=== PATIENT | male | born 1945 | race African-American/Black ===

== ENCOUNTER → 2016-06-03 | Outpatient (CLI) | payer MEDICARE ==
[2016-06-03 13:01] LABS: BLOOD UREA NITROGEN 52 mg/dL (7-20); CALCIUM 10.2 mg/dL (8.4-10.2); CREATININE RESULT 1.92 mg/dL (0.52-1.25); GLUCOSE 163 mg/dL (75-110)
[2016-06-03 13:02] LABS: ANION GAP 13 (5-19); CARBON DIOXIDE 28 mmol/L (22-30); CHLORIDE 96 mmol/L (98-107); POTASSIUM 3.9 mmol/L (3.6-5.0); SODIUM 137.1 mmol/L (137-145)
== END ==
LOC: OD 11:38
PROVIDERS: ATTEND Family Medicine
DX: I10 Essential (primary) hypertension (principal)
CPT/HCPCS: 36415; 80048

== ENCOUNTER → 2016-11-23 | Outpatient (CLI) | payer MEDICARE ==
[2016-11-23 11:40] LABS: PROTHROMBIN TIME 17.9 SEC (11.4-15.4)
== END ==
LOC: OD 10:21
PROVIDERS: ATTEND Specialist
DX: I48.0 Paroxysmal atrial fibrillation (principal); Z79.01 Long term (current) use of anticoagulants
CPT/HCPCS: 36415; 85610

== ENCOUNTER → 2016-12-07 | Outpatient (CLI) | payer MEDICARE ==
[2016-12-07 10:25] LABS: PROTHROMBIN TIME 16.8 SEC (11.4-15.4)
== END ==
LOC: OD 08:59
PROVIDERS: ATTEND Specialist
DX: I48.0 Paroxysmal atrial fibrillation (principal); Z79.01 Long term (current) use of anticoagulants
CPT/HCPCS: 36415; 85610

== ENCOUNTER → 2016-12-15 | Outpatient (CLI) | payer MEDICARE ==
[2016-12-15 09:58] LABS: PROTHROMBIN TIME 20.8 SEC (11.4-15.4)
== END ==
LOC: OD 08:27
PROVIDERS: ATTEND Specialist
DX: I48.0 Paroxysmal atrial fibrillation (principal); Z79.01 Long term (current) use of anticoagulants
CPT/HCPCS: 36415; 85610

== ENCOUNTER → 2016-12-29 | Outpatient (CLI) | payer MEDICARE ==
--- NOTE | 2016-12-29 12:19 | RADIOLOGY REPORT (SQ) ---
EXAM DESCRIPTION: CHEST PA/LATERAL COMPLETED DATE/TIME: 12/29/2016 11:49 am REASON FOR STUDY: COUGH COMPARISON: 08/05/2014, 07/29/2014, 03/10/2009 EXAM PARAMETERS: NUMBER OF VIEWS: two views TECHNIQUE: Digital Frontal and Lateral radiographic views of the chest acquired. RADIATION DOSE: NA LIMITATIONS: none FINDINGS: LUNGS AND PLEURA: Mild pulmonary vascular prominence. Trace fluid in the major fissures a nd left lateral costophrenic sulcus. Few Kristi lines at the bases pole suggestive of mild fluid ove rload with interstitial edema. No dense consolidation worrisome for pneumonia. No pneumothorax. MEDIASTINUM AND HILAR STRUCTURES: No masses or contour abnormalities. HEART AND VASCULAR STRUCTURES: Stable mild cardiomegaly and left-sided pacemaker BONES: No acute findings. HARDWARE: None in the chest. OTHER: No other significant finding. IMPRESSION: Mild fluid overload or congestive failure TECHNICAL DOCUMENTATION: JOB ID: [id number] [employer]- All Rights Reserved
== END ==
LOC: OD 11:24
PROVIDERS: ATTEND Family Medicine
DX: R05 Cough (principal)
CPT/HCPCS: 71020

== ENCOUNTER → 2016-12-30 | Outpatient (CLI) | payer MEDICARE ==
[2016-12-30 11:31] LABS: PROTHROMBIN TIME 40.5 SEC (11.4-15.4)
== END ==
LOC: OD 10:22
PROVIDERS: ATTEND Specialist
DX: I48.0 Paroxysmal atrial fibrillation (principal); Z79.01 Long term (current) use of anticoagulants
CPT/HCPCS: 36415; 85610

== ENCOUNTER → 2017-08-22 | Outpatient (CLI) | payer MEDICARE ==
[2017-08-22 10:15] LABS: APPEARANCE,URINE CLEAR; BILIRUBIN,URINE NEGATIVE (NEGATIVE); COLOR,URINE YELLOW; GLUCOSE, URINE NEGATIVE (NEGATIVE); KETONES,URINE NEGATIVE (NEGATIVE); LEUKOCYTE ESTERASE,URINE NEGATIVE (NEGATIVE); NITRITE,URINE NEGATIVE (NEGATIVE); PROTEIN,URINE NEGATIVE (NEGATIVE); URINE SPECIFIC GRAVITY 1.011; UROBILINOGEN,URINE NEGATIVE mg/dL (<2.0)
[2017-08-22 10:27] LABS: HEMOGLOBIN 11.5 g/dL (13.5-17.0); MEAN CORPUSCULAR HEMOGLOBIN 27.2 pg (27.0-33.4); MEAN CORPUSCULAR HGB CONC 32.8 g/dL (32.0-36.0); MEAN CORPUSCULAR VOLUME 83 fl (80-97); PLATELET COUNT 245 10^3/uL (150-450); RED BLOOD COUNT 4.21 10^6/uL (4.35-5.55); RED CELL DISTRIBUTION WIDTH 12.6 % (11.5-14.0); WHITE BLOOD COUNT 9.7 10^3/uL (4.0-10.5)
[2017-08-22 10:48] LABS: ALANINE AMINOTRANSFERASE 18 U/L (21-72); ALKALINE PHOSPHATASE 82 U/L (38-126); ANION GAP 13 (5-19); ASPARTATE AMINO TRANSFERASE 15 U/L (17-59); BILIRUBIN,DIRECT 0.3 mg/dL (0.0-0.4); BILIRUBIN,TOTAL 0.3 mg/dL (0.2-1.3); BLOOD UREA NITROGEN 46 mg/dL (7-20); CARBON DIOXIDE 23 mmol/L (22-30); CHLORIDE 104 mmol/L (98-107); GLUCOSE 112 mg/dL (75-110); POTASSIUM 4.8 mmol/L (3.6-5.0); SODIUM 140.4 mmol/L (137-145); TOTAL PROTEIN 7.7 g/dL (6.3-8.2)
== END ==
LOC: OD 09:21
PROVIDERS: ATTEND Internal Medicine Nephrology
DX: N18.3 Chronic kidney disease, stage 3 (moderate) (principal); E87.6 Hypokalemia; I50.9 Heart failure, unspecified
CPT/HCPCS: 36415; 80053; 81001; 85027

== ENCOUNTER → 2017-09-29 | Outpatient (CLI) | payer MEDICARE ==
[2017-09-29 12:03] LABS: HEMATOCRIT 36.5 % (37.9-51.0); HEMOGLOBIN 12.1 g/dL (13.5-17.0); MEAN CORPUSCULAR HEMOGLOBIN 27.7 pg (27.0-33.4); MEAN CORPUSCULAR HGB CONC 33.1 g/dL (32.0-36.0); MEAN CORPUSCULAR VOLUME 84 fl (80-97); PLATELET COUNT 236 10^3/uL (150-450); RED BLOOD COUNT 4.36 10^6/uL (4.35-5.55); RED CELL DISTRIBUTION WIDTH 12.9 % (11.5-14.0); WHITE BLOOD COUNT 9.8 10^3/uL (4.0-10.5)
[2017-09-29 12:13] LABS: APPEARANCE,URINE CLEAR; BILIRUBIN,URINE NEGATIVE (NEGATIVE); COLOR,URINE YELLOW; GLUCOSE, URINE NEGATIVE (NEGATIVE); KETONES,URINE NEGATIVE (NEGATIVE); LEUKOCYTE ESTERASE,URINE NEGATIVE (NEGATIVE); NITRITE,URINE NEGATIVE (NEGATIVE); PROTEIN,URINE NEGATIVE (NEGATIVE); URINE SPECIFIC GRAVITY 1.009; UROBILINOGEN,URINE NEGATIVE mg/dL (<2.0)
[2017-09-29 12:30] LABS: ANION GAP 12 (5-19); BLOOD UREA NITROGEN 39 mg/dL (7-20); CALCIUM 9.9 mg/dL (8.4-10.2); CARBON DIOXIDE 26 mmol/L (22-30); CHLORIDE 103 mmol/L (98-107); GLUCOSE 141 mg/dL (75-110); SODIUM 141.1 mmol/L (137-145)
== END ==
LOC: OD 11:22
PROVIDERS: ATTEND Internal Medicine Nephrology
DX: E11.22 Type 2 diabetes mellitus with diabetic chronic kidney disease (principal); I13.0 Hypertensive heart and chronic kidney disease with heart failure and stage 1 through stage 4 chronic kidney disease, or unspecified chronic kidney disease; N18.3 Chronic kidney disease, stage 3 (moderate); I50.9 Heart failure, unspecified; D64.9 Anemia, unspecified
CPT/HCPCS: 36415; 80048; 81001; 83735; 85027

== ENCOUNTER → 2018-02-14 | Outpatient (CLI) | payer MEDICARE ==
--- NOTE | 2018-02-14 16:42 | RADIOLOGY REPORT (SQ) ---
EXAM DESCRIPTION: CHEST PA/LATERAL COMPLETED DATE/TIME: 02/14/2018 3:52 pm REASON FOR STUDY: CHRONIC SYSTOLIC (CONGESTIVE) HEART FAILURE I50.22 CHRONIC SYSTOLIC (CONGESTIVE) HEART FAILURE COMPARISON: 08/05/2014 NUMBER OF VIEWS: Two view TECHNIQUE: Frontal and lateral radiographic images of the chest acquired. LIMITATIONS: None. FINDINGS: LUNGS AND PLEURA: Chronic interstitial changes. No evidence of pulmonary edema or pneumon ia. MEDIASTINUM AND HILAR STRUCTURES: Stable heart size and mediastinal structures. HEART AND VASCULAR STRUCTURES: Stable appearance. SUPPORT DEVICES: Unchanged position of defibrillator. BONES: No acute findings. OTHER: No other significant finding. IMPRESSION: Cardiomegaly. No acute findings. TECHNICAL DOCUMENTATION: JOB ID: [id number] [employer]- All Rights Reserved Reading location - IP/workstation name: [email or web address]
== END ==
LOC: OD 15:26
PROVIDERS: ATTEND Family Medicine
DX: I50.22 Chronic systolic (congestive) heart failure (principal); I51.7 Cardiomegaly
CPT/HCPCS: 71046

== ENCOUNTER → 2018-02-20 | Outpatient (CLI) | payer MEDICARE ==
[2018-02-20 11:59] LABS: ANION GAP 12 (5-19); BLOOD UREA NITROGEN 53 mg/dL (7-20); CALCIUM 9.5 mg/dL (8.4-10.2); CARBON DIOXIDE 26 mmol/L (22-30); CHLORIDE 103 mmol/L (98-107); GLUCOSE 100 mg/dL (75-110); POTASSIUM 4.5 mmol/L (3.6-5.0); SODIUM 141.3 mmol/L (137-145)
== END ==
LOC: OD 10:49
PROVIDERS: ATTEND Family Medicine
DX: I50.22 Chronic systolic (congestive) heart failure (principal)
CPT/HCPCS: 36415; 80048

== ENCOUNTER → 2018-03-30 | Outpatient (CLI) | payer MEDICARE ==
[2018-03-30 15:48] LABS: ANION GAP 8 (5-19); BLOOD UREA NITROGEN 40 mg/dL (7-20); CALCIUM 9.5 mg/dL (8.4-10.2); CARBON DIOXIDE 28 mmol/L (22-30); CHLORIDE 101 mmol/L (98-107); GLUCOSE 268 mg/dL (75-110); SODIUM 137.3 mmol/L (137-145)
== END ==
LOC: OD 14:52
PROVIDERS: ATTEND Internal Medicine Nephrology
DX: N18.3 Chronic kidney disease, stage 3 (moderate) (principal); I50.9 Heart failure, unspecified; E87.5 Hyperkalemia
CPT/HCPCS: 36415; 80048; 83735

== ENCOUNTER → 2018-05-09 | Outpatient (CLI) | payer MEDICARE ==
--- NOTE | 2018-05-09 13:51 | RADIOLOGY REPORT (SQ) ---
EXAM DESCRIPTION: CHEST PA/LATERAL COMPLETED DATE/TIME: 05/09/2018 1:39 pm REASON FOR STUDY: CHRONIC SYSTOLIC (CONGESTIVE) HEART FAILURE COMPARISON: 02/14/2018 EXAM PARAMETERS: NUMBER OF VIEWS: two views TECHNIQUE: Digital Frontal and Lateral radiographic views of the chest acquired. RADIATION DOSE: NA LIMITATIONS: none FINDINGS: LUNGS AND PLEURA: No opacities, masses or pneumothorax. No pleural effusion. MEDIASTINUM AND HILAR STRUCTURES: No masses or contour abnormalities. HEART AND VASCULAR STRUCTURES: Mild enlarged cardiac silhouette, stable. Tortuous atherosclerotic th oracic aorta. BONES: No acute findings. HARDWARE: Left-sided cardiac pacer/defibrillator with leads overlying right atrium and right ventricl e. OTHER: No other significant finding. IMPRESSION: Stable enlarged cardiac silhouette without evidence of acute cardiopulmonary process. TECHNICAL DOCUMENTATION: JOB ID: [id number] [employer]- All Rights Reserved Reading location - IP/workstation name: [email or web address]
== END ==
LOC: OD 13:19
PROVIDERS: ATTEND Physician Assistant
DX: I50.22 Chronic systolic (congestive) heart failure (principal)
CPT/HCPCS: 71046

== ENCOUNTER 2018-06-18 17:56 | Inpatient (IN) | payer MEDICARE ==
[2018-06-18] MEDS ORDERED: NORMAL SALINE 1000 ML 1,000 ML IV ONE (19:45)
[2018-06-18] MEDS ORDERED: INSULIN REG, HUMAN 100 UNIT/ML 3 ML VIAL (PYX) IV ONE (19:45)
[2018-06-18] MEDS ORDERED: KETOROLAC TROMETHAMINE INJ/PF 30 MG/1 ML SDV IV ONE (19:45)
--- NOTE | 2018-06-18 19:47 | ER Document Report ---
ED Medical Screen (RME) - General Chief Complaint: Abdominal Pain Stated Complaint: STOMACH PAIN Time Seen by Provider: 06/18/18 19:44 Primary Care Provider: TONEY DOVER PA [Primary Care Provider] - Follow up as needed Mode of Arrival: Medic Information source: Patient, Relative TRAVEL OUTSIDE OF THE [place] IN LAST 30 DAYS: No - HPI Patient complains to provider of: abd pain Onset: This morning - Pt. with onset of generalized abd pain starting earlier this am. FSBS was 525 in triage - Related Data Allergies/Adverse Reactions: No Known Allergies Allergy (Verified 07/29/14 08:37) Past Medical History - Past Medical History Cardiac Medical History: Reports: Hx Congestive Heart Failure, Hx Coronary Artery Disease, Hx Hypercholesterolemia, Hx Hypertension Denies: Hx Heart Attack Pulmonary Medical History: Denies: Hx Asthma, Hx Bronchitis, Hx COPD, Hx Pneumonia Neurological Medical History: Denies: Hx Cerebrovascular Accident, Hx Seizures Endocrine Medical History: Reports: Hx Diabetes Mellitus Type 1 Musculoskeltal Medical History: Reports Hx Arthritis - OSTEOARTHRITIS - Immunizations Hx Diphtheria, Pertussis, Tetanus Vaccination: Yes Physical Exam - Vital signs Vitals: Temp Pulse Resp BP Pulse Ox 97.8 F 73 20 99/70 L 99 06/18/18 18:31 06/18/18 18:31 06/18/18 18:31 06/18/18 18:31 06/18/18 18:31 Course - Vital Signs Vital signs: Temp Pulse Resp BP Pulse Ox 97.3 F 69 18 116/68 100 06/18/18 19:41 06/18/18 19:41 06/18/18 19:41 06/18/18 19:41 06/18/18 19:41 Doctor's Discharge - Discharge Referrals: TONEY DOVER PA [Primary Care Provider] - Follow up as needed
[2018-06-18 20:48] LABS: ABSOLUTE BASOPHILS # (AUTO) 0.1 10^3/uL (0.0-0.2); ABSOLUTE LYMPHOCYTES (AUTO) 0.8 10^3/uL (0.5-4.7); ABSOLUTE MONOCYTES (AUTO) 0.5 10^3/uL (0.1-1.4); ABSOLUTE NEUT (AUTO) 8.1 10^3/uL (1.7-8.2); BASOPHILS % (AUTO) 0.8 % (0-2); EOSINOPHILS % (AUTO) 0.2 % (0-6); HEMATOCRIT 45.6 % (37.9-51.0); HEMOGLOBIN 15.1 g/dL (13.5-17.0); LYMPHOCYTES % (AUTO) 8.4 % (13-45); MEAN CORPUSCULAR HEMOGLOBIN 28.8 pg (27.0-33.4); MEAN CORPUSCULAR VOLUME 87 fl (80-97); MONOCYTES % (AUTO) 5.4 % (3-13); PLATELET COUNT 267 10^3/uL (150-450); RED BLOOD COUNT 5.23 10^6/uL (4.35-5.55); RED CELL DISTRIBUTION WIDTH 15.2 % (11.5-14.0); SEGMENTED NEUTROPHILS % (AUTO) 85.2 % (42-78); TOTAL CELLS COUNTED % (AUTO) 100 %; WHITE BLOOD COUNT 9.5 10^3/uL (4.0-10.5)
[2018-06-18 21:16] LABS: ALANINE AMINOTRANSFERASE 26 U/L (21-72); ALBUMIN 4.4 g/dL (3.5-5.0); ALKALINE PHOSPHATASE 115 U/L (38-126); ANION GAP 11 (5-19); ASPARTATE AMINO TRANSFERASE 50 U/L (17-59); BILIRUBIN,DIRECT 0.7 mg/dL (0.0-0.4); BILIRUBIN,TOTAL 1.5 mg/dL (0.2-1.3); BLOOD UREA NITROGEN 62 mg/dL (7-20); CALCIUM 10.1 mg/dL (8.4-10.2); CARBON DIOXIDE 26 mmol/L (22-30); CHLORIDE 96 mmol/L (98-107); LIPASE 75.7 U/L (23-300); POTASSIUM 5.3 mmol/L (3.6-5.0); SODIUM 133.2 mmol/L (137-145); TOTAL PROTEIN 8.8 g/dL (6.3-8.2)
[2018-06-18 21:25] LABS: APPEARANCE,URINE CLEAR; BILIRUBIN,URINE NEGATIVE (NEGATIVE); COLOR,URINE STRAW; GLUCOSE, URINE >=500 mg/dL (NEGATIVE); KETONES,URINE NEGATIVE (NEGATIVE); LEUKOCYTE ESTERASE,URINE NEGATIVE (NEGATIVE); NITRITE,URINE NEGATIVE (NEGATIVE); PROTEIN,URINE NEGATIVE (NEGATIVE); URINE SPECIFIC GRAVITY 1.007; UROBILINOGEN,URINE NEGATIVE mg/dL (<2.0)
[2018-06-18 21:28] LABS: GLUCOSE 431 mg/dL (75-110)
[2018-06-18] MEDS ORDERED: ONDANSETRON HCL INJ/PF 4 MG/2 ML SDV IV ONE (21:28)
[2018-06-18] MEDS ORDERED: HUM INSULIN NPH/REG INSULIN HM 100 UNIT/1 ML 3 ML SUBCUT ONE (22:00)
[2018-06-18] MEDS ORDERED: PROMETHAZINE HCL INJ 25 MG/1 ML VIAL IM ONE (22:01)
--- NOTE | 2018-06-19 00:15 | ER Document Report ---
ED General - General Chief Complaint: Abdominal Pain Stated Complaint: STOMACH PAIN Time Seen by Provider: 06/18/18 19:44 Mode of Arrival: Medic Notes: Patient is a 73-year-old male who presents with complaint of abdominal pain and vomiting. Pain is in the center and left side of the abdomen. Pain started earlier today. He has received medications from triage and says his pain is relieved. He still has some nausea. No fevers. No diarrhea. No blood in his vomit emesis. No blood in his stool. He is a diabetic. He does have chronic renal insufficiency. [facility] Patient has had previous partial colectomy as well as cholecystectomy. TRAVEL OUTSIDE OF THE [place] IN LAST 30 DAYS: No - Related Data Allergies/Adverse Reactions: No Known Allergies Allergy (Verified 07/29/14 08:37) Past Medical History - General Information source: Patient, Relative - Social History Smoking Status: Never Smoker Frequency of alcohol use: None Drug Abuse: None Family History: Reviewed & Not Pertinent Patient has suicidal ideation: No Patient has homicidal ideation: No - Past Medical History Cardiac Medical History: Reports: Hx Atrial Fibrillation, Hx Congestive Heart Failure, Hx Coronary Artery Disease, Hx Hypercholesterolemia, Hx Hypertension Denies: Hx Heart Attack Pulmonary Medical History: Denies: Hx Asthma, Hx Bronchitis, Hx COPD, Hx Pneumonia Neurological Medical History: Denies: Hx Cerebrovascular Accident, Hx Seizures Endocrine Medical History: Reports: Hx Diabetes Mellitus Type 1, Hx Diabetes Mellitus Type 2 Renal/ Medical History: Denies: Hx Peritoneal Dialysis Musculoskeletal Medical History: Reports Hx Arthritis - OSTEOARTHRITIS - Immunizations Hx Diphtheria, Pertussis, Tetanus Vaccination: Yes Review of Systems - Review of Systems Notes: My Normal Review Basic REVIEW OF SYSTEMS: CONSTITUTIONAL : Denies fever, chills, or sweats. Denies recent illness. EENT: Denies eye, ear, throat, or mouth pain or symptoms. Denies nasal or sinus congestion. CARDIOVASCULAR: Denies chest pain. RESPIRATORY: Denies cough, cold, or chest congestion. Denies shortness of breath, difficulty breathing, or wheezing. GASTROINTESTINAL: abdominal pain. Vomiting. GENITOURINARY: Denies difficulty urinating, painful urination, burning, frequency, or blood in urine. MUSCULOSKELETAL: Denies neck or back pain or joint pain or swelling. SKIN: Denies rash or skin lesions. NEUROLOGICAL: Denies altered mental status or loss of consciousness. Denies headache. Denies weakness or paralysis or loss of use of either side. Denies problems with gait or speech. Denies sensory or motor loss. ALL OTHER SYSTEMS REVIEWED AND NEGATIVE. Physical Exam - Vital signs Vitals: Temp Pulse Resp BP Pulse Ox 97.8 F 73 20 99/70 L 99 06/18/18 18:31 06/18/18 18:31 06/18/18 18:31 06/18/18 18:31 06/18/18 18:31 - Notes Notes: General Appearance: Well nourished, alert, cooperative, no acute distress, no obvious discomfort. Vitals: reviewed, See vital signs table. Head: no swelling or tenderness to the head Eyes: PERRL, EOMI, Conjuctiva clear Mouth: No decreasd moisture Throat: No tonsillar inflammation, No airway obstruction, No lymphadenopathy Neck: Supple, no neck tenderness, No thyromegaly Lungs: No wheezing, No rales, No rhonci, No accessory muscle use, good air exchange bilaterally. Heart: Normal rate, Regular rythm, No murmur, no rub Abdomen: Normal BS, soft, No rigidity, no reproducible abdominal tenderness to palpation., No guarding, no rebound, no abdominal masses, no organomegaly. Surgical scars on abdomen from previous surgeries. Extremities: strength 5/5 in all extremities, good pulses in all extremities, no swelling or tenderness in the extremities, no edema. Skin: warm, dry, appropriate color, no rash Neuro: speech clear, oriented x 3, normal affect, responds appropriately to questions. Course - Re-evaluation Re-evalutation: 06/19/18 00:15 On reevaluation patient is pain-free and his nausea is gone. I am awaiting his repeat BMP to make sure this continues to look appropriate with improvement of his blood sugar and improvement of his renal function. 06/19/18 05:21 Patient is still pain-free and his nausea is improved. I am concerned that his renal function did not improve and the repeat BMP and is actually worsened. He has what appears to be acute on chronic renal failure. Blood sugar start to improve. Feel the patient needs continued rehydration to help fix his renal failure. I cannot give him more boluses quickly as the patient has history of CHF with ejection fraction of only 20% therefore I feel that he requires slow IV rehydration. I therefore called and spoke with Dr. Tran who agrees to accept the patient will have Dr. Vaughn for continued management and treatment of the patient's symptoms and acute renal failure and hyperglycemia. Dictation of this chart was performed using voice recognition software; therefore, there may be some unintended grammatical errors. - Vital Signs Vital signs: Temp Pulse Resp BP Pulse Ox 98.1 F 69 15 105/85 97 06/19/18 01:02 06/18/18 19:41 06/19/18 03:01 06/19/18 03:00 06/19/18 03:01 - Laboratory Result Diagrams: 06/18/18 20:30 06/18/18 23:45 Laboratory results interpreted by me: 06/18/18 06/18/18 06/18/18 20:30 20:30 20:30 RDW 15.2 H Seg Neutrophils % 85.2 H Lymphocytes % 8.4 L Sodium 133.2 L Potassium 5.3 H Chloride 96 L BUN 62 H Creatinine 2.45 H Est GFR ( Amer) 32 L Est GFR (Non-Af Amer) 26 L Glucose 431 H* POC Glucose Total Bilirubin 1.5 H Direct Bilirubin 0.7 H Total Protein 8.8 H Urine Glucose (UA) >=500 H Urine Blood SMALL H 06/18/18 06/18/18 06/18/18 21:17 23:06 23:45 RDW Seg Neutrophils % Lymphocytes % Sodium 132.8 L Potassium 5.5 H Chloride BUN 58 H Creatinine 2.56 H Est GFR ( Amer) 30 L Est GFR (Non-Af Amer) 25 L Glucose 367 H POC Glucose 360 H 333 H Total Bilirubin Direct Bilirubin Total Protein Urine Glucose (UA) Urine Blood - EKG Interpretation by Me Additional EKG results interpreted by me: 06/19/18 00:25 EKG is reviewed and interpreted by me. EKG shows sinus rhythm with rate [address] segment elevation or depression. Occasional PVC. Portable is prolonged. QRS duration slightly prolonged. QTc interval is prolonged. No acute changes in comparison to EKG from September 04, 2014. 06/19/18 00:27 Discharge - Discharge Clinical Impression: Acute on chronic renal failure Qualifiers: Acute renal failure type: unspecified Chronic kidney disease stage: unspecified stage Qualified Code(s): N17.9 - Acute kidney failure, unspecified Vomiting Qualifiers: Vomiting type: unspecified Vomiting Intractability: non-intractable Nausea presence: with nausea Qualified Code(s): R11.2 - Nausea with vomiting, uns pecified Abdominal pain Qualifiers: Abdominal location: left upper quadrant Qualified Code(s): R10.12 - Left upper quadrant pain Condition: Stable Disposition: ADMITTED OBSERVATION Admitting Provider: Vaughn Unit Admitted: Telemetry
[2018-06-19 00:16] LABS: ANION GAP 8 (5-19); BLOOD UREA NITROGEN 58 mg/dL (7-20); CALCIUM 9.4 mg/dL (8.4-10.2); CARBON DIOXIDE 25 mmol/L (22-30); CHLORIDE 100 mmol/L (98-107); GLUCOSE 367 mg/dL (75-110); POTASSIUM 5.5 mmol/L (3.6-5.0); SODIUM 132.8 mmol/L (137-145)
[2018-06-19] MEDS ORDERED: NORMAL SALINE 1000 ML 1,000 ML IV ONE ×2 (00:32→09:30)
--- NOTE | 2018-06-19 01:25 | EKG REPORT ---
SEVERITY:- ABNORMAL ECG - SINUS RHYTHM VENTRICULAR PREMATURE COMPLEX FIRST DEGREE AV BLOCK INCOMPLETE LEFT BUNDLE BRANCH BLOCK : Confirmed by: Ginny Weber MD 19-Jun-2018 01:24:39
[2018-06-19] MEDS ORDERED: ACETAMINOPHEN 325 MG TABLET PO PRN ×2 (05:24→12:37)
[2018-06-19] MEDS ORDERED: DEXTROSE 40% GEL 15 GM TUBE PO PRN ×2 (07:21)
[2018-06-19] MEDS ORDERED: GLUCAGON,HUMAN RECOMB 1 MG INJ IM PRN (07:21)
[2018-06-19] MEDS ORDERED: DEXTROSE 50%-WATER 25 GM/50 ML DISP.SYRIN IV PRN ×2 (07:21)
[2018-06-19] MEDS: INSULIN LISPRO 100 UNIT/ML 3 ML VIAL SUBCUT SCH (08:15)
--- NOTE | 2018-06-19 09:19 | RADIOLOGY REPORT (SQ) ---
EXAM DESCRIPTION: U/S ABDOMEN COMPLETE W/O DOP COMPLETED DATE/TIME: 06/19/2018 8:57 am REASON FOR STUDY: abdominal pain/gallbaldeer diseses R10.84 GENERALIZED ABDOMINAL PAIN COMPARISON: None. TECHNIQUE: Dynamic and static grayscale images acquired of the abdomen and recorded on PACS. Additio nal selected color Doppler and spectral images recorded. Note: Study does not meet criteria for complete doppler/duplex scan LIMITATIONS: Examination is limited due to bowel gas. FINDINGS: PANCREAS: The pancreas is not visualized due to overlying bowel gas. LIVER: Fatty liver. The liver measures 16.2 cm in length, normal size. LIVER VASCULATURE: Normal directional flow of the main portal vein and hepatic veins. GALLBLADDER: Gallstones and gallbladder sludge. The gallbladder is dilated. The gallbladder wall m easures 2.2 mm, normal wall thickness. No pericholecystic fluid. ULTRASOUND-DETECTED MULLEN'S SIGN: Negative. INTRAHEPATIC DUCTS AND COMMON DUCT: CBD measures 6.5 mm in diameter, upper limits of normal. The int rahepatic ducts normal caliber. No filling defects. INFERIOR VENA CAVA: Normal flow. AORTA: The proximal abdominal aorta is obscured by overlying bowel gas. The mid segment measures 1. 1 cm in diameter and distal segment measures 1.0 cm in diameter. RIGHT KIDNEY: The right kidney measures 10.0 x 4.6 x 4.9 cm, normal size. Normal echogenicity. N o solid or suspicious masses. No hydronephrosis. No calcifications. PERITONEAL AND PLEURAL SPACES: No ascites or effusions. OTHER: No other significant finding. IMPRESSION: 1. The pancreas and proximal abdominal aorta are obscured by overlying bowel gas. 2. Gallstones and gallbladder sludge. The gallbladder is dilated. 3. Fatty liver. TECHNICAL DOCUMENTATION: JOB ID: [id number] [employer]- All Rights Reserved Reading location - IP/workstation name: [email or web address]
[2018-06-19] MEDS ORDERED: (PENDING PHARMACY ID) (Acetaminophen [Tylenol] 650 MG) PO PRN (11:53)
[2018-06-19] MEDS ORDERED: (PENDING PHARMACY ID) (Nitroglycerin [Nitrostat] 0.3 MG) SL PRN (11:53)
--- NOTE | 2018-06-19 11:53 | PDOC H&P ---
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%'s with a long-standing [facility] just discharged last week with a history of type 2 diabetes history of the chronic kidney disease with history of the defibrillator and history of the gallbladder disease came to the emergency department with the complaining of abdominal pain nausea and vomiting started yesterday and not feeling well In the emergency department his initial workup with the creatinine was 2.5 and patient's potassium was 5.5 and the ER physicians thought may be a kidney problem but when I saw the patient's the patient's kidney problem is pretty much baseline creatinine patient have underlying gallbladder disease which is gallstone but unable to go for any surgery due to the multiple cardiac issues Patient's denied any chest pain denied any shortness of the breath At this point decided to further evaluate will order the CT scan of the abdomen and pelvis and ultrasound to rule out any underlying gallbladder disorders which causing the patient's symptoms and other etiology We will consult the cardiology and nephrology with the patient's significant comorbidity Past Medical History Cardiac Medical History: Reports: Atrial Fibrillation, Congestive Heart Failure, Coronary Artery Disease, Hyperlipidema, Hypertension Denies: Myocardial Infarction Pulmonary Medical History: Denies: Asthma, Bronchitis, Chronic Obstructive Pulmonary Disease (COPD), Pneumonia Neurological Medical History: Denies: Seizures Endocrine Medical History: Reports: Diabetes Mellitus Type 2 Renal/ Medical History: Reports: Chronic Kidney Disease GI Medical History: Reports: Gastroesophageal Reflux Disease Musculoskeltal Medical History: Reports: Arthritis - OSTEOARTHRITIS Psychiatric Medical History: Reports: Depression Hematology: Reports: Anemia Past Surgical History Past Surgical History: Reports: Cardiac Catheterization, Internal Defibrillator Social History Smoking Status: Never Smoker Frequency of Alcohol Use: None Hx Recreational Drug Use: No Hx Prescription Drug Abuse: No Family History Family History: Reviewed & Not Pertinent Parental Family History Reviewed: Yes Children Family History Reviewed: Yes Sibling(s) Family History Reviewed.: Yes Medication/Allergy Home Medications: Aspirin 81 mg PO DAILY 07/29/14 Levothyroxine Sodium 125 mcg PO DAILY 07/29/14 Montelukast Sodium 10 mg PO DAILY 07/29/14 Nitroglycerin [Nitrostat] 0.3 mg SL ASDIR PRN 07/29/14 Simvastatin 20 mg PO QHS 07/29/14 Tiotropium [place] [Spiriva Handihaler 18 mcg/dose (30 Dose)] 1 cap IH DAILY 07/29/14 Acetaminophen [Tylenol] 650 mg PO Q6HP PRN 06/19/18 Amiodarone HCl [Cordarone 200 mg Tablet] 200 mg PO DAILY 06/19/18 Apixaban [Eliquis 5 mg Tablet] 5 mg PO Q12 06/19/18 Bisoprolol Fumarate [Zebeta 5 mg Tablet] 2.5 mg PO DAILY 06/19/18 Docusate Sodium [Colace] 100 mg PO DAILY 06/19/18 Hydralazine HCl [Apresoline 25 mg Tablet] 12.5 mg PO Q8H 06/19/18 Insulin NPH Hum/Reg Insulin Hm [Humulin 70/30 Kwikpen] 15 units SQ QPM 06/19/18 Insulin NPH Hum/Reg Insulin Hm [Humulin 70/30 Kwikpen] 18 units SQ QAM 06/19/18 Pantoprazole Sodium [Protonix] 40 mg PO DAILY 06/19/18 Potassium Chloride [Klor-Con M20] 60 meq PO Q12 06/19/18 Sitagliptin Phosphate [Januvia 50 mg Tablet] 50 mg PO DAILY 06/19/18 Torsemide [Demadex 20 mg Tablet] 80 mg PO BID 06/19/18 Allergies/Adverse Reactions: No Known Allergies Allergy (Verified 07/29/14 08:37) Review of Systems Constitutional: ABSENT: chills, fever(s), headache(s), weight gain, weight loss Eyes: ABSENT: visual disturbances Ears: ABSENT: hearing changes Cardiovascular: ABSENT: chest pain, dyspnea on exertion, edema, orthropnea, palpitations Respiratory: ABSENT: cough, hemoptysis Gastrointestinal: PRESENT: abdominal pain, nausea, vomiting. ABSENT: constipation, diarrhea, hematemesis, hematochezia Genitourinary: ABSENT: dysuria, hematuria Musculoskeletal: ABSENT: joint swelling Integumentary: ABSENT: rash, wounds Neurological: ABSENT: abnormal gait, abnormal speech, confusion, dizziness, focal weakness, syncope Psychiatric: ABSENT: anxiety, depression, homidical ideation, suicidal ideation Endocrine: ABSENT: cold intolerance, heat intolerance, menstrual abnormalities, polydipsia, polyuria Hematologic/Lymphatic: ABSENT: easy bleeding, easy bruising, lymphadenopathy Physical Exam Vital Signs: Temp Pulse Resp BP Pulse Ox 98.3 F 69 17 112/78 99 06/19/18 06:17 06/18/18 19:41 06/19/18 10:01 06/19/18 10:01 06/19/18 10:01 Intake & Output 06/18/18 06/19/18 06/20/18 06:59 06:59 06:59 Intake Total 1000 1000 Balance 1000 1000 Weight 87.1 kg General appearance: PRESENT: no acute distress, well-developed, well-nourished Head exam: PRESENT: atraumatic, normocephalic Eye exam: PRESENT: conjunctiva pink, EOMI, PERRLA. ABSENT: scleral icterus Ear exam: PRESENT: normal external ear exam Mouth exam: PRESENT: moist, tongue midline Neck exam: PRESENT: full ROM. ABSENT: carotid bruit, JVD, lymphadenopathy, thyromegaly Respiratory exam: PRESENT: clear to auscultation erasmo Cardiovascular exam: ABSENT: diastolic murmur, rubs, systolic murmur Pulses: PRESENT: normal dorsalis pedis pul, +2 pedal pulses bilateral Vascular exam: PRESENT: normal capillary refill GI/Abdominal exam: PRESENT: normal bowel sounds, soft. ABSENT: distended, guarding, mass, organolmegaly, rebound, tenderness Rectal exam: PRESENT: deferred Extremities exam: ABSENT: pedal edema Musculoskeletal exam: PRESENT: ambulatory Neurological exam: PRESENT: alert, awake, oriented to person, oriented to place, oriented to time, oriented to situation, CN II-XII grossly intact. ABSENT: motor sensory deficit Psychiatric exam: PRESENT: appropriate affect, normal mood. ABSENT: homicidal ideation, suicidal ideation Skin exam: PRESENT: dry, intact, warm. ABSENT: cyanosis, rash Results Laboratory Results: 06/18/18 20:30 06/18/18 23:45 06/18/18 06/18/18 06/18/18 20:30 20:30 20:30 WBC 9.5 RBC 5.23 Hgb 15.1 Hct 45.6 MCV 87 MCH 28.8 MCHC 33.0 RDW 15.2 H Plt Count 267 Seg Neutrophils % 85.2 H Lymphocytes % 8.4 L Monocytes % 5.4 Eosinophils % 0.2 Basophils % 0.8 Absolute Neutrophils 8.1 Absolute Lymphocytes 0.8 Absolute Monocytes 0.5 Absolute Eosinophils 0.0 Absolute Basophils 0.1 Sodium 133.2 L Potassium 5.3 H Chloride 96 L Carbon Dioxide 26 Anion Gap 11 BUN 62 H Creatinine 2.45 H Est GFR ( Amer) 32 L Est GFR (Non-Af Amer) 26 L Glucose 431 H* Calcium 10.1 Total Bilirubin 1.5 H AST 50 ALT 26 Alkaline Phosphatase 115 Total Protein 8.8 H Albumin 4.4 Lipase 75.7 Urine Color STRAW Urine Appearance CLEAR Urine pH 5.0 Ur Specific [place] 1.007 Urine Protein NEGATIVE Urine Glucose (UA) >=500 H Urine Ketones NEGATIVE Urine Blood SMALL H Urine Nitrite NEGATIVE Ur Leukocyte Esterase NEGATIVE Urine WBC (Auto) 0 Urine RBC (Auto) 1 06/18/18 23:45 WBC RBC Hgb Hct MCV MCH MCHC RDW Plt Count Seg Neutrophils % Lymphocytes % Monocytes % Eosinophils % Basophils % Absolute Neutrophils Absolute Lymphocytes Absolute Monocytes Absolute Eosinophils Absolute Basophils Sodium 132.8 L Potassium 5.5 H Chloride 100 Carbon Dioxide 25 Anion Gap 8 BUN 58 H Creatinine 2.56 H Est GFR ( Amer) 30 L Est GFR (Non-Af Amer) 25 L Glucose 367 H Calcium 9.4 Total Bilirubin AST ALT Alkaline Phosphatase Total Protein Albumin Lipase Urine Color Urine Appearance Urine pH Ur Specific [place] Urine Protein Urine Glucose (UA) Urine Ketones Urine Blood Urine Nitrite Ur Leukocyte Esterase Urine WBC (Auto) Urine RBC (Auto) Impressions: Abdomen Ultrasound 06/19/18 00:00 IMPRESSION: 1. The pancreas and proximal abdominal aorta are obscured by overlying bowel gas. 2. Gallstones and gallbladder sludge. The gallbladder is dilated. 3. Fatty liver. Assessment & Plan - Diagnosis (1) Abdominal pain Qualifiers: Abdominal location: left upper quadrant Qualified Code(s): R10.12 - Left upper quadrant pain Is this a current diagnosis for this admission?: Yes Plan: Likely underlying gallbladder disease We will get the ultrasound for the gallbladder and CT scan of the abdomen and pelvis Consult to general surgery for further evaluations (2) Acute on chronic renal failure Qualifiers: Acute renal failure type: unspecified Chronic kidney disease stage: unspecified stage Qualified Code(s): N17.9 - Acute kidney failure, unspecified; N18.9 - Chronic kidney disease, unspecified Is this a current diagnosis for this admission?: Yes Plan: Patient is currently taking the torsemide 60 mg twice a day and potassium is We hold the potassiums Consult the nephrology (3) Afib Qualifiers: Atrial fibrillation type: chronic Qualified Code(s): I48.2 - Chronic atrial fibrillation Is this a current diagnosis for this admission?: Yes Plan: Patient is currently on Eliquis (4) CAD (coronary artery disease) Qualifiers: Coronary Disease-Associated Artery/Lesion type: [place] artery Associated angina: with other forms of angina Is this a current diagnosis for this admission?: Yes Plan: Is currently admitting in the [facility] see the cardiology over there (5) CHF (congestive heart failure) Qualifiers: Heart failure type: combined systolic and diastolic Heart failure chronicity: chronic Qualified Code(s): I50.42 - Chronic combined systolic (congestive) and diastolic (congestive) heart failure Is this a current diagnosis for this admission?: Yes Plan: Patient is currently admitting in the [facility] currently stable co ntinues of diuretics (6) CKD (chronic kidney disease) Qualifiers: Chronic kidney disease stage: stage 3 (moderate) Qualified Code(s): N18.3 - Chronic kidney disease, stage 3 (moderate) Is this a current diagnosis for this admission?: Yes Plan: Consult the nephrology get the ultrasound for the kidney (7) Gall stone Qualifiers: Cholecystitis acuity: acute and chronic Is this a current diagnosis for this admission?: Yes Plan: We will get the ultrasound of the abdomen and CT scan of the abdomen and pelvis (8) HLD (hyperlipidemia) Qualifiers: Hyperlipidemia type: unspecified Qualified Code(s): E78.5 - Hyperlipidemia, unspecified Is this a current diagnosis for this admission?: Yes (9) HTN (hypertension) Qualifiers: Hypertension type: essential hypertension Qualified Code(s): I10 - Essential (primary) hypertension Is this a current diagnosis for this admission?: Yes Plan: Denies to current medications (10) Type 2 diabetes mellitus Qualifiers: 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 Chronic kidney disease stage: stage 3 (moderate) Is this a current diagnosis for this admission?: Yes Plan: Continue sliding scale (11) Hyperkalemia Is this a current diagnosis for this admission?: Yes Plan: We hold the potassiums - Time Time Spent: 50 to 70 Minutes Medications reviewed and adjusted accordingly: Yes Anticipated discharge: Home Within: Other - Inpatient Certification Based on my medical assessment, after consideration of the patient's comorbidities, presenting symptoms, or acuity I expect that the services needed warrant INPATIENT care.: Yes I certify that my determination is in accordance with my understanding of Medicare's requirements for reasonable and necessary INPATIENT services [42 CFR 412.3e].: Yes Medical Necessity: Need Close Monitoring Due to Risk of Patient Decompensation Post Hospital Care: D/C [employer] Documentation - Patient's EKG with - Plan Summary Plan Summary: Admit the patient in the hospital Consult the J=surgery after the CT scan and ultrasound
--- NOTE | 2018-06-19 12:16 | RADIOLOGY REPORT (SQ) ---
EXAM DESCRIPTION: CT ABD/PELVIS NO ORAL OR IV COMPLETED DATE/TIME: 06/19/2018 9:15 am REASON FOR STUDY: abd pain R10.84 GENERALIZED ABDOMINAL PAIN COMPARISON: Right upper quadrant ultrasound 06/19/2018 CT abdomen pelvis 07/10/2014 TECHNIQUE: CT scan of the abdomen and pelvis performed without intravenous or oral contrast. Images reviewed with lung, soft tissue, and bone windows. Reconstructed coronal and sagittal MPR images revi ewed. All images stored on PACS. All CT scanners at this facility use dose modulation, iterative reconstruction, and/or weight based d osing when appropriate to reduce radiation dose to as low as reasonably achievable (ALARA). [facility]: Dose Right [facility]: CareDose [facility]: Dose Right [facility]: Teradose 4D [facility]: Smart Technologies RADIATION DOSE: CT Rad equipment meets quality standard of care and radiation dose reduction techniq ues were employed. CTDIvol: 13.8 mGy. DLP: 776 mGy-cm.mGy. LIMITATIONS: None. FINDINGS: LOWER CHEST: No significant findings. No nodules or infiltrates. NON-CONTRASTED LIVER, SPLEEN, ADRENALS: Evaluation limited by lack of IV contrast. No identified sign ificant masses. Benign less than 2 cm cysts in the left lobe liver and right lobe liver. PANCREAS: No masses. No peripancreatic inflammatory changes. GALLBLADDER: Multiple tiny stones layer dependently in the gallbladder. No gallbladder wall thickeni ng or pericholecystic fluid. RIGHT KIDNEY AND URETER: No suspicious masses. Assessment limited by lack of IV contrast. No signif icant calcifications. No hydronephrosis or hydroureter. LEFT KIDNEY AND URETER: No suspicious masses. Assessment limited by lack of IV contrast. No signifi cant calcifications. No hydronephrosis or hydroureter. AORTA AND RETROPERITONEUM: No aneurysm. No retroperitoneal masses or adenopathy. BOWEL AND PERITONEAL CAVITY: No obvious masses or inflammatory changes. No free fluid. APPENDIX: Normal. PELVIS, BLADDER, AND ABDOMINAL WALL:No abnormal masses. No free fluid. Bladder normal. BONES: No significant findings. OTHER: No other significant finding. IMPRESSION: Stones in the gallbladder without CT signs of acute cholecystitis. COMMENT: Quality ID # [id number]: Final reports with documentation of one or more dose reduction techniques (e.g., Automated exposure control, adjustment of the mA and/or kV according to patient size, use of iterative reconstruction technique) TECHNICAL DOCUMENTATION: JOB ID: [id number] [employer] [place]- All Rights Reserved Reading location - IP/workstation name: [email or web address]
[2018-06-19] MEDS: HYDRALAZINE HCL 25 MG TABLET PO SCH ×2 (12:44→21:07)
--- NOTE | 2018-06-19 16:54 | PDOC CONSULTATION ---
Consultation Consult Date: 06/19/18 Attending physician:: LENA DEMARCO History of Present Illness Admission Date/PCP: 06/19/18 12:54 LENA DEMARCO MD Patient complains of: Abdominal pain History of Present Illness: SANDRA COHN is a 73 year old male Patient is admitted to the internal medicine service for further evaluation and treatment. Surgery was consulted. Patient has history of postprandial pain epigastric and right upper quadrant. Has a known history of gallstones. He was reevaluated with ultrasonography and CT scan of the abdomen and pelvis without IV and oral contrast which showed dilated gallbladder with gallstones. Patient has a known history symptomatic cholecystitis, and was seen by surgery, specifically [facility], and felt not to be an appr opriate candidate for surgical intervention due to severe cardiomyopathy, and recent exacerbation of congestive heart failure. Patient now being admitted for abdominal pain Past Medical History Cardiac Medical History: Reports: Atrial Fibrillation, Congestive Heart Failure, Coronary Artery Disease, Hyperlipidema, Hypertension Denies: Myocardial Infarction Pulmonary Medical History: Denies: Asthma, Bronchitis, Chronic Obstructive Pulmonary Disease (COPD), Pneumonia Neurological Medical History: Denies: Seizures Endocrine Medical History: Reports: Diabetes Mellitus Type 1, Diabetes Mellitus Type 2 Renal/ Medical History: Reports: Chronic Kidney Disease GI Medical History: Reports: Gastroesophageal Reflux Disease Musculoskeltal Medical History: Reports: Arthritis - OSTEOARTHRITIS Psychiatric Medical History: Reports: Depression Hematology: Reports: Anemia Past Surgical History Past Surgical History: Reports: Cardiac Catheterization, Internal Defibrillator Social History Smoking Status: Never Smoker Frequency of Alcohol Use: None Hx Recreational Drug Use: No Drugs: None Hx Prescription Drug Abuse: No Family History Family History: Reviewed & Not Pertinent Parental Family History Reviewed: Yes Children Family History Reviewed: Yes Sibling(s) Family History Reviewed.: Yes Medication/Allergy Home Medications: Aspirin 81 mg PO DAILY 07/29/14 Levothyroxine Sodium 125 mcg PO DAILY 07/29/14 Montelukast Sodium 10 mg PO DAILY 07/29/14 Nitroglycerin [Nitrostat] 0.3 mg SL ASDIR PRN 07/29/14 Simvastatin 20 mg PO QHS 07/29/14 Tiotropium [place] [Spiriva Handihaler 18 mcg/dose (30 Dose)] 1 cap IH DAILY 07/29/14 Acetaminophen [Tylenol] 650 mg PO Q6HP PRN 06/19/18 Amiodarone HCl [Cordarone 200 mg Tablet] 200 mg PO DAILY 06/19/18 Apixaban [Eliquis 5 mg Tablet] 5 mg PO Q12 06/19/18 Bisoprolol Fumarate [Zebeta 5 mg Tablet] 2.5 mg PO DAILY 06/19/18 Docusate Sodium [Colace] 100 mg PO DAILY 06/19/18 Hydralazine HCl [Apresoline 25 mg Tablet] 12.5 mg PO Q8H 06/19/18 Insulin NPH Hum/Reg Insulin Hm [Humulin 70/30 Kwikpen] 15 units SQ QPM 06/19/18 Insulin NPH Hum/Reg Insulin Hm [Humulin 70/30 Kwikpen] 18 units SQ QAM 06/19/18 Pantoprazole Sodium [Protonix] 40 mg PO DAILY 06/19/18 Potassium Chloride [Klor-Con M20] 60 meq PO Q12 06/19/18 Sitagliptin Phosphate [Januvia 50 mg Tablet] 50 mg PO DAILY 06/19/18 Torsemide [Demadex 20 mg Tablet] 80 mg PO BID 06/19/18 Allergies/Adverse Reactions: No Known Allergies Allergy (Verified 07/29/14 08:37) Review of Systems ROS unobtainable: Other - See below Physical Exam Vital Signs: Temp Pulse Resp BP Pulse Ox 98.3 F 69 22 H 92/69 L 98 06/19/18 06:17 06/18/18 19:41 06/19/18 14:01 06/19/18 14:01 06/19/18 14:01 Intake & Output 06/18/18 06/19/18 06/20/18 06:59 06:59 06:59 Intake Total 1000 1000 Output Total 300 Balance 1000 700 Weight 87.1 kg General appearance: PRESENT: mild distress GI/Abdominal exam: PRESENT: other - Abdomen examined. Is slightly distended. Hypoactive bowel sounds. The epigastric area is tender but not exquisitely although there is localized tenderness to moderate palpation the right subcostal deep epigastric area; the remainder the examination of the abdomen is benign Results Laboratory Results: 06/18/18 20:30 06/18/18 23:45 06/18/18 06/18/18 06/18/18 20:30 20:30 20:30 WBC 9.5 RBC 5.23 Hgb 15.1 Hct 45.6 MCV 87 MCH 28.8 MCHC 33.0 RDW 15.2 H Plt Count 267 Seg Neutrophils % 85.2 H Lymphocytes % 8.4 L Monocytes % 5.4 Eosinophils % 0.2 Basophils % 0.8 Absolute Neutrophils 8.1 Absolute Lymphocytes 0.8 Absolute Monocytes 0.5 Absolute Eosinophils 0.0 Absolute Basophils 0.1 Sodium 133.2 L Potassium 5.3 H Chloride 96 L Carbon Dioxide 26 Anion Gap 11 BUN 62 H Creatinine 2.45 H Est GFR ( Amer) 32 L Est GFR (Non-Af Amer) 26 L Glucose 431 H* Calcium 10.1 Total Bilirubin 1.5 H AST 50 ALT 26 Alkaline Phosphatase 115 Total Protein 8.8 H Albumin 4.4 Lipase 75.7 Urine Color STRAW Urine Appearance CLEAR Urine pH 5.0 Ur Specific [place] 1.007 Urine Protein NEGATIVE Urine Glucose (UA) >=500 H Urine Ketones NEGATIVE Urine Blood SMALL H Urine Nitrite NEGATIVE Ur Leukocyte Esterase NEGATIVE Urine WBC (Auto) 0 Urine RBC (Auto) 1 06/18/18 23:45 WBC RBC Hgb Hct MCV MCH MCHC RDW Plt Count Seg Neutrophils % Lymphocytes % Monocytes % Eosinophils % Basophils % Absolute Neutrophils Absolute Lymphocytes Absolute Monocytes Absolute Eosinophils Absolute Basophils Sodium 132.8 L Potassium 5.5 H Chloride 100 Carbon Dioxide 25 Anion Gap 8 BUN 58 H Creatinine 2.56 H Est GFR ( Amer) 30 L Est GFR (Non-Af Amer) 25 L Glucose 367 H Calcium 9.4 Total Bilirubin AST ALT Alkaline Phosphatase Total Protein Albumin Lipase Urine Color Urine Appearance Urine pH Ur Specific [place] Urine Protein Urine Glucose (UA) Urine Ketones Urine Blood Urine Nitrite Ur Leukocyte Esterase Urine WBC (Auto) Urine RBC (Auto) Impressions: Abdomen Ultrasound 06/19/18 00:00 IMPRESSION: 1. The pancreas and proximal abdominal aorta are obscured by overlying bowel gas. 2. Gallstones and gallbladder sludge. The gallbladder is dilated. 3. Fatty liver. Abdomen/Pelvis CT 06/19/18 00:00 IMPRESSION: Stones in the gallbladder without CT signs of acute cholecystitis. Assessment & Plan - Diagnosis (1) Abdominal pain Qualifiers: Abdominal location: left upper quadrant Qualified Code(s): R10.12 - Left upper quadrant pain Is this a current diagnosis for this admission?: Yes Plan: Impression: Chronic abdominal pain localized to the epigastric area and right upper quadrant likely due to chronic cholecystitis with cholelithiasis; no evidence of sepsis; multiple comorbidities including cardiomyopathy during patient high risk for perioperative cardiovascular collapse during general anesthesia. Discussion: 1. I discussed the patient with Dr. Demarco, as well as reviewing the highlights with the patient himself. We agree that undergoing operative intervention would be fraught with significant risk 2. I have personally reviewed the CT scan images, and believe that the gallbladder may be accessible for percutaneous drainage by interventional radiology. Therefore we will request that service be provided after the patient has been n.p.o., and after the patient has been off of anticoagulation therapy. 3. We will sign off for now. Please reconsult surgery if needed. - Time Time Spent: 30 to 50 Minutes Smoking Cessation Education: 3 to 10 minutes Medications reviewed and adjusted accordingly: Yes Anticipated discharge: Home - Inpatient Certification Based on my medical assessment, after consideration of the patient's comorbidities, presenting symptoms, or acuity I expect that the services needed warrant INPATIENT care.: Yes I certify that my determination is in accordance with my understanding of Medicare's requirements for reasonable and necessary INPATIENT services [42 CFR 412.3e].: Yes Medical Necessity: Need For IV Fluids, Need for Pain Control, Need for IV Antibiotics
[2018-06-19] MEDS ORDERED: INSULIN NPH HUM SQ SCH (18:00)
[2018-06-19] MEDS ORDERED: REG INSULIN SQ SCH (18:00)
[2018-06-19] MEDS: HUM INSULIN NPH/REG INSULIN HM 100 UNIT/1 ML 3 ML SUBCUT SCH (18:39)
[2018-06-19] MEDS: TORSEMIDE 20 MG TABLET PO SCH (21:06)
[2018-06-19] MEDS: SIMVASTATIN 10 MG TABLET PO SCH (21:06)
[2018-06-19] MEDS: FAMOTIDINE 20 MG TABLET PO SCH (21:07)
[2018-06-19] MEDS ORDERED: APIXABAN 5 MG TABLET PO SCH (22:00)
[2018-06-19] MEDS ORDERED: (PENDING PHARMACY ID) (Simvastatin [Simvastatin] 20 MG) PO SCH (22:00)
[2018-06-20] MEDS: HYDRALAZINE HCL 25 MG TABLET PO SCH ×3 (04:23→20:27)
[2018-06-20] MEDS: LANSOPRAZOLE 30 MG TAB.RAP.DR PO SCH (06:00)
[2018-06-20] MEDS: LEVOTHYROXINE SODIUM 0.1 MG TABLET PO SCH (06:00)
[2018-06-20] MEDS: LEVOTHYROXINE SODIUM 0.025 MG TABLET PO SCH (06:00)
[2018-06-20 06:53] LABS: ABSOLUTE BASOPHILS # (AUTO) 0.1 10^3/uL (0.0-0.2); ABSOLUTE EOSINOPHILS # (AUTO) 0.2 10^3/uL (0.0-0.6); ABSOLUTE MONOCYTES (AUTO) 1.1 10^3/uL (0.1-1.4); ABSOLUTE NEUT (AUTO) 6.5 10^3/uL (1.7-8.2); BASOPHILS % (AUTO) 0.7 % (0-2); EOSINOPHILS % (AUTO) 2.3 % (0-6); HEMATOCRIT 40.1 % (37.9-51.0); HEMOGLOBIN 13.4 g/dL (13.5-17.0); LYMPHOCYTES % (AUTO) 11.2 % (13-45); MEAN CORPUSCULAR HGB CONC 33.4 g/dL (32.0-36.0); MEAN CORPUSCULAR VOLUME 87 fl (80-97); MONOCYTES % (AUTO) 12.1 % (3-13); PLATELET COUNT 188 10^3/uL (150-450); RED BLOOD COUNT 4.63 10^6/uL (4.35-5.55); RED CELL DISTRIBUTION WIDTH 15.6 % (11.5-14.0); SEGMENTED NEUTROPHILS % (AUTO) 73.7 % (42-78); TOTAL CELLS COUNTED % (AUTO) 100 %; WHITE BLOOD COUNT 8.9 10^3/uL (4.0-10.5)
[2018-06-20 07:08] LABS: INTERNATIONAL RATION (INR) 1.39; PROTHROMBIN TIME 17.8 SEC (11.4-15.4)
[2018-06-20 07:18] LABS: ALANINE AMINOTRANSFERASE 319 U/L (21-72); ALBUMIN 3.3 g/dL (3.5-5.0); ALKALINE PHOSPHATASE 400 U/L (38-126); ANION GAP 13 (5-19); ASPARTATE AMINO TRANSFERASE 356 U/L (17-59); BLOOD UREA NITROGEN 45 mg/dL (7-20); CALCIUM 9.3 mg/dL (8.4-10.2); CARBON DIOXIDE 22 mmol/L (22-30); CHLORIDE 103 mmol/L (98-107); GLUCOSE 252 mg/dL (75-110); POTASSIUM 3.9 mmol/L (3.6-5.0); SODIUM 137.7 mmol/L (137-145); TOTAL PROTEIN 6.8 g/dL (6.3-8.2)
[2018-06-20] MEDS: HUM INSULIN NPH/REG INSULIN HM 100 UNIT/1 ML 3 ML SUBCUT SCH ×2 (07:41→17:25)
[2018-06-20] MEDS: INSULIN LISPRO 100 UNIT/ML 3 ML VIAL SUBCUT SCH (07:41)
[2018-06-20] MEDS ORDERED: INSULIN ISOPHANE SQ SCH (08:00)
[2018-06-20] MEDS ORDERED: INSULIN REGULAR SQ SCH (08:00)
[2018-06-20] MEDS: ASPIRIN 81 MG TABLET, CHEWABLE PO SCH (09:27)
[2018-06-20] MEDS: MONTELUKAST SODIUM 10 MG TABLET PO SCH (09:27)
[2018-06-20] MEDS: ATENOLOL 50 MG TABLET PO SCH (09:28)
[2018-06-20] MEDS: SITAGLIPTIN PHOSPHATE 50 MG TABLET PO SCH (09:28)
[2018-06-20] MEDS: DOCUSATE SODIUM 100 MG CAPSULE PO SCH (09:29)
[2018-06-20] MEDS: FAMOTIDINE 20 MG TABLET PO SCH ×2 (09:29→21:14)
[2018-06-20] MEDS: AMIODARONE HCL 200 MG TABLET PO SCH (09:29)
[2018-06-20] MEDS: TORSEMIDE 20 MG TABLET PO SCH ×2 (09:30→17:24)
[2018-06-20] MEDS: TIOTROPIUM BROMIDE DPI 5 CAP/KIT (18 MCG/CAP) IH SCH (09:30)
[2018-06-20] MEDS ORDERED: (PENDING PHARMACY ID) (Bisoprolol Fumarate [Zebeta 5 Mg Tablet] 2.5 MG) PO SCH (10:00)
[2018-06-20] MEDS ORDERED: (PENDING PHARMACY ID) (Levothyroxine Sodium [Levothyroxine Sodium] 125 MCG) PO SCH (10:00)
--- NOTE | 2018-06-20 15:06 | PDOC PROGRESS REPORT ---
Subjective Progress Note for:: 06/20/18 Subjective:: Patient is currently doing fair Patient is denied any abdominal pain this morning Nausea also getting better Discussed with the Dr. Tubbs suggest no need for any cholecystectomy tube while patient is afebrile and no sign of any cholecystitis Discussed with the general surgery and suggest the continues to monitor with no need for any surgical indication at this point Discussed with the cardiology and suggest patients moderate to high risk patient but still able to do it Patient's LFTs goes up compared to yesterday but a consult for the GI for possible rule out any ERCP Patient is denied any chest pain to than any shortness of the breath Patient's potassium is back to the normal Reason For Visit: ABDOMINAL PAIN; ACUTE ON CHRONIC RENAL FAILURE Physical Exam Vital Signs: Temp Pulse Resp BP Pulse Ox 98.2 F 80 16 107/68 99 06/20/18 11:17 06/20/18 14:00 06/20/18 11:17 06/20/18 11:17 06/20/18 11:17 Intake & Output 06/19/18 06/20/18 06/21/18 06:59 06:59 06:59 Intake Total 1000 2000 0 Output Total 1275 625 Balance 1000 725 -625 Weight 87.1 kg 87.9 kg General appearance: PRESENT: no acute distress, well-developed, well-nourished Head exam: PRESENT: atraumatic, normocephalic Eye exam: PRESENT: conjunctiva pink, EOMI, PERRLA. ABSENT: scleral icterus Ear exam: PRESENT: normal external ear exam Mouth exam: PRESENT: moist, tongue midline Neck exam: PRESENT: full ROM. ABSENT: carotid bruit, JVD, lymphadenopathy, thyromegaly Respiratory exam: PRESENT: clear to auscultation erasmo Cardiovascular exam: PRESENT: RRR. ABSENT: diastolic murmur, rubs, systolic murmur Vascular exam: PRESENT: normal capillary refill GI/Abdominal exam: PRESENT: normal bowel sounds, soft. ABSENT: distended, guarding, mass, organolmegaly, rebound, tenderness Rectal exam: PRESENT: deferred Neurological exam: PRESENT: alert, awake, oriented to person, oriented to place, oriented to time, oriented to situation, CN II-XII grossly intact. ABSENT: motor sensory deficit Psychiatric exam: PRESENT: appropriate affect, normal mood. ABSENT: homicidal ideation, suicidal ideation Skin exam: PRESENT: dry, intact, warm. ABSENT: cyanosis, rash Results Laboratory Results: 06/20/18 06:00 06/20/18 06:00 06/20/18 06/20/18 06/20/18 06:00 06:00 06:00 WBC 8.9 RBC 4.63 Hgb 13.4 L Hct 40.1 MCV 87 MCH 29.0 MCHC 33.4 RDW 15.6 H Plt Count 188 Seg Neutrophils % 73.7 Lymphocytes % 11.2 L Monocytes % 12.1 Eosinophils % 2.3 Basophils % 0.7 Absolute Neutrophils 6.5 Absolute Lymphocytes 1.0 Absolute Monocytes 1.1 Absolute Eosinophils 0.2 Absolute Basophils 0.1 Sodium 137.7 Potassium 3.9 Chloride 103 Carbon Dioxide 22 Anion Gap 13 BUN 45 H Creatinine 2.38 H Est GFR ( Amer) 33 L Est GFR (Non-Af Amer) 27 L Glucose 252 H Calcium 9.3 Total Bilirubin 6.0 H AST 356 H ALT 319 H Alkaline Phosphatase 400 H Total Protein 6.8 Albumin 3.3 L Lipase 48.6 Impressions: Abdomen Ultrasound 06/19/18 00:00 IMPRESSION: 1. The pancreas and proximal abdominal aorta are obscured by overlying bowel gas. 2. Gallstones and gallbladder sludge. The gallbladder is dilated. 3. Fatty liver. Abdomen/Pelvis CT 06/19/18 00:00 IMPRESSION: Stones in the gallbladder without CT signs of acute cholecystitis. Assessment & Plan - Diagnosis (1) Abdominal pain Qualifiers: Abdominal location: left upper quadrant Qualified Code(s): R10.12 - Left upper quadrant pain Is this a current diagnosis for this admission?: Yes Plan: Is likely up from the gallstone As per discussed with the surgery interventional radiology and also discussed wi the GI Also discussed the [facility] unable to take the patient at this point because of the bed is all full Discussed with the surgery again here Dr. Moore and suggest the continues to monitor here (2) Acute on chronic renal failure Qualifiers: Acute renal failure type: unspecified Chronic kidney disease stage: unspecified stage Qualified Code(s): N17.9 - Acute kidney failure, unspe cified; N18.9 - Chronic kidney disease, unspecified Is this a current diagnosis for this admission?: Yes Plan: Patient is currently taking the torsemide 60 mg twice a day and potassium is We hold the potassiums Consult the nephrology (3) Afib Qualifiers: Atrial fibrillation type: chronic Qualified Code(s): I48.2 - Chronic atrial fibrillation Is this a current diagnosis for this admission?: Yes Plan: Patient is currently on Eliquis (4) CAD (coronary artery disease) Qualifiers: Coronary Disease-Associated Artery/Lesion type: [place] artery Associated an dee: with other forms of angina Is this a current diagnosis for this admission?: Yes Plan: Is currently admitting in the [facility] see the cardiology over there (5) CHF (congestive heart failure) Qualifiers: Heart failure type: combined systolic and diastolic Heart failure chronicity: chronic Qualified Code(s): I50.42 - Chronic combined systolic (congestive) and diastolic (congestive) heart failure Is this a current diagnosis for this admission?: Yes Plan: Patient is currently admitting in the [facility] currently stable continues of diuretics (6) CKD (chronic kidney disease) Qualifiers: Chronic kidney disease stage: stage 3 (moderate) Qualified Code(s): N18.3 - Chronic kidney disease, stage 3 (moderate) Is this a current diagnosis for this admission?: Yes Plan: Consult the nephrology get the ultrasound for the kidney (7) Gall stone Qualifiers: Cholecystitis acuity: acute and chronic Is this a current diagnosis for this admission?: Yes Plan: Follow with the surgery and will consult the GI (8) HLD (hyperlipidemia) Qualifiers: Hyperlipidemia type: unspecified Qualified Code(s): E78.5 - Hyperlipidemia, unspecified Is this a current diagnosis for this admission?: Yes (9) HTN (hypertension) Qualifiers: Hypertension type: essential hypertension Qualified Code(s): I10 - Essential (primary) hypertension Is this a current diagnosis for this admission?: Yes Plan: Denies to current medications (10) Type 2 diabetes mellitus Qualifiers: Diabetes mellitus mcc insulin use: unspecified mcc insulin use status Chronic kidney disease stage: stage 3 (moderate) Is this a current diagnosis for this admission?: Yes Plan: Continue sliding scale (11) Hyperkalemia Is this a current diagnosis for this admission?: Yes Plan: Currently all resolved - Time Time Spent with patient: 35 or more minutes Medications reviewed and adjusted accordingly: Yes Anticipated discharge: Home Within: Other - Plan Summary Plan Summary: The extensive discussed with the patient and the family Very extensive discussed with the coordinate production consultant Even call the [facility]
--- NOTE | 2018-06-20 18:33 | PDOC CONSULTATION ---
Consultation Consult Date: 06/20/18 History of Present Illness Admission Date/PCP: 06/19/18 12:54 LENA DEMARCO MD History of Present Illness: SANDRA COHN is a 73 year old malePatient who was admitted 2 evenings ago with upper abdominal pain. He suddenly started having epigastric and right upper quadrant pain few hours before coming to the emergency room. The pain has been constant but it is better now compared to the first 24 hours. He had a few episodes of vomiting within the first 24-36 hours. He has a history of gallstones and actually had similar pain about 3-4 years ago. Surgery was not thought to be safe at that time. On admission this time his bilirubin was 1.5 with normal AST and ALT but about 36 hours later his bilirubin has jumped up to 6 with AST of 356 and ALT of 319. Alkaline phosphatase was 400 and lipase was normal at 48. He did have some solid food earlier on today and did not have increased pain but he still has some discomfort. His ultrasound performed yesterday showed gallstones and sludge in the gallbladder appeared dilated. He also had fatty liver. He CBD was 6.5 mm with no intrahepatic dilation Past Medical History Cardiac Medical History: Reports: Atrial Fibrillation, Congestive Heart Failure, Coronary Artery Disease, Hyperlipidema, Hypertension Denies: Myocardial Infarction Pulmonary Medical History: Denies: Asthma, Bronchitis, Chronic Obstructive Pulmonary Disease (COPD), Pneumonia Neurological Medical History: Denies: Seizures Endocrine Medical History: Reports: Diabetes Mellitus Type 1, Diabetes Mellitus Type 2 Renal/ Medical History: Reports: Chronic Kidney Disease GI Medical History: Reports: Gastroesophageal Reflux Disease Musculoskeltal Medical History: Reports: Arthritis - OSTEOARTHRITIS Psychiatric Medical History: Reports: Depression Hematology: Reports: Anemia Past Surgical History Past Surgical History: Reports: Cardiac Catheterization, Internal Defibrillator Social History Smoking Status: Never Smoker Frequency of Alcohol Use: None Hx Recreational Drug Use: No Drugs: None Hx Prescription Drug Abuse: No Family History Family History: Reviewed & Not Pertinent Parental Family History Reviewed: No Children Family History Reviewed: NA Sibling(s) Family History Reviewed.: NA Medication/Allergy Home Medications: Aspirin 81 mg PO DAILY 07/29/14 Levothyroxine Sodium 125 mcg PO DAILY 07/29/14 Montelukast Sodium 10 mg PO DAILY 07/29/14 Nitroglycerin [Nitrostat] 0.3 mg SL ASDIR PRN 07/29/14 Simvastatin 20 mg PO QHS 07/29/14 Tiotropium [place] [Spiriva Handihaler 18 mcg/dose (30 Dose)] 1 cap IH DAILY 07/29/14 Acetaminophen [Tylenol] 650 mg PO Q6HP PRN 06/19/18 Amiodarone HCl [Cordarone 200 mg Tablet] 200 mg PO DAILY 06/19/18 Apixaban [Eliquis 5 mg Tablet] 5 mg PO Q12 06/19/18 Bisoprolol Fumarate [Zebeta 5 mg Tablet] 2.5 mg PO DAILY 06/19/18 Docusate Sodium [Colace] 100 mg PO DAILY 06/19/18 Hydralazine HCl [Apresoline 25 mg Tablet] 12.5 mg PO Q8H 06/19/18 Insulin NPH Hum/Reg Insulin Hm [Humulin 70/30 Kwikpen] 15 units SQ QPM 06/19/18 Insulin NPH Hum/Reg Insulin Hm [Humulin 70/30 Kwikpen] 18 units SQ QAM 06/19/18 Pantoprazole Sodium [Protonix] 40 mg PO DAILY 06/19/18 Potassium Chloride [Klor-Con M20] 60 meq PO Q12 06/19/18 Sitagliptin Phosphate [Januvia 50 mg Tablet] 50 mg PO DAILY 06/19/18 Torsemide [Demadex 20 mg Tablet] 80 mg PO BID 06/19/18 Allergies/Adverse Reactions: No Known Allergies Allergy (Verified 07/29/14 08:37) Review of Systems All systems: reviewed and no additional remarkable complaints except as stated Physical Exam Vital Signs: Temp Pulse Resp BP Pulse Ox 97.6 F 78 16 106/70 100 06/20/18 15:14 06/20/18 15:14 06/20/18 15:14 06/20/18 15:14 06/20/18 15:14 Intake & Output 06/19/18 06/20/18 06/21/18 06:59 06:59 06:59 Intake Total 1000 2000 0 Output Total 1275 625 Balance 1000 725 -625 Weight 87.1 kg 87.9 kg Exam: General: Patient is alert and looks well. HEENT: There is no pallor or jaundice. PERRLA. Oropharynx normal Respiratory: No chest deformity. No respiratory distress. Chest wall palpitation was unremarkable. Breath sounds were normal Cardiovascular: Heart sounds 1 and 2 normal with no murmurs. Abdominal: Not distended. Soft with some tenderness in the right upper quadrant . Liver and spleen not palpable. No ascites demonstrated. Bowel sounds active. Rectal examination was deferred. Extremities: No edema Neurological: Alert and oriented x4. Grossly nonfocal. Normal speech Skin: No significant rash Psychological: Normal affect Results Laboratory Results: 06/20/18 06:00 06/20/18 06:00 06/20/18 06/20/18 06/20/18 06:00 06:00 06:00 WBC 8.9 RBC 4.63 Hgb 13.4 L Hct 40.1 MCV 87 MCH 29.0 MCHC 33.4 RDW 15.6 H Plt Count 188 Seg Neutrophils % 73.7 Lymphocytes % 11.2 L Monocytes % 12.1 Eosinophils % 2.3 Basophils % 0.7 Absolute Neutrophils 6.5 Absolute Lymphocytes 1.0 Absolute Monocytes 1.1 Absolute Eosinophils 0.2 Absolute Basophils 0.1 Sodium 137.7 Potassium 3.9 Chloride 103 Carbon Dioxide 22 Anion Gap 13 BUN 45 H Creatinine 2.38 H Est GFR ( Amer) 33 L Est GFR (Non-Af Amer) 27 L Glucose 252 H Calcium 9.3 Total Bilirubin 6.0 H AST 356 H ALT 319 H Alkaline Phosphatase 400 H Total Protein 6.8 Albumin 3.3 L Lipase 48.6 Impressions: Abdomen Ultrasound 06/19/18 00:00 IMPRESSION: 1. The pancreas and proximal abdominal aorta are obscured by overlying bowel gas. 2. Gallstones and gallbladder sludge. The gallbladder is dilated. 3. Fatty liver. Abdomen/Pelvis CT 06/19/18 00:00 IMPRESSION: Stones in the gallbladder without CT signs of acute cholecystitis. Assessment & Plan - Diagnosis (1) Choledocholithiasis Is this a current diagnosis for this admission?: Yes Plan: I suspect he has CBD stones with his abdominal pain and sudden elevation of his LFTs especially the bilirubin. He will undergo an ERCP with stone removal. Cholecystectomy will be considered afterwards. I started him on antibiotics and kept him on clear liquids (3) Abdominal pain Qualifiers: Abdominal location: left upper quadrant Qualified Code(s): R10.12 - Left up per quadrant pain Is this a current diagnosis for this admission?: Yes (4) Gall stone Qualifiers: Cholecystitis acuity: acute and chronic Is this a current diagnosis for this admission?: Yes
[2018-06-20] MEDS: CEFAZOLIN 1 GM/D5W RTU 1 GM/50 ML RTUPB IV SCH ×2 (20:26→23:27)
[2018-06-20] MEDS: SIMVASTATIN 10 MG TABLET PO SCH (21:14)
--- NOTE | 2018-06-20 22:10 | PDOC CONSULTATION ---
Consultation Consult Date: 06/20/18 Attending physician:: LENA DEMARCO Consult reason:: I was asked to see the patient because of worsening kidney function. History of Present Illness Admission Date/PCP: 06/19/18 12:54 LENA DEMARCO MD History of Present Illness: SANDRA COHN is a 73 year old male with history of combined systolic and diastolic heart failure with ejection fraction of 20%, chronic kidney disease stage III, type II cholelithiasis who was admitted yesterday for abdominal pain. Workup included a CT scan of the abdomen and pelvis ultrasound which showed a gallstone. Dr. Dietz, distance learning technician was consulted and recommendation was to do ERCP. Patient also came in with a BUN of 62, creatinine of 2.45, with EGFR of 32. Today his kidney function includes a BUN of 45, creatinine of 2.38, GFR of 33. Baseline kidney function include a creatinine of 1.57-1.86 EGFR of 44-53. Patient follows up with Dr. Chin. His urinalysis showed no protein, small blood, greater than 500 of glucose. Blood pressures told with a range of 100-110's over 60s-70s. He is making urine and for the past 24 hours has made 1270 mL of urine. Patient was given IV fluids on admission. Tells me today that his abdominal pain is a slightly better. He denies any nausea or vomiting. He was able to tolerate Jell-O's fruits and has been drinking fluids minimally. He denies any chest pains no shortness of breath. He denies any problems with urination. Past Medical History Cardiac Medical History: Reports: Atrial Fibrillation, Coronary Artery Disease, Hyperlipidemia Endocrine Medical History: Reports: Diabetes Mellitus Type 2 Renal/ Medical History: Reports: Chronic Kidney Disease Stage III GI Medical History: Reports: Gastroesophageal Reflux Disease Musculoskeltal Medical History: Reports: Arthritis - OSTEOARTHRITIS Psychiatric Medical History: Reports: Depression Past Surgical History Past Surgical History: Reports: Cardiac Catheterization, Internal Defibrillator Social History Lives with: Spouse/Significant other Smoking Status: Never Smoker Frequency of Alcohol Use: None Hx Recreational Drug Use: No Drugs: None Hx Prescription Drug Abuse: No Family History Family History: Reviewed & Not Pertinent Parental Family History Reviewed: Yes Children Family History Reviewed: Yes Sibling(s) Family History Reviewed.: Yes Medication/Allergy Home Medications: Aspirin 81 mg PO DAILY 07/29/14 Levothyroxine Sodium 125 mcg PO DAILY 07/29/14 Montelukast Sodium 10 mg PO DAILY 07/29/14 Nitroglycerin [Nitrostat] 0.3 mg SL ASDIR PRN 07/29/14 Simvastatin 20 mg PO QHS 07/29/14 Tiotropium [place] [Spiriva Handihaler 18 mcg/dose (30 Dose)] 1 cap IH DAILY 07/29/14 Acetaminophen [Tylenol] 650 mg PO Q6HP PRN 06/19/18 Amiodarone HCl [Cordarone 200 mg Tablet] 200 mg PO DAILY 06/19/18 Apixaban [Eliquis 5 mg Tablet] 5 mg PO Q12 06/19/18 Bisoprolol Fumarate [Zebeta 5 mg Tablet] 2.5 mg PO DAILY 06/19/18 Docusate Sodium [Colace] 100 mg PO DAILY 06/19/18 Hydralazine HCl [Apresoline 25 mg Tablet] 12.5 mg PO Q8H 06/19/18 Insulin NPH Hum/Reg Insulin Hm [Humulin 70/30 Kwikpen] 15 units SQ QPM 06/19/18 Insulin NPH Hum/Reg Insulin Hm [Humulin 70/30 Kwikpen] 18 units SQ QAM 06/19/18 Pantoprazole Sodium [Protonix] 40 mg PO DAILY 06/19/18 Potassium Chloride [Klor-Con M20] 60 meq PO Q12 06/19/18 Sitagliptin Phosphate [Januvia 50 mg Tablet] 50 mg PO DAILY 06/19/18 Torsemide [Demadex 20 mg Tablet] 80 mg PO BID 06/19/18 Allergies/Adverse Reactions: No Known Allergies Allergy (Verified 07/29/14 08:37) Review of Systems All systems: reviewed and no additional remarkable complaints except as stated Review of Systems: Constitutional: ABSENT: chills, fatigue, fever(s), headache(s), weight gain, weight loss Eyes: ABSENT: visual disturbances Ears: ABSENT: hearing changes Cardiovascular: ABSENT: chest pain, dyspnea on exertion, edema, orthropnea, palpitations Respiratory: ABSENT: cough, dyspnea, hemoptysis Gastrointestinal: ABSENT: Constipation, diarrhea, hematemesis, hematochezia, nausea, vomiting; admits abdominal pain Genitourinary: ABSENT: dysuria, hematuria Musculoskeletal: ABSENT: joint swelling Integumentary: ABSENT: rash, wounds Neurological: ABSENT: abnormal gait, abnormal speech, confusion, dizziness, focal weakness, numbness, syncope Psychiatric: ABSENT: anxiety, depression Endocrine: ABSENT: cold intolerance, heat intolerance, polydipsia, polyuria Hematologic/Lymphatic: ABSENT: easy bleeding, easy bruising, lymphadenopathy Physical Exam Vital Signs: Temp Pulse Resp BP Pulse Ox 98.0 F 78 20 110/68 99 06/20/18 19:11 06/20/18 19:11 06/20/18 19:11 06/20/18 19:11 06/20/18 19:11 Intake & Output 06/19/18 06/20/18 06/21/18 06:59 06:59 06:59 Intake Total 1000 2000 405 Output Total 1275 925 Balance 1000 725 -520 Weight 87.1 kg 87.9 kg Exam: General appearance: No acute distress, cooperative, well-developed, well- nourished Head exam: PRESENT: atraumatic, normocephalic Eye exam: PRESENT: Conjunctiva [place], EOMI, PERRLA. ABSENT: conjunctival injection, scleral icterus Mouth exam: PRESENT: moist, neck supple, tongue midline Neck exam: PRESENT: full ROM. ABSENT: carotid bruit, JVD, lymphadenopathy, thyromegaly Respiratory exam: PRESENT: clear to auscultation bilaterally. ABSENT: rales, rhonchi, stridor, wheezes Cardiovascular exam: PRESENT: RRR, +S1, +S2. ABSENT: systolic murmur Pulses: PRESENT: normal radial pulses, normal dorsalis pedis pulses GI/Abdominal exam: PRESENT: normal bowel sounds, soft. He has mild right flank tenderness ABSENT: guarding, mass Rectal exam: Deferred Extremities exam: PRESENT: full ROM. ABSENT: calf tenderness, pedal edema Musculoskeletal: PRESENT: full ROM. ABSENT: deformity Neurological exam: PRESENT: alert, Awake, Oriented to person, Oriented to place, Oriented to time, reflexes normal, CN II-XII grossly intact. ABSENT: motor sensory deficit Psychiatric exam: PRESENT: appropriate affect, normal mood. ABSENT: homicidal ideation, suicidal ideation Skin exam: PRESENT: intact, dry, warm. ABSENT: rash Results Laboratory Results: 06/20/18 06:00 06/20/18 06:00 06/20/18 06/20/18 06/20/18 06:00 06:00 06:00 WBC 8.9 RBC 4.63 Hgb 13.4 L Hct 40.1 MCV 87 MCH 29.0 MCHC 33.4 RDW 15.6 H Plt Count 188 Seg Neutrophils % 73.7 Lymphocytes % 11.2 L Monocytes % 12.1 Eosinophils % 2.3 Basophils % 0.7 Absolute Neutrophils 6.5 Absolute Lymphocytes 1.0 Absolute Monocytes 1.1 Absolute Eosinophils 0.2 Absolute Basophils 0.1 Sodium 137.7 Potassium 3.9 Chloride 103 Carbon Dioxide 22 Anion Gap 13 BUN 45 H Creatinine 2.38 H Est GFR ( Amer) 33 L Est GFR (Non-Af Amer) 27 L Glucose 252 H Calcium 9.3 Total Bilirubin 6.0 H AST 356 H ALT 319 H Alkaline Phosphatase 400 H Total Protein 6.8 Albumin 3.3 L Lipase 48.6 Impressions: Abdomen Ultrasound 06/19/18 00:00 IMPRESSION: 1. The pancreas and proximal abdominal aorta are obscured by overlying bowel gas. 2. Gallstones and gallbladder sludge. The gallbladder is dilated. 3. Fatty liver. Abdomen/Pelvis CT 06/19/18 00:00 IMPRESSION: Stones in the gallbladder without CT signs of acute cholecystitis. Assessment & Plan - Diagnosis (1) Abdominal pain Qualifiers: Abdominal location: left upper quadrant Qualified Code(s): R10.12 - Left upper quadrant pain Is this a current diagnosis for this admission?: Yes Plan: Due to cholelithiasis. GI consulted. (2) Acute on chronic renal failure Qualifiers: Acute renal failure type: unspecified Chronic kidney disease stage: unspecified stage Qualified Code(s): N17.9 - Acute kidney failure, unspecified; N18.9 - Chronic kidney disease, unspecified Is this a current diagnosis for this admission?: Yes Plan: Acute worsening of the patient's kidney function is likely secondary to a prerenal cause likely is due to some volume contraction due to GI symptoms. Kidney function slightly improved with fluid hydration. Encourage oral fluid intake. Continue to monitor kidney function. No need of any renal replacement therapy. (3) Chronic kidney disease, stage 3 Is this a current diagnosis for this admission?: Yes (4) Choledocholithiasis Is this a current diagnosis for this admission?: Yes (5) Type 2 diabetes mellitus Qualifiers: Diabetes mellitus intermediate accountant insulin use: unspecified intermediate accountant insulin use status Chronic kidney disease stage: stage 3 (moderate) Is this a current diagnosis for this admission?: Yes (6) CAD (coronary artery disease) Qualifiers: Coronary Disease-Associated Artery/Lesion type: [place] artery Associated angina: with other forms of angina Is this a current diagnosis for this admission?: Yes (7) CHF (congestive heart failure) Qualifiers: Heart failure type: combined systolic and diastolic Heart failure chronicity: chronic Qualified Code(s): I50.42 - Chronic combined systolic (congestive) and diastolic (congestive) heart failure Is this a current diagnosis for this admission?: Yes Plan: Clinically compensated. - Notes Notes: Thank you very much for this consultation. I will follow the patient with you. - Time Time Spent: 50 to 70 Minutes
[2018-06-21] MEDS: LEVOTHYROXINE SODIUM 0.025 MG TABLET PO SCH (05:03)
[2018-06-21] MEDS: HYDRALAZINE HCL 25 MG TABLET PO SCH ×3 (05:03→21:30)
[2018-06-21] MEDS: CEFAZOLIN 1 GM/D5W RTU 1 GM/50 ML RTUPB IV SCH ×4 (05:03→23:15)
[2018-06-21] MEDS: LANSOPRAZOLE 30 MG TAB.RAP.DR PO SCH (05:04)
[2018-06-21] MEDS: LEVOTHYROXINE SODIUM 0.1 MG TABLET PO SCH (05:05)
[2018-06-21 06:29] LABS: ABSOLUTE BASOPHILS # (AUTO) 0.1 10^3/uL (0.0-0.2); ABSOLUTE EOSINOPHILS # (AUTO) 0.2 10^3/uL (0.0-0.6); BASOPHILS % (AUTO) 0.8 % (0-2); EOSINOPHILS % (AUTO) 2.1 % (0-6); HEMATOCRIT 40.7 % (37.9-51.0); HEMOGLOBIN 13.5 g/dL (13.5-17.0); LYMPHOCYTES % (AUTO) 12.4 % (13-45); MEAN CORPUSCULAR HEMOGLOBIN 28.3 pg (27.0-33.4); MEAN CORPUSCULAR HGB CONC 33.1 g/dL (32.0-36.0); MEAN CORPUSCULAR VOLUME 86 fl (80-97); MONOCYTES % (AUTO) 12.3 % (3-13); PLATELET COUNT 182 10^3/uL (150-450); RED BLOOD COUNT 4.76 10^6/uL (4.35-5.55); RED CELL DISTRIBUTION WIDTH 15.2 % (11.5-14.0); SEGMENTED NEUTROPHILS % (AUTO) 72.4 % (42-78); TOTAL CELLS COUNTED % (AUTO) 100 %; WHITE BLOOD COUNT 8.3 10^3/uL (4.0-10.5)
[2018-06-21 06:49] LABS: ALANINE AMINOTRANSFERASE 236 U/L (21-72); ALBUMIN 3.2 g/dL (3.5-5.0); ALKALINE PHOSPHATASE 489 U/L (38-126); ANION GAP 11 (5-19); ASPARTATE AMINO TRANSFERASE 191 U/L (17-59); BILIRUBIN,DIRECT 5.6 mg/dL (0.0-0.4); BILIRUBIN,TOTAL 6.6 mg/dL (0.2-1.3); BLOOD UREA NITROGEN 38 mg/dL (7-20); CALCIUM 9.3 mg/dL (8.4-10.2); CARBON DIOXIDE 24 mmol/L (22-30); CHLORIDE 102 mmol/L (98-107); GLUCOSE 271 mg/dL (75-110); POTASSIUM 3.5 mmol/L (3.6-5.0); SODIUM 136.8 mmol/L (137-145); TOTAL PROTEIN 6.8 g/dL (6.3-8.2)
--- NOTE | 2018-06-21 08:26 | PDOC PROGRESS REPORT ---
Subjective Progress Note for:: 06/21/18 Subjective:: Patient is currently doing better Denied any abdominal pain Nausea is all improving Patient's LFTs also improving Patient seen by Dr. Dietz and scheduled for ERCP for possible CBD stone Patient unable to go for any MRCP due to the pacemaker Patient seen by the nephrology Patient seen by cardiology Dr. Weber Denied any chest pain to than any shortness of breath Very long discussed with the patient and the family in the room regarding the patient's current gallstone possible need a surgery and possible all complications due to the multiple comorbidity Reason For Visit: ABDOMINAL PAIN; ACUTE ON CHRONIC RENAL FAILURE Physical Exam Vital Signs: Temp Pulse Resp BP Pulse Ox 98.3 F 78 22 H 116/63 98 06/21/18 02:55 06/21/18 05:02 06/21/18 02:55 06/21/18 05:02 06/21/18 02:55 Intake & Output 06/20/18 06/21/18 06/22/18 06:59 06:59 06:59 Intake Total 2000 505 Output Total 1275 1525 Balance 725 -1020 Weight 87.9 kg 86.5 kg General appearance: PRESENT: no acute distress, well-developed, well-nourished Head exam: PRESENT: atraumatic, normocephalic Eye exam: PRESENT: conjunctiva pink, EOMI, PERRLA. ABSENT: scleral icterus Ear exam: PRESENT: normal external ear exam Mouth exam: PRESENT: moist, tongue midline Neck exam: PRESENT: full ROM. ABSENT: carotid bruit, JVD, lymphadenopathy, thyromegaly Respiratory exam: PRESENT: clear to auscultation erasmo Cardiovascular exam: PRESENT: RRR. ABSENT: diastolic murmur, rubs, systolic murmur Vascular exam: PRESENT: normal capillary refill GI/Abdominal exam: PRESENT: normal bowel sounds, soft. ABSENT: distended, guarding, mass, organolmegaly, rebound, tenderness Rectal exam: PRESENT: deferred Musculoskeletal exam: PRESENT: ambulatory Neurological exam: PRESENT: alert, awake, oriented to person, oriented to place, oriented to time, oriented to situation, CN II-XII grossly intact. ABSENT: motor sensory deficit Psychiatric exam: PRESENT: appropriate affect, normal mood. ABSENT: homicidal ideation, suicidal ideation Skin exam: PRESENT: dry, intact, warm. ABSENT: cyanosis, rash Results Laboratory Results: 06/21/18 05:45 06/21/18 05:45 06/20/18 06/21/18 06/21/18 06:00 05:45 05:45 WBC 8.3 RBC 4.76 Hgb 13.5 Hct 40.7 MCV 86 MCH 28.3 MCHC 33.1 RDW 15.2 H Plt Count 182 Seg Neutrophils % 72.4 Lymphocytes % 12.4 L Monocytes % 12.3 Eosinophils % 2.1 Basophils % 0.8 Absolute Neutrophils 6.0 Absolute Lymphocytes 1.0 Absolute Monocytes 1.0 Absolute Eosinophils 0.2 Absolute Basophils 0.1 Sodium 136.8 L Potassium 3.5 L Chloride 102 Carbon Dioxide 24 Anion Gap 11 BUN 38 H Creatinine 2.26 H Est GFR ( Amer) 35 L Est GFR (Non-Af Amer) 29 L Glucose 271 H Calcium 9.3 Total Bilirubin 6.6 H AST 191 H ALT 236 H Alkaline Phosphatase 489 H Total Protein 6.8 Albumin 3.2 L Lipase 48.6 Impressions: Abdomen Ultrasound 06/19/18 00:00 IMPRESSION: 1. The pancreas and proximal abdominal aorta are obscured by overlying bowel gas. 2. Gallstones and gallbladder sludge. The gallbladder is dilated. 3. Fatty liver. Abdomen/Pelvis CT 06/19/18 00:00 IMPRESSION: Stones in the gallbladder without CT signs of acute cholecystitis. Assessment & Plan - Diagnosis (1) Abdominal pain Qualifiers: Abdominal location: left upper quadrant Qualified Code(s): R10.12 - Left upper quadrant pain Is this a current diagnosis for this admission?: Yes Plan: Patient is currently all improving (2) Acute on chronic renal failure Qualifiers: Acute renal failure type: unspecified Chronic kidney disease stage: unspecified stage Qualified Code(s): N17.9 - Acute kidney failure, unspecified; N18.9 - Chronic kidney disease, unspecified Is this a current diagnosis for this admission?: Yes Plan: Currently all stable follow with the nephrology (3) Afib Qualifiers: Atrial fibrillation type: chronic Qualified Code(s): I48.2 - Chronic atrial fibrillation Is this a current diagnosis for this admission?: Yes Plan: Patient is currently on Eliquis (4) CAD (coronary artery disease) Qualifiers: Coronary Disease-Associated Artery/Lesion type: [place] artery Associated angina: with other forms of angina Is this a current diagnosis for this admission?: Yes Plan: Is currently admitting in the [facility] see the cardiology over there (5) CHF (congestive heart failure) Qualifiers: Heart failure type: combined systolic and diastolic Heart failure chronicity: chronic Qualified Code(s): 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 Is this a current diagnosis for this admission?: Yes Plan: Continues to current medications follow with the cardiology (6) CKD (chronic kidney disease) Qualifiers: Chronic kidney disease stage: stage 3 (moderate) Qualified Code(s): N18.3 - Chronic kidney disease, stage 3 (moderate) Is this a current diagnosis for this admission?: Yes Plan: Consult the nephrology get the ultrasound for the kidney (7) Gall stone Qualifiers: Cholecystitis acuity: acute and chronic Is this a current diagnosis for this admission?: Yes Plan: Patient is going for the ERCP Patients need a cholecystectomy but will defer for the surgery (8) HLD (hyperlipidemia) Qualifiers: Hyperlipidemia type: unspecified Qualified Code(s): E78.5 - Hyperlipidemia, unspecified Is this a current diagnosis for this admission?: Yes (9) HTN (hypertension) Qualifiers: Hypertension type: essential hypertension Qualified Code(s): I10 - Essential (primary) hypertension Is this a current diagnosis for this admission?: Yes Plan: Denies to current medications (10) Type 2 diabetes mellitus Qualifiers: Diabetes mellitus retirement insulin use: unspecified long term care administrator insulin use status Chronic kidney disease stage: stage 3 (moderate) Is this a current diagnosis for this admission?: Yes Plan: Continue sliding scale (11) Hyperkalemia Is this a current diagnosis for this admission?: Yes - Time Time Spent with patient: 25-34 minutes Medications reviewed and adjusted accordingly: Yes Anticipated discharge: Other Within: Other - Plan Summary Plan Summary: Replace the potassium Continues to current medication
[2018-06-21] MEDS: INSULIN LISPRO 100 UNIT/ML 3 ML VIAL SUBCUT SCH ×2 (08:35→21:31)
[2018-06-21] MEDS: HUM INSULIN NPH/REG INSULIN HM 100 UNIT/1 ML 3 ML SUBCUT SCH ×2 (08:35→19:52)
[2018-06-21] MEDS ORDERED: POTASSIUM CHLORIDE 20 MEQ/15 ML UDCUP PO ONE (08:45)
[2018-06-21] MEDS: ASPIRIN 81 MG TABLET, CHEWABLE PO SCH (09:31)
[2018-06-21] MEDS: SITAGLIPTIN PHOSPHATE 50 MG TABLET PO SCH (09:31)
[2018-06-21] MEDS: TORSEMIDE 20 MG TABLET PO SCH ×2 (09:31→19:48)
[2018-06-21] MEDS: AMIODARONE HCL 200 MG TABLET PO SCH (09:31)
[2018-06-21] MEDS: DOCUSATE SODIUM 100 MG CAPSULE PO SCH (09:31)
[2018-06-21] MEDS: MONTELUKAST SODIUM 10 MG TABLET PO SCH (09:32)
[2018-06-21] MEDS: FAMOTIDINE 20 MG TABLET PO SCH ×2 (09:32→21:30)
[2018-06-21] MEDS: ATENOLOL 50 MG TABLET PO SCH (09:32)
[2018-06-21] MEDS: TIOTROPIUM BROMIDE DPI 5 CAP/KIT (18 MCG/CAP) IH SCH (09:36)
[2018-06-21] MEDS ORDERED: FENTANYL CITRATE INJ/PF 100 MCG/2 ML AMPUL ONE (17:14)
[2018-06-21] MEDS ORDERED: PROPOFOL INJ 200 MG/20 ML VIAL IV ONE (17:14)
[2018-06-21] MEDS ORDERED: MIDAZOLAM 2 MG/2 ML INJ ONE (17:14)
--- NOTE | 2018-06-21 17:16 | PDOC CONSULTATION ---
Consultation-Blank Consultation: CARDIOLOGY CONSULTATION by Dr. Ginny Blackwood on 06/21/2018. Patient seen at 11 AM. Note below is a preliminary note. Formal consult to follow. 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 The patient is for ERCP. The patient is asymptomatic and there is no signs of heart failure, and is able to lie down flat and he has no PND or leg edema. PHYSICAL EXAMINATION: Patient is mildly obese. In no acute distress. He is able to lie down flat. There is no JVD and no clinical signs of heart failure. He is well compensated from his chronic systolic heart failure. Selected Entries 06/21/18 11:28 Temperature 97.8 F Temperature Oral Source Pulse Rate 74 Respiratory 16 Rate Blood Pressure 103/70 Blood Pressure 81 Mean BP Location Left Arm BP Position Sitting O2 Sat by Pulse 100 Oximetry Oxygen Delivery Room Air Method IMPRESSION/RECOMMENDATION: 1. Acute on chronic cholecystitis with cholelithiasis and common bile obstruction. Patient for ERCP today. 2. 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 3. Chronic systolic heart failure: At present compensated with no evidence of heart failure on exam. 4. AICD placement, with no firing of his AICD. 5. Chronic kidney disease stage IV: Seems to be stable. Although on admission he had acute on chronic renal failure. This is improved with current treatment. Nephrology on the case. 6. Hypertension: Blood pressure in the lower side. 7. Paroxysmal atrial fibrillation: Maintaining sinus rhythm on amiodarone. The patient was on Eliquis which has been stopped 48 hours ago. 8. COPD: Stable no evidence of acute exacerbation of COPD. 9. Hypothyroidism: Continue replacement. 10. Abnormal liver function tests secondary to the patient's CBD obstruction. 11. Coronary artery disease: No anginal symptoms no history of [place]. Most likely this is not significant CAD. 12. Preprocedural cardiac risk assessment. If the procedure is done under local and sedation the patient will be acceptable risk of the procedure. If general anesthesia is used then the patient will be a little more than moderate risk for the procedure, this in spite of his LV ejection fraction being very low, the patient is very well compensated from his CHF, and hence will not be prohibitive risk. FORMAL CONSULT TO follow. Discussed with anesthesiologist, and the attending physician. Will follow closely.
--- NOTE | 2018-06-21 18:54 | Operative Report ---
Operative Report DATE OF SURGERY: 06/21/18 Operative Report: Pre-op diagnosis: Abdominal pain, jaundice, and gallstones Post-op diagnosis: Common bile duct sludge Surgery: ERCP with sphincterotomy and balloon sludge extraction Medications: As per anesthesia Tissue removed: None Procedure: After informed consent obtained from patient, the throat was sprayed with Hurricane and conscious sedation was achieved. The ERCP endoscope was then inserted into the esophagus blindly and advanced into the stomach. The duodenum was entered and the ampulla was identified. Using the triple-lumen sphincterotomy catheter the common bile duct was freely cannulated. A cholangiogram was obtained which showed possible filling defect in the distal common bile duct. The common bile duct and intrahepatic ducts did not appear dilated. A good sized sphincterotomy was then performed using the endocut mode. The catheter was removed over the guidewire before a 9-12 mm balloon catheter was inserted. The balloon was inflated to 12 mm in the proximal common bile duct and pulled down the duct. Some sludge was extracted. The duct was swept 2 more times. A balloon occlusion cholangiogram was normal. The pancreatic duct was intentionally not cannulated. Patient tolerated procedure well. Findings Common bile duct: Small amount of sludge Intrahepatic ducts: Normal Pancreatic duct: Not cannulated Plan: Follow liver function tests. OPERATION: .
--- NOTE | 2018-06-21 21:06 | PDOC PROGRESS REPORT ---
Subjective Progress Note for:: 06/21/18 Subjective:: Patient states that his abdominal pain is almost resolved. He denies any nausea nor vomiting. He is a scheduled for ERCP tonight. Reason For Visit: ABDOMINAL PAIN; ACUTE ON CHRONIC RENAL FAILURE Physical Exam Vital Signs: Temp Pulse Resp BP Pulse Ox 97.5 F 73 20 119/80 97 06/21/18 19:26 06/21/18 19:26 06/21/18 19:26 06/21/18 19:26 06/21/18 20:43 Pulse Oximeter Continuous Start: 06/21/18 20:29 Freq: RTQ4 Status: Active Protocol: Document 06/21/18 20:43 CMI (Rec: 06/21/18 20:46 CMI [id number]) Pulse Oximetry Assessment Oxygen Saturation (92-100) 97 Oxygen Delivery Method Room Air Fraction of Inspired Oxygen (FIO2) 21 Equipment Usage Initial Set Up Continuous Pulse Oximeter 24 Hour Charge Charge Now Continuous SpO2 Machine # 11 Intake & Output 06/20/18 06/21/18 06/22/18 06:59 06:59 06:59 Intake Total 2000 505 250 Output Total 1275 1525 625 Balance 725 -1020 -228 Weight 87.9 kg 86.5 kg Exam: General appearance: PRESENT: no acute distress, cooperative, well-developed, well-nourished Head exam: PRESENT: atraumatic, normocephalic Eye exam: PRESENT: conjunctiva pink, PERRLA. ABSENT: scleral icterus Neck exam: ABSENT: JVD Respiratory exam: PRESENT: Normal breath sounds. ABSENT: crackles, rales, rhonchi, unlabored, wheezes Cardiovascular exam: PRESENT: Regular rate rhythm -+S1, +S2. ABSENT: diastolic murmur, systolic murmur GI/Abdominal exam: PRESENT: normal bowel sounds, soft. ABSENT: guarding, mass, tenderness Extremities exam: ABSENT: No edema Neurological exam: PRESENT: alert, awake, oriented to person, place and time. Skin exam: PRESENT: dry, warm, Results Laboratory Results: 06/21/18 05:45 06/21/18 05:45 06/21/18 06/21/18 05:45 05:45 WBC 8.3 RBC 4.76 Hgb 13.5 Hct 40.7 MCV 86 MCH 28.3 MCHC 33.1 RDW 15.2 H Plt Count 182 Seg Neutrophils % 72.4 Lymphocytes % 12.4 L Monocytes % 12.3 Eosinophils % 2.1 Basophils % 0.8 Absolute Neutrophils 6.0 Absolute Lymphocytes 1.0 Absolute Monocytes 1.0 Absolute Eosinophils 0.2 Absolute Basophils 0.1 Sodium 136.8 L Potassium 3.5 L Chloride 102 Carbon Dioxide 24 Anion Gap 11 BUN 38 H Creatinine 2.26 H Est GFR ( Amer) 35 L Est GFR (Non-Af Amer) 29 L Glucose 271 H Calcium 9.3 Total Bilirubin 6.6 H AST 191 H ALT 236 H Alkaline Phosphatase 489 H Total Protein 6.8 Albumin 3.2 L Impressions: Abdomen Ultrasound 06/19/18 00:00 IMPRESSION: 1. The pancreas and proximal abdominal aorta are obscured by overlying bowel gas. 2. Gallstones and gallbladder sludge. The gallbladder is dilated. 3. Fatty liver. Abdomen/Pelvis CT 06/19/18 00:00 IMPRESSION: Stones in the gallbladder without CT signs of acute cholecystitis. Assessment & Plan - Diagnosis (1) Abdominal pain Qualifiers: Abdominal location: left upper quadrant Qualified Code(s): R10.12 - Left upper quadrant pain Is this a current diagnosis for this admission?: Yes Plan: For ERCP. Pain almost resolved. (2) Acute on chronic renal failure Qualifiers: Acute renal failure type: unspecified Chronic kidney disease stage: unspecified stage Qualified Code(s): N17.9 - Acute kidney failure, unspecified; N18.9 - Chronic kidney disease, unspecified Is this a current diagnosis for this admission?: Yes Plan: Likely secondary to prerenal factors and currently improving. 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 vermin exterminator insulin use status Chronic kidney disease stage: stage 3 (moderate) Is this a current diagnosis for this admission?: Yes (6) CAD (coronary artery disease) Qualifiers: Coronary Disease-Associated Artery/Lesion type: [place] artery Associated angina: with other forms of angina Is this a current diagnosis for this admission?: Yes (7) CHF (congestive heart failure) Qualifiers: Heart failure type: combined systolic and diastolic Heart failure chronicity: chronic Qualified Code(s): I50.42 - Chronic combined systolic (congestive) and diastolic (congestive) heart failure Is this a current diagnosis for this admission?: Yes - Time Time with patient: 15-25 minutes
[2018-06-21] MEDS: SIMVASTATIN 10 MG TABLET PO SCH (21:30)
[2018-06-22] MEDS: LEVOTHYROXINE SODIUM 0.025 MG TABLET PO SCH (05:05)
[2018-06-22] MEDS: LANSOPRAZOLE 30 MG TAB.RAP.DR PO SCH (05:05)
[2018-06-22] MEDS: LEVOTHYROXINE SODIUM 0.1 MG TABLET PO SCH (05:05)
[2018-06-22] MEDS: HYDRALAZINE HCL 25 MG TABLET PO SCH ×3 (05:05→21:21)
[2018-06-22] MEDS: CEFAZOLIN 1 GM/D5W RTU 1 GM/50 ML RTUPB IV SCH ×4 (05:07→23:01)
[2018-06-22 07:24] LABS: ALANINE AMINOTRANSFERASE 104 U/L (21-72); ALKALINE PHOSPHATASE 450 U/L (38-126); ANION GAP 11 (5-19); ASPARTATE AMINO TRANSFERASE 76 U/L (17-59); BILIRUBIN,TOTAL 3.1 mg/dL (0.2-1.3); BLOOD UREA NITROGEN 37 mg/dL (7-20); CALCIUM 9.1 mg/dL (8.4-10.2); CARBON DIOXIDE 26 mmol/L (22-30); CHLORIDE 103 mmol/L (98-107); GLUCOSE 136 mg/dL (75-110); POTASSIUM 3.5 mmol/L (3.6-5.0); SODIUM 140.1 mmol/L (137-145); TOTAL PROTEIN 6.5 g/dL (6.3-8.2)
--- NOTE | 2018-06-22 08:16 | RADIOLOGY REPORT (SQ) ---
EXAM DESCRIPTION: NO CHG FLUORO; ENDO CATH/BILIARY DUCT COMPLETED DATE/TIME: 06/21/2018 6:49 pm REASON FOR STUDY: ERCP R10.84 GENERALIZED ABDOMINAL PAIN COMPARISON: None. FLUOROSCOPY TIME: 3.1 minutes. 6 images saved to PACS. TECHNIQUE: Intra-operative images acquired during surgical procedure to evaluate progress. NUMBER OF IMAGES: 6 images. LIMITATIONS: None. FINDINGS: Images acquired during ERCP procedure. IMPRESSION: IMAGE(S) OBTAINED DURING PROCEDURE. COMMENT: Quality ID 145: Final reports for procedures using fluoroscopy that document radiation exp osure indices, or exposure time and number of fluorographic images (if radiation exposure indices are not available) Please consult full operative report of the attending physician for description of the procedure. TECHNICAL DOCUMENTATION: JOB ID: [id number] [employer]- All Rights Reserved Reading location - IP/workstation name: [email or web address]
--- NOTE | 2018-06-22 08:16 | RADIOLOGY REPORT (SQ) ---
EXAM DESCRIPTION: NO CHG FLUORO; ENDO CATH/BILIARY DUCT COMPLETED DATE/TIME: 06/21/2018 6:49 pm REASON FOR STUDY: ERCP R10.84 GENERALIZED ABDOMINAL PAIN COMPARISON: None. FLUOROSCOPY TIME: 3.1 minutes. 6 images saved to PACS. TECHNIQUE: Intra-operative images acquired during surgical procedure to evaluate progress. NUMBER OF IMAGES: 6 images. LIMITATIONS: None. FINDINGS: Images acquired during ERCP procedure. IMPRESSION: IMAGE(S) OBTAINED DURING PROCEDURE. COMMENT: Quality ID 145: Final reports for procedures using fluoroscopy that document radiation exp osure indices, or exposure time and number of fluorographic images (if radiation exposure indices are not available) Please consult full operative report of the attending physician for description of the procedure. TECHNICAL DOCUMENTATION: JOB ID: [id number] [employer]- All Rights Reserved Reading location - IP/workstation name: [email or web address]
[2018-06-22] MEDS: MONTELUKAST SODIUM 10 MG TABLET PO SCH (10:00)
[2018-06-22] MEDS: FAMOTIDINE 20 MG TABLET PO SCH ×2 (10:00→21:21)
[2018-06-22] MEDS: DOCUSATE SODIUM 100 MG CAPSULE PO SCH (10:00)
[2018-06-22] MEDS: AMIODARONE HCL 200 MG TABLET PO SCH (10:00)
[2018-06-22] MEDS: SITAGLIPTIN PHOSPHATE 50 MG TABLET PO SCH (10:00)
[2018-06-22] MEDS: ASPIRIN 81 MG TABLET, CHEWABLE PO SCH (10:00)
[2018-06-22] MEDS: ATENOLOL 50 MG TABLET PO SCH (10:00)
[2018-06-22] MEDS: HUM INSULIN NPH/REG INSULIN HM 100 UNIT/1 ML 3 ML SUBCUT SCH ×2 (10:02→17:23)
[2018-06-22] MEDS: INSULIN LISPRO 100 UNIT/ML 3 ML VIAL SUBCUT SCH ×4 (10:03→21:21)
[2018-06-22] MEDS: TIOTROPIUM BROMIDE DPI 5 CAP/KIT (18 MCG/CAP) IH SCH (10:06)
[2018-06-22] MEDS ORDERED: POTASSIUM CHLORIDE 20 MEQ/15 ML UDCUP PO ONE (10:45)
--- NOTE | 2018-06-22 11:40 | PDOC PROGRESS REPORT ---
Subjective Progress Note for:: 06/22/18 Subjective:: Patient underwent ERCP with sphincterotomy and balloon sludge extraction yesterday by Dr. Dietz with a final diagnosis of common bile duct sludge. Patient remains to be stable and really asymptomatic now without any abdominal pain, nausea or vomiting. Reason For Visit: ABDOMINAL PAIN; ACUTE ON CHRONIC RENAL FAILURE Physical Exam Vital Signs: Temp Pulse Resp BP Pulse Ox 98.0 F 76 15 120/78 98 06/22/18 08:34 06/22/18 08:34 06/22/18 08:34 06/22/18 08:34 06/22/18 11:35 Pulse Oximeter Continuous Start: 06/21/18 20:29 Freq: RTQ4 Status: Active Protocol: Document 06/22/18 11:35 [facility] (Rec: 06/22/18 11:35 [facility] [id number]) Pulse Oximetry Assessment Oxygen Saturation (92-100) 98 Oxygen Delivery Method Room Air Equipment Usage Equipment in Use Continuous SpO2 Machine # 11 Intake & Output 06/21/18 06/22/18 06/23/18 06:59 06:59 06:59 Intake Total 505 350 Output Total 1525 1150 Balance -1020 -800 Weight 86.5 kg 86.6 kg Exam: General appearance: PRESENT: no acute distress, cooperative, well-developed, well-nourished Head exam: PRESENT: atraumatic, normocephalic Eye exam: PRESENT: conjunctiva pink, PERRLA. ABSENT: scleral icterus Neck exam: ABSENT: JVD Respiratory exam: PRESENT: Normal breath sounds. ABSENT: crackles, rales, rhonchi, unlabored, wheezes Cardiovascular exam: PRESENT: Regular rate rhythm -+S1, +S2. ABSENT: diastolic murmur, systolic murmur GI/Abdominal exam: PRESENT: normal bowel sounds, soft. ABSENT: guarding, mass, tenderness Extremities exam: ABSENT: No edema Neurological exam: PRESENT: alert, awake, oriented to person, place and time. Skin exam: PRESENT: dry, warm, Results Laboratory Results: 06/21/18 05:45 06/22/18 06:06 06/22/18 06:06 Sodium 140.1 Potassium 3.5 L Chloride 103 Carbon Dioxide 26 Anion Gap 11 BUN 37 H Creatinine 2.17 H Est GFR ( Amer) 36 L Est GFR (Non-Af Amer) 30 L Glucose 136 H Calcium 9.1 Total Bilirubin 3.1 H AST 76 H ALT 104 H Alkaline Phosphatase 450 H Total Protein 6.5 Albumin 3.0 L Impressions: Abdomen Ultrasound 06/19/18 00:00 IMPRESSION: 1. The pancreas and proximal abdominal aorta are obscured by overlying bowel gas. 2. Gallstones and gallbladder sludge. The gallbladder is dilated. 3. Fatty liver. Abdomen/Pelvis CT 06/19/18 00:00 IMPRESSION: Stones in the gallbladder without CT signs of acute cholecystitis. Catheter Placement 06/21/18 00:00 IMPRESSION: IMAGE(S) OBTAINED DURING PROCEDURE. Fluoroscopy 06/21/18 00:00 IMPRESSION: IMAGE(S) OBTAINED DURING PROCEDURE. Assessment & Plan - Diagnosis (1) Abdominal pain Qualifiers: Abdominal location: left upper quadrant Qualified Code(s): R10.12 - Left upper quadrant pain Is this a current diagnosis for this admission?: Yes Plan: Status post ERCP with diagnosis of common bile duct sludge. Currently asymptomatic and abdominal pain is resolved. (2) Acute on chronic renal failure Qualifiers: Acute renal failure type: unspecified Chronic kidney disease stage: unspecified stage Qualified Code(s): N17.9 - Acute kidney failure, unspecified; N18.9 - Chronic kidney disease, unspecified Is this a current diagnosis for this admission?: Yes Plan: Likely secondary to prerenal factors and currently improving. (3) Chronic kidney disease, stage 3 Is this a current diagnosis for this admission?: Yes (4) Choledocholithiasis Is this a current diagnosis for this admission?: Yes (5) Type 2 diabetes mellitus Qualifiers: Diabetes mellitus [facility] insulin use: unspecified terminal clerk insulin use status Chronic kidney disease stage: stage 3 (moderate) Is this a current diagnosis for this admission?: Yes (6) CAD (coronary artery disease) Qualifiers: Coronary Disease-Associated Artery/Lesion type: [place] artery Associated angina: with other forms of angina Is this a current diagnosis for this admission?: Yes (7) CHF (congestive heart failure) Qualifiers: Heart failure type: combined systolic and diastolic Heart failure chronicity: chronic Qualified Code(s): I50.42 - Chronic combined systolic (congestive) and diastolic (congestive) heart failure Is this a current diagnosis for this admission?: Yes - Notes Notes: Patient's kidney function continues to improve. No further intervention from nephrology standpoint. I think patient can be discharged home within the next 24 hours. Will sign off for now. - Time Time with patient: 15-25 minutes
[2018-06-22] MEDS: TORSEMIDE 20 MG TABLET PO SCH ×2 (12:32→17:22)
--- NOTE | 2018-06-22 15:18 | PDOC PROGRESS REPORT ---
Subjective Progress Note for:: 06/22/18 Subjective:: Patient is feeling much better Patient underwent for the ERCP remove the sludge Patient's otherwise no abdominal pain no nausea no vomiting No chest pain no short of breath Reason For Visit: ABDOMINAL PAIN; ACUTE ON CHRONIC RENAL FAILURE Physical Exam Vital Signs: Temp Pulse Resp BP Pulse Ox 97.5 F 79 16 113/75 98 06/22/18 11:22 06/22/18 14:00 06/22/18 11:22 06/22/18 11:22 06/22/18 11:35 Pulse Oximeter Continuous Start: 06/21/18 20:29 Freq: RTQ4 Status: Active Protocol: Document 06/22/18 11:35 [facility] (Rec: 06/22/18 11:35 [facility] [id number]) Pulse Oximetry Assessment Oxygen Saturation (92-100) 98 Oxygen Delivery Method Room Air Equipment Usage Equipment in Use Continuous SpO2 Machine # 11 Intake & Output 06/21/18 06/22/18 06/23/18 06:59 06:59 06:59 Intake Total 376 817 3146 Output Total 1525 1150 800 Balance -1020 -800 410 Weight 86.5 kg 86.6 kg General appearance: PRESENT: no acute distress, well-developed, well-nourished Head exam: PRESENT: atraumatic, normocephalic Eye exam: PRESENT: conjunctiva pink, EOMI, PERRLA. ABSENT: scleral icterus Ear exam: PRESENT: normal external ear exam Mouth exam: PRESENT: moist, tongue midline Neck exam: PRESENT: full ROM. ABSENT: carotid bruit, JVD, lymphadenopathy, thyromegaly Respiratory exam: PRESENT: clear to auscultation erasmo Cardiovascular exam: PRESENT: RRR. ABSENT: diastolic murmur, rubs, systolic murmur Vascular exam: PRESENT: normal capillary refill GI/Abdominal exam: PRESENT: normal bowel sounds, soft. ABSENT: distended, guarding, mass, organolmegaly, rebound, tenderness Rectal exam: PRESENT: deferred Musculoskeletal exam: PRESENT: ambulatory Neurological exam: PRESENT: alert, awake, oriented to person, oriented to place, oriented to time, oriented to situation, CN II-XII grossly intact. ABSENT: motor sensory deficit Psychiatric exam: PRESENT: appropriate affect, normal mood. ABSENT: homicidal ideation, suicidal ideation Skin exam: PRESENT: dry, intact, warm. ABSENT: cyanosis, rash Results Laboratory Results: 06/21/18 05:45 06/22/18 06:06 06/22/18 06:06 Sodium 140.1 Potassium 3.5 L Chloride 103 Carbon Dioxide 26 Anion Gap 11 BUN 37 H Creatinine 2.17 H Est GFR ( Amer) 36 L Est GFR (Non-Af Amer) 30 L Glucose 136 H Calcium 9.1 Total Bilirubin 3.1 H AST 76 H ALT 104 H Alkaline Phosphatase 450 H Total Protein 6.5 Albumin 3.0 L Impressions: Abdomen Ultrasound 06/19/18 00:00 IMPRESSION: 1. The pancreas and proximal abdominal aorta are obscured by overlying bowel gas. 2. Gallstones and gallbladder sludge. The gallbladder is dilated. 3. Fatty liver. Abdomen/Pelvis CT 06/19/18 00:00 IMPRESSION: Stones in the gallbladder without CT signs of acute cholecystitis. Catheter Placement 06/21/18 00:00 IMPRESSION: IMAGE(S) OBTAINED DURING PROCEDURE. Fluoroscopy 06/21/18 00:00 IMPRESSION: IMAGE(S) OBTAINED DURING PROCEDURE. Assessment & Plan - Diagnosis (1) Abdominal pain Qualifiers: Abdominal location: left upper quadrant Qualified Code(s): R10.12 - Left upper quadrant pain Is this a current diagnosis for this admission?: Yes Plan: All resolved (2) Acute on chronic renal failure Qualifiers: Acute renal failure type: unspecified Chronic kidney disease stage: unspecified stage Qualified Code(s): N17.9 - Acute kidney failure, unspecified; N18.9 - Chronic kidney disease, unspecified Is this a current diagnosis for this admission?: Yes Plan: Currently all stable follow with the nephrology (3) Afib Qualifiers: Atrial fibrillation type: chronic Qualified Code(s): I48.2 - Chronic atrial fibrillation Is this a current diagnosis for this admission?: Yes Plan: Will going to restart the Eliquis while patient is not planning to go for any surgery (4) CAD (coronary artery disease) Qualifiers: Coronary Disease-Associated Artery/Lesion type: [place] artery Associated angina: with other forms of angina Is this a current diagnosis for this admission?: Yes Plan: Is currently admitting in the [facility] see the cardiology over there (5) CHF (congestive heart failure) Qualifiers: Heart failure type: combined systolic and diastolic Heart failure chronicity: chronic Qualified Code(s): I50.42 - Chronic combined systolic (congestive) and diastolic (congestive) heart failure Is this a current diagnosis for this admission?: Yes Plan: Continues to current medications follow with the cardiology (6) CKD (chronic kidney disease) Qualifiers: Chronic kidney disease stage: stage 3 (moderate) Qualified Code(s): N18.3 - Chronic kidney disease, stage 3 (moderate) Is this a current diagnosis for this admission?: Yes Plan: Consult the nephrology get the ultrasound for the kidney (7) Gall stone Qualifiers: Cholecystitis acuity: acute and chronic Is this a current diagnosis for this admission?: Yes Plan: As per discussed with the general surgery and GI if the patient's liver function is getting better and patient does not have any symptoms no need for any surg ical intervention at this point hopefully discharge tomorrow (8) HLD (hyperlipidemia) Qualifiers: Hyperlipidemia type: unspecified Qualified Code(s): E78.5 - Hyperlipidemia, unspecified Is this a current diagnosis for this admission?: Yes (9) HTN (hypertension) Qualifiers: Hypertension type: essential hypertension Qualified Code(s): I10 - Essential (primary) hypertension Is this a current diagnosis for this admission?: Yes Plan: Denies to current medications (10) Type 2 diabetes mellitus Qualifiers: Diabetes mellitus skilled nursing insulin use: unspecified skilled nursing insulin use status Chronic kidney disease stage: stage 3 (moderate) Is this a current diagnosis for this admission?: Yes Plan: Continue sliding scale (11) Hyperkalemia Is this a current diagnosis for this admission?: Yes - Time Time Spent with patient: 15-24 minutes Medications reviewed and adjusted accordingly: Yes Anticipated discharge: Home Within: within 24 hours - Plan Summary Plan Summary: Discussed with the GI and surgery
--- NOTE | 2018-06-22 17:36 | Progress Note ---
Provider Note Provider Note: CARDIOLOGY PROGRESS NOTE by Dr. Ginny Blackwood on 06/22/2018. SUBJECTIVE: The patient had his ERCP yesterday and sphincterotomy and sludge was removed from the common bile duct. The patient's liver function tests improved. The patient states he has no further abdominal pain. There is no nausea vomiting. The patient has no chest pain or discomfort. There is no shortness of breath. There is no PND orthopnea. There is no leg edema. There is no firing of his AICD. There is no recurrence of atrial fibrillation, there is no ventricular arrhythmia seen. There is no TIA CVA symptoms. PHYSICAL EXAMINATION: The patient is mildly obese. He is well-groomed. At present in no acute distress. Selected Entries 06/22/18 11:22 Temperature 97.5 F Temperature Oral Source Pulse Rate 78 Respiratory 16 Rate Blood Pressure 113/75 Blood Pressure 87 Mean BP Location Left Arm BP Position Supine O2 Sat by Pulse 100 Oximetry Oxygen Delivery Room Air Method HEAD: Is atraumatic normocephalic. EYES: Pupils equal round regular reactive to light accommodation. There is mild scleral icterus. There is no conjunctival pallor. Extraocular movements are normal. EARS: Tympanic memories are intact. External auditory canals are clear. NOSE: THERE IS NO DEVIATED NASAL SEPTUM. THERE IS NO INFLAMMATION NASAL MUCOUS MEMBRANE. Mouth: Mucous membranes of mouth are moist tongue is moist. There is no ulcers. There is no bleeding from the gums. THROAT: There is no redness of the oropharynx. There is no exudates. SKIN: There is no skin rashes or skin lesions there is no petechia or ecchymosis. NECK: Is supple there is no JVD. Carotids are equal there is no bruit. There is no lymphadenopathy. There is no goiter. There is no accessory muscles of respiration in use. Trachea central. LUNGS: Show diminished air entry and prolonged expiration, without any rhonchi rales or wheezing. On percussion there is hyperresonance. On palpation there is no chest wall tenderness. CARDIAC: S1-S2 is heard S1 is of normal intensity. There is no S3 gallop. There is no S4 gallop.. There is a systolic murmur left sternal border and the apex. There is no rub. ABDOMEN: Soft. Nontender.. There is no hepatosplenomegaly. Bowel sounds well heard. There is no tender areas masses. EXTREMITIES: Femorals are diminished. There is no femoral bruits. Leg pulses are diminished. There is no DVT or cellulitis. There is no pedal edema. There is no cyanosis or clubbing. Capillary refill is normal. OLIVE KNOCKER: The patient is conscious awake alert oriented x3 with no focal deficits. PSYCHIATRIC: Patient judgment insight are intact although is of slow mentation. His affect is normal.. 06/21/18 06/22/18 05:45 06:06 Sodium 140.1 Potassium 3.5 L Chloride 103 Carbon Dioxide 26 Anion Gap 11 BUN 37 H Creatinine 2.17 H Est GFR (Non-Af Amer) 30 L Glucose 136 H Calcium 9.3 9.1 Total Bilirubin 6.6 H 3.1 H Direct Bilirubin 5.6 H 2.0 H Neonat Total Bilirubin Not Reportable Not Reportable Neonat Direct Bilirubin Not Reportable Not Reportable Neonat Indirect Bili Not Reportable Not Reportable AST 191 H 76 H ALT 236 H 104 H Alkaline Phosphatase 489 H 450 H Total Protein 6.8 6.5 Albumin 3.2 L 3.0 L IMPRESSION/RECOMMENDATION: 1. Acute on chronic cholecystitis with cholelithiasis and common bile obstruction. Patient for ERCP today. 2. 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 3. Chronic systolic heart failure: At present compensated with no evidence of heart failure on exam. 4. AICD placement, with no firing of his AICD. 5. Chronic kidney disease stage IV: Seems to be stable. Although on admission he had acute on chronic renal failure. This is improved with current treatment. Nephrology on the case. 6. Hypertension: Blood pressure in the lower side. 7. Paroxysmal atrial fibrillation: Maintaining sinus rhythm on amiodarone. The patient was on Eliquis which has been stopped 48 hours ago. 8. COPD: Stable no evidence of acute exacerbation of COPD. 9. Hypothyroidism: Continue replacement. 10. Abnormal liver function tests secondary to the patient's CBD obstruction. Status post pain toward me and evacuation of sludge from the CBD. Liver function tests have improved. 11. Coronary artery disease: No anginal symptoms no history of [place]. Most likely this is not significant CAD. 12. HYPOKALEMIA: Replace the patient's potassium I occasions reviewed. Management plan discussed with other caregiving providers on the case. 40 minutes spent on this patient more than 50% of time spent in direct patient care medical decision making is of moderate complexity cardiac bermudez. Note that the patient is a full code. He states his fiance is his surrogate healthcare decision maker. Note cardiac status is stable. We will sign off and follow the patient in the office. Discussed with Dr. Vaughn the attending physician.
[2018-06-22] MEDS: SIMVASTATIN 10 MG TABLET PO SCH (21:21)
[2018-06-23] MEDS: LEVOTHYROXINE SODIUM 0.025 MG TABLET PO SCH (05:00)
[2018-06-23] MEDS: HYDRALAZINE HCL 25 MG TABLET PO SCH ×2 (05:01→12:00)
[2018-06-23] MEDS: LEVOTHYROXINE SODIUM 0.1 MG TABLET PO SCH (05:01)
[2018-06-23] MEDS: LANSOPRAZOLE 30 MG TAB.RAP.DR PO SCH (05:01)
[2018-06-23] MEDS: CEFAZOLIN 1 GM/D5W RTU 1 GM/50 ML RTUPB IV SCH ×2 (05:04→12:00)
[2018-06-23 06:36] LABS: ALANINE AMINOTRANSFERASE 47 U/L (21-72); ALBUMIN 2.9 g/dL (3.5-5.0); ALKALINE PHOSPHATASE 339 U/L (38-126); ANION GAP 9 (5-19); ASPARTATE AMINO TRANSFERASE 42 U/L (17-59); BILIRUBIN,DIRECT 1.1 mg/dL (0.0-0.4); BILIRUBIN,TOTAL 1.8 mg/dL (0.2-1.3); BLOOD UREA NITROGEN 35 mg/dL (7-20); CALCIUM 8.8 mg/dL (8.4-10.2); CARBON DIOXIDE 25 mmol/L (22-30); CHLORIDE 102 mmol/L (98-107); GLUCOSE 188 mg/dL (75-110); POTASSIUM 3.3 mmol/L (3.6-5.0); SODIUM 136.3 mmol/L (137-145); TOTAL PROTEIN 6.3 g/dL (6.3-8.2)
[2018-06-23] MEDS ORDERED: POTASSIUM CHLORIDE 10 MEQ CAPSULE.ER PO ONE (07:18)
[2018-06-23] MEDS: HUM INSULIN NPH/REG INSULIN HM 100 UNIT/1 ML 3 ML SUBCUT SCH (08:22)
[2018-06-23] MEDS: INSULIN LISPRO 100 UNIT/ML 3 ML VIAL SUBCUT SCH ×2 (08:22→12:48)
[2018-06-23] MEDS: FAMOTIDINE 20 MG TABLET PO SCH (10:35)
[2018-06-23] MEDS: DOCUSATE SODIUM 100 MG CAPSULE PO SCH (10:35)
[2018-06-23] MEDS: ATENOLOL 50 MG TABLET PO SCH (10:35)
[2018-06-23] MEDS: SITAGLIPTIN PHOSPHATE 50 MG TABLET PO SCH (10:35)
[2018-06-23] MEDS: AMIODARONE HCL 200 MG TABLET PO SCH (10:35)
[2018-06-23] MEDS: ASPIRIN 81 MG TABLET, CHEWABLE PO SCH (10:35)
[2018-06-23] MEDS: MONTELUKAST SODIUM 10 MG TABLET PO SCH (10:35)
[2018-06-23] MEDS: TORSEMIDE 20 MG TABLET PO SCH (10:36)
[2018-06-23] MEDS: TIOTROPIUM BROMIDE DPI 5 CAP/KIT (18 MCG/CAP) IH SCH (10:36)
[2018-06-23 12:28] VITALS: BP 105/73
--- NOTE | 2018-06-23 13:44 | PDOC DISCHARGE SUMMARY ---
General - Admit/Disc Date/PCP Admission Date/Primary Care Provider: 06/19/18 12:54 LENA DEMARCO MD Discharge Date: 06/23/18 - Discharge Diagnosis (1) Abdominal pain Is this a current diagnosis for this admission?: Yes Summary: Currently all resolved (2) Acute on chronic renal failure Is this a current diagnosis for this admission?: Yes Summary: Currently back to the baseline (3) Afib Is this a current diagnosis for this admission?: Yes Summary: Restart the Eliquis continues to current medications (4) CAD (coronary artery disease) Is this a current diagnosis for this admission?: Yes Summary: Currently all stable (5) CHF (congestive heart failure) Is this a current diagnosis for this admission?: Yes Summary: Continues to current medications patients follow with the [facility] also (6) CKD (chronic kidney disease) Is this a current diagnosis for this admission?: Yes Summary: Patient is currently see her Dr. Chin as outpatient (7) Gall stone Is this a current diagnosis for this admission?: Yes Summary: Currently all stable's as per discussed with the surgery and GI patient is asymptomatic no sign of any cholecystitis patient high risk for the surgery before not to do anything and follow as outpatient (8) HLD (hyperlipidemia) Is this a current diagnosis for this admission?: Yes (9) HTN (hypertension) Is this a current diagnosis for this admission?: Yes Summary: Currently all stable (10) Type 2 diabetes mellitus Is this a current diagnosis for this admission?: Yes Summary: Continues to current medications (11) Hyperkalemia Is this a current diagnosis for this admission?: Yes Summary: All resolved - Additional Information Resuscitation Status: Full Code Discharge Diet: Diabetic Discharge Activity: Activity As Tolerated, Balance Activity w/Rest Home Medications: Aspirin 81 mg PO DAILY 07/29/14 Levothyroxine Sodium 125 mcg PO DAILY 07/29/14 Montelukast Sodium 10 mg PO DAILY 07/29/14 Nitroglycerin [Nitrostat] 0.3 mg SL ASDIR PRN 07/29/14 Simvastatin 20 mg PO QHS 07/29/14 Tiotropium [place] [Spiriva Handihaler 18 mcg/dose (30 Dose)] 1 cap IH DAILY 07/29/14 Acetaminophen [Tylenol] 650 mg PO Q6HP PRN 06/19/18 Amiodarone HCl [Cordarone 200 mg Tablet] 200 mg PO DAILY 06/19/18 Apixaban [Eliquis 5 mg Tablet] 5 mg PO Q12 06/19/18 Bisoprolol Fumarate [Zebeta 5 mg Tablet] 2.5 mg PO DAILY 06/19/18 Docusate Sodium [Colace] 100 mg PO DAILY 06/19/18 Hydralazine HCl [Apresoline 25 mg Tablet] 12.5 mg PO Q8H 06/19/18 Insulin NPH Hum/Reg Insulin Hm [Humulin 70/30 Kwikpen] 15 units SQ QPM 06/19/18 Insulin NPH Hum/Reg Insulin Hm [Humulin 70/30 Kwikpen] 18 units SQ QAM 06/19/18 Pantoprazole Sodium [Protonix] 40 mg PO DAILY 06/19/18 Potassium Chloride [Klor-Con M20] 60 meq PO Q12 06/19/18 Sitagliptin Phosphate [Januvia 50 mg Tablet] 50 mg PO DAILY 06/19/18 Torsemide [Demadex 20 mg Tablet] 80 mg PO BID 06/19/18 History of Present Illness History of Present Illness: SANDRA COHN is a 73 year old male This is a 73-year-old male with a significant history of the combined congestive heart failure with EF is only 20%'s with a long-standing [facility]'s just discharged last week with a history of type 2 diabetes history of the chronic kidney disease with history of the defibrillator and history of the ga llbladder disease came to the emergency department with the complaining of abdominal pain nausea and vomiting started yesterday and not feeling well In the emergency department his initial workup with the creatinine was 2.5 and patient's potassium was 5.5 and the ER physicians thought may be a kidney problem but when I saw the patient's the patient's kidney problem is pretty much baseline creatinine patient have underlying gallbladder disease which is gallstone but unable to go for any surgery due to the multiple cardiac issues Patient's denied any chest pain denied any shortness of the breath At this point decided to further evaluate will order the CT scan of the abdomen and pelvis and ultrasound to rule out any underlying gallbladder disorders which causing the patient's symptoms and other etiology We will consult the cardiology and nephrology with the patient's significant comorbidity Hospital Course Hospital Course: This is a 73-year-old male with the multiple medical problems with a combined congestive heart failure with EF is only 20% status post AICD history of the hypertension's hyperlipidemia type 2 diabetes history of the chronic kidney disease and a history of the known gallstone came to the emergency department with abdominal pain nausea vomiting which consistent with a gallstone symptoms Patient underwent for the ultrasound was suggested gallstones but no acute cholecystitis patient underwent for the CT abdomen and pelvis which is consistent with the gallstones Surgery was consulted and suggest the patient with a high risk because of the multiple comorbidity suggest the cholecystectomy tube initially but the radiolog y suggest that the patient does not have any fever no white count no sign of any cholecystitis no need for any tubes Initial liver enzyme in the hospital was normal school of concern about the CBD stone and GI was consulted and underwent for the ERCP to remove this sludge Patient also seen by the cardiology and nephrology Very extensive with all coordinate custom decorating consultant and suggest that patients probably do not need any surgery at this point while patient is completely asymptomatic and patient's pain is pretty much resolved follow outpatient and patients do not want to go for the surgical procedure at this point Patient is otherwise remained stable discharge home with a stable conditions discussed with the patient and the family and the bedside Physical Exam Vital Signs: Temp Pulse Resp BP Pulse Ox 98.0 F 72 20 105/73 97 06/23/18 12:23 06/23/18 12:23 06/23/18 12:23 06/23/18 12:23 06/23/18 12:23 Pulse Oximeter Continuous Start: 06/21/18 20:29 Freq: RTQ4 Status: Active Protocol: Document 06/23/18 11:52 [facility] (Rec: 06/23/18 11:52 [facility] [id number]) Pulse Oximetry Assessment Oxygen Saturation (92-100) 97 Oxygen Delivery Method Room Air Fraction of Inspired Oxygen (FIO2) 21 Equipment Usage Equipment in Use Continuous SpO2 Machine # 11 Intake & Output 06/22/18 06/23/18 06/24/18 06:59 06:59 06:59 Intake Total 350 2009 120 Output Total 1150 2100 375 Balance -800 -90 -255 Weight 86.6 kg 86.8 kg General appearance: PRESENT: no acute distress, well-developed, well-nourished Head exam: PRESENT: atraumatic, normocephalic Eye exam: PRESENT: conjunctiva pink, EOMI, PERRLA. ABSENT: scleral icterus Ear exam: PRESENT: normal external ear exam Mouth exam: PRESENT: moist, tongue midline Neck exam: PRESENT: full ROM. ABSENT: carotid bruit, JVD, lymphadenopathy, thyromegaly Respiratory exam: PRESENT: clear to auscultation erasmo Cardiovascular exam: PRESENT: RRR. ABSENT: diastolic murmur, rubs, systolic murmur Vascular exam: PRESENT: normal capillary refill GI/Abdominal exam: PRESENT: normal bowel sounds, soft. ABSENT: distended, guarding, mass, organolmegaly, rebound, tenderness Rectal exam: PRESENT: deferred Extremities exam: ABSENT: pedal edema Musculoskeletal exam: PRESENT: ambulatory Neurological exam: PRESENT: alert, awake, oriented to person, oriented to place, oriented to time, oriented to situation, CN II-XII grossly intact. ABSENT: motor sensory deficit Psychiatric exam: PRESENT: appropriate affect, normal mood. ABSENT: homicidal ideation, suicidal ideation Skin exam: PRESENT: dry, intact, warm. ABSENT: cyanosis, rash Results Laboratory Results: 06/21/18 05:45 06/23/18 11:05 06/23/18 06/23/18 05:41 11:05 Sodium 136.3 L Potassium 3.3 L 3.8 Chloride 102 Carbon Dioxide 25 Anion Gap 9 BUN 35 H Creatinine 1.80 H Est GFR ( Amer) 45 L Est GFR (Non-Af Amer) 37 L Glucose 188 H Calcium 8.8 Total Bilirubin 1.8 H AST 42 ALT 47 Alkaline Phosphatase 339 H Total Protein 6.3 Albumin 2.9 L Impressions: Abdomen Ultrasound 06/19/18 00:00 IMPRESSION: 1. The pancreas and proximal abdominal aorta are obscured by overlying bowel gas. 2. Gallstones and gallbladder sludge. The gallbladder is dilated. 3. Fatty liver. Abdomen/Pelvis CT 06/19/18 00:00 IMPRESSION: Stones in the gallbladder without CT signs of acute cholecystitis. Catheter Placement 06/21/18 00:00 IMPRESSION: IMAGE(S) OBTAINED DURING PROCEDURE. Fluoroscopy 06/21/18 00:00 IMPRESSION: IMAGE(S) OBTAINED DURING PROCEDURE. Qualifiers - * PATIENT BEING DISCHARGED WITH ANY OF THE FOLLOWING DIAGNOSIS: No VTE patient discharged on overlapping Therapy?: Yes Plan Time Spent: Greater than 30 Minutes - Follow outpatients surgery follow outpatients cardiology and following a 1 week in office Repeat the Chem-7 in 1 week
[2018-06-24] MEDS ORDERED: PANTOPRAZOLE SODIUM 40 MG TABLET.DR PO SCH (06:00)
== END 2018-06-23 13:43 | disposition home health service (06) | DRG 445 ==
LOC: ER 17:56 → EH 06-19 00:59 → OBSVTOIN 06-19 12:54 → 3S 06-19 18:35
PROVIDERS: ADMIT Family Medicine; ATTEND Family Medicine
PROC: 0FC98ZZ Extirpation of Matter from Common Bile Duct, Via Natural or Artificial Opening Endoscopic (ICD-10-PCS; principal; 2018-06-21 17:30)
PROC: BF101ZZ Fluoroscopy of Bile Ducts using Low Osmolar Contrast (ICD-10-PCS; 2018-06-21 17:30)
DX: K80.50 Calculus of bile duct without cholangitis or cholecystitis without obstruction (principal); N17.9 Acute kidney failure, unspecified; I50.42 Chronic combined systolic (congestive) and diastolic (congestive) heart failure; I13.0 Hypertensive heart and chronic kidney disease with heart failure and stage 1 through stage 4 chronic kidney disease, or unspecified chronic kidney disease; K80.20 Calculus of gallbladder without cholecystitis without obstruction; E11.22 Type 2 diabetes mellitus with diabetic chronic kidney disease; R94.5 Abnormal results of liver function studies; Z95.810 Presence of automatic (implantable) cardiac defibrillator; E87.5 Hyperkalemia; N18.3 Chronic kidney disease, stage 3 (moderate); I48.2 Chronic atrial fibrillation; I25.10 Atherosclerotic heart disease of native coronary artery without angina pectoris; K21.9 Gastro-esophageal reflux disease without esophagitis; M19.90 Unspecified osteoarthritis, unspecified site; F32.9 Major depressive disorder, single episode, unspecified; Z79.4 Long term (current) use of insulin; Z53.09 Procedure and treatment not carried out because of other contraindication; Z79.01 Long term (current) use of anticoagulants
CPT/HCPCS: 00732; 36415; 43262; 43264; 74176; 74328; 76700; 80048; 80053; 80076; 81001; 82962; 83690; 84132; 85025; 85610; 93005; 93010; 94762; 96361; 96372; 96374; 96375; 99285; J0690; J1815; J1885; J2250; J2405; J2550; J2704; J3010; J3490; J7030

== ENCOUNTER → 2018-10-14 | Outpatient (CLI) | payer MEDICARE ==
[2018-10-14 11:38] LABS: HEMATOCRIT 34.6 % (37.9-51.0); HEMOGLOBIN 11.1 g/dL (13.5-17.0); MEAN CORPUSCULAR HEMOGLOBIN 26.3 pg (27.0-33.4); MEAN CORPUSCULAR VOLUME 82 fl (80-97); PLATELET COUNT 297 10^3/uL (150-450); RED BLOOD COUNT 4.21 10^6/uL (4.35-5.55); RED CELL DISTRIBUTION WIDTH 16.7 % (11.5-14.0); WHITE BLOOD COUNT 7.1 10^3/uL (4.0-10.5)
[2018-10-14 11:53] LABS: APPEARANCE,URINE CLEAR; BILIRUBIN,URINE NEGATIVE (NEGATIVE); COLOR,URINE YELLOW; GLUCOSE, URINE NEGATIVE (NEGATIVE); KETONES,URINE NEGATIVE (NEGATIVE); PROTEIN,URINE 30 mg/dL (NEGATIVE); URINE SPECIFIC GRAVITY 1.007
[2018-10-14 11:54] LABS: LEUKOCYTE ESTERASE,URINE NEGATIVE (NEGATIVE); NITRITE,URINE NEGATIVE (NEGATIVE)
[2018-10-14 11:57] LABS: ANION GAP 12 (5-19); BLOOD UREA NITROGEN 47 mg/dL (7-20); CARBON DIOXIDE 22 mmol/L (22-30); CHLORIDE 102 mmol/L (98-107); GLUCOSE 178 mg/dL (75-110); POTASSIUM 4.5 mmol/L (3.6-5.0)
== END ==
LOC: OD 11:05 → EDBD 11:05
PROVIDERS: ATTEND Internal Medicine Nephrology
DX: N18.3 Chronic kidney disease, stage 3 (moderate) (principal); I50.9 Heart failure, unspecified; E87.5 Hyperkalemia
CPT/HCPCS: 36415; 80048; 81001; 85027

== ENCOUNTER → 2019-01-16 | Outpatient (CLI) | payer MEDICARE ==
[2019-01-16 13:31] LABS: HEMATOCRIT 36.7 % (37.9-51.0); HEMOGLOBIN 11.6 g/dL (13.5-17.0); MEAN CORPUSCULAR HEMOGLOBIN 25.2 pg (27.0-33.4); MEAN CORPUSCULAR HGB CONC 31.5 g/dL (32.0-36.0); MEAN CORPUSCULAR VOLUME 80 fl (80-97); PLATELET COUNT 222 10^3/uL (150-450); RED BLOOD COUNT 4.59 10^6/uL (4.35-5.55); RED CELL DISTRIBUTION WIDTH 25.5 % (11.5-14.0); WHITE BLOOD COUNT 6.2 10^3/uL (4.0-10.5)
[2019-01-16 13:45] LABS: ALBUMIN 3.6 g/dL (3.5-5.0); ANION GAP 10 (5-19); BLOOD UREA NITROGEN 37 mg/dL (7-20); CALCIUM 9.4 mg/dL (8.4-10.2); CARBON DIOXIDE 25 mmol/L (22-30); CHLORIDE 102 mmol/L (98-107); GLUCOSE 237 mg/dL (75-110); PHOSPHORUS 3.9 mg/dL (2.5-4.5); POTASSIUM 5.4 mmol/L (3.6-5.0)
[2019-01-16 13:49] LABS: ABSOLUTE LYMPHOCYTES# (MANUAL) 1.1 10^3/uL (0.5-4.7); ABSOLUTE MONOCYTES # (MANUAL) 0.7 10^3/uL (0.1-1.4); BAND NEUTROPHILS % (MANUAL) 1 % (3-5); BASOPHILS % (MANUAL) 1 % (0-2); EOSINOPHILS % (MANUAL) 3 % (0-6); LYMPHOCYTES % (MANUAL) 17 % (13-45); MONOCYTES % (MANUAL) 12 % (3-13); SEGMENTED NEUTROPHILS % (MAN) 65 % (42-78); TOTAL CELLS COUNTED 100
[2019-01-16 13:51] LABS: POLYCHROMASIA SLIGHT
[2019-01-16 13:52] LABS: ANISOCYTOSIS 3+; PLATELET COMMENT ADEQUATE; POIKILOCYTOSIS SLIGHT; SCHISTOCYTES SLIGHT; TEAR DROP CELLS SLIGHT
[2019-01-16 14:50] LABS: APPEARANCE,URINE CLEAR; BILIRUBIN,URINE NEGATIVE (NEGATIVE); COLOR,URINE YELLOW; GLUCOSE, URINE NEGATIVE (NEGATIVE); KETONES,URINE NEGATIVE (NEGATIVE); LEUKOCYTE ESTERASE,URINE TRACE (NEGATIVE); NITRITE,URINE NEGATIVE (NEGATIVE); PROTEIN,URINE 100 mg/dL (NEGATIVE); URINE SPECIFIC GRAVITY 1.011
[2019-01-16 15:17] LABS: UR PRO/CREAT RATIO RESULT 1.5 mg/mg (0.0-0.2); URINE CREATININE 66.7 mg/dL (22-328); URINE PROTEIN 100.3 mg/dL (<12)
== END ==
LOC: OD 13:00
PROVIDERS: ATTEND Internal Medicine Nephrology
DX: I12.9 Hypertensive chronic kidney disease with stage 1 through stage 4 chronic kidney disease, or unspecified chronic kidney disease (principal); N18.2 Chronic kidney disease, stage 2 (mild); E11.22 Type 2 diabetes mellitus with diabetic chronic kidney disease
CPT/HCPCS: 36415; 80069; 81001; 82570; 83970; 84156; 85025

== ENCOUNTER → 2019-02-12 | Outpatient (CLI) | payer MEDICARE ==
[2019-02-12 13:59] LABS: ANION GAP 13 (5-19); BLOOD UREA NITROGEN 76 mg/dL (7-20); CARBON DIOXIDE 31 mmol/L (22-30); CHLORIDE 89 mmol/L (98-107); GLUCOSE 253 mg/dL (75-110); POTASSIUM 3.4 mmol/L (3.6-5.0)
== END ==
LOC: OD 12:43
PROVIDERS: ATTEND Internal Medicine Nephrology
DX: N18.3 Chronic kidney disease, stage 3 (moderate) (principal); E87.6 Hypokalemia
CPT/HCPCS: 36415; 80048

== ENCOUNTER 2019-02-18 01:53 | Emergency (ER) | payer MEDICARE ==
[2019-02-18] MEDS ORDERED: CALCIUM GLUCONATE 1000 MG/10 ML INJ IV ONE ×2 (02:04→02:20)
[2019-02-18] MEDS ORDERED: DILTIAZEM HCL INJ 25 MG/5 ML VIAL ONE (02:05)
[2019-02-18] MEDS ORDERED: DILTIAZEM HCL INJ 25 MG/5 ML VIAL IV ONE (02:05)
[2019-02-18] MEDS ORDERED: DILTIAZEM HCL/D5W 0 MG/0 ML RTUINJ IV ONE (02:05)
[2019-02-18] MEDS ORDERED: ONDANSETRON HCL INJ/PF 4 MG/2 ML SDV ONE (02:11)
[2019-02-18] MEDS ORDERED: ONDANSETRON HCL INJ/PF 4 MG/2 ML SDV IV ONE (02:12)
[2019-02-18] MEDS ORDERED: NORMAL SALINE 1000 ML 500 ML IV ONE (02:12)
[2019-02-18] MEDS ORDERED: METOPROLOL TARTRATE PF/INJ 5 MG/5 ML SDV IV ONE ×2 (02:14→02:15)
[2019-02-18 02:18] LABS: HEMATOCRIT 41.6 % (37.9-51.0); HEMOGLOBIN 13.2 g/dL (13.5-17.0); MEAN CORPUSCULAR HEMOGLOBIN 27.3 pg (27.0-33.4); MEAN CORPUSCULAR HGB CONC 31.8 g/dL (32.0-36.0); MEAN CORPUSCULAR VOLUME 86 fl (80-97); PLATELET COUNT 255 10^3/uL (150-450); RED BLOOD COUNT 4.85 10^6/uL (4.35-5.55); RED CELL DISTRIBUTION WIDTH 19.6 % (11.5-14.0); WHITE BLOOD COUNT 10.3 10^3/uL (4.0-10.5)
[2019-02-18] MEDS ORDERED: ASPIRIN 81 MG TABLET, CHEWABLE PO ONE (02:30)
--- NOTE | 2019-02-18 02:32 | ER Document Report ---
ED General - General Stated Complaint: ABDOMINAL PAIN Time Seen by Provider: 02/18/19 02:21 Primary Care Provider: Ruby FLORES MD [ACTIVE STAFF] - Follow up as needed Notes: Mr. Villarreal is a 73 yo m w/ PMH anemia, CHF, A. fib on carvedilol, hypothyroidism, hypertension, hyperlipidemia, CAD, CKD stage III, choledocholithiasis, hyperkalemia, diabetes and abnormal LFTs brought in by EMS for abdominal pain. Patient states that the pain is been going on for 1 to 2 days now. He endorses nausea without any vomiting or diarrhea. He also endorses a cough that is nonproductive of any sputum. No fevers or chills. He denies any lighthead edness, or chest pain. He does endorse some shortness of breath, significantly worse when he lies flat. He denies any missed doses of his home medications. Patient denies feeling any rapid heart rate or palpitations. He denies any lightheadedness but states that he feels cold all over. TRAVEL OUTSIDE OF THE [place] IN LAST 30 DAYS: No - Related Data Allergies/Adverse Reactions: No Known Allergies Allergy (Verified 07/29/14 08:37) Past Medical History - Social History Smoking Status: Former Smoker Family History: Reviewed & Not Pertinent - Past Medical History Cardiac Medical History: Reports: Hx Atrial Fibrillation, Hx Congestive Heart Failure, Hx Coronary Artery Disease, Hx Hypercholesterolemia, Hx Hypertension Denies: Hx Heart Attack Pulmonary Medical History: Denies: Hx Asthma, Hx Bronchitis, Hx COPD, Hx Pneumonia Neurological Medical History: Denies: Hx Cerebrovascular Accident, Hx Seizures Endocrine Medical History: Reports: Hx Diabetes Mellitus Type 1, Hx Diabetes Mellitus Type 2 Renal/ Medical History: Denies: Hx Peritoneal Dialysis GI Medical History: Reports: Hx Gastroesophageal Reflux Disease Musculoskeletal Medical History: Reports Hx Arthritis - OSTEOARTHRITIS Psychiatric Medical History: Reports: Hx Depression Past Surgical History: Reports: Hx Cardiac Catheterization, Hx Internal Defibrillator - Immunizations Hx Diphtheria, Pertussis, Tetanus Vaccination: Yes Review of Systems - Review of Systems Constitutional: See HPI EENT: No symptoms reported Cardiovascular: See HPI Respiratory: See HPI Gastrointestinal: See HPI Genitourinary: No symptoms reported Male Genitourinary: No symptoms reported Musculoskeletal: No symptoms reported Skin: No symptoms reported Hematologic/Lymphatic: No symptoms reported Neurological/Psychological: No symptoms reported Physical Exam - Vital signs Vitals: Resp BP 30 H 101/81 02/18/19 01:57 02/18/19 01:57 Interpretation: Tachycardic, Tachypneic - General General appearance: Alert, Anxious In distress: Moderate - HEENT Head: Normocephalic, Atraumatic Eyes: Normal Pupils: PERRL - Respiratory Respiratory status: No respiratory distress. No: Respiratory distress Chest status: Nontender Breath sounds: Normal Chest palpation: Normal - Cardiovascular Rhythm: Irregularly irregular, Tachycardia Heart sounds: Normal auscultation Murmur: No Pulses: Decreased: Radial - irregular when palpated while ausculated to heart - Abdominal Inspection: Normal Distension: No distension Bowel sounds: Normal Tenderness: Tender - suprapubic TTP Organomegaly: No organomegaly - Back Back: Normal, Nontender - Extremities General upper extremity: Normal inspection, Nontender, Normal color, Normal ROM, Normal temperature General lower extremity: Normal inspection, Nontender, Normal color, Normal ROM, Normal temperature, Normal weight bearing. No: Beto's sign - Neurological Neuro grossly intact: Yes Cognition: Normal Orientation: AAOx4 [place] Coma Scale Eye Opening: Spontaneous [place] Coma Scale Verbal: Oriented Marcos Coma Scale Motor: Obeys Commands Marcos Coma Scale Total: 15 Speech: Normal Motor strength normal: LUE, RUE, LLE, RLE Sensory: Normal - Psychological Associated symptoms: Normal affect, Normal mood - Skin Skin Temperature: Cool - Cool in all 4 extremities. Skin Moisture: Dry Skin Color: Normal Course - Re-evaluation Re-evalutation: 02/18/19 02:26 Patient brought in by EMS. Evaluated immediately on arrival. EKG was obtained that 01:58 AM and I was at the bedside at exactly 2 AM. Noted to be significantly tachycardic with wide-complex tachycardia. Patient has known [employer] pacemaker in place. Does not appear to be in SVT however no P waves appreciated and patient has an irregular pulse. Initially the patient was given diltiazem 10 mg IV push with 1 g of calcium gluconate IV given his blood pressure was soft at 112 systolic. Some im provement in the heart rate to 112 however the patient got acutely nauseated and started vomiting. Heart rate again increased to 140s to 150s. Patient initiated on a small bolus of 500 mL normal saline. He was given 4 mg of IV Zofran. He was also then given 5 mg of metoprolol IV push. This improved his heart rate to 102. Repeat EKG shows sinus tachycardia with a regular rate somewhere between 85-1 25 and a left bundle branch block. Prior EKG from June 2018 shows that the patient had an incomplete left bundle branch block at that point in time. I remained at the bedside for 30 minutes until the patient's heart rate improved. Nursing staff recommended to interrogate the pacemaker. Patient's blood pressure remained low with systolics between 70s and 80s however he maintained his map to 52 and he remained mentating normally. Patient blood pressure dropped to systolics of 70 and map as well dropped to 52. Patient ordered for 1 L of fluid to give him a total of 2 L of fluid. Labs notable for significant electrolyte abnormalities including new creatinine elevation to 3.5. 02/18/19 04:01 Called [employer] for analysis of AICD pacemaker interpretation at . Awaiting callback from manufacturers service representative to discuss. CT negative for acute process. 02/18/19 04:06 Called oil refinery operator to santino Vaughn for admission. 02/18/19 04:08 Call received from [employer] manufacturers service representative. States that the patient's heart rate appears to be quite regular and got as high as 160 bpm since February 17 at 10:20 PM. States that the heart rhythm appears fast and regular ranging from 140-160 likely atrial flutter. Also added that the patient's atrial impedance is greater than 3000 for the past week and should be less than 2000. She adds that there is high impedance in the atrial lead but the ventricular lead appears within normal limits. There is been several ep isodes in September where the patient also had elevated atrial impedance. Recommended that the atrial lead to be evaluated. 02/18/19 04:[address] Vaughn. Feels that the patient needs to be transferred to [facility] for admission as he has complex cardiac and congestive heart failure history and his hotel controller are all based in [facility]. 02/18/19 04:43 Spoke to Edith Cartagena from [facility] transfer center. Will speak to hotel controller and discuss case. 02/18/19 05:28 Spoke to HARLEEN Downs from [facility] cardiac service regarding the patient. Recommended ordering a lactic acid, to assess forward flow of the heart. If greater than 2.5 would recommend initiating the patient on a dobutamine drip for cardiogenic shock at a rate of 2.5 without increasing it. Patient accepted to Dr. Sohail Vaughn to the PCU. 02/18/19 05:49 Patient's lactate returned at 10.4. Concern for cardiogenic shock. Will be initiated on dobutamine drip at a rate of 2.5. 02/18/19 06:09 - Vital Signs Vital signs: Temp Pulse Resp BP Pulse Ox 96.9 F L 144 H 29 H 80/59 L 100 02/18/19 02:31 02/18/19 02:31 02/18/19 05:25 02/18/19 05:25 02/18/19 05:25 - Laboratory Result Diagrams: 02/18/19 02:00 02/18/19 02:00 Laboratory results interpreted by me: 02/18/19 02/18/19 02/18/19 02:00 02:00 02:00 Hgb 13.2 L MCHC 31.8 L RDW 19.6 H Band Neutrophils % 2 L PT 36.7 H Sodium 133.8 L Potassium 5.3 H Chloride 97 L Carbon Dioxide 16 L Anion Gap 21 H BUN 78 H Creatinine 3.51 H Est GFR ( Amer) 21 L Est GFR (MDRD) Non-Af 17 L Glucose 306 H Lactic Acid Magnesium Total Bilirubin 2.9 H Direct Bilirubin 1.4 H Alkaline Phosphatase 189 H NT-Pro-B Natriuret Pep Total Protein 8.5 H 02/18/19 02/18/19 02/18/19 02:00 02:00 05:10 Hgb MCHC RDW Band Neutrophils % PT Sodium Potassium Chloride Carbon Dioxide Anion Gap BUN Creatinine Est GFR ( Amer) Est GFR (MDRD) Non-Af Glucose Lactic Acid 10.4 H Magnesium 2.5 H Total Bilirubin Direct Bilirubin Alkaline Phosphatase NT-Pro-B Natriuret Pep 33872 H Total Protein - EKG Interpretation by Me Rate: Tachycardia Rhythm: Other - Wide-complex ventricular tachycardia with nonspecific intraventricular delay. Left axis deviation. Unable to appreciate P waves. Additional EKG results interpreted by me: 02/18/19 02:34 Repeat EKG at 02:18 a.m. shows improvement in tachycardia from 144-105 sinus tach with irregular rate. No P waves. Consistent with atrial fibrillation. Left bundle branch block with left axis deviation. 02/18/19 02:35 Discharge - Discharge Clinical Impression: Cardiogenic shock, Tachycardia, Lactic acidosis, History of CHF (congestive heart failure), DENNISE (acute kidney injury), Abnormal LFTs Condition: Fair Disposition: [facility] Admitting Provider: Sohail Vaughn Referrals: Ruby FLORES MD [ACTIVE STAFF] - Follow up as needed
[2019-02-18 02:34] LABS: ALBUMIN 4.1 g/dL (3.5-5.0); CARBON DIOXIDE 16 mmol/L (22-30); PROTHROMBIN TIME 36.7 SEC (11.4-15.4); TOTAL PROTEIN 8.5 g/dL (6.3-8.2)
[2019-02-18 02:47] LABS: CREATINE KINASE MB 1.64 ng/mL (<4.55)
[2019-02-18 02:51] LABS: ALKALINE PHOSPHATASE 189 U/L (38-126); ASPARTATE AMINO TRANSFERASE 55 U/L (17-59); BILIRUBIN,TOTAL 2.9 mg/dL (0.2-1.3); BLOOD UREA NITROGEN 78 mg/dL (7-20); CALCIUM 9.8 mg/dL (8.4-10.2); CHLORIDE 97 mmol/L (98-107); CREATINE KINASE 69 U/L (55-170); GLUCOSE 306 mg/dL (75-110); POTASSIUM 5.3 mmol/L (3.6-5.0)
[2019-02-18 02:57] LABS: ABSOLUTE LYMPHOCYTES# (MANUAL) 1.4 10^3/uL (0.5-4.7); ANISOCYTOSIS 2+; BAND NEUTROPHILS % (MANUAL) 2 % (3-5); BASOPHILS % (MANUAL) 0 % (0-2); EOSINOPHILS % (MANUAL) 0 % (0-6); LYMPHOCYTES % (MANUAL) 14 % (13-45); MONOCYTES % (MANUAL) 10 % (3-13); SEGMENTED NEUTROPHILS % (MAN) 74 % (42-78); TOTAL CELLS COUNTED 100
[2019-02-18 02:58] LABS: PLATELET COMMENT ADEQUATE
[2019-02-18] MEDS ORDERED: NORMAL SALINE 500 ML IV ONE (03:02)
[2019-02-18 03:05] LABS: TROPONIN I 0.043 ng/mL
[2019-02-18 03:11] LABS: ANION GAP 21 (5-19); BILIRUBIN,DIRECT 1.4 mg/dL (0.0-0.4)
[2019-02-18] MEDS ORDERED: NORMAL SALINE 1000 ML 1,000 ML IV ONE (03:17)
--- NOTE | 2019-02-18 03:41 | RADIOLOGY REPORT (SQ) ---
Chest single view on 02/18/2019 at 2:54 AM CLINICAL INDICATION: Chest pain COMPARISON: 05/09/2018 FINDINGS: 2-lead left subclavian AICD device is unchanged in position. Mild cardiomegaly is noted. Vascular calcification is noted in the aorta. The lungs are clear. Hilar and mediastinal contours are within normal limits. Pulmonary vascularity is within normal limits. IMPRESSION: No acute disease.
--- NOTE | 2019-02-18 04:43 | RADIOLOGY REPORT (SQ) ---
EXAM DESCRIPTION: CT ABDOMEN PELVIS WITHOUT IV CONTRAST COMPLETED DATE/TME: 02/18/2019 03:18 CLINICAL HISTORY: Right upper abdominal pain. COMPARISON: 06/19/2018 TECHNIQUE: CT of the abdomen and pelvis without IV contrast. Evaluation of the solid organs and vasculature is suboptimal due to lack of IV contrast. Artifact from upper extremities. FINDINGS: Lung Bases: The visualized lung bases are clear. Left-sided generator with pacemaker leads. Cardiomegaly. Coronary artery atherosclerosis. Bones: Mild endplate spondylosis throughout the visualized spine. Abdomen: Liver: The liver has normal size and density. Gallbladder: Cholecystectomy. Spleen, Pancreas, and Adrenal Glands: The spleen, pancreas, and adrenal glands are unremarkable. Kidneys: The kidneys have normal size without evidence of hydronephrosis. No obstructing ureteral calculi. Vasculature: Aortoiliac atherosclerosis. IVC has normal caliber. Stomach: The stomach and duodenum have normal course. Other: No free intraperitoneal air. Small amount of free fluid. Pelvis: Bladder: Urinary bladder is unremarkable. Bowel: No dilated loops of large or small bowel. Appendix: Not definitely identified. Pelvis: Enlarged prostate. IMPRESSION: 1. Small amount of free fluid. Otherwise no acute abnormality identified in the abdomen/pelvis. 2. Enlarged prostate. 3. Cardiomegaly with coronary artery atherosclerosis. This exam was performed according to our departmental dose-optimization program, which includes automated exposure control, adjustment of the mA and/or kV according to patient size and/or use of iterative reconstruction technique.
[2019-02-18] MEDS ORDERED: DOBUTAMINE HCL/D5W 500 MG/250 ML RTUINJ IV PRN (05:49)
[2019-02-18] MEDS ORDERED: DOBUTAMINE HCL/D5W 500 MG/250 ML RTUINJ IV ONE (05:51)
[2019-02-18 06:13] VITALS: BP 86/66
--- NOTE | 2019-02-18 23:20 | EKG REPORT ---
SEVERITY:- ABNORMAL ECG - WIDE COMPLEX TACHYCARDIA NONSPECIFIC IVCD WITH LAD : Confirmed by: Zelda Dixon 18-Feb-2019 23:19:48
--- NOTE | 2019-02-18 23:20 | EKG REPORT ---
SEVERITY:- ABNORMAL ECG - A FIB LEFT BUNDLE BRANCH BLOCK : Confirmed by: Zelda Dixon 18-Feb-2019 23:19:37
== END 2019-02-18 06:15 | disposition short-term general hospital (02) ==
LOC: ER 01:53
DX: I47.2 Ventricular tachycardia (principal); R57.0 Cardiogenic shock; E87.2 Acidosis; N17.9 Acute kidney failure, unspecified; R79.89 Other specified abnormal findings of blood chemistry; R94.5 Abnormal results of liver function studies; R06.82 Tachypnea, not elsewhere classified; R10.819 Abdominal tenderness, unspecified site; R11.2 Nausea with vomiting, unspecified; I44.7 Left bundle-branch block, unspecified; I10 Essential (primary) hypertension; I25.10 Atherosclerotic heart disease of native coronary artery without angina pectoris; E11.9 Type 2 diabetes mellitus without complications; R10.9 Unspecified abdominal pain; I48.91 Unspecified atrial fibrillation; Z79.899 Other long term (current) drug therapy; Z87.891 Personal history of nicotine dependence; Z95.810 Presence of automatic (implantable) cardiac defibrillator; Z82.49 Family history of ischemic heart disease and other diseases of the circulatory system
CPT/HCPCS: 93005; 36415; 82553; 82550; 83605; 83735; 84443; 85025; 85610; 80053; 84484; 83880; 71045; 74176; 93010; A9270; J0610; J3490 ×2; J1250; J2405; J7030; J7040; 96361; 96365; 96375; 99285

== ENCOUNTER → 2019-03-17 | Outpatient (CLI) | payer MEDICARE ==
[2014-07-10 18:44] VITALS: BP 151/99
[2019-03-17 12:46] LABS: APPEARANCE,URINE CLEAR; BILIRUBIN,URINE NEGATIVE (NEGATIVE); COLOR,URINE YELLOW; GLUCOSE, URINE NEGATIVE (NEGATIVE); KETONES,URINE NEGATIVE (NEGATIVE); LEUKOCYTE ESTERASE,URINE NEGATIVE (NEGATIVE); NITRITE,URINE NEGATIVE (NEGATIVE); PROTEIN,URINE 100 mg/dL (NEGATIVE); URINE SPECIFIC GRAVITY 1.009
[2019-03-17 12:49] LABS: ABSOLUTE BASOPHILS # (AUTO) 0.1 10^3/uL (0.0-0.2); ABSOLUTE EOSINOPHILS # (AUTO) 0.3 10^3/uL (0.0-0.6); ABSOLUTE LYMPHOCYTES (AUTO) 1.2 10^3/uL (0.5-4.7); ABSOLUTE MONOCYTES (AUTO) 0.8 10^3/uL (0.1-1.4); BASOPHILS % (AUTO) 1.2 % (0-2); EOSINOPHILS % (AUTO) 4.5 % (0-6); HEMOGLOBIN 11.9 g/dL (13.5-17.0); LYMPHOCYTES % (AUTO) 18.4 % (13-45); MEAN CORPUSCULAR HEMOGLOBIN 29.5 pg (27.0-33.4); MEAN CORPUSCULAR HGB CONC 33.1 g/dL (32.0-36.0); MEAN CORPUSCULAR VOLUME 89 fl (80-97); MONOCYTES % (AUTO) 12.4 % (3-13); PLATELET COUNT 239 10^3/uL (150-450); RED BLOOD COUNT 4.04 10^6/uL (4.35-5.55); RED CELL DISTRIBUTION WIDTH 16.6 % (11.5-14.0); SEGMENTED NEUTROPHILS % (AUTO) 63.5 % (42-78); TOTAL CELLS COUNTED % (AUTO) 100 %; WHITE BLOOD COUNT 6.3 10^3/uL (4.0-10.5)
[2019-03-17 12:56] LABS: ALBUMIN 3.6 g/dL (3.5-5.0); ALKALINE PHOSPHATASE 156 U/L (38-126); ANION GAP 13 (5-19); ASPARTATE AMINO TRANSFERASE 27 U/L (17-59); BILIRUBIN,DIRECT 0.8 mg/dL (0.0-0.4); BILIRUBIN,TOTAL 1.7 mg/dL (0.2-1.3); BLOOD UREA NITROGEN 40 mg/dL (7-20); CALCIUM 9.5 mg/dL (8.4-10.2); CARBON DIOXIDE 26 mmol/L (22-30); CHLORIDE 101 mmol/L (98-107); GLUCOSE 257 mg/dL (75-110); POTASSIUM 3.9 mmol/L (3.6-5.0); TOTAL PROTEIN 7.6 g/dL (6.3-8.2)
[2019-03-17 13:14] LABS: UR PRO/CREAT RATIO RESULT 1.6 mg/mg (0.0-0.2); URINE CREATININE 58.5 mg/dL (22-328)
== END ==
LOC: OD 11:45
PROVIDERS: ATTEND Internal Medicine Nephrology
DX: I13.0 Hypertensive heart and chronic kidney disease with heart failure and stage 1 through stage 4 chronic kidney disease, or unspecified chronic kidney disease (principal); I50.9 Heart failure, unspecified; N18.3 Chronic kidney disease, stage 3 (moderate); E11.22 Type 2 diabetes mellitus with diabetic chronic kidney disease; D63.1 Anemia in chronic kidney disease; R80.9 Proteinuria, unspecified
CPT/HCPCS: 36415; 80053; 81001; 82570; 83735; 83970; 84100; 84156; 85025

== ENCOUNTER → 2019-04-24 | Outpatient (CLI) | payer MEDICARE ==
[2019-04-24 15:38] LABS: ABSOLUTE BASOPHILS # (AUTO) 0.1 10^3/uL (0.0-0.2); ABSOLUTE EOSINOPHILS # (AUTO) 0.3 10^3/uL (0.0-0.6); ABSOLUTE LYMPHOCYTES (AUTO) 1.7 10^3/uL (0.5-4.7); ABSOLUTE NEUT (AUTO) 7.2 10^3/uL (1.7-8.2); BASOPHILS % (AUTO) 1.1 % (0-2); EOSINOPHILS % (AUTO) 2.6 % (0-6); HEMATOCRIT 38.4 % (37.9-51.0); HEMOGLOBIN 13.3 g/dL (13.5-17.0); LYMPHOCYTES % (AUTO) 16.3 % (13-45); MEAN CORPUSCULAR HEMOGLOBIN 29.6 pg (27.0-33.4); MEAN CORPUSCULAR HGB CONC 34.7 g/dL (32.0-36.0); MEAN CORPUSCULAR VOLUME 85 fl (80-97); MONOCYTES % (AUTO) 9.6 % (3-13); RED BLOOD COUNT 4.51 10^6/uL (4.35-5.55); RED CELL DISTRIBUTION WIDTH 13.5 % (11.5-14.0); SEGMENTED NEUTROPHILS % (AUTO) 70.4 % (42-78); TOTAL CELLS COUNTED % (AUTO) 100 %; WHITE BLOOD COUNT 10.3 10^3/uL (4.0-10.5)
[2019-04-24 15:45] LABS: APPEARANCE,URINE CLEAR; BILIRUBIN,URINE NEGATIVE (NEGATIVE); COLOR,URINE YELLOW; GLUCOSE, URINE 150 mg/dL (NEGATIVE); KETONES,URINE NEGATIVE (NEGATIVE); LEUKOCYTE ESTERASE,URINE NEGATIVE (NEGATIVE); NITRITE,URINE NEGATIVE (NEGATIVE); PROTEIN,URINE 30 mg/dL (NEGATIVE); URINE SPECIFIC GRAVITY 1.009; UROBILINOGEN,URINE NEGATIVE mg/dL (<2.0)
[2019-04-24 15:55] LABS: ANION GAP 14 (5-19); BLOOD UREA NITROGEN 42 mg/dL (7-20); CALCIUM 9.3 mg/dL (8.4-10.2); CARBON DIOXIDE 26 mmol/L (22-30); CHLORIDE 94 mmol/L (98-107); POTASSIUM 3.2 mmol/L (3.6-5.0)
[2019-04-24 16:07] LABS: GLUCOSE 412 mg/dL (75-110)
[2019-04-24 16:08] LABS: UR PRO/CREAT RATIO RESULT 0.5 mg/mg (0.0-0.2); URINE CREATININE 75.9 mg/dL (22-328); URINE PROTEIN 35.6 mg/dL (<12)
[2019-04-24 16:11] LABS: PLATELET COUNT 185 10^3/uL (150-450)
== END ==
LOC: OD 14:33
PROVIDERS: ATTEND Internal Medicine Nephrology
DX: E11.22 Type 2 diabetes mellitus with diabetic chronic kidney disease (principal); I13.0 Hypertensive heart and chronic kidney disease with heart failure and stage 1 through stage 4 chronic kidney disease, or unspecified chronic kidney disease; N18.3 Chronic kidney disease, stage 3 (moderate); I50.9 Heart failure, unspecified; D64.9 Anemia, unspecified; N25.0 Renal osteodystrophy; R80.9 Proteinuria, unspecified
CPT/HCPCS: 36415; 80048; 81001; 82570; 83735; 84156; 85025

== ENCOUNTER 2019-07-06 12:14 | Inpatient (IN) | payer MEDICARE ==
[2019-07-06] MEDS ORDERED: NORMAL SALINE 250 ML IV ONE (12:28)
--- NOTE | 2019-07-06 12:29 | ER Document Report ---
ED Medical Screen (RME) - General Stated Complaint: NAUSEA,VOMITING Time Seen by Provider: 07/06/19 12:19 Primary Care Provider: Ruby FLORES MD [Primary Care Provider] - Follow up as needed Notes: Patient presents complaining of generalized weakness nausea and vomiting x4 episodes. Patient had recently restarted metoprolol with his first dose today. Patient was hypotensive at home. Patient denies any pain symptoms. Patient was given glucagon and epinephrine per EMS to treat possible metoprolol overdose and his hypotension. hx: CVA, A. fib, hypertension, CHF, CKD I have greeted and performed a rapid initial assessment of this patient. A comprehensive ED assessment and evaluation of the patient, analysis of test results and completion of the medical decision making process will be conducted by additional ED providers. TRAVEL OUTSIDE OF THE [place] IN LAST 30 DAYS: No - Related Data Allergies/Adverse Reactions: No Known Allergies Allergy (Verified 07/29/14 08:37) Past Medical History - Past Medical History Cardiac Medical History: Reports: Hx Atrial Fibrillation, Hx Congestive Heart Failure, Hx Coronary Artery Disease, Hx Hypercholesterolemia, Hx Hypertension Denies: Hx Heart Attack Pulmonary Medical History: Denies: Hx Asthma, Hx Bronchitis, Hx COPD, Hx Pneumonia Neurological Medical History: Denies: Hx Cerebrovascular Accident, Hx Seizures Endocrine Medical History: Reports: Hx Diabetes Mellitus Type 1, Hx Diabetes Mellitus Type 2 Renal/ Medical History: Denies: Hx Peritoneal Dialysis GI Medical History: Reports: Hx Gastroesophageal Reflux Disease Musculoskeltal Medical History: Reports Hx Arthritis - OSTEOARTHRITIS Psychiatric Medical History: Reports: Hx Depression Past Surgical History: Reports: Hx Cardiac Catheterization, Hx Internal Defibrillator - Immunizations Hx Diphtheria, Pertussis, Tetanus Vaccination: Yes Physical Exam - General General appearance: Alert Notes: Generalized weakness, hypotensive Doctor's Discharge - Discharge Referrals: Ruby FLORES MD [Primary Care Provider] - Follow up as needed
[2019-07-06] MEDS ORDERED: ONDANSETRON HCL INJ/PF 4 MG/2 ML SDV IV ONE (12:40)
[2019-07-06 12:42] LABS: ABSOLUTE BASOPHILS # (AUTO) 0.1 10^3/uL (0.0-0.2); ABSOLUTE EOSINOPHILS # (AUTO) 0.2 10^3/uL (0.0-0.6); ABSOLUTE LYMPHOCYTES (AUTO) 3.5 10^3/uL (0.5-4.7); ABSOLUTE MONOCYTES (AUTO) 1.7 10^3/uL (0.1-1.4); ABSOLUTE NEUT (AUTO) 10.6 10^3/uL (1.7-8.2); BASOPHILS % (AUTO) 0.7 % (0-2); EOSINOPHILS % (AUTO) 1.2 % (0-6); HEMATOCRIT 42.5 % (37.9-51.0); HEMOGLOBIN 15.1 g/dL (13.5-17.0); LYMPHOCYTES % (AUTO) 21.7 % (13-45); MEAN CORPUSCULAR HEMOGLOBIN 29.5 pg (27.0-33.4); MEAN CORPUSCULAR HGB CONC 35.4 g/dL (32.0-36.0); MEAN CORPUSCULAR VOLUME 83 fl (80-97); MONOCYTES % (AUTO) 10.6 % (3-13); PLATELET COUNT 367 10^3/uL (150-450); RED CELL DISTRIBUTION WIDTH 12.9 % (11.5-14.0); SEGMENTED NEUTROPHILS % (AUTO) 65.8 % (42-78); TOTAL CELLS COUNTED % (AUTO) 100 %; WHITE BLOOD COUNT 16.1 10^3/uL (4.0-10.5)
[2019-07-06 13:06] LABS: ALBUMIN 4.6 g/dL (3.5-5.0); ALKALINE PHOSPHATASE 148 U/L (38-126); ASPARTATE AMINO TRANSFERASE 56 U/L (17-59); BILIRUBIN,DIRECT 0.3 mg/dL (0.0-0.4); BILIRUBIN,TOTAL 1.6 mg/dL (0.2-1.3); CALCIUM 10.2 mg/dL (8.4-10.2); GLUCOSE 278 mg/dL (75-110); TOTAL PROTEIN 9.2 g/dL (6.3-8.2)
--- NOTE | 2019-07-06 13:10 | RADIOLOGY REPORT (SQ) ---
EXAM DESCRIPTION: CHEST SINGLE VIEW COMPLETED DATE/TIME: 07/06/2019 12:59 pm REASON FOR STUDY: hypotension COMPARISON: 02/18/2019 EXAM PARAMETERS: NUMBER OF VIEWS: One view. TECHNIQUE: Single frontal radiographic view of the chest acquired. RADIATION DOSE: NA LIMITATIONS: None. FINDINGS: LUNGS AND PLEURA: No opacities, masses or pneumothorax. No pleural effusion. MEDIASTINUM AND HILAR STRUCTURES: No masses. Contour normal. HEART AND VASCULAR STRUCTURES: Heart normal in size. Normal vasculature. BONES: No acute findings. HARDWARE: Battery pack and leads are in place. OTHER: No other significant finding. IMPRESSION: NO ACUTE RADIOGRAPHIC FINDING IN THE CHEST. TECHNICAL DOCUMENTATION: JOB ID: [id number] 2010 [employer]- All Rights Reserved Reading location - IP/workstation name: [email or web address]
[2019-07-06 13:11] LABS: CARBON DIOXIDE 32 mmol/L (22-30); CHLORIDE 78 mmol/L (98-107)
[2019-07-06 13:17] LABS: BLOOD UREA NITROGEN 140 mg/dL (7-20)
[2019-07-06 13:18] LABS: ANION GAP 21 (5-19); POTASSIUM 2.1 mmol/L (3.6-5.0)
[2019-07-06] MEDS ORDERED: NORMAL SALINE 500 ML IV ONE (13:29)
--- NOTE | 2019-07-06 13:46 | ER Document Report ---
ED General - General Chief Complaint: Nausea/Vomiting Stated Complaint: NAUSEA,VOMITING Time Seen by Provider: 07/06/19 12:19 Primary Care Provider: Ruby FLORES MD [ACTIVE STAFF] - Follow up as needed Notes: Patient is a 74-year-old -[place]aced[place] male with a history of COPD, CVA, hypertension with a pacemaker secondary to A. fib who presents to the emergency department with a chief complaint of generalized weakness. He states for the past couple days he is felt weak. Reports today he had what he describes as a syncopal episode and reports his fiance called 911. Patient is otherwise a poor historian. Remainder of history obtained from EMS and patient's fianc whom the nurse spoke to. They report he is been out of his pantoprazole and metoprolol for about 3 weeks. He restarted both medications today. EMS found him to be hypotensive on arrival and treated him for possible beta-solis overd ose. They gave him 250 of LR and 1 of glucagon and 1 of epi. His blood pressure did slightly improve upon arrival. Patient denies knowledge of taking any extra blood pressure medicine. Denies any chest pain, shortness of breath or lower extremity pain or swelling. No headache, numbness, tingling or weakness. TRAVEL OUTSIDE OF THE [place] IN LAST 30 DAYS: No - Related Data Allergies/Adverse Reactions: No Known Allergies Allergy (Verified 07/29/14 08:37) Home Medications: Amiodarone. Hydralazine. Isosorbidemonitrate. Metoprolol. Torsemide. Eliquis. Calcitriol. Triamcinolone cream. Montelakast. Potassium cloride. Levothiroxine. Simvostatin. Pantoprazole. Metozone. Nitroglycerin. Insulin pen Past Medical History - Social History Smoking Status: Unknown if Ever Smoked Family History: Reviewed & Not Pertinent Patient has suicidal ideation: No Patient has homicidal ideation: No - Past Medical History Cardiac Medical History: Reports: Hx Atrial Fibrillation, Hx Congestive Heart Failure, Hx Coronary Artery Disease, Hx Hypercholesterolemia, Hx Hypertension Denies: Hx Heart Attack Pulmonary Medical History: Reports: Hx COPD Denies: Hx Asthma, Hx Bronchitis, Hx Pneumonia Neurological Medical History: Denies: Hx Cerebrovascular Accident, Hx Seizures Endocrine Medical History: Reports: Hx Diabetes Mellitus Type 1, Hx Diabetes Mellitus Type 2 Renal/ Medical History: Denies: Hx Peritoneal Dialysis GI Medical History: Reports: Hx Gastroesophageal Reflux Disease Musculoskeletal Medical History: Reports Hx Arthritis - OSTEOARTHRITIS Psychiatric Medical History: Reports: Hx Depression Past Surgical History: Reports: Hx Cardiac Catheterization, Hx Internal Defibrillator - Immunizations Hx Diphtheria, Pertussis, Tetanus Vaccination: Yes Review of Systems - Review of Systems Cardiovascular: Syncope Neurological/Psychological: Weakness -: Yes All other systems reviewed and negative Physical Exam - Vital signs Vitals: Temp Resp BP Pulse Ox 97.7 F 21 H 80/59 L 94 07/06/19 12:19 07/06/19 12:19 07/06/19 12:19 07/06/19 12:19 - General General appearance: Alert, Other - Appears weak In distress: None - HEENT Head: Normocephalic, Atraumatic Eyes: Normal Pupils: PERRL Mucous membranes: Moist - Respiratory Respiratory status: No respiratory distress Chest status: Nontender Breath sounds: Normal Chest palpation: Normal - Cardiovascular Rhythm: Other - Ventricularly paced, tacky - Abdominal Inspection: Normal Distension: No distension Bowel sounds: Normal Tenderness: Nontender Organomegaly: No organomegaly - Extremities General upper extremity: Normal inspection, Nontender, Normal color, Normal ROM, Normal temperature General lower extremity: Normal inspection, Nontender, Normal color, Normal ROM, Normal temperature, Normal weight bearing. No: Beto's sign - Neurological Neuro grossly intact: Yes Cognition: Normal Orientation: AAOx4 Marcos Coma Scale Eye Opening: Spontaneous Marcos Coma Scale Verbal: Oriented Marcos Coma Scale Motor: Obeys Commands [place] Coma Scale Total: 15 Speech: Normal - Psychological Associated symptoms: Normal affect, Normal mood - Skin Skin Temperature: Warm Skin Moisture: Dry Skin Color: Normal Course - Re-evaluation Re-evalutation: 07/06/19 13:46 Patient's EKG here in the emergency department at 1225 showed ventricularly paced rhythm at 106 bpm with a prolonged QTC. Discussed this with who advised given his previous EKG that we have showing a non-ventricularly paced rhythm it is unclear if there is a STEMI that lies beneath this versus a non- STEMI versus hypotension causing the abnormal rhythm. Patient potassium is low, troponin elevated 0.095. His creatinine is worsened from previous. Attending recommended Larios catheter, lactic acid, urinalysis, potassium and repeat troponin EKG with plan for admission. Patient is on the monitor, will order these additional tests, add 500 cc bolus of normal saline as well as the potassium riders. 07/06/19 16:51 Patient's blood pressure stabilized. Potassium given, hydrated with IV normal saline. Spoke with the ground products director to recommends admission. Spoke with the steel estimator, Dr. Lora who will evaluate the patient in the emergency department for ICU admission. Patient is stable for admission at this time - Vital Signs Vital signs: Temp Pulse Resp BP Pulse Ox 97.7 F 19 113/72 97 07/06/19 12:19 07/06/19 15:20 07/06/19 15:20 07/06/19 15:20 - Laboratory Result Diagrams: 07/06/19 12:22 07/06/19 12:22 Laboratory results interpreted by me: 07/06/19 07/06/19 07/06/19 12:22 12:22 14:55 WBC 16.1 H Absolute Neuts (auto) 10.6 H Absolute Monos (auto) 1.7 H Sodium 130.5 L Potassium 2.1 L* Chloride 78 L Carbon Dioxide 32 H Anion Gap 21 H BUN 140 H Creatinine 3.39 H Est GFR ( Amer) 22 L Est GFR (MDRD) Non-Af 18 L Glucose 278 H Lactic Acid 2.5 H Magnesium 2.5 H Total Bilirubin 1.6 H Alkaline Phosphatase 148 H Total Protein 9.2 H Urine Protein 07/06/19 15:00 WBC Absolute Neuts (auto) Absolute Monos (auto) Sodium Potassium Chloride Carbon Dioxide Anion Gap BUN Creatinine Est GFR ( Amer) Est GFR (MDRD) Non-Af Glucose Lactic Acid Magnesium Total Bilirubin Alkaline Phosphatase Total Protein Urine Protein 30 H Discharge - Discharge Clinical Impression: Elevated troponin, DENNISE (acute kidney injury), Hypokalemia Leukocytosis Qualifiers: Leukocytosis type: unspecified Qualified Code(s): D72.829 - Elevated white b lood cell count, unspecified Hypotension Qualifiers: Hypotension type: unspecified hypotension type Qualified Code(s): I95.9 - Hypotension, unspecified Condition: Stable Disposition: ADMITTED INPATIENT Admitting Provider: Guido (Rec Therapist) Unit Admitted: ICU Referrals: Ruby FLORES MD [ACTIVE STAFF] - Follow up as needed
[2019-07-06] MEDS: POTASSI CL 20 MEQ/50 ML RIDER 20 MEQ/50 ML RTUPB IV SCH ×4 (13:52→20:58)
[2019-07-06 15:20] LABS: APPEARANCE,URINE CLEAR; BILIRUBIN,URINE NEGATIVE (NEGATIVE); COLOR,URINE YELLOW; GLUCOSE, URINE NEGATIVE (NEGATIVE); KETONES,URINE NEGATIVE (NEGATIVE); PROTEIN,URINE 30 mg/dL (NEGATIVE); URINE SPECIFIC GRAVITY 1.009; UROBILINOGEN,URINE NEGATIVE mg/dL (<2.0)
[2019-07-06] MEDS ORDERED: POTASSIUM CHLORIDE 10 MEQ TABLET.ER PO ONE ×2 (16:48→23:00)
[2019-07-06] MEDS ORDERED: NORMAL SALINE 1000 ML 1,000 ML IV PRN (17:12)
--- NOTE | 2019-07-06 19:21 | EKG REPORT ---
SEVERITY:- ABNORMAL ECG - VENTRICULAR-PACED RHYTHM : Confirmed by: Hayden Katz MD 06-Jul-2019 19:21:18
--- NOTE | 2019-07-06 19:22 | EKG REPORT ---
SEVERITY:- ABNORMAL ECG - VENTRICULAR-PACED RHYTHM : Confirmed by: Hayden Katz MD 06-Jul-2019 19:21:31
[2019-07-06] MEDS: RINGERS SOLUTION,LACTATED 1,000 ML IV PRN (20:58)
[2019-07-06 23:21] LABS: ANION GAP 18 (5-19); CALCIUM 9.6 mg/dL (8.4-10.2); CARBON DIOXIDE 31 mmol/L (22-30); CHLORIDE 82 mmol/L (98-107); GLUCOSE 388 mg/dL (75-110)
[2019-07-06 23:31] LABS: BLOOD UREA NITROGEN 132 mg/dL (7-20)
[2019-07-06 23:33] LABS: POTASSIUM 2.7 mmol/L (3.6-5.0)
[2019-07-07] MEDS: POTASSIUM CHLORIDE 20 MEQ/50 ML RTU IV SCH ×2 (00:34→02:31)
[2019-07-07] MEDS: RINGERS SOLUTION,LACTATED 1,000 ML IV PRN ×2 (05:11→14:32)
[2019-07-07 05:20] LABS: ARTERIAL BLOOD BASE EXCESS 4.6 mmol/L; ARTERIAL BLOOD H2CO3 0.92 mmol/L (1.05-1.35); ARTERIAL BLOOD HCO3 26.4 mmol/L (20-24); ARTERIAL BLOOD O2 SATURATION 98.5 % (94-98); ARTERIAL BLOOD PCO2 30.6 mmHg (35-45); ARTERIAL BLOOD PH 7.55 (7.35-7.45); ARTERIAL BLOOD PO2 108.5 mmHg (80-100); ARTERIAL BLOOD TOTAL CO2 27.3 mmol/L (23-27)
[2019-07-07 05:25] LABS: ABSOLUTE BASOPHILS # (AUTO) 0.1 10^3/uL (0.0-0.2); ABSOLUTE EOSINOPHILS # (AUTO) 0.1 10^3/uL (0.0-0.6); ABSOLUTE LYMPHOCYTES (AUTO) 1.3 10^3/uL (0.5-4.7); ABSOLUTE MONOCYTES (AUTO) 1.5 10^3/uL (0.1-1.4); ABSOLUTE NEUT (AUTO) 8.9 10^3/uL (1.7-8.2); BASOPHILS % (AUTO) 0.7 % (0-2); EOSINOPHILS % (AUTO) 0.8 % (0-6); HEMATOCRIT 38.7 % (37.9-51.0); HEMOGLOBIN 13.4 g/dL (13.5-17.0); LYMPHOCYTES % (AUTO) 11.2 % (13-45); MEAN CORPUSCULAR HEMOGLOBIN 28.7 pg (27.0-33.4); MEAN CORPUSCULAR HGB CONC 34.5 g/dL (32.0-36.0); MEAN CORPUSCULAR VOLUME 83 fl (80-97); MONOCYTES % (AUTO) 12.9 % (3-13); PLATELET COUNT 287 10^3/uL (150-450); RED BLOOD COUNT 4.65 10^6/uL (4.35-5.55); RED CELL DISTRIBUTION WIDTH 12.9 % (11.5-14.0); SEGMENTED NEUTROPHILS % (AUTO) 74.4 % (42-78); TOTAL CELLS COUNTED % (AUTO) 100 %; WHITE BLOOD COUNT 11.9 10^3/uL (4.0-10.5)
[2019-07-07 05:30] LABS: INTERNATIONAL RATION (INR) 1.51; PROTHROMBIN TIME 18.3 SEC (11.4-15.4)
[2019-07-07 05:31] LABS: PARTIAL THROMBOPLASTIN TIME 31.7 SEC (23.5-35.8)
[2019-07-07] MEDS: PANTOPRAZOLE SODIUM 40 MG TABLET.DR PO SCH (05:34)
[2019-07-07 05:36] LABS: ARTERIAL BLOOD FIO2 21%
[2019-07-07 05:52] LABS: ALBUMIN 3.9 g/dL (3.5-5.0); ALKALINE PHOSPHATASE 119 U/L (38-126); ANION GAP 16 (5-19); ASPARTATE AMINO TRANSFERASE 50 U/L (17-59); BILIRUBIN,DIRECT 0.6 mg/dL (0.0-0.4); BILIRUBIN,TOTAL 1.5 mg/dL (0.2-1.3); CALCIUM 9.5 mg/dL (8.4-10.2); CARBON DIOXIDE 32 mmol/L (22-30); CHLORIDE 83 mmol/L (98-107); POTASSIUM 3.4 mmol/L (3.6-5.0); TOTAL PROTEIN 8.2 g/dL (6.3-8.2)
[2019-07-07 06:04] LABS: BLOOD UREA NITROGEN 125 mg/dL (7-20)
[2019-07-07 06:08] LABS: TROPONIN I 0.237 ng/mL
[2019-07-07] MEDS ORDERED: DEXTROSE 40% GEL 15 GM TUBE X 2 PO PRN (07:30)
[2019-07-07] MEDS ORDERED: GLUCAGON,HUMAN RECOMB 1 MG INJ IM PRN (07:30)
[2019-07-07] MEDS ORDERED: DEXTROSE 50%-WATER SYRINGE 25 GM/50 ML DOSE IV PRN (07:30)
[2019-07-07] MEDS ORDERED: DEXTROSE 40% GEL 15 GM TUBE PO PRN (07:30)
[2019-07-07] MEDS ORDERED: DEXTROSE 50%-WATER SYRINGE 12.5 GM/25 ML DOSE IV PRN (07:30)
[2019-07-07] MEDS: INSULIN REG, HUMAN 100 UNIT/ML 3 ML VIAL (PYX) SUBCUT SCH ×3 (08:04→19:28)
--- NOTE | 2019-07-07 08:04 | CRITICAL CARE ADMISSION REPORT ---
HPI Date:: 07/06/19 Time:: 17:00 Reason for ICU Reason:: DENNISE and elevated troponin HPI: 74-year-old -[place] male with a history of hypertension A. fib and congestive heart failure. He presumably has coronary disease I could not find that documented. He does have peripheral vascular disease with a history of a stroke as well as COPD so he certainly has plenty of risk factors. He apparently had a syncopal episode at home witnessed by his fiance and she sum moned an ambulance; he thinks he was out for about 5 minutes. In the ER, he was noted to be in acute renal failure with a very elevated BUN and creatinine although he does have underlying chronic renal insufficiency. He was also noted to have an elevated troponin. He has a pacemaker and his EKG just showed a paced rhythm throughout. His blood pressure was somewhat borderline but responded to fluids down there. He apparently was out of his metoprolol for a while and there was a consideration that he was experiencing beta-solis toxicity when it was resumed and he was treated with glucagon and epi in the ER. When I saw him, he was very comfortable but could add little to the history pro vided above. Medications currently although I do not know if he is actually taking all of these: Nitroglycerin PRN, isosorbide mononitrate, torsemide, metoprolol, Eliquis, calcitriol, amiodarone, potassium, Singulair, insulin, Synthroid, Protonix, simvastatin and metolazone Past Medical History Cardiac Medical History: Reports: Atrial Fibrillation, Congestive Heart Failure, Coronary Artery Disease, Hyperlipidema, Hypertension Denies: Myocardial Infarction Pulmonary Medical History: Reports: Chronic Obstructive Pulmonary Disease (COPD) Denies: Asthma, Bronchitis, Pneumonia Neurological Medical History: Denies: Seizures Endocrine Medical History: Reports: Diabetes Mellitus Type 1, Diabetes Mellitus Type 2 GI Medical History: Reports: Gastroesophageal Reflux Disease Musculoskeltal Medical History: Reports: Arthritis - OSTEOARTHRITIS Psychiatric Medical History: Denies: Depression Hematology: Reports: Anemia Past Surgical History Past Surgical History: Reports: Cardiac Catheterization, Internal Defibrillator Social/Family History - Social History Smoking Status: Never Smoker Frequency of Alcohol Use: None Hx Recreational Drug Use: No Drugs: None Hx Prescription Drug Abuse: No - Medication/Allergies Home Medications: Aspirin 81 mg PO DAILY 07/29/14 Levothyroxine Sodium 125 mcg PO DAILY 07/29/14 Montelukast Sodium 10 mg PO DAILY 07/29/14 Nitroglycerin [Nitrostat] 0.3 mg SL ASDIR PRN 07/29/14 Simvastatin 20 mg PO QHS 07/29/14 Tiotropium [place] [Spiriva Handihaler 18 mcg/dose (30 Dose)] 1 cap IH DAILY 07/29/14 Acetaminophen [Tylenol] 650 mg PO Q6HP PRN 06/19/18 Amiodarone HCl [Cordarone 200 mg Tablet] 200 mg PO DAILY 06/19/18 Apixaban [Eliquis 5 mg Tablet] 5 mg PO Q12 06/19/18 Bisoprolol Fumarate [Zebeta 5 mg Tablet] 2.5 mg PO DAILY 06/19/18 Docusate Sodium [Colace] 100 mg PO DAILY 06/19/18 Hydralazine HCl [Apresoline 25 mg Tablet] 12.5 mg PO Q8H 06/19/18 Insulin NPH Hum/Reg Insulin Hm [Humulin 70/30 Kwikpen] 15 units SQ QPM 06/19/18 Insulin NPH Hum/Reg Insulin Hm [Humulin 70/30 Kwikpen] 18 units SQ QAM 06/19/18 Pantoprazole Sodium [Protonix] 40 mg PO DAILY 06/19/18 Potassium Chloride [Klor-Con M20] 60 meq PO Q12 06/19/18 Sitagliptin Phosphate [Januvia 50 mg Tablet] 50 mg PO DAILY 06/19/18 Torsemide [Demadex 20 mg Tablet] 80 mg PO BID 06/19/18 Allergies/Adverse Reactions: No Known Allergies Allergy (Verified 07/29/14 08:37) Review of Systems Constitutional: PRESENT: anorexia Cardiovascular: ABSENT: chest pain Gastrointestinal: ABSENT: diarrhea, heartburn, nausea, vomiting Integumentary: ABSENT: diaphoresis, rash Neurological: PRESENT: confusion Endocrine: ABSENT: polyphagia, polyuria Hematologic/Lymphatic: ABSENT: easy bleeding Physical Exam Vital Signs: Temp Pulse Resp BP Pulse Ox 97.9 F 81 14 133/105 H 99 07/07/19 05:53 07/06/19 23:23 07/07/19 07:15 07/07/19 07:15 07/07/19 07:15 Intake & Output 07/06/19 07/07/19 07/08/19 06:59 06:59 06:59 Intake Total 2646 Output Total 1785 Balance 861 Weight 73.1 kg Weight/Height Weight 73.1 kg Height 5 ft 6 in General appearance: PRESENT: no acute distress, thin Eye exam: PRESENT: EOMI, PERRLA. ABSENT: conjunctival injection Mouth exam: PRESENT: neck supple Neck exam: PRESENT: JVD. ABSENT: carotid bruit, lymphadenopathy, thyromegaly Respiratory exam: ABSENT: accessory muscle use, rales, wheezes Cardiovascular exam: PRESENT: RRR GI/Abdominal exam: PRESENT: soft. ABSENT: tenderness Extremities exam: ABSENT: pedal edema Neurological exam: PRESENT: alert, awake Skin exam: PRESENT: dry, warm Laboratory/Radiographs Laboratory Results: 07/07/19 04:29 07/07/19 04:29 07/06/19 07/06/19 07/06/19 12:22 12:22 14:55 WBC 16.1 H RBC 5.10 Hgb 15.1 Hct 42.5 MCV 83 MCH 29.5 MCHC 35.4 RDW 12.9 Plt Count 367 Seg Neutrophils % 65.8 Carbonic Acid HCO3/H2CO3 Ratio ABG pH ABG pCO2 ABG pO2 ABG HCO3 ABG O2 Saturation ABG Base Excess FiO2 Sodium 130.5 L Potassium 2.1 L* Chloride 78 L Carbon Dioxide 32 H Anion Gap 21 H BUN 140 H Creatinine 3.39 H Est GFR ( Amer) 22 L Est GFR (Non-Af Amer) Glucose 278 H Lactic Acid 2.5 H Calcium 10.2 Magnesium 2.5 H Total Bilirubin 1.6 H AST 56 Alkaline Phosphatase 148 H Total Protein 9.2 H Albumin 4.6 TSH Urine Color Urine Appearance Urine pH Ur Specific Leigh Urine Protein Urine Glucose (UA) Urine Ketones Urine Blood Urine Nitrite Ur Leukocyte Esterase Urine WBC (Auto) Urine RBC (Auto) 07/06/19 07/06/19 07/06/19 15:00 22:11 22:59 WBC RBC Hgb Hct MCV MCH MCHC RDW Plt Count Seg Neutrophils % Carbonic Acid HCO3/H2CO3 Ratio ABG pH ABG pCO2 ABG pO2 ABG HCO3 ABG O2 Saturation ABG Base Excess FiO2 Sodium Cancelled 131.4 L Potassium Cancelled 2.7 L* Chloride Cancelled 82 L Carbon Dioxide Cancelled 31 H Anion Gap Cancelled 18 BUN Cancelled 132 H Creatinine Cancelled 3.36 H Est GFR ( Amer) Cancelled 22 L Est GFR (Non-Af Amer) Cancelled Glucose Cancelled 388 H Lactic Acid Calcium Cancelled 9.6 Magnesium Total Bilirubin AST Alkaline Phosphatase Total Protein Albumin TSH Urine Color YELLOW Urine Appearance CLEAR Urine pH 6.0 Ur Specific Leigh 1.009 Urine Protein 30 H Urine Glucose (UA) NEGATIVE Urine Ketones NEGATIVE Urine Blood NEGATIVE Urine Nitrite Cancelled Ur Leukocyte Esterase Cancelled Urine WBC (Auto) Cancelled Urine RBC (Auto) 1 07/07/19 07/07/19 07/07/19 04:29 04:29 04:29 WBC 11.9 H RBC 4.65 Hgb 13.4 L Hct 38.7 MCV 83 MCH 28.7 MCHC 34.5 RDW 12.9 Plt Count 287 Seg Neutrophils % 74.4 Carbonic Acid HCO3/H2CO3 Ratio ABG pH ABG pCO2 ABG pO2 ABG HCO3 ABG O2 Saturation ABG Base Excess FiO2 Sodium 130.8 L Potassium 3.4 L Chloride 83 L Carbon Dioxide 32 H Anion Gap 16 BUN 125 H Creatinine 3.23 H Est GFR ( Amer) 23 L Est GFR (Non-Af Amer) Glucose 403 H* Lactic Acid Calcium 9.5 Magnesium Total Bilirubin 1.5 H AST 50 Alkaline Phosphatase 119 Total Protein 8.2 Albumin 3.9 TSH 1.36 Urine Color Urine Appearance Urine pH Ur Specific Leigh Urine Protein Urine Glucose (UA) Urine Ketones Urine Blood Urine Nitrite Ur Leukocyte Esterase Urine WBC (Auto) Urine RBC (Auto) 07/07/19 05:01 WBC RBC Hgb Hct MCV MCH MCHC RDW Plt Count Seg Neutrophils % Carbonic Acid 0.92 L HCO3/H2CO3 Ratio 28:1 ABG pH 7.55 H ABG pCO2 30.6 L ABG pO2 108.5 H ABG HCO3 26.4 H ABG O2 Saturation 98.5 H ABG Base Excess 4.6 FiO2 21% Sodium Potassium Chloride Carbon Dioxide Anion Gap BUN Creatinine Est GFR ( Amer) Est GFR (Non-Af Amer) Glucose Lactic Acid Calcium Magnesium Total Bilirubin AST Alkaline Phosphatase Total Protein Albumin TSH Urine Color Urine Appearance Urine pH Ur Specific Leigh Urine Protein Urine Glucose (UA) Urine Ketones Urine Blood Urine Nitrite Ur Leukocyte Esterase Urine WBC (Auto) Urine RBC (Auto) 07/06/19 07/06/19 07/07/19 12:22 14:55 04:29 Troponin I 0.095 0.117 0.237 NT-Pro-B Natriuret Pep 5690 H Impressions: Chest X-Ray 07/06/19 12:24 IMPRESSION: NO ACUTE RADIOGRAPHIC FINDING IN THE CHEST. Impression; Probable acute MD with elevated troponin Poor perfusion with elevated lactic acid and prerenal azotemia Low cardiac output likely due to a combination of dehydration and this cardiac event History of Mya. fib on Eliquis History of COPD but he never smoked, he was exposed to secondhand smoke Plan; IV fluids Hold vasoactive meds A Larios was placed in the ER and he is making good urine DC Eliquis Start Lovenox Cardiology consult Follow-up lab to include a troponin Further care will depend on his clinical course Critical Time Critical Time (minutes): 60 -: The care of a critically ill patient is dynamic. This note represents a static moment in the admission process. Orders and treatments may be given sim ultaneously and urgently, and time is not technical sales representative of the treatment process. This patient requires Critical Care secondary to life threatening organ or limb dysfunction. Without Critical Care services, the patient is at risk for increased mortality and morbidity.
[2019-07-07] MEDS ORDERED: ENOXAPARIN SODIUM INJ 40 MG/0.4 ML DISP.SYRIN SUBCUT SCH (10:00)
[2019-07-07] MEDS ORDERED: ENOXAPARIN SODIUM INJ 30 MG/0.3 ML DISP.SYRIN SUBCUT SCH (10:00)
--- NOTE | 2019-07-07 10:47 | PDOC CONSULTATION ---
Consultation Consult Date: 07/07/19 Attending physician:: LILO WOODS Provider Consulted: NOHEMI LUA Consult reason:: NSTEMI History of Present Illness Admission Date/PCP: 07/06/19 17:00 LENA DEMARCO MD Patient complains of: No complaints. History of Present Illness: SANDRA COHN is a 74 year old male with history of anemia, heart failure, atrial fibrillation, hypertension, hyperlipidemia, hypothyroidism, PAD, stroke, CAD details of which are unknown, DM, stage III CKD, [employer] for unclear indication who is consulted to our service for further evaluation of NSTEMI. The history is mainly obtained from review of current records and a prior visit to our facility in February 2019. He apparently had a syncopal episode at home witnessed by his fiance. He was apparently unconscious for approximately 5 minutes without any prodrome or any cardiac symptoms. In the ER he was found to be hypotensive and responded to IVF's. He was also found to have multiple electrolyte abnormalities along with acute renal failure. Upon my evaluation this morning he is asymptomatic and specifically denies CP, SOB, palpitations, diaphoresis, PND, orthopnea and LE edema. Of note, he was evaluated in the ED at this facility in February 2019 with a similar presentation. At that time he was found to have wide complex tachycardia, very elevated proBNP and creatinine and hypotensive. He was treated with dopamine and transferred to [facility], unfortunately I don't have any of those records. His medication list include Nitroglycerin PRN, isosorbide mononitrate, torsemide, metoprolol, Eliquis, calcitriol, amiodarone, potassium, Singulair, insulin, Synthroid, Protonix, simvastatin and metolazone however it is not known whether the patient is actually taking them. Past Medical History Cardiac Medical History: Reports: Atrial Fibrillation, Congestive Heart Failure, Coronary Artery Disease, Hyperlipidema, Hypertension Denies: Myocardial Infarction Pulmonary Medical History: Reports: Chronic Obstructive Pulmonary Disease (COPD) Denies: Asthma, Bronchitis, Pneumonia Neurological Medical History: Denies: Seizures Endocrine Medical History: Reports: Diabetes Mellitus Type 1, Diabetes Mellitus Type 2 GI Medical History: Reports: Gastroesophageal Reflux Disease Musculoskeltal Medical History: Reports: Arthritis - OSTEOARTHRITIS Psychiatric Medical History: Denies: Depression Hematology: Reports: Anemia Past Surgical History Past Surgical History: Reports: Cardiac Catheterization, Internal Defibrillator Social History Smoking Status: Never Smoker Electronic Cigarette use?: No Frequency of Alcohol Use: None Hx Recreational Drug Use: No Drugs: None Hx Prescription Drug Abuse: No Family History Family History: Reviewed & Not Pertinent Parental Family History Reviewed: Yes Children Family History Reviewed: Yes Sibling(s) Family History Reviewed.: Yes Medication/Allergy Home Medications: Levothyroxine Sodium 125 mcg PO Q6AM 07/29/14 Montelukast Sodium 10 mg PO DAILY 07/29/14 Simvastatin 20 mg PO QHS 07/29/14 Amiodarone HCl [Cordarone 200 mg Tablet] 300 mg PO DAILY 06/19/18 Apixaban [Eliquis 5 mg Tablet] 5 mg PO Q12 06/19/18 Docusate Sodium [Colace] 100 mg PO DAILY 06/19/18 Hydralazine HCl [Apresoline 25 mg Tablet] 12.5 mg PO Q8H 06/19/18 Insulin NPH Hum/Reg Insulin Hm [Humulin 70/30 Kwikpen] 25 units SQ QPM 06/19/18 Insulin NPH Hum/Reg Insulin Hm [Humulin 70/30 Kwikpen] 35 units SQ QAM 06/19/18 Pantoprazole Sodium [Protonix] 40 mg PO DAILY 06/19/18 Potassium Chloride [Klor-Con M20] 40 meq PO Q12 06/19/18 Sitagliptin Phosphate [Januvia 50 mg Tablet] 50 mg PO DAILY 06/19/18 Torsemide [Demadex 20 mg Tablet] 80 mg PO BID 06/19/18 Calcitriol [Rocaltrol 0.25 Mcg Capsule] 0.25 mcg PO MOFR@1000 07/07/19 Isosorbide Mononitrate [Imdur 30 mg Tablet.er] 15 mg PO DAILY 07/07/19 Metolazone [Zaroxolyn 2.5 Mg Tablet] 2.5 mg PO MOFR@1000 07/07/19 Metoprolol Succinate [Toprol Xl 25 mg Tab.sr] 12.5 mg PO DAILY 07/07/19 Triamcinolone Acetonide [Aristocort 0.5% Cream 15 gm] 1 applic TP BID 07/07/19 Allergies/Adverse Reactions: No Known Allergies Allergy (Verified 07/29/14 08:37) Physical Exam Vital Signs: Temp Pulse Resp BP Pulse Ox 98.1 F 67 16 106/68 100 07/07/19 08:00 07/07/19 08:16 07/07/19 10:00 07/07/19 09:45 07/07/19 10:00 Intake & Output 07/06/19 07/07/19 07/08/19 06:59 06:59 06:59 Intake Total 2646 Output Total 1785 150 Balance 861 -150 Weight 73.1 kg 73.1 kg General appearance: PRESENT: no acute distress, well-developed, well-nourished Head exam: PRESENT: atraumatic, normocephalic Eye exam: PRESENT: conjunctiva pink, EOMI, PERRLA. ABSENT: scleral icterus Neck exam: ABSENT: carotid bruit, JVD, lymphadenopathy, thyromegaly Respiratory exam: PRESENT: clear to auscultation erasmo. ABSENT: rales, rhonchi, wheezes Cardiovascular exam: PRESENT: RRR. ABSENT: bradycardia, diastolic murmur, rubs, systolic murmur Pulses: PRESENT: normal dorsalis pedis pul Extremities exam: PRESENT: full ROM. ABSENT: calf tenderness, clubbing, pedal edema Results Laboratory Results: 07/07/19 04:29 07/07/19 04:29 07/06/19 07/06/19 07/06/19 12:22 12:22 14:55 WBC 16.1 H RBC 5.10 Hgb 15.1 Hct 42.5 MCV 83 MCH 29.5 MCHC 35.4 RDW 12.9 Plt Count 367 Seg Neutrophils % 65.8 Carbonic Acid HCO3/H2CO3 Ratio ABG pH ABG pCO2 ABG pO2 ABG HCO3 ABG O2 Saturation ABG Base Excess FiO2 Sodium 130.5 L Potassium 2.1 L* Chloride 78 L Carbon Dioxide 32 H Anion Gap 21 H BUN 140 H Creatinine 3.39 H Est GFR ( Amer) 22 L Est GFR (Non-Af Amer) Glucose 278 H Lactic Acid 2.5 H Calcium 10.2 Magnesium 2.5 H Total Bilirubin 1.6 H AST 56 Alkaline Phosphatase 148 H Total Protein 9.2 H Albumin 4.6 TSH Urine Color Urine Appearance Urine pH Ur Specific [place] Urine Protein Urine Glucose (UA) Urine Ketones Urine Blood Urine Nitrite Ur Leukocyte Esterase Urine WBC (Auto) Urine RBC (Auto) 07/06/19 07/06/19 07/06/19 15:00 22:11 22:59 WBC RBC Hgb Hct MCV MCH MCHC RDW Plt Count Seg Neutrophils % Carbonic Acid HCO3/H2CO3 Ratio ABG pH ABG pCO2 ABG pO2 ABG HCO3 ABG O2 Saturation ABG Base Excess FiO2 Sodium Cancelled 131.4 L Potassium Cancelled 2.7 L* Chloride Cancelled 82 L Carbon Dioxide Cancelled 31 H Anion Gap Cancelled 18 BUN Cancelled 132 H Creatinine Cancelled 3.36 H Est GFR ( Amer) Cancelled 22 L Est GFR (Non-Af Amer) Cancelled Glucose Cancelled 388 H Lactic Acid Calcium Cancelled 9.6 Magnesium Total Bilirubin AST Alkaline Phosphatase Total Protein Albumin TSH Urine Color YELLOW Urine Appearance CLEAR Urine pH 6.0 Ur Specific [place] 1.009 Urine Protein 30 H Urine Glucose (UA) NEGATIVE Urine Ketones NEGATIVE Urine Blood NEGATIVE Urine Nitrite Cancelled Ur Leukocyte Esterase Cancelled Urine WBC (Auto) Cancelled Urine RBC (Auto) 1 07/07/19 07/07/19 07/07/19 04:29 04:29 04:29 WBC 11.9 H RBC 4.65 Hgb 13.4 L Hct 38.7 MCV 83 MCH 28.7 MCHC 34.5 RDW 12.9 Plt Count 287 Seg Neutrophils % 74.4 Carbonic Acid HCO3/H2CO3 Ratio ABG pH ABG pCO2 ABG pO2 ABG HCO3 ABG O2 Saturation ABG Base Excess FiO2 Sodium 130.8 L Potassium 3.4 L Chloride 83 L Carbon Dioxide 32 H Anion Gap 16 BUN 125 H Creatinine 3.23 H Est GFR ( Amer) 23 L Est GFR (Non-Af Amer) Glucose 403 H* Lactic Acid Calcium 9.5 Magnesium Total Bilirubin 1.5 H AST 50 Alkaline Phosphatase 119 Total Protein 8.2 Albumin 3.9 TSH 1.36 Urine Color Urine Appearance Urine pH Ur Specific [place] Urine Protein Urine Glucose (UA) Urine Ketones Urine Blood Urine Nitrite Ur Leukocyte Esterase Urine WBC (Auto) Urine RBC (Auto) 07/07/19 05:01 WBC RBC Hgb Hct MCV MCH MCHC RDW Plt Count Seg Neutrophils % Carbonic Acid 0.92 L HCO3/H2CO3 Ratio 28:1 ABG pH 7.55 H ABG pCO2 30.6 L ABG pO2 108.5 H ABG HCO3 26.4 H ABG O2 Saturation 98.5 H ABG Base Excess 4.6 FiO2 21% Sodium Potassium Chloride Carbon Dioxide Anion Gap BUN Creatinine Est GFR ( Amer) Est GFR (Non-Af Amer) Glucose Lactic Acid Calcium Magnesium Total Bilirubin AST Alkaline Phosphatase Total Protein Albumin TSH Urine Color Urine Appearance Urine pH Ur Specific [place] Urine Protein Urine Glucose (UA) Urine Ketones Urine Blood Urine Nitrite Ur Leukocyte Esterase Urine WBC (Auto) Urine RBC (Auto) 07/06/19 07/06/19 07/07/19 12:22 14:55 04:29 Troponin I 0.095 0.117 0.237 NT-Pro-B Natriuret Pep 5690 H EKG Comments: Personally reviwed ekg which demonstrates a ventricularly paced rhythm. Impressions: Chest X-Ray 07/06/19 12:24 IMPRESSION: NO ACUTE RADIOGRAPHIC FINDING IN THE CHEST. 07/07/19 04:29 07/07/19 04:29 MCV 83 fl (80-97) 07/07/19 04:29 MCH 28.7 pg (27.0-33.4) 07/07/19 04:29 MCHC 34.5 g/dL (32.0-36.0) 07/07/19 04:29 RDW 12.9 % (11.5-14.0) 07/07/19 04:29 Seg Neutrophils % 74.4 % (42-78) 07/07/19 04:29 Carbonic Acid 0.92 mmol/L (1.05-1.35) L 07/07/19 05:01 HCO3/H2CO3 Ratio 28:1 07/07/19 05:01 ABG pH 7.55 (7.35-7.45) H 07/07/19 05:01 ABG pCO2 30.6 mmHg (35-45) L 07/07/19 05:01 ABG pO2 108.5 mmHg (80-100) H 07/07/19 05:01 ABG HCO3 26.4 mmol/L (20-24) H 07/07/19 05:01 ABG O2 Saturation 98.5 % (94-98) H 07/07/19 05:01 ABG Base Excess 4.6 mmol/L 07/07/19 05:01 FiO2 21% 07/07/19 05:01 Chloride 83 mmol/L (98-107) L 07/07/19 04:29 Carbon Dioxide 32 mmol/L (22-30) H 07/07/19 04:29 Anion Gap 16 (5-19) 07/07/19 04:29 Est GFR ( Amer) 23 (>60) L 07/07/19 04:29 Est GFR (Non-Af Amer) Cancelled 07/06/19 22:11 Glucose 403 mg/dL (75-110) H* 07/07/19 04:29 Lactic Acid 2.5 mmol/L (0.7-2.1) H 07/06/19 14:55 Calcium 9.5 mg/dL (8.4-10.2) 07/07/19 04:29 Magnesium 2.5 mg/dL (1.6-2.3) H 07/06/19 12:22 Total Bilirubin 1.5 mg/dL (0.2-1.3) H 07/07/19 04:29 AST 50 U/L (17-59) 07/07/19 04:29 Alkaline Phosphatase 119 U/L (38-126) 07/07/19 04:29 Total Protein 8.2 g/dL (6.3-8.2) 07/07/19 04:29 Albumin 3.9 g/dL (3.5-5.0) 07/07/19 04:29 TSH 1.36 uIU/mL (0.47-4.68) 07/07/19 04:29 Urine Color YELLOW 07/06/19 15:00 Urine Appearance CLEAR 07/06/19 15:00 Urine pH 6.0 (5.0-9.0) 07/06/19 15:00 Ur Specific [place] 1.009 07/06/19 15:00 Urine Protein 30 mg/dL (NEGATIVE) H 07/06/19 15:00 Urine Glucose (UA) NEGATIVE mg/dL (NEGATIVE) 07/06/19 15:00 Urine Ketones NEGATIVE mg/dL (NEGATIVE) 07/06/19 15:00 Urine Blood NEGATIVE (NEGATIVE) 07/06/19 15:00 Urine Nitrite Cancelled 07/06/19 15:00 Ur Leukocyte Esterase Cancelled 07/06/19 15:00 Urine WBC (Auto) Cancelled 07/06/19 15:00 Urine RBC (Auto) 1 /HPF 07/06/19 15:00 07/06/19 07/06/19 07/07/19 12:22 14:55 04:29 Troponin I 0.095 0.117 0.237 NT-Pro-B Natriuret Pep 5690 H Current Medication List Generic Name Dose Route Start Last Admin Trade Name Keith PRN Reason Stop Dose Admin Dextrose 12.5 gm 07/07/19 07:30 Dextrose Inj 50% Syringe (25 Gm/50 Ml) IV 08/06/19 07:29 PRN PRN FOR BG 50-69 IN ALERT PATIENT Protocol Dextrose 25 gm 07/07/19 07:30 Dextrose Inj 50% Syringe (25 Gm/50 Ml) IV 08/06/19 07:29 PRN PRN PER PROTOCOL Protocol Enoxaparin Sodium 73 mg 07/07/19 10:00 Lovenox Inj 80 Mg/0.8 Ml Disp.Syrin SUBCUT 08/06/19 09:59 DAILY SUKUMAR Glucagon 1 mg 07/07/19 07:30 Glucagen Inj 1 Mg Vial IM 08/06/19 07:29 PRN PRN EVALUATE FOR BG < 70 Protocol Glucose 15 gm 07/07/19 07:30 Glutose 40% Gel 15 Gm Tube PO 08/06/19 07:29 PRN PRN FOR BG 50-69 IN ALERT PATIENT Protocol Glucose 30 gm 07/07/19 07:30 Glutose 40% Gel 15 Gm Tube PO 08/06/19 07:29 PRN PRN FOR BG < 50 IN ALERT PATIENT Protocol Lactated Ringer's 1,000 mls @ 100 mls/hr 07/06/19 17:23 07/07/19 05:11 Lactated Ringers 1000 Ml Iv Soln IV 08/05/19 17:22 100 mls/hr CONTINUOUS PRN Administration THIS MED IS NOT "PRN" Insulin Human Regular 0 - 12 unit 07/07/19 06:00 07/07/19 08:04 Humulin R (Pyxis) Insulin 100 Unit/Ml 3ml SUBCUT 08/06/19 05:59 12 unit Q6 SUKUMAR Administration Protocol Pantoprazole Sodium 40 mg 07/07/19 06:00 07/07/19 05:[address] Tablet PO 08/06/19 05:59 40 mg Q6AM SUKUMAR Administration Sodium Chloride 2.5 ml 07/06/19 22:00 07/07/19 05:33 Saline Flush 2.5 Ml Monoject Prefil Syrin IV 08/05/19 21:59 2.5 ml Q8 SUKUMAR Administration Discontinued Medications Generic Name Dose Route Start Last Admin Trade Name Freq PRN Reason Stop Dose Admin Enoxaparin Sodium 30 mg 07/07/19 10:00 Lovenox Inj 30 Mg/0.3 Ml Disp.Syrin SUBCUT 08/06/19 09:59 DAILY SUKUMAR Sodium Chloride 250 mls @ 0 mls/hr 07/06/19 12:28 07/06/19 13:49 Nacl 0.9% 250 Ml Iv Soln IV 07/06/19 12:29 Infused NOW ONE Infusion Wide Open Sodium Chloride 500 mls @ 0 mls/hr 07/06/19 13:29 07/06/19 14:52 Nacl 0.9% 500 Ml Iv Soln IV 07/06/19 13:30 Infused NOW ONE Infusion Wide Open Potassium Chloride/Water 20 meq in 50 mls @ 25 mls/hr 07/06/19 13:30 07/06/19 17:32 Potassium Chloride Moose 20 Meq/50 Ml IV 07/06/19 17:29 Infused Q2H SUKUMAR Infusion Potassium Chloride/Water 20 meq in 50 mls @ 25 mls/hr 07/06/19 17:00 07/06/19 22:58 Potassium Chloride Moose 20 Meq/50 Ml IV 07/06/19 20:59 Infused Q2H SUKUMAR Infusion Sodium Chloride 1,000 mls @ 50 mls/hr 07/06/19 17:12 Nacl 0.9% 1000 Ml Iv Soln IV 08/05/19 17:11 CONTINUOUS PRN THIS MED IS NOT "PRN" Potassium Chloride/Water 20 meq in 50 mls @ 25 mls/hr 07/06/19 23:45 07/07/19 04:30 Potassium Chloride Moose 20 Meq/50 Ml IV 07/07/19 03:44 Infused Q2H SUKUMAR Infusion Ondansetron HCl 4 mg 07/06/19 12:40 07/06/19 12:48 Zofran Inj/Pf 4 Mg/2 Ml Sdv IV 07/06/19 12:41 4 mg NOW ONE Administration Potassium Chloride 40 meq 07/06/19 16:48 07/06/19 17:58 Klor-Con 10 Meq Tablet Er PO 07/06/19 16:49 40 meq NOW ONE Administration Potassium Chloride 40 meq 07/06/19 23:00 07/07/19 00:31 Klor-Con 10 Meq Tablet Er PO 07/06/19 23:01 40 meq NOW ONE Administration Assessment & Plan - Diagnosis (1) Elevated troponin Is this a current diagnosis for this admission?: Yes Plan: Very complicated patient with a very complicated cardiac history who presents with a syncopal event at home, hypotension and with elevated troponin. It is unclear whether his elevated troponin is secondary to a type II OR secondary to hypotension or whether his hypotension and subsequent elevated troponin is secondary to an ACS. Luckily he has remained asymptomatic since admission with adequate BP and electrically stable. Given his cardiac history and presentation I will treat him as a NSTEMI but will pursue medical management for now as he has remained hemodynamically and electrically stable and his renal function precludes invasive assessment with [facility]. Besides, all cardiac cath labs are shut down due to the coronavirus pandemia. Recommendations: -Lovenox 1mg/kg daily (renally dosed). -Baby aspirin. -Clopidogrel 75 mg daily. -Carvedilol 3.125 mg bid as tolerated by his BP. -Lipitor 80mg qd. -Continue to trend cardiac enzymes. -Echocardiogram on Tuesday. -Get cardiac records from [facility] from February 2019. -Contact device rep for interrogation of pacemaker. (2) Elevated brain natriuretic peptide (BNP) level Is this a current diagnosis for this admission?: Yes Plan: Although his BNP is elevated it is actually much better than a prior one in February 2019. The patient has no evidence of heart failure. Recommendations: -Continue with current management. -Echocardiogram on Tuesday. (3) HTN (hypertension) Qualifiers: Hypertension type: essential hypertension Qualified Code(s): I10 - Essential (primary) hypertension Is this a current diagnosis for this admission?: Yes Plan: He is slightly hypertensive however he presented with a syncopal event and hypotensive. Recommendations: -Start carvedilol 3.125 mg bid as tolerated by his BP to maintain BP </= 130/80.
[2019-07-07] MEDS: ENOXAPARIN SODIUM INJ 80 MG/0.8 ML DISP.SYRIN SUBCUT SCH (10:58)
--- NOTE | 2019-07-07 15:42 | PDOC CRITICAL CARE PROG REPORT ---
General Date:: 07/07/19 ICU Day:: 2 Hospital Day:: 2 Resuscitation Status: Full Code Events in the past 12 to 24 Hours:: 74 yo AA M w hx A fib, CKD and PVD presents with dehydration DENNISE and probable NV. Better with IVF and supportive care. I appreciate cards input. Patient feels better and denies SOB or chest pain. Reason for ICU Addmission:: DENNISE and elevated troponin Physical Exam Vital Signs: Temp Pulse Resp BP Pulse Ox 97.7 F 67 13 109/74 100 07/07/19 12:00 07/07/19 12:00 07/07/19 14:15 07/07/19 14:15 07/07/19 14:15 Intake & Output 07/06/19 07/07/19 07/08/19 06:59 06:59 06:59 Intake Total 2646 1000 Output Total 1785 680 Balance 861 320 Weight 73.1 kg 73.1 kg Weight/Height Weight 73.1 kg Height 5 ft 6 in General appearance: PRESENT: no acute distress, thin, well-developed Head exam: PRESENT: normocephalic Eye exam: PRESENT: EOMI, PERRLA. ABSENT: conjunctival injection Mouth exam: PRESENT: neck supple Neck exam: ABSENT: JVD, lymphadenopathy Respiratory exam: PRESENT: clear to auscultation erasmo Cardiovascular exam: PRESENT: RRR GI/Abdominal exam: PRESENT: soft. ABSENT: tenderness Extremities exam: ABSENT: pedal edema Neurological exam: PRESENT: alert, oriented to person, oriented to place, oriented to time, oriented to situation Skin exam: PRESENT: dry, warm Laboratory/Radiographs Laboratory Results: 07/07/19 04:29 07/07/19 04:29 07/06/19 07/06/19 07/06/19 14:55 22:11 22:59 WBC RBC Hgb Hct MCV MCH MCHC RDW Plt Count Seg Neutrophils % Carbonic Acid HCO3/H2CO3 Ratio ABG pH ABG pCO2 ABG pO2 ABG HCO3 ABG O2 Saturation ABG Base Excess FiO2 Sodium Cancelled 131.4 L Potassium Cancelled 2.7 L* Chloride Cancelled 82 L Carbon Dioxide Cancelled 31 H Anion Gap Cancelled 18 BUN Cancelled 132 H Creatinine Cancelled 3.36 H Est GFR ( Amer) Cancelled 22 L Est GFR (Non-Af Amer) Cancelled Glucose Cancelled 388 H Lactic Acid 2.5 H Calcium Cancelled 9.6 Total Bilirubin AST Alkaline Phosphatase Total Protein Albumin TSH 07/07/19 07/07/19 07/07/19 04:29 04:29 04:29 WBC 11.9 H RBC 4.65 Hgb 13.4 L Hct 38.7 MCV 83 MCH 28.7 MCHC 34.5 RDW 12.9 Plt Count 287 Seg Neutrophils % 74.4 Carbonic Acid HCO3/H2CO3 Ratio ABG pH ABG pCO2 ABG pO2 ABG HCO3 ABG O2 Saturation ABG Base Excess FiO2 Sodium 130.8 L Potassium 3.4 L Chloride 83 L Carbon Dioxide 32 H Anion Gap 16 BUN 125 H Creatinine 3.23 H Est GFR ( Amer) 23 L Est GFR (Non-Af Amer) Glucose 403 H* Lactic Acid Calcium 9.5 Total Bilirubin 1.5 H AST 50 Alkaline Phosphatase 119 Total Protein 8.2 Albumin 3.9 TSH 1.36 07/07/19 05:01 WBC RBC Hgb Hct MCV MCH MCHC RDW Plt Count Seg Neutrophils % Carbonic Acid 0.92 L HCO3/H2CO3 Ratio 28:1 ABG pH 7.55 H ABG pCO2 30.6 L ABG pO2 108.5 H ABG HCO3 26.4 H ABG O2 Saturation 98.5 H ABG Base Excess 4.6 FiO2 21% Sodium Potassium Chloride Carbon Dioxide Anion Gap BUN Creatinine Est GFR ( Amer) Est GFR (Non-Af Amer) Glucose Lactic Acid Calcium Total Bilirubin AST Alkaline Phosphatase Total Protein Albumin TSH 07/06/19 07/06/19 07/07/19 12:22 14:55 04:29 Troponin I 0.095 0.117 0.237 NT-Pro-B Natriuret Pep 5690 H Impressions: Chest X-Ray 07/06/19 12:24 IMPRESSION: NO ACUTE RADIOGRAPHIC FINDING IN THE CHEST. Assessment and Plan Plan Summary: Imp: NV DENNISE Hypokalemia and alkalosis Plan: Continue fluids Advance po Lovenox per cards rec Critical Time Critical Time (minutes): 20 Level of Care: ICU
[2019-07-08] MEDS: INSULIN REG, HUMAN 100 UNIT/ML 3 ML VIAL (PYX) SUBCUT SCH ×5 (00:47→22:01)
[2019-07-08] MEDS: RINGERS SOLUTION,LACTATED 1,000 ML IV PRN ×2 (04:25→14:24)
[2019-07-08] MEDS: PANTOPRAZOLE SODIUM 40 MG TABLET.DR PO SCH ×2 (05:52→14:30)
[2019-07-08 05:56] LABS: ANION GAP 12 (5-19); BLOOD UREA NITROGEN 106 mg/dL (7-20); CALCIUM 9.7 mg/dL (8.4-10.2); CARBON DIOXIDE 33 mmol/L (22-30); CHLORIDE 87 mmol/L (98-107); GLUCOSE 231 mg/dL (75-110)
[2019-07-08 06:07] LABS: POTASSIUM 2.5 mmol/L (3.6-5.0)
--- NOTE | 2019-07-08 08:05 | PDOC PROGRESS REPORT ---
Subjective Progress Note for:: 07/08/19 Subjective:: SANDRA COHN is a 74 year old male with history of anemia, heart failure, atrial fibrillation, hypertension, hyperlipidemia, hypothyroidism, PAD, stroke, CAD details of which are unknown, DM, stage III CKD, [employer] PM for unclear indication who is consulted to our service for further evaluation of NSTEMI. The history is mainly obtained from review of current records and a prior visit to our facility in February 2019. He apparently had a syncopal episode at home witnessed by his fiance. He was apparently unconscious for approximately 5 minutes without any prodrome or any cardiac symptoms. In the ER he was found to be hypotensive and responded to IVF's. He was also found to have multiple electrolyte abnormalities along with acute renal failure. Upon my evaluation this morning he is asymptomatic and specifically denies CP, SOB, palpitations, diaphoresis, PND, orthopnea and LE edema. Of note, he was evaluated in the ED at this facility in February 2019 with a similar presentation. At that time he was found to have wide complex tachycardia, very elevated proBNP and creatinine and hypotensive. He was treated with dopamine and transferred to [facility], unfortunately I don't have any of those records. His medication list include Nitroglycerin PRN, isosorbide mononitrate, torsemide, metoprolol, Eliquis, calcitriol, amiodarone, potassium, Singulair, insulin, Synthroid, Protonix, simvastatin and metolazone however it is not known whether the patient is actually taking them. 07/08/2019: The patient had an uneventful night with telemetry demonstrating a ventricularly paced rhythm. He continues to feel well and denies cardiac complaints. Physical exam on 07/08/2019: GENERAL: Pleasant and conversational. Oriented x3 with normal mood. Not in acute distress. Well groomed and well developed. HEENT: Normocephalic, atraumatic. Pupils equal. Sclerae anicteric. Oropharynx moist. NECK: No JVD. No carotid bruits. LUNGS: Clear to auscultation bilaterally. Normal respiratory effort without the use of accessory muscles or intercostal retractions. CARDIOVASCULAR: Regular rate and rhythm, normal S1 and S2 without murmurs, rubs, or gallops. PMI not displaced. ABDOMEN: No masses or tenderness to palpation. No bruit. No splenomegaly or hepatomegaly. No abdominal aorta bruit noted. EXTREMITIES: No edema, no cyanosis, no clubbing. +2 pulses femoral and pedal pulses bilaterally. SKIN: No lesions or rashes. MUSCULOSKELETAL: No chest tenderness to palpation. NEUROLOGIC: Nonfocal. No gross sensory or motor deficits bilateral upper or lower extremities. Reason For Visit: SYCOPE, R/O TN Physical Exam Vital Signs: Temp Pulse Resp BP Pulse Ox 98.1 F 67 14 125/87 H 98 07/08/19 05:03 07/08/19 05:03 07/08/19 05:03 07/08/19 05:03 07/08/19 05:03 Intake & Output 07/06/19 07/07/19 07/08/19 06:59 06:59 06:59 Intake Total 2646 2850 Output Total 1785 3050 Balance 861 -200 Weight 73.1 kg 75.5 kg Results Laboratory Results: 07/07/19 04:29 07/08/19 05:17 07/07/19 07/08/19 04:29 05:17 Sodium 132.1 L Potassium 2.5 L* Chloride 87 L Carbon Dioxide 33 H Anion Gap 12 BUN 106 H Creatinine 2.45 H Est GFR ( Amer) 32 L Glucose 231 H Calcium 9.7 Magnesium 2.2 TSH 1.36 07/06/19 07/06/19 07/07/19 12:22 14:55 04:29 Troponin I 0.095 0.117 0.237 NT-Pro-B Natriuret Pep 5690 H 07/08/19 05:17 Troponin I 0.140 NT-Pro-B Natriuret Pep Impressions: Chest X-Ray 07/06/19 12:24 IMPRESSION: NO ACUTE RADIOGRAPHIC FINDING IN THE CHEST. 07/07/19 04:29 07/08/19 05:17 MCV 83 fl (80-97) 07/07/19 04:29 MCH 28.7 pg (27.0-33.4) 07/07/19 04:29 MCHC 34.5 g/dL (32.0-36.0) 07/07/19 04:29 RDW 12.9 % (11.5-14.0) 07/07/19 04:29 Seg Neutrophils % 74.4 % (42-78) 07/07/19 04:29 Carbonic Acid 0.92 mmol/L (1.05-1.35) L 07/07/19 05:01 HCO3/H2CO3 Ratio 28:1 07/07/19 05:01 ABG pH 7.55 (7.35-7.45) H 07/07/19 05:01 ABG pCO2 30.6 mmHg (35-45) L 07/07/19 05:01 ABG pO2 108.5 mmHg (80-100) H 07/07/19 05:01 ABG HCO3 26.4 mmol/L (20-24) H 07/07/19 05:01 ABG O2 Saturation 98.5 % (94-98) H 07/07/19 05:01 ABG Base Excess 4.6 mmol/L 07/07/19 05:01 FiO2 21% 07/07/19 05:01 Chloride 87 mmol/L (98-107) L 07/08/19 05:17 Carbon Dioxide 33 mmol/L (22-30) H 07/08/19 05:17 Anion Gap 12 (5-19) 07/08/19 05:17 Est GFR ( Amer) 32 (>60) L 07/08/19 05:17 Est GFR (Non-Af Amer) Cancelled 07/06/19 22:11 Glucose 231 mg/dL (75-110) H 07/08/19 05:17 Lactic Acid 2.5 mmol/L (0.7-2.1) H 07/06/19 14:55 Calcium 9.7 mg/dL (8.4-10.2) 07/08/19 05:17 Magnesium 2.2 mg/dL (1.6-2.3) 07/08/19 05:17 Total Bilirubin 1.5 mg/dL (0.2-1.3) H 07/07/19 04:29 AST 50 U/L (17-59) 07/07/19 04:29 Alkaline Phosphatase 119 U/L (38-126) 07/07/19 04:29 Total Protein 8.2 g/dL (6.3-8.2) 07/07/19 04:29 Albumin 3.9 g/dL (3.5-5.0) 07/07/19 04:29 TSH 1.36 uIU/mL (0.47-4.68) 07/07/19 04:29 Urine Color YELLOW 07/06/19 15:00 Urine Appearance CLEAR 07/06/19 15:00 Urine pH 6.0 (5.0-9.0) 07/06/19 15:00 Ur Specific [place] 1.009 07/06/19 15:00 Urine Protein 30 mg/dL (NEGATIVE) H 07/06/19 15:00 Urine Glucose (UA) NEGATIVE mg/dL (NEGATIVE) 07/06/19 15:00 Urine Ketones NEGATIVE mg/dL (NEGATIVE) 07/06/19 15:00 Urine Blood NEGATIVE (NEGATIVE) 07/06/19 15:00 Urine Nitrite Cancelled 07/06/19 15:00 Ur Leukocyte Esterase Cancelled 07/06/19 15:00 Urine WBC (Auto) Cancelled 07/06/19 15:00 Urine RBC (Auto) 1 /HPF 07/06/19 15:00 07/06/19 07/06/19 07/07/19 12:22 14:55 04:29 Troponin I 0.095 0.117 0.237 NT-Pro-B Natriuret Pep 5690 H 07/08/19 05:17 Troponin I 0.140 NT-Pro-B Natriuret Pep Current Medication List Generic Name Dose Route Start Last Admin Trade Name Freq PRN Reason Stop Dose Admin Dextrose 12.5 gm 07/07/19 07:30 Dextrose Inj 50% Syringe (25 Gm/50 Ml) IV 08/06/19 07:29 PRN PRN FOR BG 50-69 IN ALERT PATIENT Protocol Dextrose 25 gm 07/07/19 07:30 Dextrose Inj 50% Syringe (25 Gm/50 Ml) IV 08/06/19 07:29 PRN PRN PER PROTOCOL Protocol Enoxaparin Sodium 73 mg 07/07/19 10:00 07/07/19 10:58 Lovenox Inj 80 Mg/0.8 Ml Disp.Syrin SUBCUT 08/06/19 09:59 73 mg DAILY SUKUMAR Administration Glucagon 1 mg 07/07/19 07:30 Glucagen Inj 1 Mg Vial IM 08/06/19 07:29 PRN PRN EVALUATE FOR BG < 70 Protocol Glucose 15 gm 07/07/19 07:30 Glutose 40% Gel 15 Gm Tube PO 08/06/19 07:29 PRN PRN FOR BG 50-69 IN ALERT PATIENT Protocol Glucose 30 gm 07/07/19 07:30 Glutose 40% Gel 15 Gm Tube PO 08/06/19 07:29 PRN PRN FOR BG < 50 IN ALERT PATIENT Protocol Lactated Ringer's 1,000 mls @ 100 mls/hr 07/06/19 17:23 07/08/19 04:25 Lactated Ringers 1000 Ml Iv Soln IV 08/05/19 17:22 100 mls/hr CONTINUOUS PRN Administration THIS MED IS NOT "PRN" Insulin Human Regular 0 - 12 unit 07/07/19 06:00 07/08/19 05:53 Humulin R (Pyxis) Insulin 100 Unit/Ml 3ml SUBCUT 08/06/19 05:59 4 unit Q6 SUKUMAR Administration Protocol Pantoprazole Sodium 40 mg 07/07/19 06:00 07/08/19 05:[address] Tablet PO 08/06/19 05:59 40 mg Q6AM SUKUMAR Administration Sodium Chloride 2.5 ml 07/06/19 22:00 07/08/19 05:53 Saline Flush 2.5 Ml Monoject Prefil Syrin IV 08/05/19 21:59 2.5 ml Q8 SUKUMAR Administration Discontinued Medications Generic Name Dose Route Start Last Admin Trade Name Freq PRN Reason Stop Dose Admin Enoxaparin Sodium 30 mg 07/07/19 10:00 Lovenox Inj 30 Mg/0.3 Ml Disp.Syrin SUBCUT 08/06/19 09:59 DAILY SUKUMAR Sodium Chloride 250 mls @ 0 mls/hr 07/06/19 12:28 07/06/19 13:49 Nacl 0.9% 250 Ml Iv Soln IV 07/06/19 12:29 Infused NOW ONE Infusion Wide Open Sodium Chloride 500 mls @ 0 mls/hr 07/06/19 13:29 07/06/19 14:52 Nacl 0.9% 500 Ml Iv Soln IV 07/06/19 13:30 Infused NOW ONE Infusion Wide Open Potassium Chloride/Water 20 meq in 50 mls @ 25 mls/hr 07/06/19 13:30 07/06/19 17:32 Potassium Chloride Moose 20 Meq/50 Ml IV 07/06/19 17:29 Infused Q2H SUKUMAR Infusion Potassium Chloride/Water 20 meq in 50 mls @ 25 mls/hr 07/06/19 17:00 07/06/19 22:58 Potassium Chloride Moose 20 Meq/50 Ml IV 07/06/19 20:59 Infused Q2H SUKUMAR Infusion Sodium Chloride 1,000 mls @ 50 mls/hr 07/06/19 17:12 Nacl 0.9% 1000 Ml Iv Soln IV 08/05/19 17:11 CONTINUOUS PRN THIS MED IS NOT "PRN" Potassium Chloride/Water 20 meq in 50 mls @ 25 mls/hr 07/06/19 23:45 07/07/19 04:30 Potassium Chloride Moose 20 Meq/50 Ml IV 07/07/19 03:44 Infused Q2H SUKUMAR Infusion Ondansetron HCl 4 mg 07/06/19 12:40 07/06/19 12:48 Zofran Inj/Pf 4 Mg/2 Ml Sdv IV 07/06/19 12:41 4 mg NOW ONE Administration Potassium Chloride 40 meq 07/06/19 16:48 07/06/19 17:58 Klor-Con 10 Meq Tablet Er PO 07/06/19 16:49 40 meq NOW ONE Administration Potassium Chloride 40 meq 07/06/19 23:00 07/07/19 00:31 Klor-Con 10 Meq Tablet Er PO 07/06/19 23:01 40 meq NOW ONE Administration Assessment & Plan - Diagnosis (1) Elevated troponin Is this a current diagnosis for this admission?: Yes Plan: Very complicated patient with a very complicated cardiac history who presents with a syncopal event at home, hypotension and with elevated troponin. It is unclear whether his elevated troponin is secondary to a type II TN secondary to hypotension or whether his hypotension and subsequent elevated troponin is secondary to an ACS. He did have a similar presentation back in February 2019 when he was treated as a cardiogenic shock and transferred to [facility], unfortunately I do not have any of those records. Luckily he has remained asymptomatic since admission with adequate BP and electrically stable. Given his cardiac history and presentation we will continue to treat him as a NSTEMI but will pursue medical management for now as he has remained hemodynamically and electrically stable and his renal function precludes invasive assessment with [facility]. Besides, all cardiac cath labs are shut down due to the coronavirus pandemia. His creatinine is coming down slowly. He is hypokalemic. Recommendations: -Lovenox 1mg/kg daily (renally dosed) for the duration of the hospitalization. -Baby aspirin daily. -Clopidogrel 75 mg daily. -Metoprolol tartrate 12.5 mg twice daily. -Continue to replace electrolytes. -Lipitor 80mg qd. -Continue to trend cardiac enzymes. -Echocardiogram on Tuesday. -LHC versus nuclear stress test as dictated by his clinical course. If he remains hemodynamically and electrically stable and nuclear stress test can be done prior to discharge. If he develops any hemodynamical or electrical instability he will need to be transferred urgently for LHC. -Get cardiac records from [facility] from February 2019. -Contact device rep for interrogation of pacemaker. (2) Elevated brain natriuretic peptide (BNP) level Is this a current diagnosis for this admission?: Yes Plan: (2) Elevated brain natriuretic peptide (BNP) level Is this a current diagnosis for this admission?: Yes Plan: Although his BNP is elevated it is actually much better than a prior one in February 2019. The patient has no evidence of heart failure. Recommendations: -Continue with current management. -Echocardiogram on Tuesday. -Repeat proBNP today. (3) HTN (hypertension) Qualifiers: Hypertension type: essential hypertension Qualified Code(s): I10 - Essential (primary) hypertension Is this a current diagnosis for this admission?: Yes Plan: His blood pressure is now at goal. Recommendations: -Please see above for recommendations.
[2019-07-08] MEDS ORDERED: POTASSIUM CHLORIDE 20 MEQ PACKET PO ONE (09:22)
--- NOTE | 2019-07-08 09:37 | PDOC CRITICAL CARE PROG REPORT ---
General Date:: 07/08/19 ICU Day:: 3 Hospital Day:: 3 Resuscitation Status: Full Code Events in the past 12 to 24 Hours:: 74 yo AA M w hx A fib, CKD and PVD presents with dehydration DENNISE and probable AK. Better with IVF and supportive care. I appreciate cards input. Patient feels better and denies SOB or chest pain. Ready to go to floor. Reason for ICU Addmission:: DENNISE and elevated troponin Physical Exam Vital Signs: Temp Pulse Resp BP Pulse Ox 99.0 F 71 16 130/83 H 99 07/08/19 08:00 07/08/19 08:00 07/08/19 08:00 07/08/19 08:00 07/08/19 08:00 Intake & Output 07/07/19 07/08/19 07/09/19 06:59 06:59 06:59 Intake Total 2646 2850 Output Total 1785 3050 400 Balance 861 -200 -400 Weight 73.1 kg 75.5 kg Weight/Height Weight 75.5 kg Height 5 ft 6 in General appearance: PRESENT: no acute distress Head exam: PRESENT: normocephalic Eye exam: PRESENT: EOMI, PERRLA. ABSENT: conjunctival injection Neck exam: ABSENT: JVD, lymphadenopathy Respiratory exam: PRESENT: clear to auscultation erasmo Cardiovascular exam: PRESENT: RRR Pulses: PRESENT: +1 pedal pulses bilateral GI/Abdominal exam: PRESENT: soft. ABSENT: tenderness Neurological exam: PRESENT: alert Skin exam: PRESENT: dry, warm Laboratory/Radiographs Laboratory Results: 07/07/19 04:29 07/08/19 05:17 07/08/19 05:17 Sodium 132.1 L Potassium 2.5 L* Chloride 87 L Carbon Dioxide 33 H Anion Gap 12 BUN 106 H Creatinine 2.45 H Est GFR ( Amer) 32 L Glucose 231 H Calcium 9.7 Magnesium 2.2 07/06/19 07/06/19 07/07/19 12:22 14:55 04:29 Troponin I 0.095 0.117 0.237 NT-Pro-B Natriuret Pep 5690 H 07/08/19 05:17 Troponin I 0.140 NT-Pro-B Natriuret Pep Impressions: Chest X-Ray 07/06/19 12:24 IMPRESSION: NO ACUTE RADIOGRAPHIC FINDING IN THE CHEST. Assessment and Plan - Diagnosis (1) DENNISE (acute kidney injury) Is this a current diagnosis for this admission?: Yes Plan Summary: Imp: AK DENNISE Hypokalemia and alkalosis Plan: Continue fluids IV Replace K+ Meds as per cards To floor Critical Time Critical Time (minutes): 20 Level of Care: ICU
[2019-07-08] MEDS ORDERED: METOPROLOL TARTRATE 25 MG TABLET PO SCH (10:00)
[2019-07-08] MEDS ORDERED: POTASSIUM CHLORIDE 10 MEQ TABLET.ER PO SCH (10:00)
[2019-07-08] MEDS: CLOPIDOGREL BISULFATE 75 MG TABLET PO SCH (10:22)
[2019-07-08] MEDS: ASPIRIN 81 MG TABLET, CHEWABLE PO SCH (10:22)
[2019-07-08] MEDS: POTASSI CL 20 MEQ/50 ML RIDER 20 MEQ/50 ML RTUPB IV SCH ×2 (10:23→13:49)
[2019-07-08] MEDS: ENOXAPARIN SODIUM INJ 80 MG/0.8 ML DISP.SYRIN SUBCUT SCH (10:23)
[2019-07-08 10:43] LABS: GLUCOSE 403 mg/dL (75-110)
[2019-07-08] MEDS ORDERED: BISACODYL 10 MG SUPP.RECT PR ONE (11:00)
[2019-07-08] MEDS ORDERED: INSULIN NPH HUM SQ SCH ×2 (13:00→18:00)
[2019-07-08] MEDS ORDERED: (PENDING PHARMACY ID) (Potassium Chloride [Klor-Con M20] 40 MEQ) PO SCH (13:00)
[2019-07-08] MEDS ORDERED: REG INSULIN SQ SCH ×2 (13:00→18:00)
[2019-07-08] MEDS ORDERED: APIXABAN 5 MG TABLET PO SCH (13:00)
[2019-07-08] MEDS ORDERED: (PENDING PHARMACY ID) (Levothyroxine Sodium [Levothyroxine Sodium] 125 MCG) PO SCH (13:00)
[2019-07-08] MEDS ORDERED: DEXTROSE 40% GEL 15 GM TUBE PO PRN (13:30)
[2019-07-08] MEDS ORDERED: DEXTROSE 50%-WATER SYRINGE 12.5 GM/25 ML DOSE IV PRN (13:30)
[2019-07-08] MEDS ORDERED: GLUCAGON,HUMAN RECOMB 1 MG INJ IM PRN (13:30)
[2019-07-08] MEDS ORDERED: DEXTROSE 40% GEL 15 GM TUBE X 2 PO PRN (13:30)
[2019-07-08] MEDS ORDERED: DEXTROSE 50%-WATER SYRINGE 25 GM/50 ML DOSE IV PRN (13:30)
[2019-07-08] MEDS: METOPROLOL SUCCINATE 25 MG TAB.SR.24H PO SCH (14:31)
[2019-07-08] MEDS: SITAGLIPTIN PHOSPHATE 50 MG TABLET PO SCH (14:31)
[2019-07-08] MEDS: AMIODARONE HCL 200 MG TABLET PO SCH (14:32)
[2019-07-08] MEDS: ISOSORBIDE MONONITRATE 30 MG TAB.ER.24H PO SCH (14:32)
[2019-07-08] MEDS: HYDRALAZINE HCL 25 MG TABLET PO SCH ×2 (14:33→21:29)
[2019-07-08] MEDS: DOCUSATE SODIUM 100 MG CAPSULE PO SCH (14:33)
[2019-07-08] MEDS: HUM INSULIN NPH/REG INSULIN HM 100 UNIT/1 ML 3 ML SUBCUT SCH (18:36)
[2019-07-08] MEDS: TRIAMCINOLONE ACETONIDE 0.5% CREAM 15 GM TP SCH (18:37)
[2019-07-08] MEDS ORDERED: ATORVASTATIN CALCIUM 80 MG TABLET PO SCH (22:00)
[2019-07-08] MEDS: SIMVASTATIN 10 MG TABLET PO SCH (22:00)
[2019-07-08] MEDS: POTASSIUM CHLORIDE 10 MEQ TABLET.ER PO SCH (22:00)
[2019-07-08] MEDS ORDERED: (PENDING PHARMACY ID) (Simvastatin [Simvastatin] 20 MG) PO SCH (22:00)
[2019-07-08] MEDS ORDERED: POLYETHYLENE GLYCOL 3350 POWDER 17 GM/1 PACKET PO PRN (23:01)
[2019-07-08] MEDS ORDERED: MAGNESIUM HYDROXIDE SUSP 30 ML UDCUP PO PRN (23:01)
[2019-07-09] MEDS: LEVOTHYROXINE SODIUM 0.1 MG TABLET PO SCH (06:10)
[2019-07-09] MEDS: RINGERS SOLUTION,LACTATED 1,000 ML IV PRN (06:10)
[2019-07-09] MEDS: HYDRALAZINE HCL 25 MG TABLET PO SCH ×3 (06:11→21:14)
[2019-07-09] MEDS: LEVOTHYROXINE SODIUM 0.025 MG TABLET PO SCH (06:11)
[2019-07-09] MEDS: INSULIN REG, HUMAN 100 UNIT/ML 3 ML VIAL (PYX) SUBCUT SCH ×4 (07:51→21:11)
[2019-07-09] MEDS: HUM INSULIN NPH/REG INSULIN HM 100 UNIT/1 ML 3 ML SUBCUT SCH ×2 (07:52→18:21)
[2019-07-09 09:40] LABS: HEMATOCRIT 36.5 % (37.9-51.0); HEMOGLOBIN 12.3 g/dL (13.5-17.0); MEAN CORPUSCULAR HEMOGLOBIN 28.7 pg (27.0-33.4); MEAN CORPUSCULAR HGB CONC 33.7 g/dL (32.0-36.0); MEAN CORPUSCULAR VOLUME 85 fl (80-97); PLATELET COUNT 220 10^3/uL (150-450); RED BLOOD COUNT 4.28 10^6/uL (4.35-5.55); RED CELL DISTRIBUTION WIDTH 12.7 % (11.5-14.0)
--- NOTE | 2019-07-09 09:44 | PDOC PROGRESS REPORT ---
Subjective Progress Note for:: 07/09/19 Subjective:: This is a 74-year-old male with a significant history of the coronary artery disease history of the chronic A. fib currently on anticoagulations Eliquis history of the significant combined congestive heart failure with the EF is less than 20% currently see a [place] cardiology Dr. Vaughn came to the emergency departmentsWith the syncopal type episodes and patients diagnosed with acute non-ST TX Patient also in acute renal failure and chronic kidney disease In the ICU patient received some IV fluid patient seen by cardiology Dr. Fontana His Eliquis was DC'd put on a Lovenox Transfer yesterday to the floor She is currently denied any chest pain no short of breath feel much better patient's potassium was low Discussed with the patient's assistant professor nurse education Dr. Vaughn in [place] the patient have appointment to see this Tuesday and discussed with the nursing staff to discuss with the Dr. Fontana to see if any questions he can call the Dr. Vaughn Patient with significant heart failure currently see the CHF clinic in [place] currently on a high-dose of torsemide 80 mg p.o. twice a day currently and the medicine is hold And also see her Dr. Chin for chronic kidney disease Reason For Visit: SYCOPE, R/O [place] Physical Exam Vital Signs: Temp Pulse Resp BP Pulse Ox 98.9 F 78 16 105/55 L 95 07/09/19 07:20 07/09/19 07:56 07/09/19 07:20 07/09/19 07:20 07/09/19 07:20 Intake & Output 07/08/19 07/09/19 07/10/19 06:59 06:59 06:59 Intake Total 2850 2448 Output Total 3050 1475 Balance -200 973 Weight 75.5 kg 61.6 kg General appearance: PRESENT: no acute distress, well-developed, well-nourished Head exam: PRESENT: atraumatic, normocephalic Eye exam: PRESENT: conjunctiva pink, EOMI, PERRLA. ABSENT: scleral icterus Ear exam: PRESENT: normal external ear exam Mouth exam: PRESENT: moist, tongue midline Neck exam: PRESENT: full ROM. ABSENT: carotid bruit, JVD, lymphadenopathy, thyromegaly Respiratory exam: PRESENT: clear to auscultation erasmo Cardiovascular exam: PRESENT: RRR. ABSENT: diastolic murmur, rubs, systolic murmur Vascular exam: PRESENT: normal capillary refill GI/Abdominal exam: PRESENT: normal bowel sounds, soft. ABSENT: distended, guarding, mass, organolmegaly, rebound, tenderness Rectal exam: PRESENT: deferred Neurological exam: PRESENT: alert, awake, oriented to person, oriented to place, oriented to time, oriented to situation, CN II-XII grossly intact. ABSENT: motor sensory deficit Psychiatric exam: PRESENT: appropriate affect, normal mood. ABSENT: homicidal ideation, suicidal ideation Skin exam: PRESENT: dry, intact, warm. ABSENT: cyanosis, rash Results Laboratory Results: 07/07/19 04:29 Glucose 403 H* 07/06/19 07/06/19 07/07/19 12:22 14:55 04:29 Troponin I 0.095 0.117 0.237 NT-Pro-B Natriuret Pep 5690 H 07/08/19 05:17 Troponin I 0.140 NT-Pro-B Natriuret Pep Impressions: Chest X-Ray 07/06/19 12:24 IMPRESSION: NO ACUTE RADIOGRAPHIC FINDING IN THE CHEST. Assessment & Plan - Diagnosis (1) Acute non-ST elevation myocardial infarction (NSTEMI) Is this a current diagnosis for this admission?: Yes Plan: Currently continues to current management judgment follow-up with the cardiology Dr. Fontana (2) DENNISE (acute kidney injury) Is this a current diagnosis for this admission?: Yes Plan: We consult the Dr. Chin (3) Type 2 diabetes mellitus Qualifiers: Diabetes mellitus fpc insulin use: unspecified fpc insulin use status Chronic kidney disease stage: stage 3 (moderate) Is this a current diagnosis for this admission?: Yes Plan: Continues a sliding scale (4) Afib Qualifiers: Atrial fibrillation type: unspecified Qualified Code(s): I48.91 - Unspecified atrial fibrillation Is this a current diagnosis for this admission?: Yes Plan: Continues to Lovenox (5) Anemia Qualifiers: Chronic kidney disease stage: stage 4 (severe) Is this a current diagnosis for this admission?: Yes (6) CAD (coronary artery disease) Qualifiers: Coronary Disease-Associated Artery/Lesion type: [place] artery Associated angina: with other forms of angina Is this a current diagnosis for this admission?: Yes Plan: Continues to follow with the cardiology (7) CHF (congestive heart failure) Qualifiers: Heart failure type: combined systolic and diastolic Heart failure chronicity: chronic Qualified Code(s): I50.42 - Chronic combined systolic (congestive) and diastolic (congestive) heart failure Is this a current diagnosis for this admission?: Yes Plan: Patient is diuretics is currently hold will discuss with cardiology (8) HTN (hypertension) Qualifiers: Hypertension type: essential hypertension Qualified Code(s): I10 - Essential (primary) hypertension Is this a current diagnosis for this admission?: Yes - Time Time Spent with patient: 25-34 minutes Level of Care: TELE Medications reviewed and adjusted accordingly: Yes Anticipated discharge: Home Within: Other - Plan Summary Plan Summary: Continues to current medications
[2019-07-09] MEDS: PANTOPRAZOLE SODIUM 40 MG TABLET.DR PO SCH (10:05)
[2019-07-09] MEDS: CALCITRIOL 0.25 MCG CAPSULE PO SCH (10:05)
[2019-07-09] MEDS: DOCUSATE SODIUM 100 MG CAPSULE PO SCH (10:05)
[2019-07-09] MEDS: ISOSORBIDE MONONITRATE 30 MG TAB.ER.24H PO SCH (10:05)
[2019-07-09] MEDS: METOPROLOL SUCCINATE 25 MG TAB.SR.24H PO SCH (10:06)
[2019-07-09] MEDS: CLOPIDOGREL BISULFATE 75 MG TABLET PO SCH (10:06)
[2019-07-09] MEDS: ASPIRIN 81 MG TABLET, CHEWABLE PO SCH (10:06)
[2019-07-09] MEDS: TRIAMCINOLONE ACETONIDE 0.5% CREAM 15 GM TP SCH ×2 (10:07→18:55)
[2019-07-09] MEDS: SITAGLIPTIN PHOSPHATE 50 MG TABLET PO SCH (10:08)
[2019-07-09 10:11] LABS: ANION GAP 10 (5-19); BLOOD UREA NITROGEN 69 mg/dL (7-20); CALCIUM 9.4 mg/dL (8.4-10.2); CARBON DIOXIDE 34 mmol/L (22-30); CHLORIDE 92 mmol/L (98-107); GLUCOSE 220 mg/dL (75-110)
[2019-07-09 10:17] LABS: WHITE BLOOD COUNT 33.3 10^3/uL (4.0-10.5)
[2019-07-09] MEDS: AMIODARONE HCL 200 MG TABLET PO SCH (10:30)
[2019-07-09] MEDS: POTASSIUM CHLORIDE 10 MEQ TABLET.ER PO SCH ×2 (10:36→21:12)
[2019-07-09] MEDS: ENOXAPARIN SODIUM INJ 80 MG/0.8 ML DISP.SYRIN SUBCUT SCH (10:36)
[2019-07-09] MEDS: NORMAL SALINE 1000 ML 1,000 ML IV PRN (11:15)
--- NOTE | 2019-07-09 11:20 | PDOC PROGRESS REPORT ---
Subjective Progress Note for:: 07/09/19 Subjective:: The patient is seen this morning and is resting comfortably laying in bed. He has no specific complaints. Unfortunately this is the first time I am seeing the patient and he is unable to provide any significant historical information. He does not recount any symptoms leading up to being told that he passed out which is what brought him to the hospital. He explains he was "doing his usual thing by going to the bathroom and returning to his chair." He uses a walker for ambulation at home. Currently the patient denies angina, palpitations, presyncope, dyspnea, lower extremity edema, orthopnea or PND. 8 systems reviewed and negative except as otherwise noted above in HPI. Reason For Visit: Chronic systolic CHF, syncope Physical Exam Vital Signs: Temp Pulse Resp BP Pulse Ox 98.9 F 78 16 105/55 L 95 07/09/19 07:20 07/09/19 07:56 07/09/19 07:20 07/09/19 07:20 07/09/19 07:20 Intake & Output 07/08/19 07/09/19 07/10/19 06:59 06:59 06:59 Intake Total 2850 2448 Output Total 3050 1475 Balance -200 973 Weight 75.5 kg 61.6 kg Exam: General Appearance: Elderly male in no acute distress Eyes:. Pupils equal round reactive to light, no injection no jaundice. EOMI HENT: atraumatic, oropharynx is clear with moist mucous membranes. Neck: supple, no masses, no thyromegaly and normal jugular venous pressure. Lungs: diminished bilateral bases, otherwise clear to auscultation, no wheezing/rhonchi, normal respiratory effort. Cardiovascular: Palpation of heart: normal PMI, no thrills. Auscultation of Heart: normal rate and rhythm, normal S1 and S2, without murmurs, no S3, no S4. Carotid pulses: no bruit, normal amplitude. Abdominal aorta: no bruit, normal amplitude. Radial pulses: normal amplitude. Femoral pulses: no bruit, normal amplitude. Pedal pulses: normal amplitude. Examination of extremities for edema and/or varicosities: normal. Abdomen: normal bowel sounds, soft, non-tender, no masses, no hepatomegaly, no splenomegaly. Musculoskeletal: normal movement of all extremities. Extremities: no clubbing, no cyanosis. Integumentary: warm and dry bilaterally with no ulcers. Psychiatric: awake, alert and oriented x 3. Appropriate mood and affect. Results Laboratory Results: 07/09/19 09:15 07/09/19 09:15 07/09/19 07/09/19 09:15 09:15 WBC 33.3 H* D RBC 4.28 L Hgb 12.3 L Hct 36.5 L MCV 85 MCH 28.7 MCHC 33.7 RDW 12.7 Plt Count 220 Sodium 135.8 L Potassium 3.0 L* Chloride 92 L Carbon Dioxide 34 H Anion Gap 10 BUN 69 H Creatinine 2.00 H Est GFR ( Amer) 40 L Glucose 220 H Calcium 9.4 07/06/19 07/06/19 07/07/19 12:22 14:55 04:29 Troponin I 0.095 0.117 0.237 NT-Pro-B Natriuret Pep 5690 H 07/08/19 07/09/19 05:17 09:15 Troponin I 0.140 NT-Pro-B Natriuret Pep 79863 H Impressions: Chest X-Ray 07/06/19 12:24 IMPRESSION: NO ACUTE RADIOGRAPHIC FINDING IN THE CHEST. Assessment & Plan - Notes Notes: SANDRA COHN is a 74 year old male with history of anemia, heart failure, atrial fibrillation, hypertension, hyperlipidemia, hypothyroidism, PAD, stroke, CAD details of which are unknown, DM, stage III CKD, [employer] for unclear indication who is consulted to our service for further evaluation of NSTEMI. The history is mainly obtained from review of current records and a prior visit to our facility in February 2019. He apparently had a syncopal episode at home witnessed by his fiance. He was apparently unconscious for approximately 5 minutes without any prodrome or any cardiac symptoms. In the ER he was found to be hypotensive and responded to IVF's. He was also found to have multiple electrolyte abnormalities along with acute renal failure. Upon my evaluation this morning he is asymptomatic and specifically denies CP, SOB, palpitations, diaphoresis, PND, orthopnea and LE edema. Of note, he was evaluated in the ED at this facility in February 2019 with a similar presentation. At that time he was found to have wide complex tachycardia, very elevated proBNP and creatinine and hypotensive. He was treated with dopamine and transferred to [facility], unfortunately I don't have any of those records. His medication list include Nitroglycerin PRN, isosorbide mononitrate, torsemide, metoprolol, Eliquis, calcitriol, amiodarone, potassium, Singulair, insulin, Synthroid, Protonix, simvastatin and metolazone however it is not known whether the patient is actually taking them. 07/08/2019: The patient had an uneventful night with telemetry demonstrating a ventricularly paced rhythm. He continues to feel well and denies cardiac complaints. A/P Syncope in the setting of high-dose diuretics and significant acute on chronic kidney failure with presumed orthostatic hypotension event at home. - medical management Elevated troponin Is this a current diagnosis for this admission?: Yes Plan: Very complicated patient with a very complicated cardiac history who presents with a syncopal event at home, hypotension, AoCKD with Cr 3.4 and BUN 140 and with mildly elevated troponin. 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 Luckily he has remained asymptomatic since admission with adequate BP and electrically stable. Recommendations: - recommend restarting his home anticoagulation for history of atrial fi brillation; stop lovenox - GDMT for his history of systolic chf / cardiomyopathy per his outpatient medication list - asa 81mg daily - toprol xl -Continue to replace electrolytes. -Lipitor 80mg qd. Chronic systolic CHF with reduced left ventricular ejection fraction / presumed ischemic cardiomyopathy / elevated brain natriuretic peptide (BNP) level Is this a current diagnosis for this admission?: Yes Plan: Although his BNP is elevated it is actually much better than a prior one in February 2019. The patient has no evidence of heart failure and is requiring IVF's currently. - IVF's need to be given cautiously as 100ml/hr is too high - will defer to nephrology in the setting of AoCKD Acute on chronic CKD and HTN (hypertension) Qualifiers: Hypertension type: essential hypertension Qualified Code(s): I10 - Essential (primary) hypertension Is this a current diagnosis for this admission?: Yes Plan: Marginal bp's - gentle rehydration and low-dose toprol xl - management of DENNISE per nephrology - diuretic management per nephrology as he is followed by [facility] juliet clarek Hyponatremia / hypokalemia -Management per primary team and nephrology
--- NOTE | 2019-07-09 11:35 | PDOC CONSULTATION ---
Consultation Consult Date: 07/09/19 Provider Consulted: UZMA LOZA History of Present Illness Admission Date/PCP: 07/06/19 17:00 LENA VAUGHN MD History of Present Illness: SANDRA COHN is a 74 year old male with significant history of the CAD, chronic A. fib on Eliquis, CHF with an EF less than 20% follows at [facility] with Dr. Vaughn and CKD3 following with Dr. Chin. He came to the ER for a syncopal episode. He claims he was at home with his fiance and he passed out when standing. At that point he was brought to the ER. He denies chest pain, SOB, fevers, chills, n/v/d/c prior to the syncopal episode. In the ER he was found to be hypotensive, and elevated troponin and and elevated creatinine and BUN beyond normal range for him. He was diagnosed with acute NSTEMI possibly secondary from dehydration. He was give IV fluids, placed on lovenox, placed in the ICU and was seen by Dr. Fontana the steam and power superintendent. He also had a low potassium for which he was given PO potassium and k-riders. Carla ntually it was determined that his NSTEMI had resolved and he was more stable. At that time he was transferred to the 4th floor. He claims to be doing well today with no current complaints. He denies s/s of hypokalemia. He denies chest pain, SOB, n/v/d/c. Denies fevers or chills. Creatinine today is down to baseline. Baseline is normally 2.0 to 2.4. Past Medical History Cardiac Medical History: Reports: Atrial Fibrillation, Coronary Artery Disease, Hyperlipidemia Denies: Myocardial Infarction Pulmonary Medical History: Reports: Chronic Obstructive Pulmonary Disease (COPD) Denies: Asthma, Bronchitis, Pneumonia Neurological Medical History: Denies: Seizures Endocrine Medical History: Reports: Diabetes Mellitus Type 1, Diabetes Mellitus Type 2 Renal/ Medical History: Reports: Chronic Kidney Disease Stage III GI Medical History: Reports: Gastroesophageal Reflux Disease Musculoskeltal Medical History: Reports: Arthritis - OSTEOARTHRITIS Psychiatric Medical History: Denies: Depression Past Surgical History Past Surgical History: Reports: Cardiac Catheterization, Internal Defibrillator Social History Smoking Status: Never Smoker Electronic Cigarette use?: No Frequency of Alcohol Use: None Hx Recreational Drug Use: No Drugs: None Hx Prescription Drug Abuse: No - Advance Directive Resuscitation Status: Full Code Family History Parental Family History Reviewed: Yes Children Family History Reviewed: Unknown Sibling(s) Family History Reviewed.: Unknown Medication/Allergy Home Medications: Levothyroxine Sodium 125 mcg PO Q6AM 07/29/14 Montelukast Sodium 10 mg PO DAILY 07/29/14 Simvastatin 20 mg PO QHS 07/29/14 Amiodarone HCl [Cordarone 200 mg Tablet] 300 mg PO DAILY 06/19/18 Apixaban [Eliquis 5 mg Tablet] 5 mg PO Q12 06/19/18 Docusate Sodium [Colace] 100 mg PO DAILY 06/19/18 Hydralazine HCl [Apresoline 25 mg Tablet] 12.5 mg PO Q8H 06/19/18 Insulin NPH Hum/Reg Insulin Hm [Humulin 70/30 Kwikpen] 25 units SQ QPM 06/19/18 Insulin NPH Hum/Reg Insulin Hm [Humulin 70/30 Kwikpen] 35 units SQ QAM 06/19/18 Pantoprazole Sodium [Protonix] 40 mg PO DAILY 06/19/18 Potassium Chloride [Klor-Con M20] 40 meq PO Q12 06/19/18 Sitagliptin Phosphate [Januvia 50 mg Tablet] 50 mg PO DAILY 06/19/18 Torsemide [Demadex 20 mg Tablet] 80 mg PO BID 06/19/18 Calcitriol [Rocaltrol 0.25 Mcg Capsule] 0.25 mcg PO MOFR@1000 07/07/19 Isosorbide Mononitrate [Imdur 30 mg Tablet.er] 15 mg PO DAILY 07/07/19 Metolazone [Zaroxolyn 2.5 Mg Tablet] 2.5 mg PO MOFR@1000 07/07/19 Metoprolol Succinate [Toprol Xl 25 mg Tab.sr] 12.5 mg PO DAILY 07/07/19 Triamcinolone Acetonide [Aristocort 0.5% Cream 15 gm] 1 applic TP BID 07/07/19 Allergies/Adverse Reactions: No Known Allergies Allergy (Verified 07/29/14 08:37) Review of Systems Constitutional: ABSENT: chills, fever(s), weakness Eyes: ABSENT: visual disturbances Ears: ABSENT: hearing changes Cardiovascular: ABSENT: chest pain, dyspnea on exertion, edema, orthropnea, palpitations Respiratory: ABSENT: cough, dyspnea, sputum Gastrointestinal: ABSENT: abdominal pain, constipation, diarrhea, nausea, vomiting Genitourinary: PRESENT: nocturia. ABSENT: difficulty urinating, dysuria Musculoskeletal: ABSENT: back pain Neurological: PRESENT: dizziness - -prior to admission, syncope - -prior to admission. ABSENT: confusion, weakness Physical Exam Vital Signs: Temp Pulse Resp BP Pulse Ox 98.9 F 78 16 105/55 L 95 07/09/19 07:20 07/09/19 07:56 07/09/19 07:20 07/09/19 07:20 07/09/19 07:20 Intake & Output 07/08/19 07/09/19 07/10/19 06:59 06:59 06:59 Intake Total 2850 2448 Output Total 3050 1475 Balance -200 973 Weight 75.5 kg 61.6 kg General appearance: PRESENT: no acute distress, well-developed, well-nourished Eye exam: PRESENT: PERRLA. ABSENT: scleral icterus Mouth exam: PRESENT: moist, neck supple Neck exam: ABSENT: JVD, tracheal deviation Respiratory exam: PRESENT: clear to auscultation erasmo. ABSENT: crackles, rhonchi, wheezes Cardiovascular exam: PRESENT: +S1, +S2 GI/Abdominal exam: PRESENT: soft. ABSENT: tenderness Extremities exam: ABSENT: +1 edema, +2 edema Musculoskeletal exam: PRESENT: normal inspection. ABSENT: tenderness Neurological exam: PRESENT: alert, awake, oriented to person, oriented to place, oriented to time, oriented to situation Psychiatric exam: PRESENT: appropriate affect, normal mood Skin exam: PRESENT: dry, intact, warm Results Laboratory Results: 07/09/19 09:15 07/09/19 09:15 07/09/19 07/09/19 09:15 09:15 WBC 33.3 H* D RBC 4.28 L Hgb 12.3 L Hct 36.5 L MCV 85 MCH 28.7 MCHC 33.7 RDW 12.7 Plt Count 220 Sodium 135.8 L Potassium 3.0 L* Chloride 92 L Carbon Dioxide 34 H Anion Gap 10 BUN 69 H Creatinine 2.00 H Est GFR ( Amer) 40 L Glucose 220 H Calcium 9.4 07/06/19 07/06/19 07/07/19 12:22 14:55 04:29 Troponin I 0.095 0.117 0.237 NT-Pro-B Natriuret Pep 5690 H 07/08/19 07/09/19 05:17 09:15 Troponin I 0.140 NT-Pro-B Natriuret Pep 67110 H Impressions: Chest X-Ray 07/06/19 12:24 IMPRESSION: NO ACUTE RADIOGRAPHIC FINDING IN THE CHEST. Assessment & Plan - Diagnosis (1) DENNISE (acute kidney injury) Is this a current diagnosis for this admission?: Yes Plan: nonoliguric due to dehydration with hypotension. With the BNP starting to elevate recommend decreasing IV fluids rate so that he is not thrown into a CHF exacerbation. Also would switch to normal saline to help improve the BP. Looks to be at baseline for his creatinine. Continue on monitoring with strict I&Os (2) Hypokalemia Plan: Most likely low from dilution and from increased urine output. Along with the PO potassium, will add two k-riders and have it rechecked (3) Elevated brain natriuretic peptide (BNP) level Is this a current diagnosis for this admission?: Yes Plan: since creatinine is at baseline, I recommend stopping fluids or decreasing IV fluids to prevent from throwing him into fluid overload (4) Chronic kidney disease, stage 3 Plan: at baseline, ranges between 2.0 and 2.4 (5) HTN (hypertension) Qualifiers: Hypertension type: essential hypertension Qualified Code(s): I10 - E ssential (primary) hypertension Is this a current diagnosis for this admission?: Yes Plan: controlled (6) Acute non-ST elevation myocardial infarction (NSTEMI) Is this a current diagnosis for this admission?: Yes Plan: per cardiology (7) Elevated troponin Is this a current diagnosis for this admission?: Yes Plan: per cardiology (8) Type 2 diabetes mellitus Qualifiers: 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 He should no be given milk of magnesia. Will look add a dose of lactulose to help get his bowels moving. Do not recommend more than one dose today because of his diabetes and also do not want him to be thrown into having diarrhea.
[2019-07-09] MEDS ORDERED: LACTULOSE SYRUP 20 GM/30 ML UDCUP PO ONE (11:37)
[2019-07-09] MEDS ORDERED: POTASSIUM CHLORIDE 10 MEQ TABLET.ER PO SCH (12:00)
[2019-07-09] MEDS: CEFEPIME 1 GM/D5W RTU 1 GM/50 ML RTUPB IV SCH ×2 (12:16→21:13)
[2019-07-09 12:29] LABS: HEMATOCRIT 36.4 % (37.9-51.0); HEMOGLOBIN 12.1 g/dL (13.5-17.0); MEAN CORPUSCULAR HEMOGLOBIN 28.1 pg (27.0-33.4); MEAN CORPUSCULAR HGB CONC 33.3 g/dL (32.0-36.0); MEAN CORPUSCULAR VOLUME 84 fl (80-97); PLATELET COUNT 222 10^3/uL (150-450); RED BLOOD COUNT 4.32 10^6/uL (4.35-5.55); RED CELL DISTRIBUTION WIDTH 13.2 % (11.5-14.0)
[2019-07-09 12:45] LABS: WHITE BLOOD COUNT 32.7 10^3/uL (4.0-10.5)
[2019-07-09 12:46] LABS: ABSOLUTE LYMPHOCYTES# (MANUAL) 2.3 10^3/uL (0.5-4.7); BASOPHILS % (MANUAL) 0 % (0-2); EOSINOPHILS % (MANUAL) 0 % (0-6); LYMPHOCYTES % (MANUAL) 5 % (13-45); MONOCYTES % (MANUAL) 6 % (3-13); SEGMENTED NEUTROPHILS % (MAN) 87 % (42-78); TOTAL CELLS COUNTED 100
[2019-07-09 12:47] LABS: PLATELET COMMENT ADEQUATE; RBC MORPHOLOGY COMMENT NORMO-CYTIC/CHROMIC
--- NOTE | 2019-07-09 13:40 | RADIOLOGY REPORT (SQ) ---
EXAM DESCRIPTION: CHEST SINGLE VIEW IMAGES COMPLETED DATE/TIME: 07/09/2019 1:04 pm REASON FOR STUDY: R/O Infection COMPARISON: 07/06/2019 EXAM PARAMETERS: NUMBER OF VIEWS: One view. TECHNIQUE: Single frontal radiographic view of the chest acquired. RADIATION DOSE: NA LIMITATIONS: None. FINDINGS: LUNGS AND PLEURA: No opacities, masses or pneumothorax. No pleural effusion. MEDIASTINUM AND HILAR STRUCTURES: No masses. Contour normal. HEART AND VASCULAR STRUCTURES: Heart normal in size. Normal vasculature. BONES: No acute findings. HARDWARE: Unchanged position of defibrillator. OTHER: No other significant finding. IMPRESSION: NO ACUTE RADIOGRAPHIC FINDING IN THE CHEST. TECHNICAL DOCUMENTATION: JOB ID: [id number] 2010 [employer]- All Rights Reserved Reading location - IP/workstation name: [email or web address]
[2019-07-09] MEDS ORDERED: POTASSIUM CHLORIDE 20 MEQ/50 ML RTU IV ONE (16:00)
[2019-07-09] MEDS: POTASSI CL 20 MEQ/50 ML RIDER 20 MEQ/50 ML RTUPB IV SCH (16:07)
[2019-07-09] MEDS: SIMVASTATIN 10 MG TABLET PO SCH (21:13)
[2019-07-10] MEDS: LEVOTHYROXINE SODIUM 0.025 MG TABLET PO SCH (05:25)
[2019-07-10] MEDS: LEVOTHYROXINE SODIUM 0.1 MG TABLET PO SCH (05:25)
[2019-07-10] MEDS: NORMAL SALINE 1000 ML 1,000 ML IV PRN (05:25)
[2019-07-10] MEDS: HYDRALAZINE HCL 25 MG TABLET PO SCH ×3 (05:25→21:21)
[2019-07-10 07:36] LABS: ANION GAP 7 (5-19); CALCIUM 9.2 mg/dL (8.4-10.2); CARBON DIOXIDE 29 mmol/L (22-30); CHLORIDE 101 mmol/L (98-107); GLUCOSE 185 mg/dL (75-110); POTASSIUM 4.3 mmol/L (3.6-5.0)
[2019-07-10 07:50] LABS: BLOOD UREA NITROGEN 47 mg/dL (7-20)
[2019-07-10] MEDS: INSULIN REG, HUMAN 100 UNIT/ML 3 ML VIAL (PYX) SUBCUT SCH ×4 (08:13→21:22)
[2019-07-10] MEDS: HUM INSULIN NPH/REG INSULIN HM 100 UNIT/1 ML 3 ML SUBCUT SCH ×2 (08:13→17:10)
[2019-07-10 08:41] LABS: HEMATOCRIT 34.4 % (37.9-51.0); HEMOGLOBIN 11.5 g/dL (13.5-17.0); MEAN CORPUSCULAR HEMOGLOBIN 28.7 pg (27.0-33.4); MEAN CORPUSCULAR HGB CONC 33.4 g/dL (32.0-36.0); MEAN CORPUSCULAR VOLUME 86 fl (80-97); PLATELET COUNT 199 10^3/uL (150-450); WHITE BLOOD COUNT 25.4 10^3/uL (4.0-10.5)
[2019-07-10 09:42] LABS: PATH REVIEW PATHOLOGIST REVIEWED
--- NOTE | 2019-07-10 10:00 | PDOC PROGRESS REPORT ---
Subjective Progress Note for:: 07/10/19 Subjective:: The patient is resting in bed comfortably on room air without any complaints this morning. Currently the patient denies angina, palpitations, presyncope, dyspnea, lower extremity edema, orthopnea or PND. 8 systems reviewed and negative except as otherwise noted above in HPI. Reason For Visit: SYCOPE, R/O [place] Physical Exam Vital Signs: Temp Pulse Resp BP Pulse Ox 99 F 70 18 111/65 97 07/10/19 08:00 07/10/19 08:00 07/10/19 08:00 07/10/19 08:00 07/10/19 08:00 Intake & Output 07/09/19 07/10/19 07/11/19 06:59 06:59 06:59 Intake Total 2448 3137 Output Total 1475 1875 Balance 973 1262 Weight 61.6 kg 61.8 kg Results Laboratory Results: 07/10/19 06:50 07/10/19 06:50 07/09/19 07/09/19 07/09/19 09:15 09:15 11:54 WBC 33.3 H* D 32.7 H* RBC 4.28 L 4.32 L Hgb 12.3 L 12.1 L Hct 36.5 L 36.4 L MCV 85 84 MCH 28.7 28.1 MCHC 33.7 33.3 RDW 12.7 13.2 Plt Count 220 222 Seg Neutrophils % Not Reportable Sodium 135.8 L Potassium 3.0 L* Chloride 92 L Carbon Dioxide 34 H Anion Gap 10 BUN 69 H Creatinine 2.00 H Est GFR ( Amer) 40 L Glucose 220 H Lactic Acid Calcium 9.4 07/09/19 07/09/19 07/10/19 11:54 19:15 06:50 WBC RBC Hgb Hct MCV MCH MCHC RDW Plt Count Seg Neutrophils % Sodium 137.1 Potassium 4.4 D 4.3 Chloride 101 Carbon Dioxide 29 Anion Gap 7 BUN 47 H D Creatinine 1.53 H Est GFR ( Amer) 54 L Glucose 185 H Lactic Acid 2.4 H Calcium 9.2 07/10/19 06:50 WBC 25.4 H RBC 4.00 L Hgb 11.5 L Hct 34.4 L MCV 86 MCH 28.7 MCHC 33.4 RDW 13.0 Plt Count 199 Seg Neutrophils % Sodium Potassium Chloride Carbon Dioxide Anion Gap BUN Creatinine Est GFR ( Amer) Glucose Lactic Acid Calcium 07/09/19 11:44 Blood Blood Culture (PCR) - Final Serratia Marcescens 07/06/19 07/06/19 07/07/19 12:22 14:55 04:29 Troponin I 0.095 0.117 0.237 NT-Pro-B Natriuret Pep 5690 H 07/08/19 07/09/19 05:17 09:15 Troponin I 0.140 NT-Pro-B Natriuret Pep 57250 H MEDICATION ADMINISTRATION RECORD Generic Name Dose Route Start Last Admin Trade Name Freq PRN Reason Stop Dose Admin Amiodarone HCl 300 mg 07/08/19 15:00 07/10/19 10:21 Cordarone 200 Mg Tablet PO 08/07/19 14:59 300 mg DAILY SUKUMAR Administration Aspirin 81 mg 07/08/19 10:00 07/10/19 10:17 Aspirin 81 Mg Chewable Tablet PO 08/07/19 09:59 81 mg DAILY SUKUMAR Administration Calcitriol 0.25 mcg 07/09/19 10:00 07/09/19 10:05 Rocaltrol 0.25 Mcg Capsule PO 08/08/19 09:59 0.25 mcg MOFR@1000 SUKUMAR Administration Clopidogrel Bisulfate 75 mg 07/08/19 10:00 07/10/19 10:17 Plavix 75 Mg Tablet PO 08/07/19 09:59 75 mg DAILY SUKUMAR Administration Dextrose 12.5 gm 07/08/19 13:30 Dextrose Inj 50% Syringe (25 Gm/50 Ml) IV 08/07/19 13:29 PRN PRN FOR BG 50-69 IN ALERT PATIENT Protocol Dextrose 25 gm 07/08/19 13:30 Dextrose Inj 50% Syringe (25 Gm/50 Ml) IV 08/07/19 13:29 PRN PRN PER PROTOCOL Protocol Docusate Sodium 100 mg 07/08/19 13:00 07/10/19 10:19 Colace 100 Mg Capsule PO 08/07/19 12:59 100 mg DAILY SUKUMAR Administration Enoxaparin Sodium 73 mg 07/09/19 10:00 07/10/19 10:20 Lovenox Inj 80 Mg/0.8 Ml Disp.Syrin SUBCUT 08/08/19 09:59 73 mg DAILY SUKUMAR Administration Glucagon 1 mg 07/08/19 13:30 Glucagen Inj 1 Mg Vial IM 08/07/19 13:29 PRN PRN EVALUATE FOR BG < 70 Protocol Glucose 15 gm 07/08/19 13:30 Glutose 40% Gel 15 Gm Tube PO 08/07/19 13:29 PRN PRN FOR BG 50-69 IN ALERT PATIENT Protocol Glucose 30 gm 07/08/19 13:30 Glutose 40% Gel 15 Gm Tube PO 08/07/19 13:29 PRN PRN FOR BG < 50 IN ALERT PATIENT Protocol Hydralazine HCl 12.5 mg 07/08/19 13:00 07/10/19 05:25 Apresoline 25 Mg Tablet PO 08/07/19 12:59 12.5 mg Q8H SUKUMAR Administration Sodium Chloride 1,000 mls @ 60 mls/hr 07/09/19 11:09 07/10/19 05:25 Nacl 0.9% 1000 Ml Iv Soln IV 08/08/19 11:08 60 mls/hr CONTINUOUS PRN Administration THIS MED IS NOT "PRN" Cefepime HCl 1 gm in 50 mls @ 100 mls/hr 07/09/19 11:30 07/10/19 10:19 Maxipime Rtu 1 Gm/D5w 50 Ml Premix Bag IV 07/16/19 11:29 100 mls/hr Q12 SUKUMAR 100 mls/hr Administration Insulin Human Isoph/Insulin Regular 25 unit 07/08/19 18:00 07/09/19 18:21 Insulin Inj 70-30 (100 Unit/1 Ml) 3 Ml Vial SUBCUT 08/07/19 17:59 25 unit QPM SUKUMAR Administration Insulin Human Isoph/Insulin Regular 35 unit 07/09/19 08:00 07/10/19 08:13 Insulin Inj 70-30 (100 Unit/1 Ml) 3 Ml Vial SUBCUT 08/08/19 07:59 35 unit QAM SUKUMAR Administration Insulin Human Regular 0 - 12 unit 07/08/19 16:00 07/10/19 08:13 Humulin R (Pyxis) Insulin 100 Unit/Ml 3ml SUBCUT 08/07/19 15:59 2 unit ACHS SUKUMAR Administration Protocol Isosorbide Mononitrate 15 mg 07/08/19 13:00 07/10/19 10:17 Imdur 30 Mg Tablet.Er PO 08/07/19 12:59 15 mg DAILY SUKUMAR Administration Levothyroxine Sodium 0.1 mg 07/09/19 06:00 07/10/19 05:25 Synthroid 0.1 Mg Tablet PO 08/08/19 05:59 0.1 mg Q6AM SUKUMAR Administration Levothyroxine Sodium 0.025 mg 07/09/19 06:00 07/10/19 05:25 Synthroid 0.025 Mg Tablet PO 08/08/19 05:59 0.025 mg Q6AM SUKUMAR Administration Metoprolol Succinate 12.5 mg 07/08/19 13:00 07/10/19 10:17 Toprol Xl 25 Mg Tab.Sr PO 08/07/19 12:59 12.5 mg DAILY SUKUMAR Administration Pantoprazole Sodium 40 mg 07/08/19 13:00 07/10/19 10:[address] Tablet PO 08/07/19 12:59 40 mg DAILY SUKUMAR Administration Polyethylene Glycol 17 gm 07/08/19 23:01 07/08/19 23:15 Miralax Powder 17 Gm/Packet PO 08/07/19 23:00 17 gm DAILYP PRN Administration FOR CONSTIPATION Potassium Chloride 40 meq 07/08/19 22:00 07/10/19 10:17 Klor-Con 10 Meq Tablet Er PO 08/07/19 21:59 40 meq Q12 SUKUMAR Administration Simvastatin 20 mg 07/08/19 22:00 07/09/19 21:13 Zocor 10 Mg Tablet PO 08/07/19 21:59 20 mg QHS SUKUMAR Administration Sitagliptin Phosphate 50 mg 07/08/19 15:00 07/10/19 10:21 Januvia 50 Mg Tablet PO 08/07/19 14:59 50 mg DAILY SUKUMAR Administration Sodium Chloride 2.5 ml 07/06/19 22:00 07/10/19 05:27 Saline Flush 2.5 Ml Monoject Prefil Syrin IV 08/05/19 21:59 Not Given Q8 SUKUMAR Triamcinolone Acetonide 1 applic 07/08/19 18:00 07/10/19 10:21 Aristocort 0.5% Cream 15 Gm TP 08/07/19 17:59 1 applic BID SUKUMAR Administration Impressions: Chest X-Ray 07/09/19 00:00 IMPRESSION: NO ACUTE RADIOGRAPHIC FINDING IN THE CHEST. Assessment & Plan - Notes Notes: SANDRA COHN is a 74 year old male with history of anemia, chronic systolic heart failure, persistent atrial fibrillation, hypertension, hyperlipidemia, hypothyroidism, PAD, stroke, CAD details of which are unknown, DM, stage III CKD, [employer] PM for unclear indication who presented with syncope. The history is mainly obtained from review of current records and a prior visit to our facility in February 2019. He apparently had a syncopal episode at home witnessed by his fiance. He was apparently unconscious for approximately 5 minutes without any prodrome or any cardiac symptoms. In the ER he was found to be hypotensive and responded to IVF's. He was also found to have multiple electrolyte abnormalities along with acute renal failure. Upon my evaluation this morning he is asymptomatic and specifically denies CP, SOB, palpitations, d iaphoresis, PND, orthopnea and LE edema. Of note, he was evaluated in the ED at this facility in February 2019 with a similar presentation. At that time he was found to have wide complex tachycardia, very elevated proBNP and creatinine and hypotensive. He was treated with dopamine and transferred to [facility], unfortunately I don't have any of those records. His medication list include Nitroglycerin PRN, isosorbide mononitrate, torsemide, metoprolol, Eliquis, calcitriol, amiodarone, potassium, Singulair, insulin, Synthroid, Protonix, simvastatin and metolazone however it is not known whether the patient is actually taking them. A/P Syncope in the setting of high-dose diuretics and significant acute on chronic kidney failure with presumed orthostatic hypotension event at home and UTI and leukocytosis. - medical management - UTI treatment per primary team Elevated troponin, not due to an acute coronary syndrome Very complicated patient with a very complicated cardiac history who presents with a syncopal event at home, hypotension, UTI, AoCKD with Cr 3.4 and BUN 140 and with mildly elevated troponin. No evidence for an ACS picture at this time: his midly elevated troponin in the setting of significant renal failure, presumed prerenal acute kidney injury in the setting of high-dose torsemide and UTI with GNR and severely reduced left ventricular ejection fraction/cardiomyopathy per outside clay modeler all fit with a non-ACS picture in this asymptomatic patient. Luckily he has remained asymptomatic since admission with adequate BP and electrically stable. Recommendations: - recommend restarting his home anticoagulation for history of atrial fibr illation; stop lovenox as there is no indication at this time - GDMT for his history of systolic chf / cardiomyopathy per his outpatient medication list - asa 81mg daily - toprol xl -Continue to replace electrolytes as needed. - statin therapy Chronic systolic CHF with reduced left ventricular ejection fraction / presumed ischemic cardiomyopathy / elevated brain natriuretic peptide (BNP) level Is this a current diagnosis for this admission?: Yes Plan: Although his BNP is elevated it is actually much better than a prior one in February 2019. The patient has no evidence of heart failure and required IVF's. - IVF's need to be given cautiously and I have asked the nurse to hold the ivf's at 60cc/hr unless he is unable to take po Acute on chronic CKD and HTN (hypertension) Qualifiers: Hypertension type: essential hypertension Qualified Code(s): I10 - Essential (primary) hypertension Is this a current diagnosis for this admission?: Yes Plan: Marginal bp's - continue low-dose toprol xl - management of DENNISE per nephrology - diuretic management per nephrology as he is followed by [facility] with recent tenuous renal function Hyponatremia / hypokalemia -- resolved today -Management per primary team and nephrology
[2019-07-10] MEDS: METOPROLOL SUCCINATE 25 MG TAB.SR.24H PO SCH (10:17)
[2019-07-10] MEDS: ASPIRIN 81 MG TABLET, CHEWABLE PO SCH (10:17)
[2019-07-10] MEDS: CLOPIDOGREL BISULFATE 75 MG TABLET PO SCH (10:17)
[2019-07-10] MEDS: POTASSIUM CHLORIDE 10 MEQ TABLET.ER PO SCH ×2 (10:17→21:20)
[2019-07-10] MEDS: PANTOPRAZOLE SODIUM 40 MG TABLET.DR PO SCH (10:17)
[2019-07-10] MEDS: ISOSORBIDE MONONITRATE 30 MG TAB.ER.24H PO SCH (10:17)
[2019-07-10] MEDS: CEFEPIME 1 GM/D5W RTU 1 GM/50 ML RTUPB IV SCH ×2 (10:19→21:19)
[2019-07-10] MEDS: DOCUSATE SODIUM 100 MG CAPSULE PO SCH (10:19)
[2019-07-10] MEDS: ENOXAPARIN SODIUM INJ 80 MG/0.8 ML DISP.SYRIN SUBCUT SCH (10:20)
[2019-07-10] MEDS: AMIODARONE HCL 200 MG TABLET PO SCH (10:21)
[2019-07-10] MEDS: SITAGLIPTIN PHOSPHATE 50 MG TABLET PO SCH (10:21)
[2019-07-10] MEDS: TRIAMCINOLONE ACETONIDE 0.5% CREAM 15 GM TP SCH ×2 (10:21→17:08)
--- NOTE | 2019-07-10 11:41 | PDOC PROGRESS REPORT ---
Subjective Progress Note for:: 07/10/19 Subjective:: Patient is currently doing well denied any chest pain no short of breath There were no fever no chills His white count is coming down after start taking the antibiotic Urine culture is positive for gram-negative any blood culture is positive Discussed with the cardiology and and thinks you need a HARPAL right now because patient have a some clear picture about the source of infections from urine and due to the pandemic unable to do the HARPAL right now Reason For Visit: SYCOPE, R/O [place] Physical Exam Vital Signs: Temp Pulse Resp BP Pulse Ox 99 F 70 18 111/65 97 07/10/19 08:00 07/10/19 08:00 07/10/19 08:00 07/10/19 08:00 07/10/19 08:00 Intake & Output 07/09/19 07/10/19 07/11/19 06:59 06:59 06:59 Intake Total 2448 3137 120 Output Total 1475 1875 Balance 973 1262 120 Weight 61.6 kg 61.8 kg General appearance: PRESENT: no acute distress, well-developed, well-nourished Head exam: PRESENT: atraumatic, normocephalic Eye exam: PRESENT: conjunctiva pink, EOMI, PERRLA. ABSENT: scleral icterus Ear exam: PRESENT: normal external ear exam Mouth exam: PRESENT: moist, tongue midline Neck exam: PRESENT: full ROM. ABSENT: carotid bruit, JVD, lymphadenopathy, thyromegaly Respiratory exam: PRESENT: clear to auscultation erasmo Cardiovascular exam: PRESENT: RRR. ABSENT: diastolic murmur, rubs, systolic murmur Vascular exam: PRESENT: normal capillary refill GI/Abdominal exam: PRESENT: normal bowel sounds, soft. ABSENT: distended, guarding, mass, organolmegaly, rebound, tenderness Rectal exam: PRESENT: deferred Musculoskeletal exam: PRESENT: ambulatory Neurological exam: PRESENT: alert, awake, oriented to person, oriented to place, oriented to time, oriented to situation, CN II-XII grossly intact. ABSENT: motor sensory deficit Psychiatric exam: PRESENT: appropriate affect, normal mood. ABSENT: homicidal ideation, suicidal ideation Skin exam: PRESENT: dry, intact, warm. ABSENT: cyanosis, rash Results Laboratory Results: 07/10/19 06:50 07/10/19 06:50 07/09/19 07/09/19 07/09/19 11:54 11:54 19:15 WBC 32.7 H* RBC 4.32 L Hgb 12.1 L Hct 36.4 L MCV 84 MCH 28.1 MCHC 33.3 RDW 13.2 Plt Count 222 Seg Neutrophils % Not Reportable Sodium Potassium 4.4 D Chloride Carbon Dioxide Anion Gap BUN Creatinine Est GFR ( Amer) Glucose Lactic Acid 2.4 H Calcium 07/10/19 07/10/19 06:50 06:50 WBC 25.4 H RBC 4.00 L Hgb 11.5 L Hct 34.4 L MCV 86 MCH 28.7 MCHC 33.4 RDW 13.0 Plt Count 199 Seg Neutrophils % Sodium 137.1 Potassium 4.3 Chloride 101 Carbon Dioxide 29 Anion Gap 7 BUN 47 H D Creatinine 1.53 H Est GFR ( Amer) 54 L Glucose 185 H Lactic Acid Calcium 9.2 07/09/19 11:44 Blood Blood Culture (PCR) - Final Serratia Marcescens 07/06/19 07/06/19 07/07/19 12:22 14:55 04:29 Troponin I 0.095 0.117 0.237 NT-Pro-B Natriuret Pep 5690 H 07/08/19 07/09/19 05:17 09:15 Troponin I 0.140 NT-Pro-B Natriuret Pep 02042 H Impressions: Chest X-Ray 07/09/19 00:00 IMPRESSION: NO ACUTE RADIOGRAPHIC FINDING IN THE CHEST. Assessment & Plan - Diagnosis (1) Acute non-ST elevation myocardial infarction (NSTEMI) Is this a current diagnosis for this admission?: Yes Plan: As per cardiology does not look like any acute coronary syndromes continues the medical management (2) DENNISE (acute kidney injury) Is this a current diagnosis for this admission?: Yes Plan: Currently all improving (3) Type 2 diabetes mellitus Qualifiers: Diabetes mellitus residential insulin use: unspecified residential insulin use status Chronic kidney disease stage: stage 3 (moderate) Is this a current diagnosis for this admission?: Yes (4) Afib Qualifiers: Atrial fibrillation type: unspecified Qualified Code(s): I48.91 - Unspecified atrial fibrillation Is this a current diagnosis for this admission?: Yes Plan: Continues to Lovenox (5) Anemia Qualifiers: Chronic kidney disease stage: stage 4 (severe) Is this a current diagnosis for this admission?: Yes (6) CAD (coronary artery disease) Qualifiers: Coronary Disease-Associated Artery/Lesion type: [place] artery Associated angina: with other forms of angina Is this a current diagnosis for this admission?: Yes Plan: Continues to follow with the cardiology (7) CHF (congestive heart failure) Qualifiers: Heart failure type: combined systolic and diastolic Heart failure chronicity: chronic Qualified Code(s): I50.42 - Chronic combined systolic (congestive) and diastolic (congestive) heart failure Is this a current diagnosis for this admission?: Yes Plan: Currently hold the diuretics (8) HTN (hypertension) Qualifiers: Hypertension type: essential hypertension Qualified Code(s): I10 - Essential (primary) hypertension Is this a current diagnosis for this admission?: Yes (9) Sepsis due to gram-negative urinary tract infection Is this a current diagnosis for this admission?: Yes Plan: Continues IV cefepime (10) Hypokalemia Is this a current diagnosis for this admission?: Yes Plan: Currently all improving - Time Time Spent with patient: 25-34 minutes Level of Care: TELE Medications reviewed and adjusted accordingly: Yes Anticipated discharge: Home Within: Other - Plan Summary Plan Summary: Continues to current medications will wait for the culture and sensitivity
--- NOTE | 2019-07-10 16:04 | PDOC PROGRESS REPORT ---
Subjective Progress Note for:: 07/10/19 Subjective:: Patient was doing well today. He was sitting up in bed with no complaints. He denied chest pain, SOB, N/V/D/C. He continues to have good urine output. Reason For Visit: SYCOPE, R/O [place] Physical Exam Vital Signs: Temp Pulse Resp BP Pulse Ox 98.9 F 92 18 115/74 100 07/10/19 11:09 07/10/19 11:09 07/10/19 11:09 07/10/19 11:09 07/10/19 11:09 Intake & Output 07/09/19 07/10/19 07/11/19 06:59 06:59 06:59 Intake Total 2448 3137 170 Output Total 1475 1875 Balance 973 1262 170 Weight 61.6 kg 61.8 kg General appearance: PRESENT: no acute distress, well-developed, well-nourished Mouth exam: PRESENT: moist, neck supple Neck exam: ABSENT: JVD, tracheal deviation Respiratory exam: PRESENT: clear to auscultation erasmo. ABSENT: accessory muscle use, crackles, wheezes Cardiovascular exam: PRESENT: +S1, +S2 GI/Abdominal exam: PRESENT: soft. ABSENT: tenderness Extremities exam: ABSENT: tenderness, +1 edema, +2 edema Musculoskeletal exam: PRESENT: normal inspection. ABSENT: tenderness Neurological exam: PRESENT: alert, awake, oriented to person, oriented to place, oriented to time, oriented to situation Skin exam: PRESENT: dry, intact, warm. ABSENT: cyanosis Results Laboratory Results: 07/10/19 06:50 07/10/19 06:50 07/09/19 07/10/19 07/10/19 19:15 06:50 06:50 WBC 25.4 H RBC 4.00 L Hgb 11.5 L Hct 34.4 L MCV 86 MCH 28.7 MCHC 33.4 RDW 13.0 Plt Count 199 Sodium 137.1 Potassium 4.4 D 4.3 Chloride 101 Carbon Dioxide 29 Anion Gap 7 BUN 47 H D Creatinine 1.53 H Est GFR ( Amer) 54 L Glucose 185 H Calcium 9.2 07/09/19 11:44 Blood Blood Culture (PCR) - Final Serratia Marcescens 07/06/19 07/06/19 07/07/19 12:22 14:55 04:29 Troponin I 0.095 0.117 0.237 NT-Pro-B Natriuret Pep 5690 H 07/08/19 07/09/19 05:17 09:15 Troponin I 0.140 NT-Pro-B Natriuret Pep 21391 H Impressions: Chest X-Ray 07/09/19 00:00 IMPRESSION: NO ACUTE RADIOGRAPHIC FINDING IN THE CHEST. Assessment & Plan - Diagnosis (1) DENNISE (acute kidney injury) Is this a current diagnosis for this admission?: Yes Plan: Kidney function is at baseline. At this point he is stable from a kideny and potassium standpoint. Recommend he follow up with Dr. Chin in 10 to 14 days from discharge. (2) Hypokalemia Is this a current diagnosis for this admission?: Yes Plan: looks to be stable, he may need potassium supplements reduced if it goes any higher (3) Chronic kidney disease, stage 3 Plan: at baseline (4) HTN (hypertension) Qualifiers: Hypertension type: essential hypertension Qualified Code(s): I10 - Essential (primary) hypertension Is this a current diagnosis for this admission?: Yes Plan: controlled (5) Acute non-ST elevation myocardial infarction (NSTEMI) Is this a current diagnosis for this admission?: Yes Plan: per cardiology (6) Elevated troponin Is this a current diagnosis for this admission?: Yes Plan: per cardiology (7) Type 2 diabetes mellitus Qualifiers: Diabetes mellitus chcf insulin use: unspecified technician terminal and repeater insulin use status Chronic kidney disease stage: stage 3 (moderate) Is this a current diagnosis for this admission?: Yes (8) Constipation Plan: resolved with a dose of lactulose (9) Leukocytosis Qualifiers: Leukocytosis type: unspecified Qualified Code(s): D72.829 - Elevated white blood cell count, unspecified Plan: per primary
[2019-07-10] MEDS: APIXABAN 2.5 MG TABLET PO SCH (17:09)
[2019-07-10] MEDS: SIMVASTATIN 10 MG TABLET PO SCH (21:20)
[2019-07-11] MEDS: LEVOTHYROXINE SODIUM 0.025 MG TABLET PO SCH (05:39)
[2019-07-11] MEDS: HYDRALAZINE HCL 25 MG TABLET PO SCH ×3 (05:39→21:12)
[2019-07-11] MEDS: LEVOTHYROXINE SODIUM 0.1 MG TABLET PO SCH (05:39)
[2019-07-11 05:47] LABS: HEMATOCRIT 32.7 % (37.9-51.0); MEAN CORPUSCULAR HEMOGLOBIN 28.8 pg (27.0-33.4); MEAN CORPUSCULAR HGB CONC 33.6 g/dL (32.0-36.0); MEAN CORPUSCULAR VOLUME 86 fl (80-97); PLATELET COUNT 184 10^3/uL (150-450); RED BLOOD COUNT 3.83 10^6/uL (4.35-5.55); RED CELL DISTRIBUTION WIDTH 13.2 % (11.5-14.0); WHITE BLOOD COUNT 18.5 10^3/uL (4.0-10.5)
[2019-07-11 06:00] LABS: ANION GAP 7 (5-19); BLOOD UREA NITROGEN 33 mg/dL (7-20); CALCIUM 8.9 mg/dL (8.4-10.2); CARBON DIOXIDE 25 mmol/L (22-30); CHLORIDE 104 mmol/L (98-107); GLUCOSE 152 mg/dL (75-110); POTASSIUM 4.9 mmol/L (3.6-5.0)
[2019-07-11 06:20] LABS: ABSOLUTE LYMPHOCYTES# (MANUAL) 1.5 10^3/uL (0.5-4.7); ABSOLUTE MONOCYTES # (MANUAL) 2.4 10^3/uL (0.1-1.4); BASOPHILS % (MANUAL) 0 % (0-2); EOSINOPHILS % (MANUAL) 0 % (0-6); LYMPHOCYTES % (MANUAL) 8 % (13-45); MONOCYTES % (MANUAL) 13 % (3-13); SEGMENTED NEUTROPHILS % (MAN) 79 % (42-78); TOTAL CELLS COUNTED 100
[2019-07-11 06:21] LABS: PLATELET COMMENT ADEQUATE; RBC MORPHOLOGY COMMENT NORMO-CYTIC/CHROMIC; TOXIC VACUOLATION PRESENT
[2019-07-11] MEDS: INSULIN REG, HUMAN 100 UNIT/ML 3 ML VIAL (PYX) SUBCUT SCH ×4 (07:29→21:45)
[2019-07-11] MEDS: HUM INSULIN NPH/REG INSULIN HM 100 UNIT/1 ML 3 ML SUBCUT SCH ×2 (07:30→17:11)
--- NOTE | 2019-07-11 09:06 | PDOC PROGRESS REPORT ---
Subjective Progress Note for:: 07/11/19 Subjective:: Patient is currently doing well patients wants to go home Patient is white count is also coming down remain afebrile Patient's denied any chest pain no short of breath Reason For Visit: SYCOPE, R/O [place] Physical Exam Vital Signs: Temp Pulse Resp BP Pulse Ox 100.0 F 70 16 110/72 97 07/11/19 05:35 07/11/19 05:35 07/11/19 05:35 07/11/19 05:35 07/11/19 05:35 Intake & Output 07/10/19 07/11/19 07/12/19 06:59 06:59 06:59 Intake Total 3137 920 Output Total 1875 1350 Balance 1262 -430 Weight 61.8 kg 63.3 kg General appearance: PRESENT: no acute distress, well-developed, well-nourished Head exam: PRESENT: atraumatic, normocephalic Eye exam: PRESENT: conjunctiva pink, EOMI, PERRLA. ABSENT: scleral icterus Ear exam: PRESENT: normal external ear exam Mouth exam: PRESENT: moist, tongue midline Neck exam: PRESENT: full ROM. ABSENT: carotid bruit, JVD, lymphadenopathy, thyromegaly Respiratory exam: PRESENT: clear to auscultation erasmo Cardiovascular exam: PRESENT: RRR. ABSENT: diastolic murmur, rubs, systolic murmur Pulses: PRESENT: normal dorsalis pedis pul, +2 pedal pulses bilateral Vascular exam: PRESENT: normal capillary refill GI/Abdominal exam: PRESENT: normal bowel sounds, soft. ABSENT: distended, guarding, mass, organolmegaly, rebound, tenderness Rectal exam: PRESENT: deferred Musculoskeletal exam: PRESENT: ambulatory Neurological exam: PRESENT: alert, awake, oriented to person, oriented to place, oriented to time, oriented to situation, CN II-XII grossly intact. ABSENT: motor sensory deficit Psychiatric exam: PRESENT: appropriate affect, normal mood. ABSENT: homicidal ideation, suicidal ideation Skin exam: PRESENT: dry, intact, warm. ABSENT: cyanosis, rash Results Laboratory Results: 07/11/19 05:20 07/11/19 05:20 07/10/19 07/11/19 07/11/19 06:50 05: 05:20 WBC 25.4 H 18.5 H RBC 4.00 L 3.83 L Hgb 11.5 L 11.0 L Hct 34.4 L 32.7 L MCV 86 86 MCH 28.7 28.8 MCHC 33.4 33.6 RDW 13.0 13.2 Plt Count 199 184 Seg Neutrophils % Not Reportable Sodium 135.8 L Potassium 4.9 Chloride 104 Carbon Dioxide 25 Anion Gap 7 BUN 33 H Creatinine 1.81 H Est GFR ( Amer) 45 L Glucose 152 H Calcium 8.9 07/09/19 11:54 Blood Blood Culture (PCR) - Final Serratia Marcescens 07/09/19 11:44 Blood Blood Culture (PCR) - Final Serratia Marcescens 07/06/19 07/06/19 07/07/19 12:22 14:55 04:29 Troponin I 0.095 0.117 0.237 NT-Pro-B Natriuret Pep 5690 H 07/08/19 07/09/19 05:17 09:15 Troponin I 0.140 NT-Pro-B Natriuret Pep 21370 H Impressions: Chest X-Ray 07/09/19 00:00 IMPRESSION: NO ACUTE RADIOGRAPHIC FINDING IN THE CHEST. Assessment & Plan - Diagnosis (1) Acute non-ST elevation myocardial infarction (NSTEMI) Is this a current diagnosis for this admission?: Yes (2) DENNISE (acute kidney injury) Is this a current diagnosis for this admission?: Yes (3) Type 2 diabetes mellitus Qualifiers: Diabetes mellitus alf insulin use: unspecified alf insulin use status Chronic kidney disease stage: stage 3 (moderate) Is this a current diagnosis for this admission?: Yes (4) Afib Qualifiers: Atrial fibrillation type: unspecified Qualified Code(s): I48.91 - Unspecified atrial fibrillation Is this a current diagnosis for this admission?: Yes (5) Anemia Qualifiers: Chronic kidney disease stage: stage 4 (severe) Is this a current diagnosis for this admission?: Yes (6) CAD (coronary artery disease) Qualifiers: Coronary Disease-Associated Artery/Lesion type: [place] artery Associated angina: with other forms of angina Is this a current diagnosis for this admission?: Yes (7) CHF (congestive heart failure) Qualifiers: Heart failure type: combined systolic and diastolic Heart failure chronicity: chronic Qualified Code(s): I50.42 - Chronic combined systolic (congestive) and diastolic (congestive) heart failure Is this a current diagnosis for this admission?: Yes (8) HTN (hypertension) Qualifiers: Hypertension type: essential hypertension Qualified Code(s): I10 - Essential (primary) hypertension Is this a current diagnosis for this admission?: Yes (9) Sepsis due to gram-negative urinary tract infection Is this a current diagnosis for this admission?: Yes (10) Hypokalemia Is this a current diagnosis for this admission?: Yes - Time Time Spent with patient: 15-24 minutes Level of Care: IMCU Medications reviewed and adjusted accordingly: Yes Within: within 24 hours - Plan Summary Plan Summary: stable
[2019-07-11] MEDS: PANTOPRAZOLE SODIUM 40 MG TABLET.DR PO SCH (09:38)
[2019-07-11] MEDS: ISOSORBIDE MONONITRATE 30 MG TAB.ER.24H PO SCH (09:38)
[2019-07-11] MEDS: DOCUSATE SODIUM 100 MG CAPSULE PO SCH (09:38)
[2019-07-11] MEDS: CLOPIDOGREL BISULFATE 75 MG TABLET PO SCH (09:39)
[2019-07-11] MEDS: APIXABAN 2.5 MG TABLET PO SCH ×2 (09:39→17:11)
[2019-07-11] MEDS: POTASSIUM CHLORIDE 10 MEQ TABLET.ER PO SCH ×2 (09:39→21:46)
[2019-07-11] MEDS: METOPROLOL SUCCINATE 25 MG TAB.SR.24H PO SCH (09:39)
[2019-07-11] MEDS: ASPIRIN 81 MG TABLET, CHEWABLE PO SCH (09:39)
[2019-07-11] MEDS: SITAGLIPTIN PHOSPHATE 50 MG TABLET PO SCH (09:40)
[2019-07-11] MEDS: TRIAMCINOLONE ACETONIDE 0.5% CREAM 15 GM TP SCH ×2 (09:40→17:13)
[2019-07-11] MEDS: AMIODARONE HCL 200 MG TABLET PO SCH (09:40)
[2019-07-11] MEDS: CEFEPIME 1 GM/D5W RTU 1 GM/50 ML RTUPB IV SCH ×2 (09:40→21:45)
--- NOTE | 2019-07-11 12:06 | PDOC PROGRESS REPORT ---
Subjective Progress Note for:: 07/11/19 Subjective:: The patient is seen and he is sitting comfortably in the bedside chair. He has no active complaints this morning and states he is otherwise feeling well. He denies angina, palpitations, syncope/presyncope, palpitations, dyspnea, orthopnea or PND. 14 systems reviewed and negative except as otherwise noted above in the HPI. Reason For Visit: SYCOPE, R/O IN Physical Exam Vital Signs: Temp Pulse Resp BP Pulse Ox 100.0 F 70 16 110/72 97 07/11/19 05:35 07/11/19 05:35 07/11/19 05:35 07/11/19 05:35 07/11/19 05:35 Intake & Output 07/10/19 07/11/19 07/12/19 06:59 06:59 06:59 Intake Total 3137 920 50 Output Total 1875 1350 Balance 1262 -430 50 Weight 61.8 kg 63.3 kg 63.3 kg Exam: Physical exam: General Appearance: Elderly male in no acute distress Eyes:. Pupils equal round reactive to light, no injection no jaundice. EOMI HENT: atraumatic, oropharynx is clear with moist mucous membranes. Neck: supple, no masses, no thyromegaly and normal jugular venous pressure. Lungs: diminished bilateral bases, otherwise clear to auscultation, no wheezing/rhonchi, normal respiratory effort. Cardiovascular: Palpation of heart: normal PMI, no thrills. Auscultation of Heart: normal rate and rhythm, normal S1 and S2, without murmurs, no S3, no S4. Carotid pulses: no bruit, normal amplitude. Abdominal aorta: no bruit, normal amplitude. Radial pulses: normal amplitude. Femoral pulses: no bruit, normal amplitude. Pedal pulses: normal amplitude. Examination of extremities for edema and/or varicosities: normal. Abdomen: normal bowel sounds, soft, non-tender, no masses, no hepatomegaly, no splenomegaly. Musculoskeletal: normal movement of all extremities. Extremities: no clubbing, no cyanosis. Integumentary: warm and dry bilaterally with no ulcers. Psychiatric: awake, alert and oriented x 3. Appropriate mood and affect. Results Laboratory Results: 07/11/19 05:20 07/11/19 05:20 07/11/19 07/11/19 05:20 05:20 WBC 18.5 H RBC 3.83 L Hgb 11.0 L Hct 32.7 L MCV 86 MCH 28.8 MCHC 33.6 RDW 13.2 Plt Count 184 Seg Neutrophils % Not Reportable Sodium 135.8 L Potassium 4.9 Chloride 104 Carbon Dioxide 25 Anion Gap 7 BUN 33 H Creatinine 1.81 H Est GFR ( Amer) 45 L Glucose 152 H Calcium 8.9 07/09/19 11:44 Blood Blood Culture (PCR) - Final Serratia Marcescens 07/09/19 11:54 Blood Blood Culture (PCR) - Final Serratia Marcescens 07/09/19 10:48 Larios Catheter Urine Culture - Final Serratia Marcescens 07/06/19 07/06/19 07/07/19 12:22 14:55 04:29 Troponin I 0.095 0.117 0.237 NT-Pro-B Natriuret Pep 5690 H 07/08/19 07/09/19 05:17 09:15 Troponin I 0.140 NT-Pro-B Natriuret Pep 85219 H MEDICATION ADMINISTRATION RECORD Generic Name Dose Route Start Last Admin Trade Name Freq PRN Reason Stop Dose Admin Amiodarone HCl 300 mg 07/08/19 15:00 07/11/19 09:40 Cordarone 200 Mg Tablet PO 08/07/19 14:59 300 mg DAILY SUKUMAR Administration Apixaban 2.5 mg 07/10/19 18:00 07/11/19 09:39 Eliquis 2.5 Mg Tablet PO 08/09/19 17:59 2.5 mg BID USKUMAR Administration Aspirin 81 mg 07/08/19 10:00 07/11/19 09:39 Aspirin 81 Mg Chewable Tablet PO 08/07/19 09:59 81 mg DAILY SUKUMAR Administration Calcitriol 0.25 mcg 07/09/19 10:00 07/09/19 10:05 Rocaltrol 0.25 Mcg Capsule PO 08/08/19 09:59 0.25 mcg MOFR@1000 SUKUMAR Administration Clopidogrel Bisulfate 75 mg 07/08/19 10:00 07/11/19 09:39 Plavix 75 Mg Tablet PO 08/07/19 09:59 75 mg DAILY SUKUMAR Administration Dextrose 12.5 gm 07/08/19 13:30 Dextrose Inj 50% Syringe (25 Gm/50 Ml) IV 08/07/19 13:29 PRN PRN FOR BG 50-69 IN ALERT PATIENT Protocol Dextrose 25 gm 07/08/19 13:30 Dextrose Inj 50% Syringe (25 Gm/50 Ml) IV 08/07/19 13:29 PRN PRN PER PROTOCOL Protocol Docusate Sodium 100 mg 07/08/19 13:00 07/11/19 09:38 Colace 100 Mg Capsule PO 08/07/19 12:59 100 mg DAILY SUKUMAR Administration Glucagon 1 mg 07/08/19 13:30 Glucagen Inj 1 Mg Vial IM 08/07/19 13:29 PRN PRN EVALUATE FOR BG < 70 Protocol Glucose 15 gm 07/08/19 13:30 Glutose 40% Gel 15 Gm Tube PO 08/07/19 13:29 PRN PRN FOR BG 50-69 IN ALERT PATIENT Protocol Glucose 30 gm 07/08/19 13:30 Glutose 40% Gel 15 Gm Tube PO 08/07/19 13:29 PRN PRN FOR BG < 50 IN ALERT PATIENT Protocol Hydralazine HCl 12.5 mg 07/08/19 13:00 07/11/19 05:39 Apresoline 25 Mg Tablet PO 08/07/19 12:59 Not Given Q8H SUKUMAR Cefepime HCl 1 gm in 50 mls @ 100 mls/hr 07/09/19 11:30 07/11/19 10:10 Maxipime Rtu 1 Gm/D5w 50 Ml Premix Bag IV 07/16/19 11:29 Infused Q12 SUKUMAR Infusion Insulin Human Isoph/Insulin Regular 25 unit 07/08/19 18:00 07/10/19 17:10 Insulin Inj 70-30 (100 Unit/1 Ml) 3 Ml Vial SUBCUT 08/07/19 17:59 25 unit QPM SUKUMAR Administration Insulin Human Isoph/Insulin Regular 35 unit 07/09/19 08:00 07/11/19 07:30 Insulin Inj 70-30 (100 Unit/1 Ml) 3 Ml Vial SUBCUT 08/08/19 07:59 35 unit QAM SUKUMAR Administration Insulin Human Regular 0 - 12 unit 07/08/19 16:00 07/11/19 07:29 Humulin R (Pyxis) Insulin 100 Unit/Ml 3ml SUBCUT 08/07/19 15:59 2 unit ACHS SUKUMAR Administration Protocol Isosorbide Mononitrate 15 mg 07/08/19 13:00 07/11/19 09:38 Imdur 30 Mg Tablet.Er PO 08/07/19 12:59 15 mg DAILY SUKUMAR Administration Levothyroxine Sodium 0.1 mg 07/09/19 06:00 07/11/19 05:39 Synthroid 0.1 Mg Tablet PO 08/08/19 05:59 0.1 mg Q6AM SUKUMAR Administration Levothyroxine Sodium 0.025 mg 07/09/19 06:00 07/11/19 05:39 Synthroid 0.025 Mg Tablet PO 08/08/19 05:59 0.025 mg Q6AM SUKUMAR Administration Metoprolol Succinate 12.5 mg 07/08/19 13:00 07/11/19 09:39 Toprol Xl 25 Mg Tab.Sr PO 08/07/19 12:59 12.5 mg DAILY SUKUMAR Administration Pantoprazole Sodium 40 mg 07/08/19 13:00 07/11/19 09:[address] Tablet PO 08/07/19 12:59 40 mg DAILY SUKUMAR Administration Polyethylene Glycol 17 gm 07/08/19 23:01 07/08/19 23:15 Miralax Powder 17 Gm/Packet PO 08/07/19 23:00 17 gm DAILYP PRN Administration FOR CONSTIPATION Potassium Chloride 40 meq 07/08/19 22:00 07/11/19 09:39 Klor-Con 10 Meq Tablet Er PO 08/07/19 21:59 40 meq Q12 SUKUMAR Administration Simvastatin 20 mg 07/08/19 22:00 07/10/19 21:20 Zocor 10 Mg Tablet PO 08/07/19 21:59 20 mg QHS SUKUMAR Administration Sitagliptin Phosphate 50 mg 07/08/19 15:00 07/11/19 09:40 Januvia 50 Mg Tablet PO 08/07/19 14:59 50 mg DAILY SUKUMAR Administration Sodium Chloride 2.5 ml 07/06/19 22:00 07/11/19 05:38 Saline Flush 2.5 Ml Monoject Prefil Syrin IV 08/05/19 21:59 Not Given Q8 SUKUMAR Triamcinolone Acetonide 1 applic 07/08/19 18:00 07/11/19 09:40 Aristocort 0.5% Cream 15 Gm TP 08/07/19 17:59 1 applic BID SUKUMAR Administration Impressions: Chest X-Ray 07/09/19 00:00 IMPRESSION: NO ACUTE RADIOGRAPHIC FINDING IN THE CHEST. Assessment & Plan - Notes Notes: SANDRA COHN is a 74 year old male with history of anemia, chronic systolic heart failure, persistent atrial fibrillation, hypertension, hyperlipidemia, hypothyroidism, PAD, stroke, CAD details of which are unknown, DM, stage III CKD, [employer] PM for unclear indication who presented with syncope. The history is mainly obtained from review of current records and a prior visit to our facility in February 2019. He apparently had a syncopal episode at home witnessed by his fiance. He was apparently unconscious for approximately 5 minutes without any prodrome or any cardiac symptoms. In the ER he was found to be hypotensive and responded to IVF's. He was also found to have multiple electrolyte abnormalities along with acute renal failure. Upon my evaluation t his morning he is asymptomatic and specifically denies CP, SOB, palpitations, diaphoresis, PND, orthopnea and LE edema. Of note, he was evaluated in the ED at this facility in February 2019 with a similar presentation. At that time he was found to have wide complex tachycardia, very elevated proBNP and creatinine and hypotensive. He was treated with dopamine and transferred to [facility], unfortunately I don't have any of those records. His medication list include Nitroglycerin PRN, isosorbide mononitrate, torsemide, metoprolol, Eliquis, calcitriol, amiodarone, potassium, Singulair, insulin, Synthroid, Protonix, simvastatin and metolazone however it is not known whether the patient is actually taking them. A/P Syncope in the setting of high-dose diuretics and significant acute on chronic kidney failure with presumed orthostatic hypotension event at home and UTI w significant leukocytosis. - medical management - UTI treatment per primary team Elevated troponin, not due to an acute coronary syndrome Very complicated patient with a very complicated cardiac history who presents with a syncopal event at home, hypotension, UTI, AoCKD with Cr 3.4 and BUN 140 and with mildly elevated troponin. No evidence for an ACS picture at this time: his midly elevated troponin in the setting of significant renal failure, presumed prerenal acute kidney injury in the setting of high-dose torsemide and UTI with GNR and severely reduced left ventricular ejection fraction/ cardiomyopathy per outside winding inspector all fit with a non-ACS picture in this asymptomatic patient. Luckily he has remained asymptomatic since admission with adequate BP and electrically stable. Recommendations: - recommend restarting his home anticoagulation for history of atrial fibrillation; stop lovenox as there is no indication at this time - GDMT for his history of systolic chf / cardiomyopathy per his outpatient medication list - Pt still being given aspirin 81mg daily and plavix 75mg daily; this creates a tremendously high bleeding risk. The patient is on anticoagulation with Eliquis and unless he was receiving antiplatelet therapy from his outside winding inspector I do not have a reason that these need to be continued at this time. - toprol xl - Continue to replace electrolytes as needed. - statin therapy Chronic systolic CHF with reduced left ventricular ejection fraction / presumed ischemic cardiomyopathy / elevated brain natriuretic peptide (BNP) level Is this a current diagnosis for this admission?: Yes Plan: Although his BNP is elevated it is actually much better than a prior one in February 2019. The patient has no evidence of heart failure and required IVF's. -Patient should be on guideline directed medical therapy per his outpatient medication list as he is closely followed by cardiology in [place]. -Patient was over diuresed upon presentation. He was on an exceedingly high amount of oral diuretics at home. I will defer diuretic management to ne phrology whom he follows with regularly and will be seeing after hospital discharge. He is euvolemic on exam today and not requiring any diuretics. Acute on chronic CKD and HTN (hypertension) Qualifiers: Hypertension type: essential hypertension Qualified Code(s): I10 - Essential (primary) hypertension Is this a current diagnosis for this admission?: Yes Plan: Marginal bp's - continue low-dose toprol xl - management of AonCKD per nephrology - diuretic management per nephrology as he is followed by [facility] with recent tenuous renal function Hyponatremia / hypokalemia -- resolved today -Management per primary team and nephrology The patient should have close follow-up with nephrology as well as his winding inspector shortly after hospital discharge. At this time, there are no active cardiovascular concerns to address and we will sign off. Please feel free to call with concerns or questions regarding his management.
[2019-07-11] MEDS: SIMVASTATIN 10 MG TABLET PO SCH (21:46)
--- NOTE | 2019-07-12 00:49 | Progress Note ---
Provider Note Provider Note: [facility] ID Telephone Advice Consultation Chart reviewed and discussed with pharmacy. Patient is a 74-year-old man with CKD stage 3, CHF, CAD with pacemaker who was admitted due to syncope. He was admitted to the ICU, glucose was above 400 and creatinine above 3. He had an acute on chronic kidney disease. His urine culture was positive for Serratia marcescens and blood culture as well. Patient was started on cefepime which he has been tolerating well. Per notes, he has improved and he is waiting to be discharged home. ID consulted for recommendations. PMH: CAD CHF CKD 3 PSH: Pacemaker Allergies: No Known Allergies Allergy (Verified 07/29/14 08:37) Medications: Levothyroxine Sodium 125 mcg PO Q6AM 07/29/14 Montelukast Sodium 10 mg PO DAILY 07/29/14 Simvastatin 20 mg PO QHS 07/29/14 Amiodarone HCl [Cordarone 200 mg Tablet] 300 mg PO DAILY 06/19/18 Apixaban [Eliquis 5 mg Tablet] 5 mg PO Q12 06/19/18 Docusate Sodium [Colace] 100 mg PO DAILY 06/19/18 Hydralazine HCl [Apresoline 25 mg Tablet] 12.5 mg PO Q8H 06/19/18 Insulin NPH Hum/Reg Insulin Hm [Humulin 70/30 Kwikpen] 25 units SQ QPM 06/19/18 Insulin NPH Hum/Reg Insulin Hm [Humulin 70/30 Kwikpen] 35 units SQ QAM 06/19/18 Pantoprazole Sodium [Protonix] 40 mg PO DAILY 06/19/18 Potassium Chloride [Klor-Con M20] 40 meq PO Q12 06/19/18 Sitagliptin Phosphate [Januvia 50 mg Tablet] 50 mg PO DAILY 06/19/18 Torsemide [Demadex 20 mg Tablet] 80 mg PO BID 06/19/18 Calcitriol [Rocaltrol 0.25 Mcg Capsule] 0.25 mcg PO MOFR@1000 07/07/19 Isosorbide Mononitrate [Imdur 30 mg Tablet.er] 15 mg PO DAILY 07/07/19 Metolazone [Zaroxolyn 2.5 Mg Tablet] 2.5 mg PO MOFR@1000 07/07/19 Metoprolol Succinate [Toprol Xl 25 mg Tab.sr] 12.5 mg PO DAILY 07/07/19 Triamcinolone Acetonide [Aristocort 0.5% Cream 15 gm] 1 applic TP BID 07/07/19 Vital Signs: Temp Pulse Resp BP Pulse Ox 100.0 F 70 16 110/72 97 07/11/19 05:35 07/11/19 05:35 07/11/19 05:35 07/11/19 05:35 07/11/19 05:35 Intake & Output 07/10/19 07/11/19 07/12/19 06:59 06:59 06:59 Intake Total 3137 920 50 Output Total 1875 1350 Balance 1262 -430 50 Weight 61.8 kg 63.3 kg 63.3 kg Weight/Height Weight 63.3 kg Height 5 ft 6 in Laboratories: 07/11/19 05:20 07/11/19 05:20 MCV 86 fl (80-97) 07/11/19 05:20 MCH 28.8 pg (27.0-33.4) 07/11/19 05:20 MCHC 33.6 g/dL (32.0-36.0) 07/11/19 05:20 RDW 13.2 % (11.5-14.0) 07/11/19 05:20 Seg Neutrophils % Not Reportable 07/11/19 05:20 Carbonic Acid 0.92 mmol/L (1.05-1.35) L 07/07/19 05:01 HCO3/H2CO3 Ratio 28:1 07/07/19 05:01 ABG pH 7.55 (7.35-7.45) H 07/07/19 05:01 ABG pCO2 30.6 mmHg (35-45) L 07/07/19 05:01 ABG pO2 108.5 mmHg (80-100) H 07/07/19 05:01 ABG HCO3 26.4 mmol/L (20-24) H 07/07/19 05:01 ABG O2 Saturation 98.5 % (94-98) H 07/07/19 05:01 ABG Base Excess 4.6 mmol/L 07/07/19 05:01 FiO2 21% 07/07/19 05:01 Chloride 104 mmol/L (98-107) 07/11/19 05:20 Carbon Dioxide 25 mmol/L (22-30) 07/11/19 05:20 Anion Gap 7 (5-19) 07/11/19 05:20 Est GFR ( Amer) 45 (>60) L 07/11/19 05:20 Est GFR (Non-Af Amer) Cancelled 07/06/19 22:11 Glucose 152 mg/dL (75-110) H 07/11/19 05:20 Lactic Acid 2.4 mmol/L (0.7-2.1) H 07/09/19 11:54 Calcium 8.9 mg/dL (8.4-10.2) 07/11/19 05:20 Magnesium 2.2 mg/dL (1.6-2.3) 07/08/19 05:17 Total Bilirubin 1.5 mg/dL (0.2-1.3) H 07/07/19 04:29 AST 50 U/L (17-59) 07/07/19 04:29 Alkaline Phosphatase 119 U/L (38-126) 07/07/19 04:29 Total Protein 8.2 g/dL (6.3-8.2) 07/07/19 04:29 Albumin 3.9 g/dL (3.5-5.0) 07/07/19 04:29 TSH 1.36 uIU/mL (0.47-4.68) 07/07/19 04:29 Urine Color YELLOW 07/06/19 15:00 Urine Appearance CLEAR 07/06/19 15:00 Urine pH 6.0 (5.0-9.0) 07/06/19 15:00 Ur Specific [place] 1.009 07/06/19 15:00 Urine Protein 30 mg/dL (NEGATIVE) H 07/06/19 15:00 Urine Glucose (UA) NEGATIVE mg/dL (NEGATIVE) 07/06/19 15:00 Urine Ketones NEGATIVE mg/dL (NEGATIVE) 07/06/19 15:00 Urine Blood NEGATIVE (NEGATIVE) 07/06/19 15:00 Urine Nitrite Cancelled 07/06/19 15:00 Ur Leukocyte Esterase Cancelled 07/06/19 15:00 Urine WBC (Auto) Cancelled 07/06/19 15:00 Urine RBC (Auto) 1 /HPF 07/06/19 15:00 07/09/19 11:44 Blood Blood Culture (PCR) - Final Serratia Marcescens 07/09/19 11:54 Blood Blood Culture (PCR) - Final Serratia Marcescens 07/09/19 10:48 Larios Catheter Urine Culture - Final Serratia Marcescens 07/06/19 07/06/19 07/07/19 12:22 14:55 04:29 Troponin I 0.095 0.117 0.237 NT-Pro-B Natriuret Pep 5690 H 07/08/19 07/09/19 05:17 09:15 Troponin I 0.140 NT-Pro-B Natriuret Pep 27251 H Radiology: Chest X-Ray 07/06/19 12:24 IMPRESSION: NO ACUTE RADIOGRAPHIC FINDING IN THE CHEST. Chest X-Ray 07/09/19 00:00 IMPRESSION: NO ACUTE RADIOGRAPHIC FINDING IN THE CHEST. Assessment and Recommendations: Patient with Serratia bacteremia from urinary source in the setting of pacemaker. Patient's source of infection was the urinary tract although no evidence of an ascending infection, he did have leukocytosis and acute kidney injury, but no hematuria to suspect nephrolithiasis. Even though he has clinically improved, in the setting of pacemaker, will need to make sure that there isn't a nidus of infection in the urinary tract that may need source control. For this, will recommend a CT of abdomen and pelvis or retroperitoneal US. Will also recommend to repeat blood cultures to document clearance of bacteremia. If persistent bacteremia, he will need a HARPAL to rule out endovascular complication or involvement of the pacemaker. Cefepime is adequate, when ready to be discharged home if complications have been ruled out, can transition to ciprofloxacin 500 mg po bid (if no drug-drug interactions). Monitor QTc, avoid multivitamin, avoid divalent cations (Mg, Ca, Zn), monitor for diarrhea due to risk of CDI, monitor for tendon rupture. Duration of therapy will be 10 days total. EOT 07/18 if new blood cultures are negative. Please call if questions. Mary Pelletier MD [facility] ID [phone]
[2019-07-12] MEDS: HYDRALAZINE HCL 25 MG TABLET PO SCH ×3 (04:32→21:20)
[2019-07-12] MEDS: LEVOTHYROXINE SODIUM 0.025 MG TABLET PO SCH (05:11)
[2019-07-12] MEDS: LEVOTHYROXINE SODIUM 0.1 MG TABLET PO SCH (05:11)
[2019-07-12 06:54] LABS: ANION GAP 9 (5-19); BLOOD UREA NITROGEN 42 mg/dL (7-20); CALCIUM 8.8 mg/dL (8.4-10.2); CARBON DIOXIDE 20 mmol/L (22-30); CHLORIDE 106 mmol/L (98-107); GLUCOSE 187 mg/dL (75-110); POTASSIUM 5.5 mmol/L (3.6-5.0)
[2019-07-12] MEDS: HUM INSULIN NPH/REG INSULIN HM 100 UNIT/1 ML 3 ML SUBCUT SCH ×2 (08:16→17:31)
[2019-07-12] MEDS: INSULIN REG, HUMAN 100 UNIT/ML 3 ML VIAL (PYX) SUBCUT SCH ×4 (08:16→21:21)
--- NOTE | 2019-07-12 08:22 | RADIOLOGY REPORT (SQ) ---
EXAM DESCRIPTION: CT ABD/PELVIS NO ORAL OR IV IMAGES COMPLETED DATE/TIME: 07/12/2019 7:53 am REASON FOR STUDY: urosepsis COMPARISON: CT abdomen pelvis 02/18/2019, 06/19/2018 TECHNIQUE: CT scan of the abdomen and pelvis performed without intravenous or oral contrast. Images reviewed with lung, soft tissue, and bone windows. Reconstructed coronal and sagittal MPR images revi ewed. All images stored on PACS. All CT scanners at this facility use dose modulation, iterative reconstruction, and/or weight based d osing when appropriate to reduce radiation dose to as low as reasonably achievable (ALARA). [facility]: Dose Right [facility]: CareDose [facility]: Dose Right [facility]: Teradose 4D [facility]: [employer] RADIATION DOSE: CT Rad equipment meets quality standard of care and radiation dose reduction techniq ues were employed. CTDIvol: 8.2 mGy. DLP: 452 mGy-cm.mGy. LIMITATIONS: None. FINDINGS: LOWER CHEST: Cardiomegaly. Lung bases are clear no NON-CONTRASTED LIVER, SPLEEN, ADRENALS: Evaluation limited by lack of IV contrast. No identified sign ificant masses. PANCREAS: No masses. No peripancreatic inflammatory changes. GALLBLADDER: Surgically absent. There is trace air in the common bile duct and left-sided intrahepat ic ducts from prior ERCP/sphincterotomy RIGHT KIDNEY AND URETER: No suspicious masses. Assessment limited by lack of IV contrast. No signif icant calcifications. No hydronephrosis or hydroureter. LEFT KIDNEY AND URETER: No suspicious masses. Assessment limited by lack of IV contrast. No signifi cant calcifications. No hydronephrosis or hydroureter. AORTA AND RETROPERITONEUM: No aneurysm. No retroperitoneal masses or adenopathy. BOWEL AND PERITONEAL CAVITY: No obvious masses or inflammatory changes. Trace nonspecific right subp hrenic free fluid best shown on coronal image 60 and axial image 42 APPENDIX: Normal. PELVIS, BLADDER, AND ABDOMINAL WALL:Bladder is decompressed by a Larios catheter. Diffuse bladder wal l thickening is present with views enlarged prostate no bladder calculi no free pelvic fluid. No lenard nopathy BONES: No significant findings. OTHER: No other significant finding. IMPRESSION: Larios catheter drains a thick walled bladder. Prostate enlarged. No bladder calculi. No hydronephrosis or hydroureter. No kidney stones. Post cholecystectomy. COMMENT: Quality ID # [id number]: Final reports with documentation of one or more dose reduction techniques (e.g., Automated exposure control, adjustment of the mA and/or kV according to patient size, use of iterative reconstruction technique) TECHNICAL DOCUMENTATION: JOB ID: [id number] 2010 [email or web address] Rights Reserved Reading location - IP/workstation name: [email or web address]
[2019-07-12] MEDS: CLOPIDOGREL BISULFATE 75 MG TABLET PO SCH (09:45)
[2019-07-12] MEDS: ASPIRIN 81 MG TABLET, CHEWABLE PO SCH (09:45)
[2019-07-12] MEDS: PANTOPRAZOLE SODIUM 40 MG TABLET.DR PO SCH (09:45)
[2019-07-12] MEDS: ISOSORBIDE MONONITRATE 30 MG TAB.ER.24H PO SCH (09:45)
[2019-07-12] MEDS: METOPROLOL SUCCINATE 25 MG TAB.SR.24H PO SCH (09:45)
[2019-07-12] MEDS: DOCUSATE SODIUM 100 MG CAPSULE PO SCH (09:45)
[2019-07-12] MEDS: CEFEPIME 1 GM/D5W RTU 1 GM/50 ML RTUPB IV SCH ×2 (09:45→21:28)
[2019-07-12] MEDS: APIXABAN 2.5 MG TABLET PO SCH ×2 (09:45→17:31)
[2019-07-12] MEDS: TRIAMCINOLONE ACETONIDE 0.5% CREAM 15 GM TP SCH ×2 (09:46→17:31)
[2019-07-12] MEDS: SITAGLIPTIN PHOSPHATE 50 MG TABLET PO SCH (09:46)
[2019-07-12] MEDS: AMIODARONE HCL 200 MG TABLET PO SCH (09:46)
--- NOTE | 2019-07-12 11:47 | PDOC PROGRESS REPORT ---
Subjective Progress Note for:: 07/12/19 Subjective:: Patient is currently doing much better She is having no fever no chills Reviewed infectious disease consult repeat the blood culture and CT scan of the abdomen and pelvis done was all stable And is very anxious to go home discussed with the patient's to get the blood culture repeat again in a CT report His potassium was 5.4 currently hold the p.o. potassiums Discussed with the cardiology Dr. Fontana and suggest restart the torsemide lower dose and follow-up with the patient's cardiology Patient's denied any chest pain no short of breath Reason For Visit: SYCOPE, R/O [place] Physical Exam Vital Signs: Temp Pulse Resp BP Pulse Ox 98.4 F 69 18 104/77 100 07/12/19 08:10 07/12/19 08:10 07/12/19 08:10 07/12/19 08:10 07/12/19 08:10 Intake & Output 07/11/19 07/12/19 07/13/19 06:59 06:59 06:59 Intake Total 920 1560 50 Output Total 1350 300 Balance -430 1260 50 Weight 63.3 kg 63.5 kg General appearance: PRESENT: no acute distress, well-developed, well-nourished Head exam: PRESENT: atraumatic, normocephalic Eye exam: PRESENT: conjunctiva pink, EOMI, PERRLA. ABSENT: scleral icterus Ear exam: PRESENT: normal external ear exam Mouth exam: PRESENT: moist, tongue midline Neck exam: PRESENT: full ROM. ABSENT: carotid bruit, JVD, lymphadenopathy, thyromegaly Respiratory exam: PRESENT: clear to auscultation erasmo Cardiovascular exam: PRESENT: RRR. ABSENT: diastolic murmur, rubs, systolic murmur Pulses: PRESENT: normal dorsalis pedis pul, +2 pedal pulses bilateral Vascular exam: PRESENT: normal capillary refill GI/Abdominal exam: PRESENT: normal bowel sounds, soft. ABSENT: distended, guarding, mass, organolmegaly, rebound, tenderness Rectal exam: PRESENT: deferred Musculoskeletal exam: PRESENT: ambulatory Neurological exam: PRESENT: alert, awake, oriented to person, oriented to place, oriented to time, oriented to situation, CN II-XII grossly intact. ABSENT: motor sensory deficit Psychiatric exam: PRESENT: appropriate affect, normal mood. ABSENT: homicidal ideation, suicidal ideation Skin exam: PRESENT: dry, intact, warm. ABSENT: cyanosis, rash Results Laboratory Results: 07/11/19 05:20 07/12/19 05:54 07/12/19 05:54 Sodium 134.9 L Potassium 5.5 H Chloride 106 Carbon Dioxide 20 L Anion Gap 9 BUN 42 H Creatinine 1.89 H Est GFR ( Amer) 43 L Glucose 187 H Calcium 8.8 07/09/19 11:54 Blood Blood Culture (PCR) - Final Serratia Marcescens 07/09/19 11:54 Blood Blood Culture - Final Serratia Marcescens 07/09/19 11:44 Blood Blood Culture (PCR) - Final Serratia Marcescens 07/09/19 11:44 Blood Blood Culture - Final Serratia Marcescens 07/09/19 10:48 Larios Catheter Urine Culture - Final Serratia Marcescens 07/06/19 07/06/19 07/07/19 12:22 14:55 04:29 Troponin I 0.095 0.117 0.237 NT-Pro-B Natriuret Pep 5690 H 07/08/19 07/09/19 05:17 09:15 Troponin I 0.140 NT-Pro-B Natriuret Pep 81065 H Impressions: Chest X-Ray 07/09/19 00:00 IMPRESSION: NO ACUTE RADIOGRAPHIC FINDING IN THE CHEST. Abdomen/Pelvis CT 07/12/19 00:00 IMPRESSION: Larios catheter drains a thick walled bladder. Prostate enlarged. No bladder calculi. No hydronephrosis or hydroureter. No kidney stones. Post cholecystectomy. Assessment & Plan - Diagnosis (1) Acute non-ST elevation myocardial infarction (NSTEMI) Is this a current diagnosis for this admission?: Yes (2) DENNISE (acute kidney injury) Is this a current diagnosis for this admission?: Yes (3) Type 2 diabetes mellitus Qualifiers: Diabetes mellitus jail insulin use: unspecified jail insulin use status Chronic kidney disease stage: stage 3 (moderate) Is this a current diagnosis for this admission?: Yes (4) Afib Qualifiers: Atrial fibrillation type: unspecified Qualified Code(s): I48.91 - Unspecified atrial fibrillation Is this a current diagnosis for this admission?: Yes (5) Anemia Qualifiers: Chronic kidney disease stage: stage 4 (severe) Is this a current diagnosis for this admission?: Yes (6) CAD (coronary artery disease) Qualifiers: Coronary Disease-Associated Artery/Lesion type: [place] artery Associated angina: with other forms of angina Is this a current diagnosis for this admission?: Yes (7) CHF (congestive heart failure) Qualifiers: Heart failure type: combined systolic and diastolic Heart failure chronicity: chronic Qualified Code(s): I50.42 - Chronic combined systolic (congestive) and diastolic (congestive) heart failure Is this a current diagnosis for this admission?: Yes (8) HTN (hypertension) Qualifiers: Hypertension type: essential hypertension Qualified Code(s): I10 - [place] t[place] (primary) hypertension Is this a current diagnosis for this admission?: Yes (9) Sepsis due to gram-negative urinary tract infection Is this a current diagnosis for this admission?: Yes (10) Hypokalemia Is this a current diagnosis for this admission?: Yes - Time Time Spent with patient: 25-34 minutes Level of Care: IMCU Medications reviewed and adjusted accordingly: Yes Anticipated discharge: Home Within: within 24 hours - Plan Summary Plan Summary: Will switch to Cipro on the discharge restart the torsemide 20 mg p.o. twice a day hopefully discharge tomorrow morning well patient is very anxious to go home
[2019-07-12] MEDS: TORSEMIDE 20 MG TABLET PO SCH (14:06)
[2019-07-12] MEDS: SIMVASTATIN 10 MG TABLET PO SCH (21:28)
[2019-07-13] MEDS: HYDRALAZINE HCL 25 MG TABLET PO SCH (05:34)
[2019-07-13] MEDS: LEVOTHYROXINE SODIUM 0.025 MG TABLET PO SCH (05:37)
[2019-07-13] MEDS: LEVOTHYROXINE SODIUM 0.1 MG TABLET PO SCH (05:38)
[2019-07-13 07:03] LABS: HEMATOCRIT 31.2 % (37.9-51.0); HEMOGLOBIN 10.6 g/dL (13.5-17.0); MEAN CORPUSCULAR HEMOGLOBIN 28.8 pg (27.0-33.4); MEAN CORPUSCULAR HGB CONC 33.8 g/dL (32.0-36.0); MEAN CORPUSCULAR VOLUME 85 fl (80-97); PLATELET COUNT 205 10^3/uL (150-450); RED BLOOD COUNT 3.66 10^6/uL (4.35-5.55); RED CELL DISTRIBUTION WIDTH 13.1 % (11.5-14.0); WHITE BLOOD COUNT 13.5 10^3/uL (4.0-10.5)
[2019-07-13 07:10] LABS: ANION GAP 7 (5-19); BLOOD UREA NITROGEN 42 mg/dL (7-20); CALCIUM 8.4 mg/dL (8.4-10.2); CARBON DIOXIDE 23 mmol/L (22-30); CHLORIDE 105 mmol/L (98-107); POTASSIUM 4.1 mmol/L (3.6-5.0)
[2019-07-13 07:27] LABS: GLUCOSE 65 mg/dL (75-110)
[2019-07-13 07:33] LABS: ABSOLUTE LYMPHOCYTES# (MANUAL) 1.2 10^3/uL (0.5-4.7); ABSOLUTE MONOCYTES # (MANUAL) 1.2 10^3/uL (0.1-1.4); BASOPHILS % (MANUAL) 0 % (0-2); EOSINOPHILS % (MANUAL) 5 % (0-6); LYMPHOCYTES % (MANUAL) 9 % (13-45); MONOCYTES % (MANUAL) 9 % (3-13); PLATELET COMMENT ADEQUATE; SEGMENTED NEUTROPHILS % (MAN) 77 % (42-78); TOTAL CELLS COUNTED 100
[2019-07-13 07:34] LABS: OVALOCYTES SLIGHT; PLATELET LARGE PRESENT; POLYCHROMASIA SLIGHT
[2019-07-13] MEDS: INSULIN REG, HUMAN 100 UNIT/ML 3 ML VIAL (PYX) SUBCUT SCH (09:54)
[2019-07-13] MEDS: HUM INSULIN NPH/REG INSULIN HM 100 UNIT/1 ML 3 ML SUBCUT SCH (09:55)
[2019-07-13] MEDS: APIXABAN 2.5 MG TABLET PO SCH (09:58)
[2019-07-13] MEDS: DOCUSATE SODIUM 100 MG CAPSULE PO SCH (09:58)
[2019-07-13] MEDS: TORSEMIDE 20 MG TABLET PO SCH (09:58)
[2019-07-13] MEDS: ASPIRIN 81 MG TABLET, CHEWABLE PO SCH (09:58)
[2019-07-13] MEDS: PANTOPRAZOLE SODIUM 40 MG TABLET.DR PO SCH (09:58)
[2019-07-13] MEDS: CLOPIDOGREL BISULFATE 75 MG TABLET PO SCH (09:58)
[2019-07-13] MEDS: AMIODARONE HCL 200 MG TABLET PO SCH (09:59)
[2019-07-13] MEDS: CALCITRIOL 0.25 MCG CAPSULE PO SCH (09:59)
[2019-07-13] MEDS: TRIAMCINOLONE ACETONIDE 0.5% CREAM 15 GM TP SCH (09:59)
[2019-07-13] MEDS: CEFEPIME 1 GM/D5W RTU 1 GM/50 ML RTUPB IV SCH (10:00)
[2019-07-13] MEDS: SITAGLIPTIN PHOSPHATE 50 MG TABLET PO SCH (10:00)
[2019-07-13] MEDS: ISOSORBIDE MONONITRATE 30 MG TAB.ER.24H PO SCH (10:00)
[2019-07-13] MEDS: METOPROLOL SUCCINATE 25 MG TAB.SR.24H PO SCH (10:01)
[2019-07-13 10:12] VITALS: BP 103/73
--- NOTE | 2019-07-13 10:19 | PDOC DISCHARGE SUMMARY ---
Impression - Admit/DC Date/PCP Admission Date/Primary Care Provider: 07/06/19 17:00 LENA VAUGHN MD Discharge Date: 07/13/19 - Discharge Diagnosis (1) Acute non-ST elevation myocardial infarction (NSTEMI) Is this a current diagnosis for this admission?: Yes (2) DENNISE (acute kidney injury) Is this a current diagnosis for this admission?: Yes (3) Type 2 diabetes mellitus Is this a current diagnosis for this admission?: Yes (4) Afib Is this a current diagnosis for this admission?: Yes (5) Anemia Is this a current diagnosis for this admission?: Yes (6) CAD (coronary artery disease) Is this a current diagnosis for this admission?: Yes (7) CHF (congestive heart failure) Is this a current diagnosis for this admission?: Yes (8) HTN (hypertension) Is this a current diagnosis for this admission?: Yes (9) Sepsis due to gram-negative urinary tract infection Is this a current diagnosis for this admission?: Yes (10) Hypokalemia Is this a current diagnosis for this admission?: Yes - Additional Information Resuscitation Status: Full Code Discharge Diet: Diabetic Discharge Activity: Activity As Tolerated Referrals: LENA VAUGHN MD [Primary Care Provider] - 08/01/19 10:00 am (f/u with [facility] at [facility] next wk ) Ruby FLORES MD [ACTIVE STAFF] - 07/23/19 11:15 am (2 weeks ) Prescriptions: Ciprofloxacin HCl [Cipro 500 mg Tablet] 500 mg PO BID #20 tablet Torsemide [Demadex 20 mg Tablet] 20 mg PO DAILY #30 tablet Apixaban [Eliquis 2.5 mg Tablet] 2.5 mg PO BID #60 tablet Home Medications: Levothyroxine Sodium 125 mcg PO Q6AM 07/29/14 Montelukast Sodium 10 mg PO DAILY 07/29/14 Simvastatin 20 mg PO QHS 07/29/14 Amiodarone HCl [Cordarone 200 mg Tablet] 300 mg PO DAILY 06/19/18 Docusate Sodium [Colace] 100 mg PO DAILY 06/19/18 Hydralazine HCl [Apresoline 25 mg Tablet] 12.5 mg PO Q8H 06/19/18 Pantoprazole Sodium [Protonix] 40 mg PO DAILY 06/19/18 Sitagliptin Phosphate [Januvia 50 mg Tablet] 50 mg PO DAILY 06/19/18 Calcitriol [Rocaltrol 0.25 mcg Capsule] 0.25 mcg PO MOFR@1000 07/07/19 Isosorbide Mononitrate [Imdur 30 mg Tablet.er] 15 mg PO DAILY 07/07/19 Metolazone [Zaroxolyn 2.5 mg Tablet] 2.5 mg PO MOFR@1000 07/07/19 Metoprolol Succinate [Toprol Xl 25 mg Tab.sr] 12.5 mg PO DAILY 07/07/19 Triamcinolone Acetonide [Aristocort 0.5% Cream 15 gm] 1 applic TP BID 07/07/19 Apixaban [Eliquis 2.5 mg Tablet] 2.5 mg PO BID #60 tablet 07/13/19 Ciprofloxacin HCl [Cipro 500 mg Tablet] 500 mg PO BID #20 tablet 07/13/19 Insulin NPH Hum/Reg Insulin Hm [Humulin 70/30 Kwikpen] 5 units SQ QPM #0 07/13/19 Insulin NPH Hum/Reg Insulin Hm [Humulin 70/30 Kwikpen] 10 units SQ QAM #0 07/13/19 Torsemide [Demadex 20 mg Tablet] 20 mg PO DAILY #30 tablet 07/13/19 History of Present Illiness History of Present Illness: SANDRA COHN is a 74 year old male This is a 74-year-old male admitting in the intensive care unit for the syncopal episode hypertensions initially thought patient have acute non-ST DE and the patient's to sheet turner to be a urosepsis with the positive blood cultures positive urine and patient is at this point treat with the IV antibiotic patient is also seen by the cardiology Hospital Course Hospital Course: There is a 74-year-old male with a very complex history of the coronary disease congestive heart failure with a low EF chronic kidney disease type 2 diabetes hypertension's hyperlipidemia chronic anticoagulations present in the emergency department with the syncopal episode and patient's hypertensives patient initially thought acute non-ST DE due to the elevated troponin Patient admitting intensive care units cardiology was consulted treat as an acute non-ST DE Patient is also transferred to the regular floor and find out the patient have a urinary tract infection and positive blood culture which most likely at sug esting the urosepsis with all pictures with the hypertensions elevated white counts Patient is to treat with the IV antibiotics ID consult was done and patient is put at this point to the p.o. antibiotic And also in acute renal failure and chronic kidney disease due to over diuretics patient is currently see [place] [facility] CHF clinic once a month Patient's diuretics is currently hold on the hospital restart with a low dose as per discussed with cardiology Dr. Fontana Patient is otherwise expressed to go home for the last couple of days as per ID recommendations with the CT abdomen and pelvis did not show any acute finding repeat the blood culture patient's white count is coming down remain afebrile Patient's kidney function is all stable back to the baseline around 2 Patient is start on the Cipro p.o. antibiotic and also start on a low-dose torsemide 20 mg cut down the insulin due to the running low Discussed with the patient is to check the weight daily if any increasing any shortness of the breath any swelling increase the torsemide twice a day Patients with the patient's cardiology Dr. Vaughn in [place] have appointment today but patient unable to go make appointment to next week to see him again Discussed with the Dr. Jacob a local cardiology suggest that elbow continues on low-dose torsemide continues watch the kidney functions Patient's otherwise walking the hallway remove the Larios catheter Patient is discharged with a stable condition at home's following a 1 week in office to repeat the CBC and Chem-7 Physical Exam Vital Signs: Temp Pulse Resp BP Pulse Ox 98.5 F 86 16 103/73 97 07/13/19 10:08 07/13/19 10:08 07/13/19 10:08 07/13/19 10:08 07/13/19 10:08 Intake & Output 07/12/19 07/13/19 07/14/19 06:59 06:59 06:59 Intake Total 1560 1486 Output Total 300 1050 Balance 1260 436 Weight 63.5 kg 63.4 kg General appearance: PRESENT: no acute distress, well-developed, well-nourished Head exam: PRESENT: atraumatic, normocephalic Eye exam: PRESENT: conjunctiva pink, EOMI, PERRLA. ABSENT: scleral icterus Ear exam: PRESENT: normal external ear exam Mouth exam: PRESENT: moist, tongue midline Neck exam: ABSENT: carotid bruit, JVD, lymphadenopathy, thyromegaly Respiratory exam: PRESENT: clear to auscultation erasmo. ABSENT: rales, rhonchi, wheezes Cardiovascular exam: PRESENT: RRR. ABSENT: diastolic murmur, rubs, systolic murmur Pulses: PRESENT: normal dorsalis pedis pul Vascular exam: PRESENT: normal capillary refill GI/Abdominal exam: PRESENT: normal bowel sounds, soft. ABSENT: distended, guarding, mass, organolmegaly, rebound, tenderness Rectal exam: PRESENT: deferred Extremities exam: PRESENT: full ROM. ABSENT: calf tenderness, clubbing, pedal edema Neurological exam: PRESENT: alert, awake, oriented to person, oriented to place, oriented to time, oriented to situation, CN II-XII grossly intact. ABSENT: motor sensory deficit Psychiatric exam: PRESENT: appropriate affect, normal mood. ABSENT: homicidal ideation, suicidal ideation Skin exam: PRESENT: dry, intact, warm. ABSENT: cyanosis, rash Results Laboratory Results: WBC 13.5 10^3/uL (4.0-10.5) H 07/13/19 06:14 RBC 3.66 10^6/uL (4.35-5.55) L 07/13/19 06:14 Hgb 10.6 g/dL (13.5-17.0) L 07/13/19 06:14 Hct 31.2 % (37.9-51.0) L 07/13/19 06:14 MCV 85 fl (80-97) 07/13/19 06:14 MCH 28.8 pg (27.0-33.4) 07/13/19 06:14 MCHC 33.8 g/dL (32.0-36.0) 07/13/19 06:14 RDW 13.1 % (11.5-14.0) 07/13/19 06:14 Plt Count 205 10^3/uL (150-450) 07/13/19 06:14 Lymph % (Auto) Not Reportable 07/13/19 06:14 [place] % (Auto) Not Reportable 07/13/19 06:14 Eos % (Auto) Not Reportable 07/13/19 06:14 Baso % (Auto) Not Reportable 07/13/19 06:14 Absolute Neuts (auto) Not Reportable 07/13/19 06:14 Absolute Lymphs (auto) Not Reportable 07/13/19 06:14 Absolute Monos (auto) Not Reportable 07/13/19 06:14 Absolute Eos (auto) Not Reportable 07/13/19 06:14 Absolute Basos (auto) Not Reportable 07/13/19 06:14 Total Counted 100 07/13/19 06:14 Seg Neutrophils % Not Reportable 07/13/19 06:14 Seg Neuts % (Manual) 77 % (42-78) 07/13/19 06:14 Lymphocytes % (Manual) 9 % (13-45) L 07/13/19 06:14 Atypical Lymphs % 2 % (0) 07/09/19 11:54 Monocytes % (Manual) 9 % (3-13) 07/13/19 06:14 Eosinophils % (Manual) 5 % (0-6) 07/13/19 06:14 Basophils % (Manual) 0 % (0-2) 07/13/19 06:14 Abs Neuts (Manual) 10.4 10^3/uL (1.7-8.2) H 07/13/19 06:14 Abs Lymphs (Manual) 1.2 10^3/uL (0.5-4.7) 07/13/19 06:14 Abs Monocytes (Manual) 1.2 10^3/uL (0.1-1.4) 07/13/19 06:14 Absolute Eos (Manual) 0.7 10^3/uL (0.0-0.6) H 07/13/19 06:14 Abs Basophils (Manual) 0.0 10^3/uL (0.0-0.2) 07/13/19 06:14 Toxic Vacuolation PRESENT 07/11/19 05:20 Large Platelets PRESENT 07/13/19 06:14 Platelet Comment ADEQUATE 07/13/19 06:14 Polychromasia SLIGHT 07/13/19 06:14 Ovalocytes SLIGHT 07/13/19 06:14 RBC Morph Comment NORMO-CYTIC/CHROMIC 07/11/19 05:20 PT 18.3 SEC (11.4-15.4) H 07/07/19 04:29 INR 1.51 07/07/19 04:29 APTT 31.7 SEC (23.5-35.8) 07/07/19 04:29 Carbonic Acid 0.92 mmol/L (1.05-1.35) L 07/07/19 05:01 HCO3/H2CO3 Ratio 28:1 07/07/19 05:01 ABG pH 7.55 (7.35-7.45) H 07/07/19 05:01 ABG pCO2 30.6 mmHg (35-45) L 07/07/19 05:01 ABG pO2 108.5 mmHg (80-100) H 07/07/19 05:01 ABG HCO3 26.4 mmol/L (20-24) H 07/07/19 05:01 ABG Total CO2 27.3 mmol/L (23-27) H 07/07/19 05:01 ABG O2 Saturation 98.5 % (94-98) H 07/07/19 05:01 ABG Base Excess 4.6 mmol/L 07/07/19 05:01 FiO2 21% 07/07/19 05:01 Sodium 134.8 mmol/L (137-145) L 07/13/19 06:14 Potassium 4.1 mmol/L (3.6-5.0) 07/13/19 06:14 Chloride 105 mmol/L (98-107) 07/13/19 06:14 Carbon Dioxide 23 mmol/L (22-30) 07/13/19 06:14 Anion Gap 7 (5-19) 07/13/19 06:14 BUN 42 mg/dL (7-20) H 07/13/19 06:14 Creatinine 2.01 mg/dL (0.52-1.25) H 07/13/19 06:14 Est GFR ( Amer) 40 (>60) L 07/13/19 06:14 Est GFR (Non-Af Amer) Cancelled 07/06/19 22:11 Est GFR (MDRD) Non-Af 33 (>60) L 07/13/19 06:14 Glucose 65 mg/dL (75-110) L 07/13/19 06:14 POC Glucose 77 mg/dL (70-110) 07/13/19 06:28 Lactic Acid 2.4 mmol/L (0.7-2.1) H 07/09/19 11:54 Calcium 8.4 mg/dL (8.4-10.2) 07/13/19 06:14 Magnesium 2.2 mg/dL (1.6-2.3) 07/08/19 05:17 Total Bilirubin 1.5 mg/dL (0.2-1.3) H 07/07/19 04:29 Direct Bilirubin 0.6 mg/dL (0.0-0.4) H 07/07/19 04:29 Neonat Total Bilirubin Not Reportable 07/07/19 04:29 Neonat Direct Bilirubin Not Reportable 07/07/19 04:29 Neonat Indirect Bili Not Reportable 07/07/19 04:29 AST 50 U/L (17-59) 07/07/19 04:29 ALT 40 U/L (<50) 07/07/19 04:29 Alkaline Phosphatase 119 U/L (38-126) 07/07/19 04:29 Troponin I 0.140 ng/mL 07/08/19 05:17 NT-Pro-B Natriuret Pep 63826 pg/mL (<125) H 07/09/19 09:15 Total Protein 8.2 g/dL (6.3-8.2) 07/07/19 04:29 Albumin 3.9 g/dL (3.5-5.0) 07/07/19 04:29 EGFR Cancelled 07/06/19 22:11 TSH 1.36 uIU/mL (0.47-4.68) 07/07/19 04:29 Urine Color YELLOW 07/06/19 15:00 Urine Appearance CLEAR 07/06/19 15:00 Urine pH 6.0 (5.0-9.0) 07/06/19 15:00 Ur Specific [place] 1.009 07/06/19 15:00 Urine Protein 30 mg/dL (NEGATIVE) H 07/06/19 15:00 Urine Glucose (UA) NEGATIVE mg/dL (NEGATIVE) 07/06/19 15:00 Urine Ketones NEGATIVE mg/dL (NEGATIVE) 07/06/19 15:00 Urine Blood NEGATIVE (NEGATIVE) 07/06/19 15:00 Urine Nitrite Cancelled 07/06/19 15:00 Urine Nitrite (Reflex) NEGATIVE (NEGATIVE) 07/06/19 15:00 Urine Bilirubin NEGATIVE (NEGATIVE) 07/06/19 15:00 Urine Urobilinogen NEGATIVE mg/dL (<2.0) 07/06/19 15:00 Ur Leukocyte Esterase Cancelled 07/06/19 15:00 Leukocyte Esterase Rfl NEGATIVE (NEGATIVE) 07/06/19 15:00 Urine WBC (Auto) Cancelled 07/06/19 15:00 Urine RBC (Auto) 1 /HPF 07/06/19 15:00 U Hyaline Cast (Auto) 28 /LPF 07/06/19 15:00 Squamous Epi Cells Auto <1 /HPF 07/06/19 15:00 Urine Mucus (Auto) RARE /LPF 07/06/19 15:00 Urine Ascorbic Acid NEGATIVE (NEGATIVE) 07/06/19 15:00 Slides for Path Review PATHOLOGIST REVIEWED 07/09/19 09:15 07/06/19 07/06/19 07/07/19 12:22 14:55 04:29 Troponin I 0.095 0.117 0.237 NT-Pro-B Natriuret Pep 5690 H 07/08/19 07/09/19 05:17 09:15 Troponin I 0.140 NT-Pro-B Natriuret Pep 71412 H Impressions: Chest X-Ray 07/06/19 12:24 IMPRESSION: NO ACUTE RADIOGRAPHIC FINDING IN THE CHEST. Chest X-Ray 07/09/19 00:00 IMPRESSION: NO ACUTE RADIOGRAPHIC FINDING IN THE CHEST. Abdomen/Pelvis CT 07/12/19 00:00 IMPRESSION: Larios catheter drains a thick walled bladder. Prostate enlarged. No bladder calculi. No hydronephrosis or hydroureter. No kidney stones. Post cholecystectomy. Plan Time Spent: Greater than 30 Minutes - Follow in a 1 week to repeat the CBC and Chem-7 Patient is probably do not need any HARPAL but will defer to the cardiology at [place] Stroke Is this a Stroke Patient?: No Acute Heart Failure - Is this a Heart Failure Patient?: No
== END 2019-07-13 12:51 | disposition home health service (06) | DRG 872 ==
LOC: ER 12:14 → EH 17:00 → ICU 20:15 → 4S 07-08 11:56
PROVIDERS: ADMIT Family Medicine; ATTEND Family Medicine
DX: A41.50 Gram-negative sepsis, unspecified (principal); N17.9 Acute kidney failure, unspecified; I13.0 Hypertensive heart and chronic kidney disease with heart failure and stage 1 through stage 4 chronic kidney disease, or unspecified chronic kidney disease; I50.42 Chronic combined systolic (congestive) and diastolic (congestive) heart failure; I48.19 Other persistent atrial fibrillation; R65.20 Severe sepsis without septic shock; I25.10 Atherosclerotic heart disease of native coronary artery without angina pectoris; E87.6 Hypokalemia; E11.22 Type 2 diabetes mellitus with diabetic chronic kidney disease; E78.5 Hyperlipidemia, unspecified; N18.3 Chronic kidney disease, stage 3 (moderate); K21.9 Gastro-esophageal reflux disease without esophagitis; D63.1 Anemia in chronic kidney disease; E86.0 Dehydration; K59.00 Constipation, unspecified; I25.5 Ischemic cardiomyopathy; E11.51 Type 2 diabetes mellitus with diabetic peripheral angiopathy without gangrene; E03.9 Hypothyroidism, unspecified; J44.9 Chronic obstructive pulmonary disease, unspecified; E78.00 Pure hypercholesterolemia, unspecified; I25.2 Old myocardial infarction; F32.9 Major depressive disorder, single episode, unspecified; Z79.899 Other long term (current) drug therapy; Z79.4 Long term (current) use of insulin; Z79.01 Long term (current) use of anticoagulants; Z95.810 Presence of automatic (implantable) cardiac defibrillator
CPT/HCPCS: 36415; 51702; 71045; 74176; 80048; 80053; 81001; 82803; 82962; 83605; 83735; 83880; 84132; 84443; 84484; 85025; 85027; 85610; 85730; 87040; 87077; 87086; 87088; 87150; 87186; 93005; 93010; 96361; 96365; 96366; 96375; 99231; 99285; 99291; 99292; J0692; J1650; J1815; J2405; J3480; J3490; J7030; J7040; J7050; J7120

== ENCOUNTER 2019-10-09 18:17 | Inpatient (IN) | payer MEDICARE ==
--- NOTE | 2019-10-09 19:06 | ER Document Report ---
ED Medical Screen (RME) - General Stated Complaint: FAILURE TO THRIVE/WEAKNESS Time Seen by Provider: 10/09/19 18:58 Primary Care Provider: LENA DEMARCO MD [Primary Care Provider] - Follow up as needed Information source: Patient Notes: Patient presents stating that he had outpatient lab work done today and his doctor called and advised him to come to the hospital for treatment. Patient denies any complaints aside from generalized weakness. Patient denies any chest pain or shortness of breath. Patient has a history of diabetes, congestive heart failure, A. fib, chronic kidney disease and CAD I have greeted and performed a rapid initial assessment of this patient. A comprehensive ED assessment and evaluation of the patient, analysis of test results and completion of the medical decision making process will be conducted by additional ED providers. TRAVEL OUTSIDE OF THE [place] IN LAST 30 DAYS: No - Related Data Allergies/Adverse Reactions: No Known Allergies Allergy (Verified 07/29/14 08:37) Past Medical History - Past Medical History Cardiac Medical History: Reports: Hx Atrial Fibrillation, Hx Congestive Heart Failure, Hx Coronary Artery Disease, Hx Hypercholesterolemia, Hx Hypertension Denies: Hx Heart Attack Pulmonary Medical History: Reports: Hx COPD Denies: Hx Asthma, Hx Bronchitis, Hx Pneumonia Neurological Medical History: Denies: Hx Cerebrovascular Accident, Hx Seizures Endocrine Medical History: Reports: Hx Diabetes Mellitus Type 1, Hx Diabetes Mellitus Type 2 Renal/ Medical History: Denies: Hx Peritoneal Dialysis GI Medical History: Reports: Hx Gastroesophageal Reflux Disease Musculoskeltal Medical History: Reports Hx Arthritis - OSTEOARTHRITIS Psychiatric Medical History: Denies: Hx Depression Past Surgical History: Reports: Hx Cardiac Catheterization, Hx Internal Defibrillator - Immunizations Hx Diphtheria, Pertussis, Tetanus Vaccination: Yes Physical Exam - Vital signs Vitals: Temp Pulse Resp BP Pulse Ox 97.8 F 65 16 101/73 98 10/09/19 18:21 10/09/19 18:21 10/09/19 18:21 10/09/19 18:21 10/09/19 18:21 - General General appearance: Alert In distress: None - Respiratory Respiratory status: No respiratory distress Chest status: Nontender Breath sounds: Normal Course - Vital Signs Vital signs: Temp Pulse Resp BP Pulse Ox 97.8 F 65 16 101/73 98 10/09/19 18:21 10/09/19 18:21 10/09/19 18:21 10/09/19 18:21 10/09/19 18:21 Doctor's Discharge - Discharge Referrals: LENA DEMARCO MD [Primary Care Provider] - Follow up as needed
--- NOTE | 2019-10-09 19:25 | RADIOLOGY REPORT (SQ) ---
EXAM DESCRIPTION: CHEST SINGLE VIEW IMAGES COMPLETED DATE/TIME: 10/09/2019 7:12 pm REASON FOR STUDY: weakness COMPARISON: 07/09/2019 EXAM PARAMETERS: NUMBER OF VIEWS: One view. TECHNIQUE: Single frontal radiographic view of the chest acquired. RADIATION DOSE: NA LIMITATIONS: None. FINDINGS: LUNGS AND PLEURA: No opacities, masses or pneumothorax. No pleural effusion. MEDIASTINUM AND HILAR STRUCTURES: No masses. Contour normal. HEART AND VASCULAR STRUCTURES: Heart normal in size. Normal vasculature. BONES: No acute findings. HARDWARE: Pacemaker/defibrillator. OTHER: No other significant finding. IMPRESSION: NO ACUTE RADIOGRAPHIC FINDING IN THE CHEST. TECHNICAL DOCUMENTATION: JOB ID: [id number] 2010 [employer]- All Rights Reserved Reading location - IP/workstation name: [email or web address]
[2019-10-09 20:44] LABS: APPEARANCE,URINE SLIGHTLY-CLOUDY; BILIRUBIN,URINE NEGATIVE (NEGATIVE); COLOR,URINE YELLOW; GLUCOSE, URINE NEGATIVE (NEGATIVE); KETONES,URINE NEGATIVE (NEGATIVE); LEUKOCYTE ESTERASE,URINE NEGATIVE (NEGATIVE); NITRITE,URINE NEGATIVE (NEGATIVE); PROTEIN,URINE NEGATIVE (NEGATIVE); UROBILINOGEN,URINE NEGATIVE mg/dL (<2.0)
[2019-10-09 21:26] LABS: HEMATOCRIT 44.7 % (37.9-51.0); HEMOGLOBIN 15.4 g/dL (13.5-17.0); MEAN CORPUSCULAR HEMOGLOBIN 28.3 pg (27.0-33.4); MEAN CORPUSCULAR HGB CONC 34.5 g/dL (32.0-36.0); MEAN CORPUSCULAR VOLUME 82 fl (80-97); PLATELET COUNT 307 10^3/uL (150-450); RED BLOOD COUNT 5.44 10^6/uL (4.35-5.55); RED CELL DISTRIBUTION WIDTH 13.2 % (11.5-14.0); WHITE BLOOD COUNT 10.5 10^3/uL (4.0-10.5)
[2019-10-09 21:40] LABS: ALBUMIN 4.2 g/dL (3.5-5.0); ALKALINE PHOSPHATASE 144 U/L (38-126); ANION GAP 13 (5-19); ASPARTATE AMINO TRANSFERASE 599 U/L (17-59); BILIRUBIN,DIRECT 0.8 mg/dL (0.0-0.4); BILIRUBIN,TOTAL 1.8 mg/dL (0.2-1.3); CALCIUM 9.9 mg/dL (8.4-10.2); CARBON DIOXIDE 34 mmol/L (22-30); CHLORIDE 78 mmol/L (98-107)
[2019-10-09 21:56] LABS: BLOOD UREA NITROGEN 156 mg/dL (7-20)
[2019-10-09 21:57] LABS: ABSOLUTE LYMPHOCYTES# (MANUAL) 2.3 10^3/uL (0.5-4.7); ABSOLUTE MONOCYTES # (MANUAL) 0.6 10^3/uL (0.1-1.4); BASOPHILS % (MANUAL) 0 % (0-2); EOSINOPHILS % (MANUAL) 0 % (0-6); LYMPHOCYTES % (MANUAL) 21 % (13-45); METAMYELOCYTES % (MANUAL) 1 % (0-1); MONOCYTES % (MANUAL) 6 % (3-13); SEGMENTED NEUTROPHILS % (MAN) 71 % (42-78); TOTAL CELLS COUNTED 100
[2019-10-09 21:58] LABS: OVALOCYTES SLIGHT; PLATELET COMMENT ADEQUATE; PLATELET LARGE PRESENT; POIKILOCYTOSIS SLIGHT
[2019-10-09 22:01] LABS: GLUCOSE 413 mg/dL (75-110); POTASSIUM 2.9 mmol/L (3.6-5.0)
[2019-10-09 22:02] LABS: TROPONIN I 0.155 ng/mL
--- NOTE | 2019-10-09 22:06 | ER Document Report ---
ED General - General Mode of Arrival: Ambulatory Information source: Patient TRAVEL OUTSIDE OF THE [place] IN LAST 30 DAYS: No - HPI Onset: Last week Onset/Duration: Sudden, Persistent Quality of pain: Achy Severity: Mild Pain Level: 1 Associated symptoms: Sore throat, Weakness Exacerbated by: Denies Relieved by: Denies Similar symptoms previously: Yes Recently seen / treated by doctor: Yes <BRIAN FLORES JR - Last Filed: 10/10/19 00:16> <JENNIFER COOK - Last Filed: 10/11/19 12:05> - General Chief Complaint: General Weakness Stated Complaint: FAILURE TO THRIVE/WEAKNESS Time Seen by Provider: 10/09/19 18:58 Primary Care Provider: LENA VAUGHN MD [Primary Care Provider] - Follow up as needed Notes: 10/09/19 18:58 - ED Nursing Note by MARIE ELLIOTT Acct Num: [id number] : 1945 Patient Age: 74 Pt presents to the ED for c/o general weakness. Pt states he has been feeling weak and 'bad' lately, brought to ED by son. Pt states Dr. Chin called him and told him to come to the ED for "treatment because pills won't work fast enough"; pt poor historian, unsure what he needs treatment for. Pt is A&Ox4, breaths e/u, NAD. Jasper CANSECO notes Patient presents stating that he had outpatient lab work done today and his doctor called and advised him to come to the hospital for treatment. Patient denies any complaints aside from generalized weakness. Patient denies any chest pain or shortness of breath. Patient has a history of diabetes, congestive heart failure, A. fib, chronic kidney disease and CAD my notes 74-year-old black male arrives by POV with chief complaint of having 1 week history of difficulty swallowing and sore throat. He is not on dialysis but is followed by Dr. Chin because of CKD and he was last admitted here in June [address] Vaughn because of CHF. He also had syncope and rule out OK. "He saw Dr. Chin today who advised him because of his blood tests to come to the hospital". Patient has on labs ordered by HARLEEN Hutchinson.. Hyperglycemia and hypoka lemia and pseudo-hyponatremia secondary to the high blood sugar. Also BUN and creatinine are quite severely high. 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 (BRIAN KHAN JR) - Related Data Allergies/Adverse Reactions: No Known Allergies Allergy (Verified 07/29/14 08:37) Past Medical History - General Information source: Patient - Social History Smoking Status: Never Smoker Cigarette use (# per day): No Chew tobacco use (# tins/day): No Smoking Education Provided: No Frequency of alcohol use: None Drug Abuse: None Lives with: Family Family History: Reviewed & Not Pertinent Patient has suicidal ideation: No Patient has homicidal ideation: No - Past Medical History Cardiac Medical History: Reports: Hx Atrial Fibrillation, Hx Congestive Heart Failure, Hx Coronary Artery Disease, Hx Hypercholesterolemia, Hx Hypertension Denies: Hx Heart Attack Pulmonary Medical History: Reports: Hx COPD Denies: Hx Asthma, Hx Bronchitis, Hx Pneumonia Neurological Medical History: Denies: Hx Cerebrovascular Accident, Hx Seizures Endocrine Medical History: Reports: Hx Diabetes Mellitus Type 1, Hx Diabetes Mellitus Type 2 Renal/ Medical History: Denies: Hx Peritoneal Dialysis GI Medical History: Reports: Hx Gastroesophageal Reflux Disease Musculoskeletal Medical History: Reports Hx Arthritis - OSTEOARTHRITIS Psychiatric Medical History: Denies: Hx Depression Past Surgical History: Reports: Hx Cardiac Catheterization, Hx Internal Defibrillator - Immunizations Hx Diphtheria, Pertussis, Tetanus Vaccination: Yes <BRIAN FLORES JR - Last Filed: 10/10/19 00:16> Review of Systems - Review of Systems Constitutional: See HPI, Malaise, Weakness EENT: See HPI, Throat pain, Difficulty swallowing, Mouth pain Cardiovascular: See HPI Respiratory: No symptoms reported Gastrointestinal: No symptoms reported Male Genitourinary: No symptoms reported Musculoskeletal: No symptoms reported Skin: No symptoms reported Hematologic/Lymphatic: No symptoms reported Neurological/Psychological: No symptoms reported <BRIAN FLORES JR - Last Filed: 10/10/19 00:16> Physical Exam - Vital signs Interpretation: Hypotensive - General General appearance: Alert - HEENT Head: Normocephalic Eyes: Normal Pupils: PERRL Sinus: Normal Nasal: Normal Mouth/Lips: Normal Mucous membranes: Dry Pharynx: Normal Neck: Normal - Respiratory Respiratory status: No respiratory distress Chest status: Nontender Breath sounds: Normal Chest palpation: Normal - Cardiovascular Rhythm: Regular, Other - Patient has a left sided defibrillator underskin of the chest. Heart sounds: Normal auscultation Murmur: No - Abdominal Inspection: Normal Distension: No distension Bowel sounds: Normal Tenderness: Nontender Organomegaly: No organomegaly - Rectal Hemorrhoids: Other - deferred - Genitourinary Scrotum: Other - deferred - Back Back: Normal - Extremities General upper extremity: Normal inspection, Nontender, Normal color, Normal ROM, Normal temperature General lower extremity: Normal inspection, Nontender, Normal color, Normal ROM, Normal temperature, Normal weight bearing. No: Beto's sign - Neurological Neuro grossly intact: Yes Cognition: Normal Orientation: AAOx4 Marcos Coma Scale Eye Opening: Spontaneous Marcos Coma Scale Verbal: Oriented Marcos Coma Scale Motor: Obeys Commands [place] Coma Scale Total: 15 Speech: Normal Motor strength normal: LUE, RUE, LLE, RLE Sensory: Normal - Psychological Associated symptoms: Normal affect - Skin Skin Temperature: Warm Skin Moisture: Dry <BAREFOOTBRIAN JR - Last Filed: 10/10/19 00:16> - Vital signs Vitals: Temp Pulse Resp BP Pulse Ox 97.8 F 65 16 101/73 98 10/09/19 18:21 10/09/19 18:21 10/09/19 18:21 10/09/19 18:21 10/09/19 18:21 Course - Laboratory Result Diagrams: 10/09/19 21:03 10/09/19 21:03 - Diagnostic Test Radiology reviewed: Reports reviewed - EKG Interpretation by Ri EKG shows normal: Sinus rhythm - Pacer rhythm at 63bpm <BRIAN FLORES JR - Last Filed: 10/10/19 00:16> - Laboratory Result Diagrams: 10/11/19 08:18 10/11/19 08:18 <JENNIFER COOK - Last Filed: 10/11/19 12:05> - Re-evaluation Re-evalutation: 10/11/19 12:00 Still no bed at [facility] for transfer. Patient was unable to have MRCP because of implanted pacemaker. I have updated Dr. Vaughn his primary care doc tor on his current status. Dr. Vaughn now wants to admit patient to [facility]. He requests that we obtain rapid COVID testing and this has been ordered. 10/11/19 12:02 (JENNIFER COOK) - Vital Signs Vital signs: Temp Pulse Resp BP Pulse Ox 97.8 F 62 14 111/83 98 10/11/19 06:21 10/09/19 21:57 10/11/19 11:01 10/11/19 11:01 10/11/19 11:01 - Laboratory Laboratory results interpreted by me: 10/09/19 10/09/19 10/09/19 20:18 21:03 21:03 WBC Seg Neuts % (Manual) Lymphocytes % (Manual) Abs Neuts (Manual) Abs Lymphs (Manual) Sodium 125.4 L Potassium 2.9 L* Chloride 78 L Carbon Dioxide 34 H BUN 156 H Creatinine 3.96 H Est GFR ( Amer) 18 L Est GFR (MDRD) Non-Af 15 L Glucose 413 H* POC Glucose Magnesium 3.4 H Total Bilirubin 1.8 H Direct Bilirubin 0.8 H AST 599 H ALT 680 H Alkaline Phosphatase 144 H NT-Pro-B Natriuret Pep 3630 H Total Protein 9.0 H Urine Blood SMALL H 10/09/19 10/10/19 10/10/19 22:19 00:26 11:20 WBC Seg Neuts % (Manual) Lymphocytes % (Manual) Abs Neuts (Manual) Abs Lymphs (Manual) Sodium 130.3 L Potassium 2.5 L* Chloride 82 L Carbon Dioxide 33 H BUN 149 H Creatinine 3.62 H Est GFR ( Amer) 20 L Est GFR (MDRD) Non-Af 17 L Glucose 439 H* POC Glucose 402 H* 389 H Magnesium Total Bilirubin 2.0 H Direct Bilirubin 0.8 H AST 478 H ALT 620 H Alkaline Phosphatase 130 H NT-Pro-B Natriuret Pep Total Protein Urine Blood 10/10/19 10/10/19 10/10/19 11:20 13:31 14:32 WBC Seg Neuts % (Manual) 81 H Lymphocytes % (Manual) 10 L Abs Neuts (Manual) Abs Lymphs (Manual) Sodium Potassium Chloride Carbon Dioxide BUN Creatinine Est GFR ( Amer) Est GFR (MDRD) Non-Af Glucose POC Glucose 479 H* 404 H* Magnesium Total Bilirubin Direct Bilirubin AST ALT Alkaline Phosphatase NT-Pro-B Natriuret Pep Total Protein Urine Blood 10/10/19 10/10/19 10/10/19 16:22 23:01 23:17 WBC Seg Neuts % (Manual) Lymphocytes % (Manual) Abs Neuts (Manual) Abs Lymphs (Manual) Sodium 133.5 L Potassium 2.9 L* Chloride 91 L Carbon Dioxide 31 H BUN 142 H Creatinine 3.37 H Est GFR ( Amer) 22 L Est GFR (MDRD) Non-Af 18 L Glucose 302 H POC Glucose 288 H 312 H Magnesium Total Bilirubin 1.8 H Direct Bilirubin 0.8 H AST 407 H ALT 586 H Alkaline Phosphatase NT-Pro-B Natriuret Pep Total Protein Urine Blood 10/11/19 10/11/19 10/11/19 08:18 08:18 08:18 WBC 10.6 H Seg Neuts % (Manual) 88 H Lymphocytes % (Manual) 4 L Abs Neuts (Manual) 9.3 H Abs Lymphs (Manual) 0.4 L Sodium 136.6 L Potassium 2.9 L* Chloride 93 L Carbon Dioxide BUN 134 H Creatinine 3.27 H Est GFR ( Amer) 23 L Est GFR (MDRD) Non-Af 19 L Glucose 340 H POC Glucose 316 H Magnesium Total Bilirubin 1.9 H Direct Bilirubin 0.9 H AST 360 H ALT 562 H Alkaline Phosphatase NT-Pro-B Natriuret Pep Total Protein Urine Blood 10/11/19 08:18 WBC Seg Neuts % (Manual) Lymphocytes % (Manual) Abs Neuts (Manual) Abs Lymphs (Manual) Sodium Potassium Chloride Carbon Dioxide BUN Creatinine Est GFR ( Amer) Est GFR (MDRD) Non-Af Glucose POC Glucose Magnesium 3.2 H Total Bilirubin Direct Bilirubin AST ALT Alkaline Phosphatase NT-Pro-B Natriuret Pep Total Protein Urine Blood Critical Care Note - Critical Care Note Total time excluding time spent on procedures (mins): 60 <BRIAN FLORES JR - Last Filed: 10/10/19 00:16> - Critical Care Note Comments: I paged Dr. Vaughn at 2230 patient and he returned call at 1035 and advised the patient had gallbladder out last year at [facility] and he has a ejection fraction that is around 10% and advises patient to be transferred to [facility] because of possible common duct stone. Patient has no abdominal pain currently. At [address] Brown at [facility] through the transfer system [facility]; he advises that his symptoms do suggest common duct stone but there are no beds available at [facility] at this time it is full diversion for adults. I recalled Dr. Vaughn at 2400 and he advises Kenisha Valentine. At 0005 I spoke with Oleg who is the hospital commercial finance manager at this time and he advises" no ERCP because there is only one doc who performs ERCPs and no one is doing ERCPs this week." I spoke with Dr. Vaughn at 1210 and he advises to keep the patient in the ER and he will try to figure something out in the morning. (BRIAN FLORES JR) Discharge <BRIAN FLORES JR - Last Filed: 10/10/19 00:16> - Discharge Admitting Provider: [facility] Unit Admitted: [facility] <JENNIFER COOK - Last Filed: 10/11/19 12:05> - Discharge Clinical Impression: LFTs abnormal, Bilirubinemia, Hyperkalemia, Chronic kidney disease, stage 3, Weakness Acute on chronic renal failure Qualifiers: Acute renal failure type: unspecified Chronic kidney disease stage: stage 5, not on chronic dialysis Qualified Code(s): N17.9 - Acute kidney failure, unspecified Condition: Good Disposition: ADMITTED INPATIENT Referrals: LENA VAUGHN MD [Primary Care Provider] - Follow up as needed
[2019-10-09] MEDS ORDERED: INSULIN REG, HUMAN 100 UNIT/ML 3 ML VIAL (PYX) IV ONE (22:09)
[2019-10-09] MEDS ORDERED: NORMAL SALINE 250 ML IV ONE (22:09)
[2019-10-09] MEDS ORDERED: POTASSI CL 20 MEQ/50 ML RIDER 20 MEQ/50 ML RTUPB IV ONE (22:10)
--- NOTE | 2019-10-09 23:36 | RADIOLOGY REPORT (SQ) ---
EXAM DESCRIPTION: CT scan of the abdomen and pelvis without contrast. CLINICAL HISTORY: 74 years Male; bilirubin inc previous cholecystectomy. TECHNIQUE: CT of the abdomen and pelvis without intravenous contrast.. Oral contrast was used. All CT scans at this facility use dose modulation, iterative reconstruction, and/or weight based dosing when appropriate to reduce radiation dose to as low as reasonably achievable. This exam was performed according to our department optimization program which includes automated exposure control, adjustment of the mA and/or kv according to patient size and/or use of iterative reconstruction technique. COMPARISON: CT scan of the abdomen and pelvis without contrast July 11 FINDINGS: Lower chest:The lung bases are clear. ICD device is present with leads terminating in the right atrium, right ventricle and coronary sinus. No pericardial abnormality. Coronary artery calcifications are present. Abdomen: Liver and biliary tree: Again identified is air in the biliary tree. The gallbladder surgically absent. In the dome of the left liver lobe is a 14 mm low density areas suggestive of a cyst. This was present on the previous exam. Overall appearance of the liver is stable. There is hyperdensity in the liver suggesting iron deposition. Pancreas: Normal Spleen:Within normal limits Kidneys: Kidneys are normal in size, shape and position. No stones. No mass or hydronephrosis. Adrenal glands:Within normal limits Vascular structures: Vascular calcifications are noted in the aorta and visceral vessels. The appearance is stable. Retroperitoneum: No mass or lymphadenopathy Abdominal wall: Small umbilical hernia containing omentum. Small inguinal hernias containing fat. GI: Moderate stool is seen throughout the colon and formed stool is present in the rectal vault. The small bowel is decompressed. No obstruction. The appendix is not clearly seen. Appendix: The appendix appears normal. General: No free air. No free fluid Pelvis: Lymph nodes: No mass or lymphadenopathy Bladder: Larios catheter is been removed in the bladder now appears normal. Pelvis: Prostate gland remains enlarged. Bones: No acute bone findings. IMPRESSION: 1. Hyperdense appearance of the unenhanced liver raising the possibility of iron deposition. There is persistent air in the biliary tree. The appearance is stable. 2. No acute process in the abdomen or pelvis.
[2019-10-10] MEDS ORDERED: PIPERACILLIN/TAZOBACTAM 3.375 GM VIAL IV ONE (00:03)
--- NOTE | 2019-10-10 02:25 | EKG REPORT ---
SEVERITY:- ABNORMAL ECG - ATRIAL-SENSED VENTRICULAR-PACED RHYTHM : Confirmed by: Ginny Weber MD 10-Oct-2019 02:25:16
--- NOTE | 2019-10-10 09:21 | PDOC CONSULTATION ---
Consultation Consult Date: 10/10/19 Attending physician:: LENA DEMARCO Provider Consulted: LENA DEMARCO Consult reason:: Medical problems History of Present Illness Admission Date/PCP: LENA DEMARCO MD Patient complains of: Abnormal labs History of Present Illness: SANDRA COHN is a 74 year old male He is a 74-year-old male's with a significant history of the congestive heart failure with the EF is less than 15% currently follow the CHF clinic in [place] status post defibrillator coronary artery diseaseAnd type 2 diabetes with multiple complications with the history of the hypertensions hyperlipidemia and chronic kidney disease stage IIICurrently follow the CHF clinic in [place] have a blood draw on Tuesday and some abnormalities and also seen by Dr. Chin with the worsening the kidney function sent to the emergency departments Patient's denied any chest pain no short of breath patient's denied any nausea no vomiting but patient's appetite is very poor according to the patient Emergency department patient's BUN is 156 and creatinine is 3.69 currently on acute renal failure patient's LFTs are very highly elevated in the 500 range which all normal back in June Patient have a cholecystectomy was done last year Patient CT scan of the abdomen is suggest that hepatic depositions and also patient will air in the biliary tract which concern about the possible CBD stone with elevated bilirubin and elevated LFT and alk phos Pain patients did not complain of any abdominal pain which also contributed to patient have underlying hepatic congestions due to the chronic heart failure with 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 Demarco in [place] cardiology's which patient is currently follow suggest the patient is currently follow-up with the CHF clinic and I think a patients probably call the hospitalist service to accept the patient's Discussed with the ER physicians to the multiple comorbidity with ongoing heart failure with low EF with acute renal failure with the questionable CBD stone with elevated LFT patients get a benefit to the go to the tertiary centers Past Medical History Cardiac Medical History: Reports: Atrial Fibrillation, Congestive Heart Failure, Coronary Artery Disease, Hyperlipidema, Hypertension Denies: Myocardial Infarction Pulmonary Medical History: Reports: Chronic Obstructive Pulmonary Disease (COPD) Denies: Asthma, Bronchitis, Pneumonia Neurological Medical History: Denies: Seizures Endocrine Medical History: Reports: Diabetes Mellitus Type 2 GI Medical History: Reports: Gastroesophageal Reflux Disease Musculoskeltal Medical History: Reports: Arthritis - OSTEOARTHRITIS Psychiatric Medical History: Denies: Depression Hematology: Reports: Anemia Past Surgical History Past Surgical History: Reports: Cardiac Catheterization, Cholecystectomy, Internal Defibrillator Social History Information Source: Patient Lives with: Family Smoking Status: Never Smoker Frequency of Alcohol Use: None Hx Recreational Drug Use: No Drugs: None Hx Prescription Drug Abuse: No Family History Family History: Reviewed & Not Pertinent Parental Family History Reviewed: Yes Children Family History Reviewed: Yes Sibling(s) Family History Reviewed.: Yes Medication/Allergy Home Medications: Levothyroxine Sodium 125 mcg PO Q6AM 07/29/14 Montelukast Sodium 10 mg PO DAILY 07/29/14 Simvastatin 20 mg PO QHS 07/29/14 Amiodarone HCl [Cordarone 200 mg Tablet] 300 mg PO DAILY 06/19/18 Docusate Sodium [Colace] 100 mg PO DAILY 06/19/18 Hydralazine HCl [Apresoline 25 mg Tablet] 12.5 mg PO Q8H 06/19/18 Pantoprazole Sodium [Protonix] 40 mg PO DAILY 06/19/18 Sitagliptin Phosphate [Januvia 50 mg Tablet] 50 mg PO DAILY 06/19/18 Calcitriol [Rocaltrol 0.25 mcg Capsule] 0.25 mcg PO MOFR@1000 07/07/19 Isosorbide Mononitrate [Imdur 30 mg Tablet.er] 15 mg PO DAILY 07/07/19 Metolazone [Zaroxolyn 2.5 mg Tablet] 2.5 mg PO MOFR@1000 07/07/19 Metoprolol Succinate [Toprol Xl 25 mg Tab.sr] 12.5 mg PO DAILY 07/07/19 Triamcinolone Acetonide [Aristocort 0.5% Cream 15 gm] 1 applic TP BID 07/07/19 Apixaban [Eliquis 2.5 mg Tablet] 2.5 mg PO BID #60 tablet 07/13/19 Ciprofloxacin HCl [Cipro 500 mg Tablet] 500 mg PO BID #20 tablet 07/13/19 Insulin NPH Hum/Reg Insulin Hm [Humulin 70/30 Kwikpen] 5 units SQ QPM #0 07/13/19 Insulin NPH Hum/Reg Insulin Hm [Humulin 70/30 Kwikpen] 10 units SQ QAM #0 07/13/19 Torsemide [Demadex 20 mg Tablet] 20 mg PO DAILY #30 tablet 07/13/19 Allergies/Adverse Reactions: No Known Allergies Allergy (Verified 07/29/14 08:37) Review of Systems Constitutional: ABSENT: chills, fever(s), headache(s), weight gain, weight loss Eyes: ABSENT: visual disturbances Ears: ABSENT: hearing changes Cardiovascular: ABSENT: chest pain, dyspnea on exertion, edema, orthropnea, palpitations Respiratory: ABSENT: cough, hemoptysis Gastrointestinal: ABSENT: abdominal pain, constipation, diarrhea, hematemesis, hematochezia, nausea, vomiting Genitourinary: ABSENT: dysuria, hematuria Musculoskeletal: ABSENT: joint swelling Integumentary: ABSENT: rash, wounds Neurological: ABSENT: abnormal gait, abnormal speech, confusion, dizziness, focal weakness, syncope Psychiatric: ABSENT: anxiety, depression, homidical ideation, suicidal ideation Endocrine: ABSENT: cold intolerance, heat intolerance, menstrual abnormalities, polydipsia, polyuria Hematologic/Lymphatic: ABSENT: easy bleeding, easy bruising, lymphadenopathy Physical Exam Vital Signs: Temp Pulse Resp BP Pulse Ox 98.7 F 62 13 106/76 99 10/10/19 03:43 10/09/19 21:57 10/10/19 09:00 10/10/19 08:01 10/10/19 09:00 Intake & Output 10/09/19 10/10/19 10/11/19 06:59 06:59 06:59 Intake Total 300 Output Total 375 Balance -75 Weight 70.8 kg General appearance: PRESENT: no acute distress, well-developed, well-nourished Head exam: PRESENT: atraumatic, normocephalic Eye exam: PRESENT: conjunctiva pink, EOMI, PERRLA. ABSENT: scleral icterus Ear exam: PRESENT: normal external ear exam Mouth exam: PRESENT: moist, tongue midline Neck exam: PRESENT: full ROM. ABSENT: carotid bruit, JVD, lymphadenopathy, thyromegaly Respiratory exam: PRESENT: clear to auscultation erasmo Cardiovascular exam: PRESENT: RRR. ABSENT: diastolic murmur, rubs, systolic murmur Pulses: PRESENT: normal dorsalis pedis pul, +2 pedal pulses bilateral Vascular exam: PRESENT: normal capillary refill GI/Abdominal exam: PRESENT: normal bowel sounds, soft. ABSENT: distended, guarding, mass, organolmegaly, rebound, tenderness Rectal exam: PRESENT: deferred Neurological exam: PRESENT: alert, awake, oriented to person, oriented to place, oriented to time, oriented to situation, CN II-XII grossly intact. ABSENT: motor sensory deficit Psychiatric exam: PRESENT: appropriate affect, normal mood. ABSENT: homicidal ideation, suicidal ideation Skin exam: PRESENT: dry, intact, warm. ABSENT: cyanosis, rash Results Laboratory Results: 10/09/19 21:03 10/09/19 21:03 10/09/19 10/09/19 10/09/19 20:18 21:03 21:03 WBC 10.5 RBC 5.44 Hgb 15.4 Hct 44.7 MCV 82 MCH 28.3 MCHC 34.5 RDW 13.2 Plt Count 307 Seg Neutrophils % Not Reportable Sodium 125.4 L Potassium 2.9 L* Chloride 78 L Carbon Dioxide 34 H Anion Gap 13 BUN 156 H Creatinine 3.96 H Est GFR ( Amer) 18 L Glucose 413 H* Calcium 9.9 Magnesium 3.4 H Total Bilirubin 1.8 H AST 599 H Alkaline Phosphatase 144 H Total Protein 9.0 H Albumin 4.2 Urine Color YELLOW Urine Appearance SLIGHTLY-CLOUDY Urine pH 6.0 Ur Specific [place] 1.010 Urine Protein NEGATIVE Urine Glucose (UA) NEGATIVE Urine Ketones NEGATIVE Urine Blood SMALL H Urine Nitrite NEGATIVE Ur Leukocyte Esterase NEGATIVE Urine WBC (Auto) 0 Urine RBC (Auto) 3 10/09/19 21:03 Troponin I 0.155 NT-Pro-B Natriuret Pep 3630 H Impressions: Chest X-Ray 10/09/19 19:03 IMPRESSION: NO ACUTE RADIOGRAPHIC FINDING IN THE CHEST. Abdomen/Pelvis CT 10/09/19 22:41 IMPRESSION: 1. Hyperdense appearance of the unenhanced liver raising the possibility of iron deposition. There is persistent air in the biliary tree. The appearance is stable. 2. No acute process in the abdomen or pelvis. Assessment & Plan - Diagnosis (1) Acute on chronic renal failure Qualifiers: Acute renal failure type: unspecified Chronic kidney disease stage: stage 5, not on chronic dialysis Qualified Code(s): N17.9 - Acute kidney failure, unspecified; N18.5 - Chronic kidney disease, stage 5 Is this a current diagnosis for this admission?: Yes Plan: With a significant history of the congestive heart failure with a low EF will give a slow IV fluids patients probably might need a dobutamine drips and consult the nephrology while patient is here (2) LFTs abnormal Is this a current diagnosis for this admission?: Yes Plan: Multiple Etiology including the hepatic congestions with a chronic congestive heart failure with low EF with amiodarone toxicity versus CBD stone (3) AICD (automatic cardioverter/defibrillator) present Is this a current diagnosis for this admission?: Yes (4) Chronic kidney disease, stage 3 Is this a current diagnosis for this admission?: Yes Plan: Consult the nephrology (5) Weakness Is this a current diagnosis for this admission?: Yes (6) Type 2 diabetes mellitus Qualifiers: Diabetes mellitus snf insulin use: unspecified snf insulin use status Chronic kidney disease stage: stage 3 (moderate) Is this a current diagnosis for this admission?: Yes Plan: Continues a sliding scale with [facility] protocol (7) Afib Qualifiers: Atrial fibrillation type: unspecified Qualified Code(s): I48.91 - Unspecified atrial fibrillation Is this a current diagnosis for this admission?: Yes Plan: Patient is currently on anticoagulations (8) CAD (coronary artery disease) Qualifiers: Coronary Disease-Associated Artery/Lesion type: [place] artery Associated angina: with other forms of angina Is this a current diagnosis for this admission?: Yes Plan: Patient is currently see the CHF clinic in [place] (9) CHF (congestive heart failure) Qualifiers: Heart failure type: combined systolic and diastolic Heart failure chronicity: chronic Qualified Code(s): I50.42 - Chronic combined systolic (congestive) and diastolic (congestive) heart failure Is this a current diagnosis for this admission?: Yes Plan: Patient is currently on the dry side currently see the CHF clinic in [place] with a very low EF (10) HLD (hyperlipidemia) Qualifiers: Hyperlipidemia type: unspecified Qualified Code(s): E78.5 - Hyperlipidemia, unspecified Is this a current diagnosis for this admission?: Yes (11) HTN (hypertension) Qualifiers: Hypertension type: essential hypertension Qualified Code(s): I10 - Essential (primary) hypertension Is this a current diagnosis for this admission?: Yes Plan: Currently low side we will continue to hold the blood pressure medications (12) Anemia Qualifiers: Chronic kidney disease stage: stage 4 (severe) Is this a current diagnosis for this admission?: Yes - Time Time Spent: 50 to 70 Minutes Medications reviewed and adjusted accordingly: Yes Anticipated discharge: [facility] Hospital Within: Other - Plan Summary Plan Summary: Continues to IV fluid with the very cautious because of the low EF consult the nephrology while patient is here replace the potassiums continues a sliding scale Discussed with myself to the cma at the [place] discussed with the ER physicians about the consult the hospitalist service at [place] because of the multiple comorbidities patients might get a benefit for the ongoing CHF renal failure and rule out any CBD stones were the services not available about GI here
[2019-10-10] MEDS ORDERED: DEXTROSE 40% GEL 15 GM TUBE PO PRN ×2 (09:36)
[2019-10-10] MEDS ORDERED: GLUCAGON,HUMAN RECOMB 1 MG INJ IM PRN (09:36)
[2019-10-10] MEDS ORDERED: DEXTROSE 50%-WATER 25 GM/50 ML DISP.SYRIN IV PRN ×2 (09:36)
[2019-10-10 11:56] LABS: HEMATOCRIT 43.2 % (37.9-51.0); HEMOGLOBIN 14.9 g/dL (13.5-17.0); MEAN CORPUSCULAR HEMOGLOBIN 28.6 pg (27.0-33.4); MEAN CORPUSCULAR HGB CONC 34.5 g/dL (32.0-36.0); MEAN CORPUSCULAR VOLUME 83 fl (80-97); PLATELET COUNT 293 10^3/uL (150-450); RED CELL DISTRIBUTION WIDTH 13.3 % (11.5-14.0); WHITE BLOOD COUNT 9.7 10^3/uL (4.0-10.5)
[2019-10-10 12:02] LABS: ALBUMIN 3.7 g/dL (3.5-5.0); ALKALINE PHOSPHATASE 130 U/L (38-126); ANION GAP 15 (5-19); ASPARTATE AMINO TRANSFERASE 478 U/L (17-59); BILIRUBIN,DIRECT 0.8 mg/dL (0.0-0.4); CALCIUM 9.4 mg/dL (8.4-10.2); CARBON DIOXIDE 33 mmol/L (22-30); CHLORIDE 82 mmol/L (98-107); TOTAL PROTEIN 8.1 g/dL (6.3-8.2)
[2019-10-10 12:17] LABS: GLUCOSE 439 mg/dL (75-110)
[2019-10-10 12:18] LABS: POTASSIUM 2.5 mmol/L (3.6-5.0)
[2019-10-10 12:19] LABS: BLOOD UREA NITROGEN 149 mg/dL (7-20)
[2019-10-10 12:26] LABS: ABSOLUTE MONOCYTES # (MANUAL) 0.9 10^3/uL (0.1-1.4); BASOPHILS % (MANUAL) 0 % (0-2); EOSINOPHILS % (MANUAL) 0 % (0-6); LYMPHOCYTES % (MANUAL) 10 % (13-45); MONOCYTES % (MANUAL) 9 % (3-13); PLATELET COMMENT ADEQUATE; RBC MORPHOLOGY COMMENT NORMO-CYTIC/CHROMIC; SEGMENTED NEUTROPHILS % (MAN) 81 % (42-78); TOTAL CELLS COUNTED 100
[2019-10-10] MEDS ORDERED: INSULIN REG, HUMAN 100 UNIT/ML 3 ML VIAL (PYX) IV ONE ×2 (12:40→14:53)
[2019-10-10] MEDS: PIPERACILLIN SODIUM/TAZOBACTAM 2.25 GM in NORMAL SALINE 50 ML IV SCH ×2 (12:46→18:45)
[2019-10-10] MEDS: POTASSI CL 20 MEQ/50 ML RIDER 20 MEQ/50 ML RTUPB IV SCH ×4 (13:17→20:00)
[2019-10-10] MEDS: INSULIN LISPRO 100 UNIT/ML 3 ML VIAL SUBCUT SCH ×3 (13:44→23:08)
[2019-10-10] MEDS ORDERED: POTASSIUM CHLORIDE 20 MEQ/50 ML RTU IV ONE (17:45)
[2019-10-10 23:59] LABS: ALBUMIN 3.6 g/dL (3.5-5.0); ALKALINE PHOSPHATASE 125 U/L (38-126); ANION GAP 12 (5-19); ASPARTATE AMINO TRANSFERASE 407 U/L (17-59); BILIRUBIN,DIRECT 0.8 mg/dL (0.0-0.4); BILIRUBIN,TOTAL 1.8 mg/dL (0.2-1.3); CALCIUM 9.4 mg/dL (8.4-10.2); CARBON DIOXIDE 31 mmol/L (22-30); CHLORIDE 91 mmol/L (98-107); GLUCOSE 302 mg/dL (75-110); TOTAL PROTEIN 7.9 g/dL (6.3-8.2)
[2019-10-11 00:08] LABS: BLOOD UREA NITROGEN 142 mg/dL (7-20)
[2019-10-11 00:10] LABS: POTASSIUM 2.9 mmol/L (3.6-5.0)
[2019-10-11] MEDS ORDERED: POTASSIUM CHLORIDE 10 MEQ TABLET.ER PO ONE ×2 (00:47→22:48)
[2019-10-11] MEDS ORDERED: PIPERACILLIN/TAZOBACTAM 2.25 GM VIAL IV ONE (00:49)
[2019-10-11] MEDS: PIPERACILLIN SODIUM/TAZOBACTAM 2.25 GM in NORMAL SALINE 50 ML IV SCH ×5 (01:01→23:43)
[2019-10-11] MEDS ORDERED: POTASSIUM CHLORIDE 20 MEQ PACKET PO ONE (01:08)
[2019-10-11] MEDS: INSULIN LISPRO 100 UNIT/ML 3 ML VIAL SUBCUT SCH ×4 (08:35→22:07)
[2019-10-11 09:02] LABS: ALBUMIN 3.5 g/dL (3.5-5.0); ALKALINE PHOSPHATASE 121 U/L (38-126); ANION GAP 14 (5-19); ASPARTATE AMINO TRANSFERASE 360 U/L (17-59); BILIRUBIN,DIRECT 0.9 mg/dL (0.0-0.4); BILIRUBIN,TOTAL 1.9 mg/dL (0.2-1.3); CALCIUM 9.4 mg/dL (8.4-10.2); CARBON DIOXIDE 30 mmol/L (22-30); CHLORIDE 93 mmol/L (98-107); GLUCOSE 340 mg/dL (75-110); TOTAL PROTEIN 7.8 g/dL (6.3-8.2)
[2019-10-11 09:04] LABS: HEMATOCRIT 41.4 % (37.9-51.0); HEMOGLOBIN 14.2 g/dL (13.5-17.0); MEAN CORPUSCULAR HEMOGLOBIN 28.2 pg (27.0-33.4); MEAN CORPUSCULAR HGB CONC 34.3 g/dL (32.0-36.0); MEAN CORPUSCULAR VOLUME 82 fl (80-97); PLATELET COUNT 275 10^3/uL (150-450); RED BLOOD COUNT 5.03 10^6/uL (4.35-5.55); RED CELL DISTRIBUTION WIDTH 13.1 % (11.5-14.0); WHITE BLOOD COUNT 10.6 10^3/uL (4.0-10.5)
[2019-10-11 09:18] LABS: BLOOD UREA NITROGEN 134 mg/dL (7-20)
[2019-10-11 09:19] LABS: POTASSIUM 2.9 mmol/L (3.6-5.0)
[2019-10-11 09:23] LABS: ABSOLUTE LYMPHOCYTES# (MANUAL) 0.4 10^3/uL (0.5-4.7); ABSOLUTE MONOCYTES # (MANUAL) 0.8 10^3/uL (0.1-1.4); BASOPHILS % (MANUAL) 0 % (0-2); EOSINOPHILS % (MANUAL) 0 % (0-6); LYMPHOCYTES % (MANUAL) 4 % (13-45); MONOCYTES % (MANUAL) 8 % (3-13); SEGMENTED NEUTROPHILS % (MAN) 88 % (42-78); TOTAL CELLS COUNTED 100
[2019-10-11 09:24] LABS: PLATELET COMMENT ADEQUATE; PLATELET LARGE PRESENT; POLYCHROMASIA SLIGHT
--- NOTE | 2019-10-11 12:17 | PDOC PROGRESS REPORT ---
Subjective Progress Note for:: 10/11/19 Subjective:: Patient is currently doing fair No chest pain no short of breath no abdominal pain no nausea no vomiting Patient having no fever no chills Patient is initially tried to transfer to the [place] still waiting for the bed Discussed with the nephrology and cardiology continues to follow here while patient is here We will also do the rapid covid test due to the ongoing pandemic Reason For Visit: FAILURE TO THRIVE/WEAKNESS *still in house* Physical Exam Vital Signs: Temp Pulse Resp BP Pulse Ox 97.8 F 62 14 111/83 98 10/11/19 06:21 10/09/19 21:57 10/11/19 11:01 10/11/19 11:01 10/11/19 11:01 Intake & Output 10/10/19 10/11/19 10/12/19 06:59 06:59 06:59 Intake Total 300 839 Output Total 375 550 Balance -75 289 Weight 70.8 kg General appearance: PRESENT: no acute distress, well-developed, well-nourished Head exam: PRESENT: atraumatic, normocephalic Eye exam: PRESENT: conjunctiva pink, EOMI, PERRLA. ABSENT: scleral icterus Ear exam: PRESENT: normal external ear exam Mouth exam: PRESENT: moist, tongue midline Neck exam: PRESENT: full ROM. ABSENT: carotid bruit, JVD, lymphadenopathy, thyromegaly Respiratory exam: PRESENT: clear to auscultation erasmo Cardiovascular exam: PRESENT: RRR. ABSENT: diastolic murmur, rubs, systolic murmur Vascular exam: PRESENT: normal capillary refill GI/Abdominal exam: PRESENT: normal bowel sounds, soft. ABSENT: distended, guarding, mass, organolmegaly, rebound, tenderness Rectal exam: PRESENT: deferred Neurological exam: PRESENT: alert, awake, oriented to person, oriented to place, oriented to time, oriented to situation, CN II-XII grossly intact. ABSENT: motor sensory deficit Psychiatric exam: PRESENT: appropriate affect, normal mood. ABSENT: homicidal ideation, suicidal ideation Skin exam: PRESENT: dry, intact, warm. ABSENT: cyanosis, rash Results Laboratory Results: 10/11/19 08:18 10/11/19 08:18 10/10/19 10/10/19 10/10/19 11:20 11:20 23:17 WBC 9.7 RBC 5.20 Hgb 14.9 Hct 43.2 MCV 83 MCH 28.6 MCHC 34.5 RDW 13.3 Plt Count 293 Seg Neutrophils % Not Reportable Sodium 130.3 L 133.5 L Potassium 2.5 L* 2.9 L* Chloride 82 L 91 L Carbon Dioxide 33 H 31 H Anion Gap 15 12 BUN 149 H 142 H Creatinine 3.62 H 3.37 H Est GFR ( Amer) 20 L 22 L Glucose 439 H* 302 H Calcium 9.4 9.4 Magnesium Total Bilirubin 2.0 H 1.8 H AST 478 H 407 H Alkaline Phosphatase 130 H 125 Total Protein 8.1 7.9 Albumin 3.7 3.6 Lipase 151.9 10/11/19 10/11/19 10/11/19 08:18 08:18 08:18 WBC 10.6 H RBC 5.03 Hgb 14.2 Hct 41.4 MCV 82 MCH 28.2 MCHC 34.3 RDW 13.1 Plt Count 275 Seg Neutrophils % Not Reportable Sodium 136.6 L Potassium 2.9 L* Chloride 93 L Carbon Dioxide 30 Anion Gap 14 BUN 134 H Creatinine 3.27 H Est GFR ( Amer) 23 L Glucose 340 H Calcium 9.4 Magnesium 3.2 H Total Bilirubin 1.9 H AST 360 H Alkaline Phosphatase 121 Total Protein 7.8 Albumin 3.5 Lipase 137.3 10/09/19 23:12 Throat Throat Culture - Final NORMAL MARY 10/09/19 10/11/19 21:03 08:18 Troponin I 0.155 0.139 NT-Pro-B Natriuret Pep 3630 H Impressions: Chest X-Ray 10/09/19 19:03 IMPRESSION: NO ACUTE RADIOGRAPHIC FINDING IN THE CHEST. Abdomen/Pelvis CT 10/09/19 22:41 IMPRESSION: 1. Hyperdense appearance of the unenhanced liver raising the possibility of iron deposition. There is persistent air in the biliary tree. The appearance is stable. 2. No acute process in the abdomen or pelvis. Assessment & Plan - Diagnosis (1) Acute on chronic renal failure Qualifiers: Acute renal failure type: unspecified Chronic kidney disease stage: stage 5, not on chronic dialysis Qualified Code(s): N17.9 - Acute kidney failure, unspecified; N18.5 - Chronic kidney disease, stage 5 Is this a current diagnosis for this admission?: Yes Plan: Discussed with the nephrology continues IV fluid hold diuretics (2) LFTs abnormal Is this a current diagnosis for this admission?: Yes Plan: Multiple Etiology including the hepatic congestions with a chronic congestive heart failure with low EF with amiodarone toxicity versus CBD stone (3) AICD (automatic cardioverter/defibrillator) present Is this a current diagnosis for this admission?: Yes Plan: Follow cardiology (4) Chronic kidney disease, stage 3 Is this a current diagnosis for this admission?: Yes Plan: Consult the nephrology (5) Weakness Is this a current diagnosis for this admission?: Yes (6) Type 2 diabetes mellitus Qualifiers: 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: unspecified correction insulin use status Chronic kidney disease stage: stage 3 (moderate) Is this a current diagnosis for this admission?: Yes Plan: Continues a sliding scale with [facility] protocol (7) Afib Qualifiers: Atrial fibrillation type: unspecified Qualified Code(s): I48.91 - Unspecified atrial fibrillation Is this a current diagnosis for this admission?: Yes Plan: Patient is currently on anticoagulations (8) CAD (coronary artery disease) Qualifiers: Coronary Disease-Associated Artery/Lesion type: [place] artery Associated angina: with other forms of angina Is this a current diagnosis for this admission?: Yes Plan: Patient is currently see the CHF clinic in [place] (9) CHF (congestive heart failure) Qualifiers: Heart failure type: combined systolic and diastolic Heart failure chronicity: chronic Qualified Code(s): I50.42 - Chronic combined systolic (congestive) and diastolic (congestive) heart failure Is this a current diagnosis for this admission?: Yes Plan: Currently hold the diuretics (10) HLD (hyperlipidemia) Qualifiers: Hyperlipidemia type: unspecified Qualified Code(s): E78.5 - Hyperlipidemia, unspecified Is this a current diagnosis for this admission?: Yes (11) HTN (hypertension) Qualifiers: Hypertension type: essential hypertension Qualified Code(s): I10 - Essential (primary) hypertension Is this a current diagnosis for this admission?: Yes (12) Anemia Qualifiers: Chronic kidney disease stage: stage 4 (severe) Is this a current diagnosis for this admission?: Yes - Time Time Spent with patient: 25-34 minutes Level of Care: IMCU Medications reviewed and adjusted accordingly: Yes Anticipated discharge: Tertiary Hospital Within: Other - Plan Summary Plan Summary: Admit the patient in IMCU while patient is waiting to transfer Discussed with the Dr. Deluca asking for the rapid covid test Possible putting the central line and starting the dobutamine drips Discussed with the Dr. Baeza We will continue to monitor the LFT patient does not have any abdominal pain patient's lipase is all normal
[2019-10-11] MEDS ORDERED: NORMAL SALINE 1000 ML 1,000 ML with POTASSIUM CHLORIDE 20 MEQ IV PRN ×4 (14:23→14:27)
[2019-10-11] MEDS ORDERED: POTASSI CL 20 MEQ/NS 1L 1000 ML IV PRN (14:40)
[2019-10-11] MEDS ORDERED: POTASSI CL 20 MEQ/50 ML RIDER 20 MEQ/50 ML RTUPB IV ONE (15:00)
--- NOTE | 2019-10-11 16:04 | PDOC CONSULTATION ---
Consultation Consult Date: 10/11/19 Provider Consulted: UZMA LOZA Consult reason:: DENNISE History of Present Illness Admission Date/PCP: 10/11/19 12:26 LENA VAUGHN MD History of Present Illness: SANDRA COHN is a 74 year old male significant history of the CHF with an EF of less than 15%, defibrillator, CAD DM@, HTN, HLD, and CKD[address] Chin with a baseline creatinine of 2.0. He was sent to the ER after our received labs that showed a creatinine of 4.1, bun of 146, sodium of 128, potassium of 2.6. When he was called by our office he was having generalized all over and decreased appetite, thus he was sent to the ER. In the ER, labs showed a sodium of 125.4, potassium of 2.9, BUN of 156, creatinine of 3.9. AST and ALT greater than 500+. A CT of the abdomen showed a hyperdense liver with possible iron deposits. His was given normal saline and potassium supplements and k- riders. At that time Dr. Vaughn determined due to his several complicated comorbidities he was needing to go to another hospital for further evaluation of his liver. He is accepted to [facility], still waiting for a bed. Thus we were consulted to help with the potassium and the DENNISE. He claims that prior to admission the only issue he had was decreased appetite, decreased fluid in take and generalized weakness. He denies N/V/D prior to admission. He also denies chest pain, SOB or any swelling of his legs/other areas of his body. Labs today show a creatinine of 3.27, BUN of 134, potassium of 2.9, sodium of 136.6. He does have an elevated white count of 10.6 for which he is receiving Zoysn, had blood cultures and a urine culture done. Past Medical History Cardiac Medical History: Reports: Atrial Fibrillation, Coronary Artery Disease, Hyperlipidemia Denies: Myocardial Infarction Pulmonary Medical History: Reports: Chronic Obstructive Pulmonary Disease (COPD) Denies: Asthma, Bronchitis, Pneumonia Neurological Medical History: Denies: Seizures Endocrine Medical History: Reports: Diabetes Mellitus Type 1, Diabetes Mellitus Type 2 Renal/ Medical History: Reports: Chronic Kidney Disease Stage III GI Medical History: Reports: Gastroesophageal Reflux Disease Musculoskeltal Medical History: Reports: Arthritis - OSTEOARTHRITIS Psychiatric Medical History: Denies: Depression Past Surgical History Past Surgical History: Reports: Cardiac Catheterization, Cholecystectomy, Internal Defibrillator Social History Lives with: Family Smoking Status: Never Smoker Frequency of Alcohol Use: None Hx Recreational Drug Use: No Drugs: None Hx Prescription Drug Abuse: No Family History Parental Family History Reviewed: Yes Children Family History Reviewed: Yes Sibling(s) Family History Reviewed.: Yes Medication/Allergy Home Medications: Levothyroxine Sodium 125 mcg PO Q6AM 07/29/14 Montelukast Sodium 10 mg PO DAILY 07/29/14 Simvastatin 20 mg PO QHS 07/29/14 Amiodarone HCl [Cordarone 200 mg Tablet] 400 mg PO DAILY 06/19/18 Pantoprazole Sodium [Protonix] 40 mg PO DAILY 06/19/18 Sitagliptin Phosphate [Januvia 50 mg Tablet] 50 mg PO DAILY 06/19/18 Calcitriol [Rocaltrol 0.25 mcg Capsule] 0.25 mcg PO MOFR@1000 07/07/19 Isosorbide Mononitrate [Imdur 30 mg Tablet.er] 15 mg PO DAILY 07/07/19 Metolazone [Zaroxolyn 2.5 mg Tablet] 2.5 mg PO MOFR@1000 07/07/19 Metoprolol Succinate [Toprol Xl 25 mg Tab.sr] 12.5 mg PO DAILY 07/07/19 Apixaban [Eliquis 2.5 mg Tablet] 5 mg PO BID 10/11/19 Insulin NPH Hum/Reg Insulin Hm [Novolin 70-30 Flexpen] 25 unit SQ QHS 10/11/19 Insulin NPH Hum/Reg Insulin Hm [Novolin 70-30 Flexpen] 35 unit SQ QAM 10/11/19 Potassium Chloride 30 meq PO DAILY 10/11/19 Torsemide [Demadex 20 mg Tablet] 20 mg PO BID 10/11/19 Allergies/Adverse Reactions: No Known Allergies Allergy (Verified 07/29/14 08:37) Review of Systems Constitutional: PRESENT: anorexia, fatigue, weakness. ABSENT: chills, fever(s) Eyes: ABSENT: visual disturbances Cardiovascular: ABSENT: chest pain, dyspnea on exertion, edema, orthropnea Respiratory: ABSENT: cough, dyspnea, sputum Gastrointestinal: PRESENT: dysphagia. ABSENT: abdominal pain, bloating, con stipation, diarrhea, nausea, vomiting Genitourinary: ABSENT: difficulty urinating, dysuria Musculoskeletal: PRESENT: muscle weakness Neurological: PRESENT: weakness. ABSENT: confusion, numbness, tingling Physical Exam Vital Signs: Temp Pulse Resp BP Pulse Ox 97.7 F 62 16 111/82 100 10/11/19 15:13 10/09/19 21:57 10/11/19 15:13 10/11/19 15:13 10/11/19 15:13 Intake & Output 10/10/19 10/11/19 10/12/19 06:59 06:59 06:59 Intake Total 300 839 50 Output Total 375 550 Balance -75 289 50 Weight 70.8 kg General appearance: PRESENT: no acute distress, cooperative, well-developed, well-nourished, other - no asterixis seen Mouth exam: PRESENT: dry mucosa, neck supple. ABSENT: moist Neck exam: ABSENT: JVD, tracheal deviation Respiratory exam: PRESENT: clear to auscultation erasmo. ABSENT: crackles, rales, rhonchi, wheezes Cardiovascular exam: PRESENT: +S1, +S2. ABSENT: rubs GI/Abdominal exam: PRESENT: soft. ABSENT: ascites, distended, tenderness Extremities exam: ABSENT: pedal edema, tenderness, +1 edema, +2 edema Musculoskeletal exam: PRESENT: normal inspection. ABSENT: tenderness Neurological exam: PRESENT: alert, awake, oriented to person, oriented to place, oriented to time, oriented to situation Psychiatric exam: PRESENT: appropriate affect, normal mood Skin exam: PRESENT: dry, intact, warm. ABSENT: cyanosis Results Laboratory Results: 10/11/19 08:18 10/11/19 08:18 10/10/19 10/11/19 10/11/19 23:17 08:18 08:18 WBC 10.6 H RBC 5.03 Hgb 14.2 Hct 41.4 MCV 82 MCH 28.2 MCHC 34.3 RDW 13.1 Plt Count 275 Seg Neutrophils % Not Reportable Sodium 133.5 L 136.6 L Potassium 2.9 L* 2.9 L* Chloride 91 L 93 L Carbon Dioxide 31 H 30 Anion Gap 12 14 BUN 142 H 134 H Creatinine 3.37 H 3.27 H Est GFR ( Amer) 22 L 23 L Glucose 302 H 340 H Calcium 9.4 9.4 Magnesium Total Bilirubin 1.8 H 1.9 H AST 407 H 360 H Alkaline Phosphatase 125 121 Total Protein 7.9 7.8 Albumin 3.6 3.5 Lipase 137.3 10/11/19 08:18 WBC RBC Hgb Hct MCV MCH MCHC RDW Plt Count Seg Neutrophils % Sodium Potassium Chloride Carbon Dioxide Anion Gap BUN Creatinine Est GFR ( Amer) Glucose Calcium Magnesium 3.2 H Total Bilirubin AST Alkaline Phosphatase Total Protein Albumin Lipase 10/09/19 23:12 Throat Throat Culture - Final NORMAL MARY 10/09/19 10/11/19 21:03 08:18 Troponin I 0.155 0.139 NT-Pro-B Natriuret Pep 3630 H Impressions: Chest X-Ray 10/09/19 19:03 IMPRESSION: NO ACUTE RADIOGRAPHIC FINDING IN THE CHEST. Abdomen/Pelvis CT 10/09/19 22:41 IMPRESSION: 1. Hyperdense appearance of the unenhanced liver raising the possibility of iron deposition. There is persistent air in the biliary tree. The appearance is stable. 2. No acute process in the abdomen or pelvis. Assessment & Plan - Diagnosis (1) DENNISE (acute kidney injury) Plan: nonoliguric, looks to be from dehydration from poor fluid intake. Will give normal saline at 75mL an hour. Do need to be cautious that he is not becoming fluid overloaded with how low his EF is. Does not look to have a post renal block according to the abdominal CT. 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 He does the initial beginning stages of uremia with the decreased appetite. Reassess tomorrow. (2) Chronic kidney disease, stage 3 Is this a current diagnosis for this admission?: Yes Plan: baseline is around 2.0 for his creatinine (3) LFTs abnormal Is this a current diagnosis for this admission?: Yes Plan: per Dr. Vaughn, awaiting transfer to [facility] (4) Weakness Is this a current diagnosis for this admission?: Yes Plan: Likely multifactorial, hyponatremia, hypokalemia, dehydration, elevated BUN could all be playing a role. Giving normal saline with potassium in it and k- riders. (5) Hypokalemia Plan: patient was not taking his potassium supplement previously, giving potassium with the normal saline and a k-riders. 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: unspecified usp insulin use status Chronic kidney disease stage: stage 3 (moderate) Is this a current diagnosis for this admission?: Yes (7) CHF (congestive heart failure) Qualifiers: Heart failure type: combined systolic and diastolic Heart failure chronicity: chronic Qualified Code(s): I50.42 - Chronic combined systolic (congestive) and diastolic (congestive) heart failure Is this a current diagnosis for this admission?: Yes Plan: stable and per cardiology (8) HTN (hypertension) Qualifiers: Hypertension type: essential hypertension Qualified Code(s): I10 - Essential (primary) hypertension Is this a current diagnosis for this admission?: Yes Plan: controlled to low end of normal.
[2019-10-11] MEDS: POTASSI CL 20 MEQ/NS 1L 1,000 ML IV PRN (17:13)
[2019-10-11] MEDS: APIXABAN 2.5 MG TABLET PO SCH (17:37)
--- NOTE | 2019-10-11 19:16 | PDOC CONSULTATION ---
Consultation-Blank Consultation: CARDIOLOGY CONSULTATION by Dr. Mode Núñez on 10/11/2019. Patient seen at 4 PM. 60 minutes spent with patient more than 50% of time spent in direct patient care. REASON FOR CONSULTATION: Patient of mine with history of cardiomyopathy, AICD and paroxysmal atrial fibrillation on amiodarone. Patient now with abnormal liver function test. Consult (caps requesting PHYSICIAN: Dr. Vaughn. 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 The patient states that since the past few weeks he has not been eating well or drinking much. He states that he has a sore throat but no cough or fever. He has no symptoms suggestive COVID. His rapid COVID testing will be done. He had blood work drawn as an outpatient and showed increasing renal function suggestive of acute on chronic kidney disease, and also abnormal liver function tests. He had a CT scan of the pelvis and abdomen which showed free air in the bile duct system and with abnormal labs the patient was scheduled to be transferred to [facility]. Also the patient's labs revealed a high ferritin level of [address] suggesting iron deposits in the liver. But the patient is clinically asymptomatic with no chest pain or discomfort. No palpitations. No PND orthopnea or leg edema. He appears to be dehydrated. There is no firing of his AICD. The patient's coronavirus study came back negative for coronaviru Past Medical History Cardiac Medical History: Reports: Atrial Fibrillation, Congestive Heart Failure, Coronary Artery Disease, Hyperlipidema, Hypertension Denies: Myocardial Infarction Pulmonary Medical History: Reports: Chronic Obstructive Pulmonary Disease (COPD) Denies: Asthma, Bronchitis, Pneumonia Neurological Medical History: Denies: Seizures Endocrine Medical History: Reports: Diabetes Mellitus Type 2 GI Medical History: Reports: Gastroesophageal Reflux Disease Musculoskeltal Medical History: Reports: Arthritis - OSTEOARTHRITIS Psychiatric Medical History: Denies: Depression Hematology: Reports: Anemia Past Surgical History Past Surgical History: Reports: Cardiac Catheterization, Cholecystectomy, Internal Defibrillator Social History Information Source: Patient Lives with: Family Smoking Status: Never Smoker Frequency of Alcohol Use: None Hx Recreational Drug Use: No Drugs: None Hx Prescription Drug Abuse: No Family History Family History: Reviewed & Not Pertinent Parental Family History Reviewed: Yes Children Family History Reviewed: Yes Sibling(s) Family History Reviewed.: Yes Medication/Allergy Home Medications: Levothyroxine Sodium 125 mcg PO Q6AM 07/29/14 Montelukast Sodium 10 mg PO DAILY 07/29/14 Simvastatin 20 mg PO QHS 07/29/14 Amiodarone HCl [Cordarone 200 mg Tablet] 300 mg PO DAILY 06/19/18 Docusate Sodium [Colace] 100 mg PO DAILY 06/19/18 Hydralazine HCl [Apresoline 25 mg Tablet] 12.5 mg PO Q8H 06/19/18 Pantoprazole Sodium [Protonix] 40 mg PO DAILY 06/19/18 Sitagliptin Phosphate [Januvia 50 mg Tablet] 50 mg PO DAILY 06/19/18 Calcitriol [Rocaltrol 0.25 mcg Capsule] 0.25 mcg PO MOFR@1000 07/07/19 Isosorbide Mononitrate [Imdur 30 mg Tablet.er] 15 mg PO DAILY 07/07/19 Metolazone [Zaroxolyn 2.5 mg Tablet] 2.5 mg PO MOFR@1000 07/07/19 Metoprolol Succinate [Toprol Xl 25 mg Tab.sr] 12.5 mg PO DAILY 07/07/19 Triamcinolone Acetonide [Aristocort 0.5% Cream 15 gm] 1 applic TP BID 07/07/19 Apixaban [Eliquis 2.5 mg Tablet] 2.5 mg PO BID #60 tablet 07/13/19 Ciprofloxacin HCl [Cipro 500 mg Tablet] 500 mg PO BID #20 tablet 07/13/19 Insulin NPH Hum/Reg Insulin Hm [Humulin 70/30 Kwikpen] 5 units SQ QPM #0 07/13/19 Insulin NPH Hum/Reg Insulin Hm [Humulin 70/30 Kwikpen] 10 units SQ QAM #0 07/13/19 Torsemide [Demadex 20 mg Tablet] 20 mg PO DAILY #30 tablet 07/13/19 Allergies/Adverse Reactions:No Known Allergies. Resuscitation STATUS: The patient is a full code. His fiance is a surrogate healthcare decision maker. Current Medications Generic Name Dose Route Start Last Admin Trade Name Roryq PRN Reason Stop Dose Admin Apixaban 2.5 mg 10/11/19 18:00 10/14/19 17:56 Eliquis 2.5 Mg Tablet PO 11/10/19 17:59 2.5 mg BID SUKUMAR Administration Calcitriol 0.25 mcg 10/12/19 10:00 10/12/19 10:53 Rocaltrol 0.25 Mcg Capsule PO 11/11/19 09:59 0.25 mcg MOFR@1000 SUKUMAR Administration Dextrose 12.5 gm 10/10/19 09:36 Dextrose Inj 50% Syringe (25 Gm/50 Ml) IV 11/09/19 09:35 PRN PRN FOR BG 50-69 IN ALERT PATIENT Protocol Dextrose 25 gm 10/10/19 09:36 Dextrose Inj 50% Syringe (25 Gm/50 Ml) IV 11/09/19 09:35 PRN PRN PER PROTOCOL Protocol Glucagon 1 mg 10/10/19 09:36 Glucagen Inj 1 Mg Vial IM 11/09/19 09:35 PRN PRN Evaluate for BG < 70 Protocol Glucose 15 gm 10/10/19 09:36 Glutose 40% Gel 15 Gm Tube PO 11/09/19 09:35 PRN PRN FOR BG 50-69 IN ALERT PATIENT Protocol Glucose 30 gm 10/10/19 09:36 Glutose 40% Gel 15 Gm Tube PO 11/09/19 09:35 PRN PRN FOR BG < 50 IN ALERT PATIENT Protocol Lactated Ringer's 1,000 mls @ 75 mls/hr 10/13/19 13:46 10/14/19 17:56 Lactated Ringers 1000 Ml Iv Soln IV 11/12/19 13:45 75 mls/hr CONTINUOUS PRN Administration THIS MED IS NOT "PRN" Lactated Ringer's 1,000 mls @ 75 mls/hr 10/13/19 15:04 Lactated Ringers 1000 Ml Iv Soln IV 11/12/19 15:03 CONTINUOUS PRN THIS MED IS NOT "PRN" Insulin Human Lispro 0 - 12 unit 10/10/19 11:00 10/14/19 21:24 Humalog Insulin 100 Unit/1 Ml 3 Ml Vial SUBCUT 11/09/19 10:59 4 unit ACHS SUKUMAR Administration Protocol Levothyroxine Sodium 0.1 mg 10/12/19 06:00 10/14/19 05:38 Synthroid 0.1 Mg Tablet PO 11/11/19 05:59 0.1 mg Q6AM SUKUMAR Administration Losartan Potassium 25 mg 10/13/19 22:00 10/14/19 21:24 Cozaar 25 Mg Tablet PO 11/12/19 21:59 25 mg Q12 SUKUMAR Administration Metoprolol Succinate 25 mg 10/14/19 10:00 10/14/19 10:34 Toprol Xl 25 Mg Tab.Sr PO 11/13/19 09:59 25 mg DAILY SUKUMAR Administration Montelukast Sodium 10 mg 10/12/19 10:00 10/14/19 10:34 Singulair 10 Mg Tablet PO 11/11/19 09:59 10 mg DAILY SUKUMAR Administration Pantoprazole Sodium 40 mg 10/12/19 08:00 10/14/19 10:[address] Tablet PO 11/11/19 07:59 40 mg QAM SUKUMAR Administration Potassium Chloride 20 meq 10/12/19 10:00 10/14/19 21:23 Klor-Con 10 Meq Tablet Er PO 11/11/19 09:59 20 meq Q12 SUKUMAR Administration Discontinued Medications Generic Name Dose Route Start Last Admin Trade Name Freq PRN Reason Stop Dose Admin Sodium Chloride 250 mls @ 0 mls/hr 10/09/19 22:09 10/09/19 23:14 Nacl 0.9% 250 Ml Iv Soln IV 10/09/19 22:10 Infused NOW ONE Infusion Wide Open Potassium Chloride/Water 20 meq in 50 mls @ 25 mls/hr 10/09/19 22:10 10/10/19 00:59 Potassium Chloride Moose 20 Meq/50 Ml IV 10/10/19 00:09 Infused NOW ONE Infusion Piperacillin Sod/Tazobactam 50 mls @ 100 mls/hr 10/10/19 12:00 10/12/19 05:38 Sod 2.25 gm/ Sodium Chloride IV 10/17/19 11:59 100 mls/hr Q6 SUKUMAR Administration Potassium Chloride/Water 20 meq in 50 mls @ 25 mls/hr 10/10/19 12:45 10/10/19 22:00 Potassium Chloride Moose 20 Meq/50 Ml IV 10/10/19 20:44 Infused Q2H SUKUMAR Infusion Potassium Chloride/Water 20 meq in 50 mls @ 25 mls/hr 10/10/19 17:45 10/10/19 19:20 Potassium Chloride Moose 20 Meq/50 Ml IV 10/10/19 19:44 Infused NOW ONE Infusion Potassium Chloride 20 meq/ 1,010 mls @ 75 mls/hr 10/11/19 14:23 Sodium Chloride IV 11/10/19 14:22 CONTINUOUS PRN THIS MED IS NOT "PRN" Potassium Chloride/Water 20 meq in 50 mls @ 25 mls/hr 10/11/19 15:00 10/11/19 19:11 Potassium Chloride Moose 20 Meq/50 Ml IV 10/11/19 16:59 Infused NOW ONE Infusion Potassium Chloride/Sodium Chloride 1,000 mls @ 100 mls/hr 10/11/19 14:40 Nacl 0.9% 1000 Ml/Kcl 20 Meq Premix Bag IV 11/10/19 14:39 CONTINUOUS PRN THIS MED IS NOT "PRN" Potassium Chloride/Sodium Chloride 1,000 mls @ 75 mls/hr 10/11/19 16:03 10/12/19 22:00 Nacl 0.9% 1000 Ml/Kcl 20 Meq Premix Bag IV 11/10/19 14:39 Infused CONTINUOUS PRN Infusion THIS MED IS NOT "PRN" Potassium Chloride/Water 20 meq in 50 mls @ 25 mls/hr 10/11/19 22:48 10/12/19 03:49 Potassium Chloride Moose 20 Meq/50 Ml IV 10/12/19 02:47 Infused Q2H SUKUMAR Infusion Insulin Glargine 5 unit 10/14/19 10:20 10/14/19 10:35 Lantus Insulin 100 Unit/1 Ml 10 Ml SUBCUT 10/14/19 10:21 5 unit NOW ONE Administration Insulin Human Lispro Confirm 10/13/19 17:22 Humalog Insulin 100 Unit/1 Ml 3 Ml Vial Administered 10/13/19 17:23 Dose 1 unit .ROUTE .STK-MED ONE Insulin Human Regular 6 unit 10/09/19 22:09 10/09/19 22:29 Humulin R (Pyxis) Insulin 100 Unit/Ml 3ml IV 10/09/19 22:10 6 unit NOW ONE Administration Insulin Human Regular 10 unit 10/10/19 12:40 10/10/19 13:46 Humulin R (Pyxis) Insulin 100 Unit/Ml 3ml IV 10/10/19 12:41 Not Given NOW ONE Insulin Human Regular 10 unit 10/10/19 14:53 10/10/19 15:31 Humulin R (Pyxis) Insulin 100 Unit/Ml 3ml IV 10/10/19 14:54 10 unit NOW ONE Administration Imdur 30 Mg Tablet.Er PO 11/11/19 09:59 15 mg Levothyroxine Sodium 0.025 mg 10/12/19 06:00 10/13/19 05:21 Synthroid 0.025 Mg Tablet PO 11/11/19 05:59 0.025 mg Q6AM SUKUMAR Administration Metoprolol Succinate 12.5 mg 10/12/19 10:00 10/13/19 12:09 DAILY SUKUMAR Administration Piperacillin Sod/Tazobactam Sod 3.375 gm 10/10/19 00:03 10/10/19 00:59 Zosyn Inj 3.375 Gm Vial IV 10/10/19 00:04 3.375 gm IVBAG (ED) ONE Administration Piperacillin Sod/Tazobactam Sod Confirm 10/11/19 00:49 10/11/19 01:02 Zosyn Inj 2.25 Gm Vial Administered 10/11/19 00:50 Not Given Dose 2.25 gm IV .STK-MED ONE Potassium Chloride 40 meq 10/11/19 00:47 10/11/19 01:15 Klor-Con 10 Meq Tablet Er PO 10/11/19 00:48 Not Given NOW ONE Potassium Chloride 40 meq 10/11/19 01:08 10/11/19 01:12 Potassium Chloride 20 Meq Packet PO 10/11/19 01:09 40 meq NOW ONE Administration Potassium Chloride 40 meq 10/11/19 22:48 10/11/19 23:44 Klor-Con 10 Meq Tablet Er PO 10/11/19 22:49 40 meq NOW ONE Administration Review of Systems Constitutional: ABSENT: chills, fever(s), headache(s), weight gain, weight loss Eyes: ABSENT: visual disturbances Ears: ABSENT: hearing changes Cardiovascular: ABSENT: chest pain, dyspnea on exertion, edema, orthropnea, palpitations Respiratory: ABSENT: cough, hemoptysis Gastrointestinal: ABSENT: abdominal pain, constipation, diarrhea, hematemesis, hematochezia, nausea, vomiting Genitourinary: ABSENT: dysuria, hematuria Musculoskeletal: ABSENT: joint swelling Integumentary: ABSENT: rash, wounds Neurological: ABSENT: abnormal gait, abnormal speech, confusion, dizziness, focal weakness, syncope Psychiatric: ABSENT: anxiety, depression, homidical ideation, suicidal ideation Endocrine: ABSENT: cold intolerance, heat intolerance, menstrual abnormalities, polydipsia, polyuria Hematologic/Lymphatic: ABSENT: easy bleeding, easy bruising, lymphadenopathy PHYSICAL EXAMINATION: The patient is a frail build and appears to be dehydrated. He appears to be chronically ill. Selected Entries 10/11/19 16:18 Temperature 97.3 F Temperature Oral Source Respiratory 16 Rate Blood Pressure 108/71 [Left Upper Arm ] Blood Pressure 83 Mean [Left Upper Arm] Blood Pressure Supine Position [Left Upper Arm] O2 Sat by Pulse 99 Oximetry Oxygen Delivery Room Air Method ( includes room air) .HEAD: Head is atraumatic normocephalic. Eyes: Pupils are equal round regular reactive light accommodation extraocular movements are normal there is no congenital pallor there is no scleral icterus. Ears: External auditory canals are clear, there are no lesions of the pinna. Nose: No deviated nasal septum and no inflammation of the nasal mucous membrane. Mouth: Mucous membranes of mouth are dry tongue is dry. There is no ulcers there is no bleeding from the gums. Throat: There is no redness of the oropharynx there is no exudates. Skin: There is no petechia or ecchymosis there is no skin lesions or skin rashes. Neck: Neck is supple there is no JVD carotids equal there is no bruit there is no lymphadenopathy there is no neck stiffness. There is no goiter trachea central lungs: Lungs are clear to auscultation percussion there is no accessory muscles of respiration in use. There is no rhonchi rales or wheezing. There is no chest wall tenderness. HEART: S1-S2 is heard there is no S3 gallop there is no S4 gallop S1 is of normal intensity. There is no rub. The systolic murmur in the left sternal border and apex without radiation. Abdomen: Abdomen is soft nontender there is no paraspinal megaly bowel sounds well heard there is no tender areas of masses. There is no rebound guarding or rigidity. Extremities: Femorals are well felt there is no femoral bruits neck pulses are well felt there is no pedal edema there is no DVT or cellulitis there is no cyanosis or clubbing there is no DVT or cellulitis. There is no calf tenderness. EPIC PROFESSIONAL: The patient is awake alert oriented 3 with no focal deficits. Psychiatric: The patient judgment and insight are intact and her affect is normal. Chest X-Ray 10/09/19 19:03 IMPRESSION: NO ACUTE RADIOGRAPHIC FINDING IN THE CHEST. Abdomen/Pelvis CT 10/09/19 22:41 IMPRESSION: 1. Hyperdense appearance of the unenhanced liver raising the possibility of iron deposition. There is persistent air in the biliary tree. The appearance is stable. 2. No acute process in the abdomen or pelvis. Labs- Entire Visit 10/09/19 10/09/19 10/09/19 20:18 21:03 21:03 WBC 10.5 RBC 5.44 Hgb 15.4 Hct 44.7 MCV 82 MCH 28.3 MCHC 34.5 RDW 13.2 Plt Count 307 Lymph % (Auto) Not Reportable [place] % (Auto) Not Reportable Eos % (Auto) Not Reportable Baso % (Auto) Not Reportable Reticulocyte # Absolute Neuts (auto) Not Reportable Absolute Lymphs (auto) Not Reportable Absolute Monos (auto) Not Reportable Absolute Eos (auto) Not Reportable Absolute Basos (auto) Not Reportable Total Counted 100 Seg Neutrophils % Not Reportable Seg Neuts % (Manual) 71 Lymphocytes % (Manual) 21 Atypical Lymphs % 1 Monocytes % (Manual) 6 Eosinophils % (Manual) 0 Basophils % (Manual) 0 Metamyelocytes % 1 Abs Neuts (Manual) 7.6 Abs Lymphs (Manual) 2.3 Abs Monocytes (Manual) 0.6 Absolute Eos (Manual) 0.0 Abs Basophils (Manual) 0.0 Toxic Vacuolation Large Platelets PRESENT Platelet Comment ADEQUATE Polychromasia Poikilocytosis SLIGHT Ovalocytes SLIGHT RBC Morph Comment Retic Count (auto) Sodium 125.4 L Potassium 2.9 L* Chloride 78 L Carbon Dioxide 34 H Anion Gap 13 BUN 156 H Creatinine 3.96 H Est GFR ( Amer) 18 L Est GFR (MDRD) Non-Af 15 L Glucose 413 H* POC Glucose Hemoglobin A1c % Calcium 9.9 Magnesium 3.4 H Iron TIBC % Saturation Ferritin Total Bilirubin 1.8 H Direct Bilirubin 0.8 H Neonat Total Bilirubin Not Reportable Neonat Direct Bilirubin Not Reportable Neonat Indirect Bili Not Reportable AST 599 H ALT 680 H Alkaline Phosphatase 144 H Troponin I NT-Pro-B Natriuret Pep Total Protein 9.0 H Albumin 4.2 Lipase Vitamin B12 Folate TSH Free T4 Free T3 pg/mL Urine Color YELLOW Urine Appearance SLIGHTLY-CLOUDY Urine pH 6.0 Ur Specific [place] 1.010 Urine Protein NEGATIVE Urine Glucose (UA) NEGATIVE Urine Ketones NEGATIVE Urine Blood SMALL H Urine Nitrite NEGATIVE Urine Bilirubin NEGATIVE Urine Urobilinogen NEGATIVE Ur Leukocyte Esterase NEGATIVE Urine WBC (Auto) 0 Urine RBC (Auto) 3 U Hyaline Cast (Auto) 55 Squamous Epi Cells Auto 2 Urine Mucus (Auto) OCC Urine Ascorbic Acid NEGATIVE SARS-CoV-2 (PCR) Group A Strep Rapid 10/09/19 10/09/19 10/09/19 21:03 22:19 22:48 WBC RBC Hgb Hct MCV MCH MCHC RDW Plt Count Lymph % (Auto) [place] % (Auto) Eos % (Auto) Baso % (Auto) Reticulocyte # Absolute Neuts (auto) Absolute Lymphs (auto) Absolute Monos (auto) Absolute Eos (auto) Absolute Basos (auto) Total Counted Seg Neutrophils % Seg Neuts % (Manual) Lymphocytes % (Manual) Atypical Lymphs % Monocytes % (Manual) Eosinophils % (Manual) Basophils % (Manual) Metamyelocytes % Abs Neuts (Manual) Abs Lymphs (Manual) Abs Monocytes (Manual) Absolute Eos (Manual) Abs Basophils (Manual) Toxic Vacuolation Large Platelets Platelet Comment Polychromasia Poikilocytosis Ovalocytes RBC Morph Comment Retic Count (auto) Sodium Potassium Chloride Carbon Dioxide Anion Gap BUN Creatinine Est GFR ( Amer) Est GFR (MDRD) Non-Af Glucose POC Glucose 402 H* Hemoglobin A1c % Calcium Magnesium Iron TIBC % Saturation Ferritin Total Bilirubin Direct Bilirubin Neonat Total Bilirubin Neonat Direct Bilirubin Neonat Indirect Bili AST ALT Alkaline Phosphatase Troponin I 0.155 NT-Pro-B Natriuret Pep 3630 H Total Protein Albumin Lipase Vitamin B12 Folate TSH Free T4 Free T3 pg/mL Urine Color Urine Appearance Urine pH Ur Specific [place] Urine Protein Urine Glucose (UA) Urine Ketones Urine Blood Urine Nitrite Urine Bilirubin Urine Urobilinogen Ur Leukocyte Esterase Urine WBC (Auto) Urine RBC (Auto) U Hyaline Cast (Auto) Squamous Epi Cells Auto Urine Mucus (Auto) Urine Ascorbic Acid SARS-CoV-2 (PCR) Group A Strep Rapid NEGATIVE 10/10/19 10/10/19 10/10/19 00:26 11:20 11:20 WBC 9.7 RBC 5.20 Hgb 14.9 Hct 43.2 MCV 83 MCH 28.6 MCHC 34.5 RDW 13.3 Plt Count 293 Lymph % (Auto) Not Reportable [place] % (Auto) Not Reportable Eos % (Auto) Not Reportable Baso % (Auto) Not Reportable Reticulocyte # Absolute Neuts (auto) Not Reportable Absolute Lymphs (auto) Not Reportable Absolute Monos (auto) Not Reportable Absolute Eos (auto) Not Reportable Absolute Basos (auto) Not Reportable Total Counted 100 Seg Neutrophils % Not Reportable Seg Neuts % (Manual) 81 H Lymphocytes % (Manual) 10 L Atypical Lymphs % Monocytes % (Manual) 9 Eosinophils % (Manual) 0 Basophils % (Manual) 0 Metamyelocytes % Abs Neuts (Manual) 7.9 Abs Lymphs (Manual) 1.0 Abs Monocytes (Manual) 0.9 Absolute Eos (Manual) 0.0 Abs Basophils (Manual) 0.0 Toxic Vacuolation Large Platelets Platelet Comment ADEQUATE Polychromasia Poikilocytosis Ovalocytes RBC Morph Comment NORMO-CYTIC/CHROMIC Retic Count (auto) Sodium 130.3 L Potassium 2.5 L* Chloride 82 L Carbon Dioxide 33 H Anion Gap 15 BUN 149 H Creatinine 3.62 H Est GFR ( Amer) 20 L Est GFR (MDRD) Non-Af 17 L Glucose 439 H* POC Glucose 389 H Hemoglobin A1c % Calcium 9.4 Magnesium Iron TIBC % Saturation Ferritin Total Bilirubin 2.0 H Direct Bilirubin 0.8 H Neonat Total Bilirubin Not Reportable Neonat Direct Bilirubin Not Reportable Neonat Indirect Bili Not Reportable AST 478 H ALT 620 H Alkaline Phosphatase 130 H Troponin I NT-Pro-B Natriuret Pep Total Protein 8.1 Albumin 3.7 Lipase 151.9 Vitamin B12 Folate TSH Free T4 Free T3 pg/mL Urine Color Urine Appearance Urine pH Ur Specific [place] Urine Protein Urine Glucose (UA) Urine Ketones Urine Blood Urine Nitrite Urine Bilirubin Urine Urobilinogen Ur Leukocyte Esterase Urine WBC (Auto) Urine RBC (Auto) U Hyaline Cast (Auto) Squamous Epi Cells Auto Urine Mucus (Auto) Urine Ascorbic Acid SARS-CoV-2 (PCR) Group A Strep Rapid 10/10/19 10/10/19 10/10/19 13:31 14:32 16:22 WBC RBC Hgb Hct MCV MCH MCHC RDW Plt Count Lymph % (Auto) [place] % (Auto) Eos % (Auto) Baso % (Auto) Reticulocyte # Absolute Neuts (auto) Absolute Lymphs (auto) Absolute Monos (auto) Absolute Eos (auto) Absolute Basos (auto) Total Counted Seg Neutrophils % Seg Neuts % (Manual) Lymphocytes % (Manual) Atypical Lymphs % Monocytes % (Manual) Eosinophils % (Manual) Basophils % (Manual) Metamyelocytes % Abs Neuts (Manual) Abs Lymphs (Manual) Abs Monocytes (Manual) Absolute Eos (Manual) Abs Basophils (Manual) Toxic Vacuolation Large Platelets Platelet Comment Polychromasia Poikilocytosis Ovalocytes RBC Morph Comment Retic Count (auto) Sodium Potassium Chloride Carbon Dioxide Anion Gap BUN Creatinine Est GFR ( Amer) Est GFR (MDRD) Non-Af Glucose POC Glucose 479 H* 404 H* 288 H Hemoglobin A1c % Calcium Magnesium Iron TIBC % Saturation Ferritin Total Bilirubin Direct Bilirubin Neonat Total Bilirubin Neonat Direct Bilirubin Neonat Indirect Bili AST ALT Alkaline Phosphatase Troponin I NT-Pro-B Natriuret Pep Total Protein Albumin Lipase Vitamin B12 Folate TSH Free T4 Free T3 pg/mL Urine Color Urine Appearance Urine pH Ur Specific [place] Urine Protein Urine Glucose (UA) Urine Ketones Urine Blood Urine Nitrite Urine Bilirubin Urine Urobilinogen Ur Leukocyte Esterase Urine WBC (Auto) Urine RBC (Auto) U Hyaline Cast (Auto) Squamous Epi Cells Auto Urine Mucus (Auto) Urine Ascorbic Acid SARS-CoV-2 (PCR) Group A Strep Rapid 10/10/19 10/10/19 10/11/19 23:01 23:17 08:18 WBC 10.6 H RBC 5.03 Hgb 14.2 Hct 41.4 MCV 82 MCH 28.2 MCHC 34.3 RDW 13.1 Plt Count 275 Lymph % (Auto) Not Reportable [place] % (Auto) Not Reportable Eos % (Auto) Not Reportable Baso % (Auto) Not Reportable Reticulocyte # Absolute Neuts (auto) Not Reportable Absolute Lymphs (auto) Not Reportable Absolute Monos (auto) Not Reportable Absolute Eos (auto) Not Reportable Absolute Basos (auto) Not Reportable Total Counted 100 Seg Neutrophils % Not Reportable Seg Neuts % (Manual) 88 H Lymphocytes % (Manual) 4 L Atypical Lymphs % Monocytes % (Manual) 8 Eosinophils % (Manual) 0 Basophils % (Manual) 0 Metamyelocytes % Abs Neuts (Manual) 9.3 H Abs Lymphs (Manual) 0.4 L Abs Monocytes (Manual) 0.8 Absolute Eos (Manual) 0.0 Abs Basophils (Manual) 0.0 Toxic Vacuolation Large Platelets PRESENT Platelet Comment ADEQUATE Polychromasia SLIGHT Poikilocytosis Ovalocytes RBC Morph Comment Retic Count (auto) Sodium 133.5 L Potassium 2.9 L* Chloride 91 L Carbon Dioxide 31 H Anion Gap 12 BUN 142 H Creatinine 3.37 H Est GFR ( Amer) 22 L Est GFR (MDRD) Non-Af 18 L Glucose 302 H POC Glucose 312 H Hemoglobin A1c % Calcium 9.4 Magnesium Iron TIBC % Saturation Ferritin Total Bilirubin 1.8 H Direct Bilirubin 0.8 H Neonat Total Bilirubin Not Reportable Neonat Direct Bilirubin Not Reportable Neonat Indirect Bili Not Reportable AST 407 H ALT 586 H Alkaline Phosphatase 125 Troponin I NT-Pro-B Natriuret Pep Total Protein 7.9 Albumin 3.6 Lipase Vitamin B12 Folate TSH Free T4 Free T3 pg/mL Urine Color Urine Appearance Urine pH Ur Specific [place] Urine Protein Urine Glucose (UA) Urine Ketones Urine Blood Urine Nitrite Urine Bilirubin Urine Urobilinogen Ur Leukocyte Esterase Urine WBC (Auto) Urine RBC (Auto) U Hyaline Cast (Auto) Squamous Epi Cells Auto Urine Mucus (Auto) Urine Ascorbic Acid SARS-CoV-2 (PCR) Group A Strep Rapid 10/11/19 10/11/19 10/11/19 08:18 08:18 08:18 WBC RBC Hgb Hct MCV MCH MCHC RDW Plt Count Lymph % (Auto) [place] % (Auto) Eos % (Auto) Baso % (Auto) Reticulocyte # Absolute Neuts (auto) Absolute Lymphs (auto) Absolute Monos (auto) Absolute Eos (auto) Absolute Basos (auto) Total Counted Seg Neutrophils % Seg Neuts % (Manual) Lymphocytes % (Manual) Atypical Lymphs % Monocytes % (Manual) Eosinophils % (Manual) Basophils % (Manual) Metamyelocytes % Abs Neuts (Manual) Abs Lymphs (Manual) Abs Monocytes (Manual) Absolute Eos (Manual) Abs Basophils (Manual) Toxic Vacuolation Large Platelets Platelet Comment Polychromasia Poikilocytosis Ovalocytes RBC Morph Comment Retic Count (auto) Sodium 136.6 L Potassium 2.9 L* Chloride 93 L Carbon Dioxide 30 Anion Gap 14 BUN 134 H Creatinine 3.27 H Est GFR ( Amer) 23 L Est GFR (MDRD) Non-Af 19 L Glucose 340 H POC Glucose 316 H Hemoglobin A1c % Calcium 9.4 Magnesium Iron TIBC % Saturation Ferritin Total Bilirubin 1.9 H Direct Bilirubin 0.9 H Neonat Total Bilirubin Not Reportable Neonat Direct Bilirubin Not Reportable Neonat Indirect Bili Not Reportable AST 360 H ALT 562 H Alkaline Phosphatase 121 Troponin I 0.139 NT-Pro-B Natriuret Pep Total Protein 7.8 Albumin 3.5 Lipase 137.3 Vitamin B12 Folate TSH Free T4 Free T3 pg/mL Urine Color Urine Appearance Urine pH Ur Specific [place] Urine Protein Urine Glucose (UA) Urine Ketones Urine Blood Urine Nitrite Urine Bilirubin Urine Urobilinogen Ur Leukocyte Esterase Urine WBC (Auto) Urine RBC (Auto) U Hyaline Cast (Auto) Squamous Epi Cells Auto Urine Mucus (Auto) Urine Ascorbic Acid SARS-CoV-2 (PCR) Group A Strep Rapid 10/11/19 10/11/19 10/11/19 08:18 08:18 12:13 WBC RBC Hgb Hct MCV MCH MCHC RDW Plt Count Lymph % (Auto) [place] % (Auto) Eos % (Auto) Baso % (Auto) Reticulocyte # Absolute Neuts (auto) Absolute Lymphs (auto) Absolute Monos (auto) Absolute Eos (auto) Absolute Basos (auto) Total Counted Seg Neutrophils % Seg Neuts % (Manual) Lymphocytes % (Manual) Atypical Lymphs % Monocytes % (Manual) Eosinophils % (Manual) Basophils % (Manual) Metamyelocytes % Abs Neuts (Manual) Abs Lymphs (Manual) Abs Monocytes (Manual) Absolute Eos (Manual) Abs Basophils (Manual) Toxic Vacuolation Large Platelets Platelet Comment Polychromasia Poikilocytosis Ovalocytes RBC Morph Comment Retic Count (auto) Sodium Potassium Chloride Carbon Dioxide Anion Gap BUN Creatinine Est GFR ( Amer) Est GFR (MDRD) Non-Af Glucose POC Glucose 280 H Hemoglobin A1c % Calcium Magnesium 3.2 H Iron TIBC % Saturation Ferritin 754.00 H Total Bilirubin Direct Bilirubin Neonat Total Bilirubin Neonat Direct Bilirubin Neonat Indirect Bili AST ALT Alkaline Phosphatase Troponin I NT-Pro-B Natriuret Pep Total Protein Albumin Lipase Vitamin B12 Folate TSH Free T4 Free T3 pg/mL Urine Color Urine Appearance Urine pH Ur Specific [place] Urine Protein Urine Glucose (UA) Urine Ketones Urine Blood Urine Nitrite Urine Bilirubin Urine Urobilinogen Ur Leukocyte Esterase Urine WBC (Auto) Urine RBC (Auto) U Hyaline Cast (Auto) Squamous Epi Cells Auto Urine Mucus (Auto) Urine Ascorbic Acid SARS-CoV-2 (PCR) Group A Strep Rapid 10/11/19 12:48 WBC RBC Hgb Hct MCV MCH MCHC RDW Plt Count Lymph % (Auto) [place] % (Auto) Eos % (Auto) Baso % (Auto) Reticulocyte # Absolute Neuts (auto) Absolute Lymphs (auto) Absolute Monos (auto) Absolute Eos (auto) Absolute Basos (auto) Total Counted Seg Neutrophils % Seg Neuts % (Manual) Lymphocytes % (Manual) Atypical Lymphs % Monocytes % (Manual) Eosinophils % (Manual) Basophils % (Manual) Metamyelocytes % Abs Neuts (Manual) Abs Lymphs (Manual) Abs Monocytes (Manual) Absolute Eos (Manual) Abs Basophils (Manual) Toxic Vacuolation Large Platelets Platelet Comment Polychromasia Poikilocytosis Ovalocytes RBC Morph Comment Retic Count (auto) Sodium Potassium Chloride Carbon Dioxide Anion Gap BUN Creatinine Est GFR ( Amer) Est GFR (MDRD) Non-Af Glucose POC Glucose Hemoglobin A1c % Calcium Magnesium Iron TIBC % Saturation Ferritin Total Bilirubin Direct Bilirubin Neonat Total Bilirubin Neonat Direct Bilirubin Neonat Indirect Bili AST ALT Alkaline Phosphatase Troponin I NT-Pro-B Natriuret Pep Total Protein Albumin Lipase Vitamin B12 Folate TSH Free T4 Free T3 pg/mL Urine Color Urine Appearance Urine pH Ur Specific [place] Urine Protein Urine Glucose (UA) Urine Ketones Urine Blood Urine Nitrite Urine Bilirubin Urine Urobilinogen Ur Leukocyte Esterase Urine WBC (Auto) Urine RBC (Auto) U Hyaline Cast (Auto) Squamous Epi Cells Auto Urine Mucus (Auto) Urine Ascorbic Acid SARS-CoV-2 (PCR) NEGATIVE Group A Strep Rapid EKG: Atrial sensed and ventricular paced rhythm. IMPRESSION/RECOMMENDATION: 1. 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 Amiodarone has been stopped. Slight improvement in the liver function tests. 2. Secondary dehydration: Continue IV fluids. 3. Acute on chronic renal failure. Continue gentle hydration. Will change IV to Ringer's lactate. 4. 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 5. Dilated cardiomyopathy with severely reduced LV ejection fraction. No evidence of acute systolic heart failure symptoms or signs. Will increase the patient's beta-solis and add ARB once renal functions improved. 6. Diabetes mellitus type 2 [id number]. Note blood sugars are still a little high. This may be because of the D5W and the IV fluids. 7. Paroxysmal atrial fibrillation: Watch for recurrence. Continue Eliquis. 8. Abnormal liver function tests most likely secondary to the patient's being on amiodarone. But would get viral hepatitis work-up to make sure that there is no underlying viral hepatic disease. 9. Elevated ferritin levels secondary to combination of increased thyroid state, renal failure, and abnormal liver functions. 10. AICD placement: No firing of AICD. 11. Free air in the common bile duct by CT scan. This is a normal finding since the patient has had a ERCP with sphincterotomy, and cholecystectomy in the past. Also the liver function tests are not consistent with obstructive jaundice. Initially was scheduled for transfer to [facility]. I do not see the point of the patient being transferred since is on all we have to do is to hold the patient's amiodarone and hydrate the patient. If the ferritin level continues to stay up this can be addressed as an outpatient. I have discussed with the fuel operator and the Transfer has been canceled. This is been done after discussions with Dr. Vaughn. The patient also notified of this. The patient is agreeable to stay here. Case is reviewed. Medical regimen and management plan discussed with RN provider. Medical decision making is of high complexity. This is due to multiple abnormalities in the patient's lab tests and the patient's multiple comorbid conditions. Will follow
[2019-10-11 21:08] LABS: FREE T3 1.95 pg/mL (2.77-5.27); FREE T4 (FREE THYROXINE) 4.47 ng/dL (0.78-2.19)
[2019-10-11 21:22] LABS: THYROID STIMULATING HORMONE 0.5 uIU/mL (0.47-4.68)
[2019-10-11] MEDS: POTASSI CL 20 MEQ/50 ML RIDER 20 MEQ/50 ML RTUPB IV SCH (23:44)
[2019-10-12] MEDS: POTASSI CL 20 MEQ/50 ML RIDER 20 MEQ/50 ML RTUPB IV SCH (01:41)
[2019-10-12] MEDS: PIPERACILLIN SODIUM/TAZOBACTAM 2.25 GM in NORMAL SALINE 50 ML IV SCH (05:38)
[2019-10-12] MEDS: LEVOTHYROXINE SODIUM 0.025 MG TABLET PO SCH (05:38)
[2019-10-12] MEDS: LEVOTHYROXINE SODIUM 0.1 MG TABLET PO SCH (05:38)
[2019-10-12] MEDS: POTASSI CL 20 MEQ/NS 1L 1,000 ML IV PRN ×2 (05:38→19:35)
[2019-10-12] MEDS ORDERED: (PENDING PHARMACY ID) (Levothyroxine Sodium [Levothyroxine Sodium] 125 MCG) PO SCH (06:00)
[2019-10-12 06:46] LABS: ABSOLUTE RETICS # 0.068 10^6/uL (0.028-0.122); HEMATOCRIT 41.7 % (37.9-51.0); HEMOGLOBIN 13.9 g/dL (13.5-17.0); MEAN CORPUSCULAR HGB CONC 33.3 g/dL (32.0-36.0); MEAN CORPUSCULAR VOLUME 84 fl (80-97); PLATELET COUNT 260 10^3/uL (150-450); RED BLOOD COUNT 4.96 10^6/uL (4.35-5.55); RED CELL DISTRIBUTION WIDTH 13.3 % (11.5-14.0); RETICULOCYTE COUNT (AUTO) 1.36 % (0.66-2.85); WHITE BLOOD COUNT 13.8 10^3/uL (4.0-10.5)
[2019-10-12 07:09] LABS: ABSOLUTE LYMPHOCYTES# (MANUAL) 0.4 10^3/uL (0.5-4.7); ABSOLUTE MONOCYTES # (MANUAL) 0.8 10^3/uL (0.1-1.4); BASOPHILS % (MANUAL) 0 % (0-2); EOSINOPHILS % (MANUAL) 0 % (0-6); LYMPHOCYTES % (MANUAL) 3 % (13-45); MONOCYTES % (MANUAL) 6 % (3-13); SEGMENTED NEUTROPHILS % (MAN) 91 % (42-78); TOTAL CELLS COUNTED 100
[2019-10-12 07:10] LABS: PLATELET COMMENT ADEQUATE; PLATELET LARGE PRESENT; RBC MORPHOLOGY COMMENT NORMO-CYTIC/CHROMIC; TOXIC VACUOLATION PRESENT
[2019-10-12 07:56] LABS: ALBUMIN 3.6 g/dL (3.5-5.0); ALKALINE PHOSPHATASE 121 U/L (38-126); ANION GAP 18 (5-19); ASPARTATE AMINO TRANSFERASE 308 U/L (17-59); BILIRUBIN,DIRECT 0.9 mg/dL (0.0-0.4); BILIRUBIN,TOTAL 1.9 mg/dL (0.2-1.3); BLOOD UREA NITROGEN 117 mg/dL (7-20); CALCIUM 9.8 mg/dL (8.4-10.2); CARBON DIOXIDE 21 mmol/L (22-30); CHLORIDE 104 mmol/L (98-107); GLUCOSE 351 mg/dL (75-110); IRON(TIBC) 43.6 ug/dL (49-181); TOTAL PROTEIN 7.7 g/dL (6.3-8.2)
[2019-10-12] MEDS: INSULIN LISPRO 100 UNIT/ML 3 ML VIAL SUBCUT SCH ×4 (08:17→21:31)
[2019-10-12] MEDS: PANTOPRAZOLE SODIUM 40 MG TABLET.DR PO SCH (08:18)
[2019-10-12 09:12] LABS: POTASSIUM 4.2 mmol/L (3.6-5.0)
[2019-10-12] MEDS: ISOSORBIDE MONONITRATE 30 MG TAB.ER.24H PO SCH (10:53)
[2019-10-12] MEDS: MONTELUKAST SODIUM 10 MG TABLET PO SCH (10:53)
[2019-10-12] MEDS: POTASSIUM CHLORIDE 10 MEQ TABLET.ER PO SCH ×2 (10:53→21:31)
[2019-10-12] MEDS: CALCITRIOL 0.25 MCG CAPSULE PO SCH (10:53)
[2019-10-12] MEDS: METOPROLOL SUCCINATE 25 MG TAB.SR.24H PO SCH (10:54)
[2019-10-12] MEDS: APIXABAN 2.5 MG TABLET PO SCH ×2 (10:54→18:51)
--- NOTE | 2019-10-12 14:28 | PDOC PROGRESS REPORT ---
Subjective Progress Note for:: 10/12/19 Subjective:: Patient seen by the bedside, he was admitted for the management of acute on chronic kidney disease, elevated liver enzymes, he has a history of chronic systolic heart failure. He has no new complaints at this time I reviewed the record, presently on antibiotic, I do not see evidence of infection, there is no pneumonia, there is no UTI there is no fever or chills, and I discontinued the Zosyn antibiotic, do not see appropriate indication at the moment, all cultures so far negative, he has hyperglycemia on coverage. Reason For Visit: ACUTE ON CHRONIC RENAL FAILURE, ABNORMAL LFTS Physical Exam Vital Signs: Temp Pulse Resp BP Pulse Ox 97.5 F 69 19 120/70 100 10/12/19 10:52 10/12/19 10:52 10/12/19 10:52 10/12/19 10:52 10/12/19 10:52 Intake & Output 10/11/19 10/12/19 10/13/19 06:59 06:59 06:59 Intake Total 839 1470 Output Total 550 775 Balance 289 695 Weight 71.2 kg General appearance: PRESENT: no acute distress Eye exam: PRESENT: PERRLA Respiratory exam: PRESENT: clear to auscultation erasmo Cardiovascular exam: PRESENT: +S1, +S2 GI/Abdominal exam: PRESENT: soft Neurological exam: PRESENT: alert, CN II-XII grossly intact Results Laboratory Results: 10/12/19 06:16 10/12/19 06:16 10/11/19 10/11/19 10/11/19 08:18 20:23 20:23 WBC RBC Hgb Hct MCV MCH MCHC RDW Plt Count Seg Neutrophils % Retic Count (auto) Sodium Potassium 3.0 L* Chloride Carbon Dioxide Anion Gap BUN Creatinine Est GFR ( Amer) Glucose Calcium Iron TIBC % Saturation Ferritin 754.00 H Total Bilirubin AST Alkaline Phosphatase Total Protein Albumin Vitamin B12 Folate TSH 0.50 Free T4 4.47 H Free T3 pg/mL 1.95 L 10/12/19 10/12/19 06:16 06:16 WBC 13.8 H RBC 4.96 Hgb 13.9 Hct 41.7 MCV 84 MCH 28.0 MCHC 33.3 RDW 13.3 Plt Count 260 Seg Neutrophils % Not Reportable Retic Count (auto) 1.36 Sodium 142.9 Potassium 4.2 D Chloride 104 Carbon Dioxide 21 L Anion Gap 18 BUN 117 H Creatinine 2.90 H Est GFR ( Amer) 26 L Glucose 351 H Calcium 9.8 Iron 43.6 L TIBC 247 L % Saturation 18 Ferritin 762.00 H Total Bilirubin 1.9 H AST 308 H Alkaline Phosphatase 121 Total Protein 7.7 Albumin 3.6 Vitamin B12 > 1000.0 H Folate 17.00 TSH Free T4 Free T3 pg/mL 10/09/19 10/11/19 21:03 08:18 Troponin I 0.155 0.139 NT-Pro-B Natriuret Pep 3630 H Impressions: Chest X-Ray 10/09/19 19:03 IMPRESSION: NO ACUTE RADIOGRAPHIC FINDING IN THE CHEST. Abdomen/Pelvis CT 10/09/19 22:41 IMPRESSION: 1. Hyperdense appearance of the unenhanced liver raising the possibility of iron deposition. There is persistent air in the biliary tree. The appearance is stable. 2. No acute process in the abdomen or pelvis. Assessment & Plan - Diagnosis (1) DENNISE (acute kidney injury) Is this a current diagnosis for this admission?: Yes Plan: Continue present treatment, nephrology following (2) Chronic systolic (congestive) heart failure Is this a current diagnosis for this admission?: Yes Plan: Continue present treatment, Dr. Weber following (3) Hyperkalemia Is this a current diagnosis for this admission?: Yes (4) Abnormal liver function Is this a current diagnosis for this admission?: Yes (5) Chronic kidney disease, stage 3 Is this a current diagnosis for this admission?: Yes - Time Time Spent with patient: 35 or more minutes Level of Care: [facility]
--- NOTE | 2019-10-12 23:19 | Progress Note ---
Provider Note Provider Note: CARDIOLOGY PROGRESS NOTE by Dr. Ginny Weber on 10/12/2019. SUBJECTIVE: Patient states he feels stronger. His intake is improved. He is still on IV fluids. There is no firing of his AICD. There is no recurrence of atrial fibrillation. The patient denies any shortness of breath. There is no PND orthopnea or leg edema. There is no bleeding on Eliquis. There is no TIA CVA symptoms. There is no recurrence of atrial fibrillation. PHYSICAL EXAMINATION: The patient appears to be a frail build and appears to be chronically ill. In no acute distress. Selected Entries 10/12/19 10:52 Temperature 97.5 F Temperature Oral Source Pulse Rate 69 Respiratory 19 Rate Blood Pressure 120/70 Blood Pressure 86 Mean BP Location Right Arm BP Position Supine O2 Sat by Pulse 100 Oximetry Oxygen Delivery Room Air Method . HEAD: Head is atraumatic normocephalic. Eyes: Pupils are equal round regular reactive light accommodation extraocular movements are normal there is no congenital pallor there is no scleral icterus. Ears: External auditory canals are clear, there are no lesions of the pinna. Nose: No deviated nasal septum and no inflammation of the nasal mucous membrane. Mouth: Mucous membranes of mouth are dry tongue is dry. There is no ulcers there is no bleeding from the gums. Throat: There is no redness of the oropharynx there is no exudates. Skin: There is no petechia or ecchymosis there is no skin lesions or skin rashes. Neck: Neck is supple there is no JVD carotids equal there is no bruit there is no lymphadenopathy there is no neck stiffness. There is no goiter trachea central lungs: Lungs are clear to auscultation percussion there is no accessory muscles of respiration in use. There is no rhonchi rales or wheezing. There is no chest wall tenderness. HEART: S1-S2 is heard there is no S3 gallop there is no S4 gallop S1 is of normal intensity. There is no rub. The systolic murmur in the left sternal border and apex without radiation. Abdomen: Abdomen is soft nontender there is no paraspinal megaly bowel sounds well heard there is no tender areas of masses. There is no rebound guarding or rigidity. Extremities: Femorals are well felt there is no femoral bruits neck pulses are well felt there is no pedal edema there is no DVT or cellulitis there is no cyanosis or clubbing there is no DVT or cellulitis. There is no calf tenderness. 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 Psychiatric: The patient judgment and insight are intact and her affect is normal. Labs- All tests 24 hr 10/12/19 10/12/19 10/12/19 06:16 06:16 07:50 WBC 13.8 H RBC 4.96 Hgb 13.9 Hct 41.7 MCV 84 MCH 28.0 MCHC 33.3 RDW 13.3 Plt Count 260 Lymph % (Auto) Not Reportable [place] % (Auto) Not Reportable Eos % (Auto) Not Reportable Baso % (Auto) Not Reportable Reticulocyte # 0.068 Absolute Neuts (auto) Not Reportable Absolute Lymphs (auto) Not Reportable Absolute Monos (auto) Not Reportable Absolute Eos (auto) Not Reportable Absolute Basos (auto) Not Reportable Total Counted 100 Seg Neutrophils % Not Reportable Seg Neuts % (Manual) 91 H Lymphocytes % (Manual) 3 L Monocytes % (Manual) 6 Eosinophils % (Manual) 0 Basophils % (Manual) 0 Abs Neuts (Manual) 12.6 H Abs Lymphs (Manual) 0.4 L Abs Monocytes (Manual) 0.8 Absolute Eos (Manual) 0.0 Abs Basophils (Manual) 0.0 Toxic Vacuolation PRESENT Large Platelets PRESENT Platelet Comment [place] RBC Morph Comment NORMO-CYTIC/CHROMIC Retic Count (auto) 1.36 Sodium 142.9 Potassium 4.2 D Chloride 104 Carbon Dioxide 21 L Anion Gap 18 BUN 117 H Creatinine 2.90 H Est GFR ( Amer) 26 L Est GFR (MDRD) Non-Af 21 L Glucose 351 H POC Glucose 349 H Calcium 9.8 Iron 43.6 L TIBC 247 L % Saturation 18 Ferritin 762.00 H Total Bilirubin 1.9 H Direct Bilirubin 0.9 H Neonat Total Bilirubin Not Reportable Neonat Direct Bilirubin Not Reportable Neonat Indirect Bili Not Reportable AST 308 H ALT 484 H Alkaline Phosphatase 121 Total Protein 7.7 Albumin 3.6 Vitamin B12 > 1000.0 H Folate 17.00 10/12/19 10/12/19 10/12/19 10:54 16:12 21:13 WBC RBC Hgb Hct MCV MCH MCHC RDW Plt Count Lymph % (Auto) [place] % (Auto) Eos % (Auto) Baso % (Auto) Reticulocyte # Absolute Neuts (auto) Absolute Lymphs (auto) Absolute Monos (auto) Absolute Eos (auto) Absolute Basos (auto) Total Counted Seg Neutrophils % Seg Neuts % (Manual) Lymphocytes % (Manual) Monocytes % (Manual) Eosinophils % (Manual) Basophils % (Manual) Abs Neuts (Manual) Abs Lymphs (Manual) Abs Monocytes (Manual) Absolute Eos (Manual) Abs Basophils (Manual) Toxic Vacuolation Large Platelets Platelet Comment RBC Morph Comment Retic Count (auto) Sodium Potassium Chloride Carbon Dioxide Anion Gap BUN Creatinine Est GFR ( Amer) Est GFR (MDRD) Non-Af Glucose POC Glucose 364 H 337 H 308 H Calcium Iron TIBC % Saturation Ferritin Total Bilirubin Direct Bilirubin Neonat Total Bilirubin Neonat Direct Bilirubin Neonat Indirect Bili AST ALT Alkaline Phosphatase Total Protein Albumin Vitamin B12 Folate Chest X-Ray 10/09/19 19:03 IMPRESSION: NO ACUTE RADIOGRAPHIC FINDING IN THE CHEST. Abdomen/Pelvis CT 10/09/19 22:41 IMPRESSION: 1. Hyperdense appearance of the unenhanced liver raising the possibility of iron deposition. There is persistent air in the biliary tree. The appearance is stable. 2. No acute process in the abdomen or pelvis. IMPRESSION/RECOMMENDATION: 1. 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 Amiodarone has been stopped. Slight improvement in the liver function tests. 2. Secondary dehydration: Continue IV fluids. 3. Acute on chronic renal failure. Continue gentle hydration. 4. 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 5. Dilated cardiomyopathy with severely reduced LV ejection fraction. No evidence of acute systolic heart failure symptoms or signs. 6. Diabetes mellitus type 2 [id number]. Note blood sugars are still a little high. This may be because of the D5W and the IV fluids. 7. Paroxysmal atrial fibrillation: Watch for recurrence. Continue Eliquis. 8. Abnormal liver function tests most likely secondary to the patient's being on amiodarone. But would get viral hepatitis work-up to make sure that there is no underlying viral hepatic disease. 9. Elevated ferritin levels secondary to combination of increased thyroid state, renal failure, and abnormal liver functions. 10. AICD placement: No firing of AICD. 11. Free air in the common bile duct by CT scan. This is a normal finding since the patient has had a ERCP with sphincterotomy, and cholecystectomy in the past. Also the liver function tests are not consistent with obstructive jaundice. Medications reviewed medical management and medical regimen discussed with attending prior in the case. Medical decision making is of high complexity. Discussed the case with other medical providers on the case. 50 minutes spent on this patient with more than 50% of time spent in direct patient care. Will follow.
[2019-10-13] MEDS: LEVOTHYROXINE SODIUM 0.025 MG TABLET PO SCH (05:21)
[2019-10-13] MEDS: LEVOTHYROXINE SODIUM 0.1 MG TABLET PO SCH (05:21)
[2019-10-13 06:09] LABS: ANION GAP 7 (5-19); CALCIUM 9.8 mg/dL (8.4-10.2); CARBON DIOXIDE 28 mmol/L (22-30); CHLORIDE 111 mmol/L (98-107); GLUCOSE 306 mg/dL (75-110); POTASSIUM 3.9 mmol/L (3.6-5.0)
[2019-10-13 06:27] LABS: BLOOD UREA NITROGEN 85 mg/dL (7-20)
[2019-10-13] MEDS: INSULIN LISPRO 100 UNIT/ML 3 ML VIAL SUBCUT SCH ×4 (07:49→22:00)
[2019-10-13] MEDS: PANTOPRAZOLE SODIUM 40 MG TABLET.DR PO SCH (07:49)
[2019-10-13 09:15] LABS: ALBUMIN 3.2 g/dL (3.5-5.0); ALKALINE PHOSPHATASE 103 U/L (38-126); ASPARTATE AMINO TRANSFERASE 184 U/L (17-59); BILIRUBIN,DIRECT 0.6 mg/dL (0.0-0.4); BILIRUBIN,TOTAL 1.5 mg/dL (0.2-1.3); TOTAL PROTEIN 7.2 g/dL (6.3-8.2)
[2019-10-13] MEDS: APIXABAN 2.5 MG TABLET PO SCH ×2 (12:09→17:20)
[2019-10-13] MEDS: MONTELUKAST SODIUM 10 MG TABLET PO SCH (12:09)
[2019-10-13] MEDS: METOPROLOL SUCCINATE 25 MG TAB.SR.24H PO SCH (12:09)
[2019-10-13] MEDS: ISOSORBIDE MONONITRATE 30 MG TAB.ER.24H PO SCH (12:10)
[2019-10-13] MEDS: POTASSIUM CHLORIDE 10 MEQ TABLET.ER PO SCH ×2 (12:10→21:59)
--- NOTE | 2019-10-13 13:07 | Progress Note ---
Provider Note Provider Note: CARDIOLOGY PROGRESS NOTE by Dr. Ginny Weber on 10/13/2019 SUBJECTIVE: The patient denies any chest pain or discomfort. There is no shortness of breath. There is no nausea or vomiting or abdominal pain. There is no PND or orthopnea. There is no arrhythmias seen on the monitor. There is no firing of his AICD. There is no bleeding on Eliquis. There is no recurrence of atrial fibrillation. There is no TIA CVA symptoms. The patient's intake is been poor. He states states that he has lack of appetite and food does not taste good. The patient's renal function is come back to his baseline. His liver function tests are coming down. PHYSICAL EXAMINATION: The patient appears to be chronically ill in a frail build. He appears to be malnourished. Selected Entries 10/13/19 10:57 Temperature 97.5 F Temperature Oral Source Pulse Rate 77 Respiratory 16 Rate Blood Pressure 130/78 H Blood Pressure 95 Mean BP Location Right Arm O2 Sat by Pulse 100 Oximetry Oxygen Delivery Room Air Method HEAD: Head is atraumatic normocephalic. Eyes: Pupils are equal round regular reactive light accommodation extraocular movements are normal there is no congenital pallor there is no scleral icterus. Ears: External auditory canals are clear, there are no lesions of the pinna. Nose: No deviated nasal septum and no inflammation of the nasal mucous membrane. Mouth: Mucous membranes of mouth are dry tongue is dry. There is no ulcers there is no bleeding from the gums. Throat: There is no redness of the oropharynx there is no exudates. Skin: There is no petechia or ecchymosis there is no skin lesions or skin rashes. Neck: Neck is supple there is no JVD carotids equal there is no bruit there is no lymphadenopathy there is no neck stiffness. There is no goiter trachea central lungs: Lungs are clear to auscultation percussion there is no accessory muscles of respiration in use. There is no rhonchi rales or wheezing. There is no chest wall tenderness. HEART: S1-S2 is heard there is no S3 gallop there is no S4 gallop S1 is of normal intensity. There is no rub. The systolic murmur in the left sternal border and apex without radiation. Abdomen: Abdomen is soft nontender there is no paraspinal megaly bowel sounds well heard there is no tender areas of masses. There is no rebound guarding or rigidity. Extremities: Femorals are well felt there is no femoral bruits neck pulses are well felt there is no pedal edema there is no DVT or cellulitis there is no cyanosis or clubbing there is no DVT or cellulitis. There is no calf tenderness. 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 Psychiatric: The patient judgment and insight are intact and her affect is normal. Labs- All tests 24 hr 10/12/19 10/12/19 10/13/19 16:12 21:13 04:41 Sodium 146.1 H Potassium 3.9 Chloride 111 H Carbon Dioxide 28 Anion Gap 7 BUN 85 H D Creatinine 2.02 H Est GFR ( Amer) 39 L Est GFR (MDRD) Non-Af 33 L Glucose 306 H POC Glucose 337 H 308 H Calcium 9.8 Total Bilirubin Direct Bilirubin Neonat Total Bilirubin Neonat Direct Bilirubin Neonat Indirect Bili AST ALT Alkaline Phosphatase Total Protein Albumin 10/13/19 10/13/19 10/13/19 04:41 07:11 10:58 Sodium Potassium Chloride Carbon Dioxide Anion Gap BUN Creatinine Est GFR ( Amer) Est GFR (MDRD) Non-Af Glucose POC Glucose 293 H 287 H Calcium Total Bilirubin 1.5 H Direct Bilirubin 0.6 H Neonat Total Bilirubin Not Reportable Neonat Direct Bilirubin Not Reportable Neonat Indirect Bili Not Reportable AST 184 H ALT 392 H Alkaline Phosphatase 103 Total Protein 7.2 Albumin 3.2 L Chest X-Ray 10/09/19 19:03 IMPRESSION: NO ACUTE RADIOGRAPHIC FINDING IN THE CHEST. Abdomen/Pelvis CT 10/09/19 22:41 IMPRESSION: 1. Hyperdense appearance of the unenhanced liver raising the possibility of iron deposition. There is persistent air in the biliary tree. The appearance is stable. 2. No acute process in the abdomen or pelvis. IMPRESSION/RECOMMENDATION: 1. 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 Amiodarone has been stopped. Slight improvement in the liver function tests. 2. Secondary dehydration: Continue IV fluids. 3. Acute on chronic renal failure. Continue gentle hydration. Will change IV to Ringer's lactate. 4. 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 5. Dilated cardiomyopathy with severely reduced LV ejection fraction. No evidence of acute systolic heart failure symptoms or signs. Will increase the patient's Toprol to 25 mg p.o. daily. Will start the patient on losartan 25 mg p.o. every 12 hours. We will watch kidney functions closely. 6. Diabetes mellitus type 2 [id number]. Note blood sugars are still a little high. This may be because of the D5W and the IV fluids. 7. Paroxysmal atrial fibrillation: Watch for recurrence. Continue Eliquis. 8. Abnormal liver function tests most likely secondary to the patient's being on amiodarone. But would get viral hepatitis work-up to make sure that there is no underlying viral hepatic disease. 9. Elevated ferritin levels secondary to combination of increased thyroid state, renal failure, and abnormal liver functions. 10. AICD placement: No firing of AICD. 11. Free air in the common bile duct by CT scan. This is a normal finding since the patient has had a ERCP with sphincterotomy, and cholecystectomy in the past. Also the liver function tests are not consistent with obstructive jaundice. Medications reviewed medical management and medical regimen discussed with attending prior in the case. Medical decision making is of high complexity. Discussed the case with other medical providers on the case. 50 minutes spent on this patient with more than 50% of time spent
[2019-10-13] MEDS ORDERED: RINGERS SOLUTION,LACTATED 1,000 ML IV PRN (15:04)
[2019-10-13] MEDS ORDERED: INSULIN LISPRO 100 UNIT/ML 3 ML VIAL ONE (17:22)
--- NOTE | 2019-10-13 17:42 | PDOC PROGRESS REPORT ---
Subjective Progress Note for:: 10/13/19 Subjective:: Patient seen by the bedside, he was admitted for the management of acute on chronic kidney disease, elevated liver enzymes, he has a history of chronic systolic heart failure. He has no new complaints at this time I reviewed the record, presently on antibiotic, I do not see evidence of infection, there is no pneumonia, there is no UTI there is no fever or chills, and I discontinued the Zosyn antibiotic, do not see appropriate indication at the moment, all cultures so far negative, he has hyperglycemia on coverage. Reason For Visit: ACUTE ON CHRONIC RENAL FAILURE, ABNORMAL LFTS Physical Exam Vital Signs: Temp Pulse Resp BP Pulse Ox 97.6 F 81 16 121/83 100 10/13/19 15:54 10/13/19 15:54 10/13/19 15:54 10/13/19 15:54 10/13/19 15:54 Intake & Output 10/12/19 10/13/19 10/14/19 06:59 06:59 06:59 Intake Total 1470 2303 Output Total 775 1800 Balance 695 503 Weight 71.2 kg 71.5 kg General appearance: PRESENT: no acute distress Eye exam: PRESENT: PERRLA Respiratory exam: PRESENT: clear to auscultation erasmo Cardiovascular exam: PRESENT: +S1, +S2 GI/Abdominal exam: PRESENT: soft Neurological exam: PRESENT: alert Results Laboratory Results: 10/12/19 06:16 10/13/19 04:41 10/13/19 10/13/19 04:41 04:41 Sodium 146.1 H Potassium 3.9 Chloride 111 H Carbon Dioxide 28 Anion Gap 7 BUN 85 H D Creatinine 2.02 H Est GFR ( Amer) 39 L Glucose 306 H Calcium 9.8 Total Bilirubin 1.5 H AST 184 H Alkaline Phosphatase 103 Total Protein 7.2 Albumin 3.2 L 10/09/19 10/11/19 21:03 08:18 Troponin I 0.155 0.139 NT-Pro-B Natriuret Pep 3630 H Impressions: Chest X-Ray 10/09/19 19:03 IMPRESSION: NO ACUTE RADIOGRAPHIC FINDING IN THE CHEST. Abdomen/Pelvis CT 10/09/19 22:41 IMPRESSION: 1. Hyperdense appearance of the unenhanced liver raising the possibility of iron deposition. There is persistent air in the biliary tree. The appearance is stable. 2. No acute process in the abdomen or pelvis. Assessment & Plan - Diagnosis (1) DENNISE (acute kidney injury) Is this a current diagnosis for this admission?: Yes Plan: Continue present treatment, nephrology following (2) Chronic systolic (congestive) heart failure Is this a current diagnosis for this admission?: Yes Plan: Continue present treatment, Dr. Weber following (3) Hyperkalemia Is this a current diagnosis for this admission?: Yes (4) Abnormal liver function Is this a current diagnosis for this admission?: Yes (5) Chronic kidney disease, stage 3 Is this a current diagnosis for this admission?: Yes - Time Time Spent with patient: 25-34 minutes Level of Care: [facility]
[2019-10-13] MEDS: LOSARTAN POTASSIUM 25 MG TABLET PO SCH (21:59)
[2019-10-14] MEDS: RINGERS SOLUTION,LACTATED 1,000 ML IV PRN ×2 (03:27→17:56)
[2019-10-14 05:25] LABS: ANION GAP 10 (5-19); CALCIUM 9.7 mg/dL (8.4-10.2); CARBON DIOXIDE 25 mmol/L (22-30); CHLORIDE 110 mmol/L (98-107); GLUCOSE 342 mg/dL (75-110); POTASSIUM 4.1 mmol/L (3.6-5.0)
[2019-10-14 05:27] LABS: BLOOD UREA NITROGEN 58 mg/dL (7-20)
[2019-10-14] MEDS: LEVOTHYROXINE SODIUM 0.1 MG TABLET PO SCH (05:38)
[2019-10-14] MEDS ORDERED: INSULIN GLARGINE,HUM.REC.ANLOG 1,000 UNIT/10 ML VIAL SUBCUT ONE (10:20)
[2019-10-14] MEDS: METOPROLOL SUCCINATE 25 MG TAB.SR.24H PO SCH (10:34)
[2019-10-14] MEDS: INSULIN LISPRO 100 UNIT/ML 3 ML VIAL SUBCUT SCH ×4 (10:34→21:24)
[2019-10-14] MEDS: MONTELUKAST SODIUM 10 MG TABLET PO SCH (10:34)
[2019-10-14] MEDS: POTASSIUM CHLORIDE 10 MEQ TABLET.ER PO SCH ×2 (10:34→21:23)
[2019-10-14] MEDS: LOSARTAN POTASSIUM 25 MG TABLET PO SCH ×2 (10:34→21:24)
[2019-10-14] MEDS: PANTOPRAZOLE SODIUM 40 MG TABLET.DR PO SCH (10:34)
[2019-10-14] MEDS: APIXABAN 2.5 MG TABLET PO SCH ×2 (10:34→17:56)
--- NOTE | 2019-10-14 16:34 | PDOC PROGRESS REPORT ---
Subjective Progress Note for:: 10/14/19 Subjective:: Patient seen by the bedside, the food was advanced to regular CCD diet today, he has not been eating consistently partly because the food was initially clear liquid diet which he does not appreciate. He was admitted last week by Dr. Vaughn he has abnormal liver enzymes the plan according to Roderick's note was to transfer him to [facility], [place], I explained this to the patient today, he is somewhat agitated about discharge but I explained to him that he has to stay until Dr. Vaughn returns tomorrow regarding disposition. Reason For Visit: ACUTE ON CHRONIC RENAL FAILURE, ABNORMAL LFTS Physical Exam Vital Signs: Temp Pulse Resp BP Pulse Ox 98.0 F 71 17 114/72 100 10/14/19 15:50 10/14/19 15:50 10/14/19 15:50 10/14/19 15:50 10/14/19 15:50 Intake & Output 10/13/19 10/14/19 10/15/19 06:59 06:59 06:59 Intake Total 2303 780 0 Output Total 1800 1900 825 Balance 503 -1120 -825 Weight 71.5 kg 72.3 kg General appearance: PRESENT: no acute distress Eye exam: PRESENT: PERRLA Respiratory exam: PRESENT: clear to auscultation erasmo Cardiovascular exam: PRESENT: +S1, +S2 GI/Abdominal exam: PRESENT: soft Results Laboratory Results: 10/12/19 06:16 10/14/19 04:15 10/14/19 04:15 Sodium 145.1 H Potassium 4.1 Chloride 110 H Carbon Dioxide 25 Anion Gap 10 BUN 58 H D Creatinine 1.67 H Est GFR ( Amer) 49 L Glucose 342 H Calcium 9.7 10/09/19 10/11/19 21:03 08:18 Troponin I 0.155 0.139 NT-Pro-B Natriuret Pep 3630 H Impressions: Chest X-Ray 10/09/19 19:03 IMPRESSION: NO ACUTE RADIOGRAPHIC FINDING IN THE CHEST. Abdomen/Pelvis CT 10/09/19 22:41 IMPRESSION: 1. Hyperdense appearance of the unenhanced liver raising the possibility of iron deposition. There is persistent air in the biliary tree. The appearance is stable. 2. No acute process in the abdomen or pelvis. Assessment & Plan - Diagnosis (1) DENNISE (acute kidney injury) Is this a current diagnosis for this admission?: Yes Plan: Continue present treatment, nephrology following (2) Chronic systolic (congestive) heart failure Is this a current diagnosis for this admission?: Yes Plan: Continue present treatment, Dr. Weber following (3) Hyperkalemia Is this a current diagnosis for this admission?: Yes (4) Abnormal liver function Is this a current diagnosis for this admission?: Yes (5) Chronic kidney disease, stage 3 Is this a current diagnosis for this admission?: Yes - Time Time Spent with patient: 35 or more minutes Level of Care: CU
--- NOTE | 2019-10-14 17:30 | Progress Note ---
Provider Note Provider Note: CARDIOLOGY PROGRESS NOTE by Dr. Ginny eWber on 10/14/2019. Subjective: The patient denies any chest pain or discomfort. There is no shortness of breath. There is no PND orthopnea or leg edema. His renal function has improved. He is appetite is much improved. And he is taking more by mouth. His renal functions are also improving a lot. There is no arrhythmias seen on the monitor. There is no firing of his AICD. With particular there is no recurrence of his atrial fibrillation. PHYSICAL EXAMINATION: The patient appears to be a frail build and appears to be chronically ill. In no acute distress. Selected Entries 10/14/19 19:16 Temperature 97.7 F Temperature Oral Source Pulse Rate 67 Respiratory 20 Rate Blood Pressure 111/71 Blood Pressure 84 Mean BP Location Right Arm BP Position Sitting O2 Sat by Pulse 98 Oximetry Oxygen Delivery Room Air Method .HEAD: Head is atraumatic normocephalic. Eyes: Pupils are equal round regular reactive light accommodation extraocular movements are normal there is no congenital pallor there is no scleral icterus. Ears: External auditory canals are clear, there are no lesions of the pinna. Nose: No deviated nasal septum and no inflammation of the nasal mucous membrane. Mouth: Mucous membranes of mouth are dry tongue is dry. There is no ulcers there is no bleeding from the gums. Throat: There is no redness of the oropharynx there is no exudates. Skin: There is no petechia or ecchymosis there is no skin lesions or skin rashes. Neck: Neck is supple there is no JVD carotids equal there is no bruit there is no lymphadenopathy there is no neck stiffness. There is no goiter trachea central lungs: Lungs are clear to auscultation percussion there is no accessory muscles of respiration in use. There is no rhonchi rales or wheezing. There is no chest wall tenderness. HEART: S1-S2 is heard there is no S3 gallop there is no S4 gallop S1 is of normal intensity. There is no rub. The systolic murmur in the left sternal border and apex without radiation. Abdomen: Abdomen is soft nontender there is no paraspinal megaly bowel sounds well heard there is no tender areas of masses. There is no rebound guarding or rigidity. Extremities: Femorals are well felt there is no femoral bruits neck pulses are well felt there is no pedal edema there is no DVT or cellulitis there is no cyanosis or clubbing there is no DVT or cellulitis. There is no calf tenderness. PHLEBOTOMIST LAB ASSISTANT: The patient is awake alert oriented 3 with no focal deficits. Psychiatric: The patient judgment and insight are intact and her affect is normal. Chest X-Ray 10/09/19 19:03 IMPRESSION: NO ACUTE RADIOGRAPHIC FINDING IN THE CHEST. Abdomen/Pelvis CT 10/09/19 22:41 IMPRESSION: 1. Hyperdense appearance of the unenhanced liver raising the possibility of iron deposition. There is persistent air in the biliary tree. The appearance is stable. 2. No acute process in the abdomen or pelvis. Chest X-Ray 10/09/19 19:03 IMPRESSION: NO ACUTE RADIOGRAPHIC FINDING IN THE CHEST. Abdomen/Pelvis CT 10/09/19 22:41 IMPRESSION: 1. Hyperdense appearance of the unenhanced liver raising the possibility of iron deposition. There is persistent air in the biliary tree. The appearance is stable. 2. No acute process in the abdomen or pelvis. IMPRESSION/RECOMMENDATION: 1. 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 Amiodarone has been stopped. Slight improvement in the liver function tests. 2. Secondary dehydration: Continue IV fluids, and discontinue after the present bag is over. 3. Acute on chronic renal failure. Continue gentle hydration. Will change IV to Ringer's lactate. 4. 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 5. Dilated cardiomyopathy with severely reduced LV ejection fraction. No evidence of acute systolic heart failure symptoms or signs. Will increase the patient's Toprol to 25 mg p.o. daily. Will start the patient on losartan 25 mg p.o. every 12 hours. We will watch kidney functions closely. 6. Diabetes mellitus type 2 [id number]. Note blood sugars are still a little high. This may be because of the D5W and the IV fluids. 7. Paroxysmal atrial fibrillation: Watch for recurrence. Continue Eliquis. 8. Abnormal liver function tests most likely secondary to the patient's being on amiodarone. But would get viral hepatitis work-up to make sure that there is no underlying viral hepatic disease. Will repeat liver function tests in a.m. 9. Elevated ferritin levels secondary to combination of increased thyroid state, renal failure, and abnormal liver functions. 10. AICD placement: No firing of AICD. 11. Free air in the common bile duct by CT scan. This is a normal finding since the patient has had a ERCP with sphincterotomy, and cholecystectomy in the past. Also the liver function tests are not consistent with obstructive jaundice.
[2019-10-15] MEDS: LEVOTHYROXINE SODIUM 0.1 MG TABLET PO SCH (05:17)
[2019-10-15 06:19] LABS: ALBUMIN 2.8 g/dL (3.5-5.0); ALKALINE PHOSPHATASE 91 U/L (38-126); ASPARTATE AMINO TRANSFERASE 67 U/L (17-59); BILIRUBIN,DIRECT 0.4 mg/dL (0.0-0.4); BILIRUBIN,TOTAL 1.4 mg/dL (0.2-1.3); TOTAL PROTEIN 6.6 g/dL (6.3-8.2)
[2019-10-15 08:44] LABS: ANION GAP 7 (5-19); BLOOD UREA NITROGEN 41 mg/dL (7-20); CALCIUM 9.6 mg/dL (8.4-10.2); CARBON DIOXIDE 24 mmol/L (22-30); CHLORIDE 111 mmol/L (98-107); GLUCOSE 244 mg/dL (75-110); POTASSIUM 4.2 mmol/L (3.6-5.0)
[2019-10-15] MEDS: PANTOPRAZOLE SODIUM 40 MG TABLET.DR PO SCH (08:54)
[2019-10-15] MEDS: INSULIN LISPRO 100 UNIT/ML 3 ML VIAL SUBCUT SCH (08:55)
[2019-10-15] MEDS: MONTELUKAST SODIUM 10 MG TABLET PO SCH (09:22)
[2019-10-15] MEDS: METOPROLOL SUCCINATE 25 MG TAB.SR.24H PO SCH (09:22)
[2019-10-15] MEDS: APIXABAN 2.5 MG TABLET PO SCH (09:22)
[2019-10-15] MEDS: CALCITRIOL 0.25 MCG CAPSULE PO SCH (09:22)
[2019-10-15] MEDS: POTASSIUM CHLORIDE 10 MEQ TABLET.ER PO SCH (09:22)
[2019-10-15] MEDS: LOSARTAN POTASSIUM 25 MG TABLET PO SCH (09:22)
[2019-10-15 10:00] VITALS: BP 108/71
--- NOTE | 2019-10-15 10:01 | PDOC DISCHARGE SUMMARY ---
Impression - Admit/DC Date/PCP Admission Date/Primary Care Provider: 10/11/19 12:26 LENA VAUGHN MD Discharge Date: 10/15/19 - Discharge Diagnosis (1) Acute on chronic renal failure Is this a current diagnosis for this admission?: Yes (2) LFTs abnormal Is this a current diagnosis for this admission?: Yes (3) AICD (automatic cardioverter/defibrillator) present Is this a current diagnosis for this admission?: Yes (4) Chronic kidney disease, stage 3 Is this a current diagnosis for this admission?: Yes (5) Weakness Is this a current diagnosis for this admission?: Yes (6) Type 2 diabetes mellitus Is this a current diagnosis for this admission?: Yes (7) Afib Is this a current diagnosis for this admission?: Yes (8) CAD (coronary artery disease) Is this a current diagnosis for this admission?: Yes (9) CHF (congestive heart failure) Is this a current diagnosis for this admission?: Yes (10) HLD (hyperlipidemia) Is this a current diagnosis for this admission?: Yes (11) HTN (hypertension) Is this a current diagnosis for this admission?: Yes (12) Anemia Is this a current diagnosis for this admission?: Yes - Additional Information Discharge Diet: Diabetic Discharge Activity: Activity As Tolerated Referrals: LENA VAUGHN MD [Primary Care Provider] - Follow up as needed Prescriptions: Losartan Potassium [Cozaar 25 mg Tablet] 25 mg PO Q12 #60 tablet Apixaban [Eliquis 2.5 mg Tablet] 2.5 mg PO BID #60 tablet Levothyroxine Sodium [Synthroid 0.1 mg Tablet] 0.1 mg PO Q6AM #30 tablet Metoprolol Succinate [Toprol Xl 25 mg Tab.sr] 25 mg PO DAILY #30 tab.sr.24h Home Medications: Montelukast Sodium 10 mg PO DAILY 07/29/14 Pantoprazole Sodium [Protonix] 40 mg PO DAILY 06/19/18 Calcitriol [Rocaltrol 0.25 mcg Capsule] 0.25 mcg PO MOFR@1000 07/07/19 Isosorbide Mononitrate [Imdur 30 mg Tablet.er] 15 mg PO DAILY 07/07/19 Insulin NPH Hum/Reg Insulin Hm [Novolin 70-30 Flexpen] 25 unit SQ QHS 10/11/19 Insulin NPH Hum/Reg Insulin Hm [Novolin 70-30 Flexpen] 35 unit SQ QAM 10/11/19 Apixaban [Eliquis 2.5 mg Tablet] 2.5 mg PO BID #60 tablet 10/15/19 Levothyroxine Sodium [Synthroid 0.1 mg Tablet] 0.1 mg PO Q6AM #30 tablet 10/15/19 Losartan Potassium [Cozaar 25 mg Tablet] 25 mg PO Q12 #60 tablet 10/15/19 Metoprolol Succinate [Toprol Xl 25 mg Tab.sr] 25 mg PO DAILY #30 tab.sr.24h 10/15/19 Potassium Chloride 20 meq PO DAILY #30 10/15/19 Torsemide [Demadex 20 mg Tablet] 20 mg PO DAILY #30 10/15/19 History of Present Illiness History of Present Illness: SANDRA COHN is a 74 year old male He is a 74-year-old male's with a significant history of the congestive heart failure with the EF is less than 15% currently follow the CHF clinic in [place] status post defibrillator coronary artery diseaseAnd type 2 diabetes with multiple complications with the history of the hypertensions hyperlipidemia and chronic kidney disease stage IIICurrently follow the CHF clinic in [place] have a blood draw on Tuesday and some abnormalities and also seen by Dr. Chin with the worsening the kidney function sent to the emergency departments Patient's denied any chest pain no short of breath patient's denied any nausea no vomiting but patient's appetite is very poor according to the patient Emergency department patient's BUN is 156 and creatinine is 3.69 currently on acute renal failure patient's LFTs are very highly elevated in the 500 range which all normal back in June Patient have a cholecystectomy was done last year Patient CT scan of the abdomen is suggest that hepatic depositions and also patient will air in the biliary tract which concern about the possible CBD stone with elevated bilirubin and elevated LFT and alk phos Pain patients did not complain of any abdominal pain which also contributed to patient have underlying hepatic congestions due to the chronic heart failure with possible amiodarone toxicity Patient's at this point try to send to the [place] cardiology groups because of the multiple comorbidity patients probably need a cardiac evaluations with the same times needs to further evaluation about this questionable rule out the CBD stone I spoke myself to Dr. Vaughn in [place] cardiology's which patient is cu rrently follow suggest the patient is currently follow-up with the CHF clinic and I think a patients probably call the hospitalist service to accept the patient's Discussed with the ER physicians to the multiple comorbidity with ongoing heart failure with low EF with acute renal failure with the questionable CBD stone with elevated LFT patients get a benefit to the go [facility] Hospital Course Hospital Course: 74-year-old male with a significant history of the type 2 diabetes history of the congestive heart failure with the EF is less than 20% history of the chronic kidney disease stage III and multiple other comorbidityPresent in the emergency department because of the abnormal labs the patient's BUN is 156 and creatinine is 3.69 Patient also see LFT was highly elevated in the 600 range for the elevated bilirubin Patient otherwise denied any abdominal pain no chest pain no short of breath patient initial CT of the abdomen pelvis suggest the air in biliary tree and questionable issue that patients may have a CBD stone but patient having no symptoms regarding the CBD stone Initially patient was transferred to the [facility] but because of the pandemic no beds available finally admitting in the hospital here Patient also seen by nephrology for acute renal failure and chronic kidney disease patient started on IV fluid and Stop all diuretics Patient's LFTs most likely related to amiodarone toxicity which also coming down Patient covid Test is negative Patient is back to the baseline kidney function his creatinine is 1.47 potassium is all stable Patient LFTs also improving Discussed with the cardiology and nephrology patients wants to go home patient is completely asymptomatic's patient is walking the hallway without any problems Patient's restarted the low-dose torsemide and potassium is daily following a 1 week to repeat the Chem-7 Patient also on Eliquis 2.5 mg twice a day Patient's continues to insulin as at home's continues to monitor Arranged home health follow-up with the cardiology Dr. MONSALVE in [place] Physical Exam Vital Signs: Temp Pulse Resp BP Pulse Ox 98.0 F 66 17 124/79 100 10/15/19 08:27 10/15/19 08:27 10/15/19 08:27 10/15/19 08:27 10/15/19 08:27 Intake & Output 10/14/19 10/15/19 10/16/19 06:59 06:59 06:59 Intake Total 780 1120 Output Total 1900 2000 Balance -1120 -880 Weight 72.3 kg 75.4 kg General appearance: PRESENT: no acute distress, well-developed, well-nourished Head exam: PRESENT: atraumatic, normocephalic Eye exam: PRESENT: conjunctiva pink, EOMI, PERRLA. ABSENT: scleral icterus Ear exam: PRESENT: normal external ear exam Mouth exam: PRESENT: moist, tongue midline Neck exam: ABSENT: carotid bruit, JVD, lymphadenopathy, thyromegaly Respiratory exam: PRESENT: clear to auscultation erasmo. ABSENT: rales, rhonchi, wheezes Cardiovascular exam: PRESENT: RRR. ABSENT: diastolic murmur, rubs, systolic murmur Pulses: PRESENT: normal dorsalis pedis pul Vascular exam: PRESENT: normal capillary refill GI/Abdominal exam: PRESENT: normal bowel sounds, soft. ABSENT: distended, guarding, mass, organolmegaly, rebound, tenderness Rectal exam: PRESENT: deferred Extremities exam: PRESENT: full ROM. ABSENT: calf tenderness, clubbing, pedal edema Neurological exam: PRESENT: alert, awake, oriented to person, oriented to place, oriented to time, oriented to situation, CN II-XII grossly intact. ABSENT: motor sensory deficit Psychiatric exam: PRESENT: appropriate affect, normal mood. ABSENT: homicidal ideation, suicidal ideation Skin exam: PRESENT: dry, intact, warm. ABSENT: cyanosis, rash Results Laboratory Results: WBC 13.8 10^3/uL (4.0-10.5) H 10/12/19 06:16 RBC 4.96 10^6/uL (4.35-5.55) 10/12/19 06:16 Hgb 13.9 g/dL (13.5-17.0) 10/12/19 06:16 Hct 41.7 % (37.9-51.0) 10/12/19 06:16 MCV 84 fl (80-97) 10/12/19 06:16 MCH 28.0 pg (27.0-33.4) 10/12/19 06:16 MCHC 33.3 g/dL (32.0-36.0) 10/12/19 06:16 RDW 13.3 % (11.5-14.0) 10/12/19 06:16 Plt Count 260 10^3/uL (150-450) 10/12/19 06:16 Lymph % (Auto) Not Reportable 10/12/19 06:16 [place] % (Auto) Not Reportable 10/12/19 06:16 Eos % (Auto) Not Reportable 10/12/19 06:16 Baso % (Auto) Not Reportable 10/12/19 06:16 Reticulocyte # 0.068 10^6/uL (0.028-0.122) 10/12/19 06:16 Absolute Neuts (auto) Not Reportable 10/12/19 06:16 Absolute Lymphs (auto) Not Reportable 10/12/19 06:16 Absolute Monos (auto) Not Reportable 10/12/19 06:16 Absolute Eos (auto) Not Reportable 10/12/19 06:16 Absolute Basos (auto) Not Reportable 10/12/19 06:16 Total Counted 100 10/12/19 06:16 Seg Neutrophils % Not Reportable 10/12/19 06:16 Seg Neuts % (Manual) 91 % (42-78) H 10/12/19 06:16 Lymphocytes % (Manual) 3 % (13-45) L 10/12/19 06:16 Atypical Lymphs % 1 % (0) 10/09/19 21:03 Monocytes % (Manual) 6 % (3-13) 10/12/19 06:16 Eosinophils % (Manual) 0 % (0-6) 10/12/19 06:16 Basophils % (Manual) 0 % (0-2) 10/12/19 06:16 Metamyelocytes % 1 % (0-1) 10/09/19 21:03 Abs Neuts (Manual) 12.6 10^3/uL (1.7-8.2) H 10/12/19 06:16 Abs Lymphs (Manual) 0.4 10^3/uL (0.5-4.7) L 10/12/19 06:16 Abs Monocytes (Manual) 0.8 10^3/uL (0.1-1.4) 10/12/19 06:16 Absolute Eos (Manual) 0.0 10^3/uL (0.0-0.6) 10/12/19 06:16 Abs Basophils (Manual) 0.0 10^3/uL (0.0-0.2) 10/12/19 06:16 Toxic Vacuolation PRESENT 10/12/19 06:16 Large Platelets PRESENT 10/12/19 06:16 Platelet Comment ADEQUATE 10/12/19 06:16 Polychromasia SLIGHT 10/11/19 08:18 Poikilocytosis SLIGHT 10/09/19 21:03 Ovalocytes SLIGHT 10/09/19 21:03 RBC Morph Comment NORMO-CYTIC/CHROMIC 10/12/19 06:16 Retic Count (auto) 1.36 % (0.66-2.85) 10/12/19 06:16 Sodium 142.3 mmol/L (137-145) 10/15/19 04:48 Potassium 4.2 mmol/L (3.6-5.0) 10/15/19 04:48 Chloride 111 mmol/L (98-107) H 10/15/19 04:48 Carbon Dioxide 24 mmol/L (22-30) 10/15/19 04:48 Anion Gap 7 (5-19) 10/15/19 04:48 BUN 41 mg/dL (7-20) H 10/15/19 04:48 Creatinine 1.36 mg/dL (0.52-1.25) H 10/15/19 04:48 Est GFR ( Amer) > 60 (>60) 10/15/19 04:48 Est GFR (MDRD) Non-Af 51 (>60) L 10/15/19 04:48 Glucose 244 mg/dL (75-110) H 10/15/19 04:48 POC Glucose 241 mg/dL (70-110) H 10/15/19 08:28 Hemoglobin A1c % 9.6 % (4.7-6.0) H 10/14/19 04:15 Calcium 9.6 mg/dL (8.4-10.2) 10/15/19 04:48 Magnesium 3.2 mg/dL (1.6-2.3) H 10/11/19 08:18 Iron 43.6 ug/dL (49-181) L 10/12/19 06:16 TIBC 247 ug/dL (250-450) L 10/12/19 06:16 % Saturation 18 % 10/12/19 06:16 Ferritin 762.00 ng/mL (17.9-464.0) H 10/12/19 06:16 Total Bilirubin 1.4 mg/dL (0.2-1.3) H 10/15/19 04:48 Direct Bilirubin 0.4 mg/dL (0.0-0.4) 10/15/19 04:48 Neonat Total Bilirubin Not Reportable 10/15/19 04:48 Neonat Direct Bilirubin Not Reportable 10/15/19 04:48 Neonat Indirect Bili Not Reportable 10/15/19 04:48 AST 67 U/L (17-59) H 10/15/19 04:48 ALT 201 U/L (<50) H 10/15/19 04:48 Alkaline Phosphatase 91 U/L (38-126) 10/15/19 04:48 Troponin I 0.139 ng/mL 10/11/19 08:18 NT-Pro-B Natriuret Pep 3630 pg/mL (<125) H 10/09/19 21:03 Total Protein 6.6 g/dL (6.3-8.2) 10/15/19 04:48 Albumin 2.8 g/dL (3.5-5.0) L 10/15/19 04:48 Lipase 137.3 U/L (23-300) 10/11/19 08:18 Vitamin B12 > 1000.0 pg/mL (239-931) H 10/12/19 06:16 Folate 17.00 ng/mL (>2.76) 10/12/19 06:16 TSH 0.50 uIU/mL (0.47-4.68) 10/11/19 20:23 Free T4 3.26 ng/dL (0.78-2.19) H 10/15/19 04:48 Free T3 pg/mL 1.95 pg/mL (2.77-5.27) L 10/11/19 20:23 Urine Color YELLOW 10/09/19 20:18 Urine Appearance SLIGHTLY-CLOUDY 10/09/19 20:18 Urine pH 6.0 (5.0-9.0) 10/09/19 20:18 Ur Specific [place] 1.010 10/09/19 20:18 Urine Protein NEGATIVE mg/dL (NEGATIVE) 10/09/19 20:18 Urine Glucose (UA) NEGATIVE mg/dL (NEGATIVE) 10/09/19 20:18 Urine Ketones NEGATIVE mg/dL (NEGATIVE) 10/09/19 20:18 Urine Blood SMALL (NEGATIVE) H 10/09/19 20:18 Urine Nitrite NEGATIVE (NEGATIVE) 10/09/19 20:18 Urine Bilirubin NEGATIVE (NEGATIVE) 10/09/19 20:18 Urine Urobilinogen NEGATIVE mg/dL (<2.0) 10/09/19 20:18 Ur Leukocyte Esterase NEGATIVE (NEGATIVE) 10/09/19 20:18 Urine WBC (Auto) 0 /HPF 10/09/19 20:18 Urine RBC (Auto) 3 /HPF 10/09/19 20:18 U Hyaline Cast (Auto) 55 /LPF 10/09/19 20:18 Squamous Epi Cells Auto 2 /HPF 10/09/19 20:18 Urine Mucus (Auto) OCC /LPF 10/09/19 20:18 Urine Ascorbic Acid NEGATIVE (NEGATIVE) 10/09/19 20:18 SARS-CoV-2 (PCR) NEGATIVE (NEGATIVE) 10/11/19 12:48 Group A Strep Rapid NEGATIVE (NEGATIVE) 10/09/19 22:48 10/09/19 10/11/19 21:03 08:18 Troponin I 0.155 0.139 NT-Pro-B Natriuret Pep 3630 H Impressions: Chest X-Ray 10/09/19 19:03 IMPRESSION: NO ACUTE RADIOGRAPHIC FINDING IN THE CHEST. Abdomen/Pelvis CT 10/09/19 22:41 IMPRESSION: 1. Hyperdense appearance of the unenhanced liver raising the possibility of iron deposition. There is persistent air in the biliary tree. The appearance is stable. 2. No acute process in the abdomen or pelvis. Plan Time Spent: Greater than 30 Minutes - f/u in 1 wk f/u with cardilogist and nephrology Stroke Is this a Stroke Patient?: No Acute Heart Failure - Is this a Heart Failure Patient?: Yes Documentation of LVEF assessment?: Yes LVEF: LVEF Less Than or Equal to 35% Anticoagulant Therapy: Yes Discharged on Evidence-Based Beta Blockers: Yes Discharged on ARNI?: No-Document Contraindications Reason(s) not discharged on ARNI: Hyperkalemia Discharged on ARB?: Yes Discharged on ACEI?: N/A Discharged on ARB For LVEF <35%, discharged on Aldosterone Antagonist?: N/A (LVEF > or = 35%) Reason(s) not discharged on Aldosterone Antagonist: Renal dysfunction (creatinine >2.5 mg/dL in men or 2.0 mg/dL in women) Follow-up Appointment scheduled within 7 days?: Yes
--- NOTE | 2019-10-15 14:31 | Progress Note ---
Provider Note Provider Note: CARDIOLOGY PROGRESS NOTE by Dr. Ginny Weber on 10/15/2019. SUBJECTIVE: The patient denies any chest pain or discomfort. There is no shortness of breath. There is no PND orthopnea. He is GFR is come back to normal and greater than 60. His LFTs are coming down. There is no firing of his AICD. There is no arrhythmias seen on the monitor and especially there is no recurrence of atrial fibrillation. There is no bleeding on Eliquis. There is no TIA CVA symptoms. His old will take is much improved. PHYSICAL EXAMINATION: The patient appears to be chronically ill and a frail build. In no acute distress. Selected Entries 10/15/19 10/15/19 10:06 13:20 Temperature 98.0 F Pulse Rate 66 Respiratory 17 Rate Blood Pressure 108/71 [Left Upper Arm ] O2 Sat by Pulse 100 Oximetry Fraction of 21 Inspired Oxygen (FIO2) HEAD: Head is atraumatic normocephalic. Eyes: Pupils are equal round regular reactive light accommodation extraocular movements are normal there is no congenital pallor there is no scleral icterus. Ears: External auditory canals are clear, there are no lesions of the pinna. Nose: No deviated nasal septum and no inflammation of the nasal mucous membrane. Mouth: Mucous membranes of mouth are dry tongue is dry. There is no ulcers there is no bleeding from the gums. Throat: There is no redness of the oropharynx there is no exudates. Skin: There is no petechia or ecchymosis there is no skin lesions or skin rashes. Neck: Neck is supple there is no JVD carotids equal there is no bruit there is no lymphadenopathy there is no neck stiffness. There is no goiter trachea central lungs: Lungs are clear to auscultation percussion there is no accessory muscles of respiration in use. There is no rhonchi rales or wheezing. There is no chest wall tenderness. HEART: S1-S2 is heard there is no S3 gallop there is no S4 gallop S1 is of normal intensity. There is no rub. The systolic murmur in the left sternal border and apex without radiation. Abdomen: Abdomen is soft nontender there is no paraspinal megaly bowel sounds well heard there is no tender areas of masses. There is no rebound guarding or rigidity. Extremities: Femorals are well felt there is no femoral bruits neck pulses are well felt there is no pedal edema there is no DVT or cellulitis there is no cyanosis or clubbing there is no DVT or cellulitis. There is no calf tenderness. [employer]: The patient is awake alert oriented 3 with no focal deficits. Psychiatric: The patient judgment and insight are intact and her affect is normal. Labs- All tests 24 hr 10/14/19 10/14/19 10/14/19 08:15 15:52 21:08 Sodium Potassium Chloride Carbon Dioxide Anion Gap BUN Creatinine Est GFR ( Amer) Est GFR (MDRD) Non-Af Glucose POC Glucose 320 H 213 H 204 H Calcium Total Bilirubin Direct Bilirubin Neonat Total Bilirubin Neonat Direct Bilirubin Neonat Indirect Bili AST ALT Alkaline Phosphatase Total Protein Albumin Free T4 10/15/19 10/15/19 10/15/19 04:48 04:48 04:48 Sodium 142.3 Potassium 4.2 Chloride 111 H Carbon Dioxide 24 Anion Gap 7 BUN 41 H Creatinine 1.36 H Est GFR ( Amer) > 60 Est GFR (MDRD) Non-Af 51 L Glucose 244 H POC Glucose Calcium 9.6 Total Bilirubin 1.4 H Direct Bilirubin 0.4 Neonat Total Bilirubin Not Reportable Neonat Direct Bilirubin Not Reportable Neonat Indirect Bili Not Reportable AST 67 H ALT 201 H Alkaline Phosphatase 91 Total Protein 6.6 Albumin 2.8 L Free T4 3.26 H 10/15/19 08:28 Sodium Potassium Chloride Carbon Dioxide Anion Gap BUN Creatinine Est GFR ( Amer) Est GFR (MDRD) Non-Af Glucose POC Glucose 241 H Calcium Total Bilirubin Direct Bilirubin Neonat Total Bilirubin Neonat Direct Bilirubin Neonat Indirect Bili AST ALT Alkaline Phosphatase Total Protein Albumin Free T4 Chest X-Ray 10/09/19 19:03 IMPRESSION: NO ACUTE RADIOGRAPHIC FINDING IN THE CHEST. Abdomen/Pelvis CT 10/09/19 22:41 IMPRESSION: 1. Hyperdense appearance of the unenhanced liver raising the possibility of iron deposition. There is persistent air in the biliary tree. The appearance is stable. 2. No acute process in the abdomen or pelvis. IMPRESSION/RECOMMENDATION: 1. 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 Amiodarone has been stopped. Slight improvement in the liver function tests. 2. Secondary dehydration: Continue IV fluids, and discontinue after the present bag is over. 3. Acute on chronic renal failure. This has resolved with hydration. The patient GFR is greater than 60. The patient is off IV fluids. He is taking quite well orally. 4. 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 5. Dilated cardiomyopathy with severely reduced LV ejection fraction. No evidence of acute systolic heart failure symptoms or signs. Will increase the patient's Toprol to 25 mg p.o. daily. Will start the patient on losartan 25 mg p.o. every 12 hours. We will watch kidney functions closely. 6. Diabetes mellitus type 2 [id number]. Note blood sugars are still a little high. This may be because of the D5W and the IV fluids. 7. Paroxysmal atrial fibrillation: Watch for recurrence. Continue Eliquis. 8. Abnormal liver function tests most likely secondary to the patient's being on amiodarone. But would get viral hepatitis work-up to make sure that there is no underlying viral hepatic disease. Will repeat liver function tests in a.m. 9. Elevated ferritin levels secondary to combination of increased thyroid state, renal failure, and abnormal liver functions. 10. AICD placement: No firing of AICD. 11. Free air in the common bile duct by CT scan. This is a normal finding since the patient has had a ERCP with sphincterotomy, and cholecystectomy in the past. Also the liver function tests are not consistent with obstructive jaundice. Medications reviewed. Medications adjusted. Medical decision making is of moderate complexity. Medications and medical regimen and management plan discussed with Dr. Vaughn. Patient's cardiac status stable. Hence will sign off. The patient can be discharged from cardiac point of view. The patient follow-up with me in the next week in the office. Thanking you we will sign off. Thank you for allowing me to participate in the care of this patient.
[2019-10-15 15:15] LABS: HEPATITS B SURFACE ANTIGEN Negative (Negative)
[2019-10-16 05:38] LABS: HEPATITS B SURFACE ANTIGEN Negative (Negative)
[2019-10-16 07:16] LABS: HEPATITIS C VIRUS ANTIBODY 0.1 s/co ratio (0.0-0.9)
== END 2019-10-15 14:31 | disposition home health service (06) | DRG 683 ==
LOC: ER 18:17 → EH 10-11 12:26 → 3S 10-11 16:10
PROVIDERS: ADMIT Family Medicine; ATTEND Family Medicine
DX: N17.9 Acute kidney failure, unspecified (principal); I13.0 Hypertensive heart and chronic kidney disease with heart failure and stage 1 through stage 4 chronic kidney disease, or unspecified chronic kidney disease; I50.42 Chronic combined systolic (congestive) and diastolic (congestive) heart failure; N18.3 Chronic kidney disease, stage 3 (moderate); I48.0 Paroxysmal atrial fibrillation; E87.6 Hypokalemia; E11.22 Type 2 diabetes mellitus with diabetic chronic kidney disease; R62.7 Adult failure to thrive; D63.1 Anemia in chronic kidney disease; E80.7 Disorder of bilirubin metabolism, unspecified; E78.00 Pure hypercholesterolemia, unspecified; J44.9 Chronic obstructive pulmonary disease, unspecified; T46.2X5A Adverse effect of other antidysrhythmic drugs, initial encounter; R94.5 Abnormal results of liver function studies; Y92.018 Other place in single-family (private) house as the place of occurrence of the external cause; Z95.810 Presence of automatic (implantable) cardiac defibrillator; Z03.818 Encounter for observation for suspected exposure to other biological agents ruled out; Z79.01 Long term (current) use of anticoagulants; Z79.84 Long term (current) use of oral hypoglycemic drugs; Z79.4 Long term (current) use of insulin; Z79.899 Other long term (current) drug therapy
CPT/HCPCS: 36415; 71045; 74176; 80048; 80053; 80074; 80076; 81001; 82607; 82728; 82746; 82962; 83036; 83540; 83550; 83690; 83735; 83880; 84132; 84439; 84443; 84481; 84484; 85025; 85045; 87040; 87070; 87086; 87340; 87635; 87880; 93005; 93010; 96365; 96366; 96367; 99285; C9803; J1815; J2543; J3480; J3490; J7050; J7120